=== PATIENT | male | born 1965 | race Caucasian/White ===

== ENCOUNTER → 2017-12-03 16:09 | Outpatient (CLI) | payer OTHER, SELFPAY ==
[2017-12-03 17:51] LABS: Basophil# 0.02 X10^3/uL; Basophil% 0.3 % (0-1); Eosinophil# 0.05 X10^3/uL; Eosinophils% 0.7 % (0-5); Hematocrit 42.3 % (40-54); Hemoglobin 14.1 g/dl (13.0-16.5); Lymphocyte % 31.2 % (19-41); Mean Corp Hgb Conc 33.3 g/gl (32-36); Mean Corpuscular Hgb 30.9 pg (27.0-32.0); Mean Corpuscular Volume 92.8 fL (80-94); Mean Platelet Vol. 9.3 fl (6.2-12.0); Monocyte# 0.79 X10^3/uL; Monocyte% 11.2 % (0-10); Neutrophil # 3.98 X10^3/uL (2.7-7.7); Neutrophil % 56.5 % (47-70); Platelet Count 226 K/mm3 (150-450); RBC Distribution Width CV 12.9 % (11.6-14.6); RBC Distribution Width SD 43.6 fl (35.1-43.9); Red Blood Count 4.56 M/mm3 (4.6-6.2); White Blood Count 7.1 K/mm3 (4.4-11.0)
[2017-12-03 17:54] LABS: POSITIVE COUNT NO; POSITIVE DIFFERENTIAL NO; POSITIVE MORPHOLOGY NO
[2017-12-03 18:09] LABS: Erythrocyte Sedimentation Rate 6 mm/hr (0-20)
[2017-12-03 18:17] LABS: ALB/GLOB Ratio 1.1 RATIO (0.9-2.4); AST(SGOT) 28 U/L (15-37); Alanine Aminotransfer ALT/SGPT 34 U/L (16-61); Albumin, Serum 3.9 g/dL (3.2-5.0); Alkaline Phosphatase 92 U/L (45-117); Anion Gap 7 (5-15); BUN 12 mg/dL (7-18); BUN/Creat Ratio 14.4 RATIO (10-20); CRP < 2.90 mg/L (0.0-3.0); Calcium,Total 8.6 mg/dL (8.5-10.1); Chloride 100 mmol/L (98-107); Creatinine, Serum 0.83 mg/dL (0.70-1.30); EST Glomerular Filtration Rate 103 mL/min (>60); Est Glom Filt Rate - Afr Amer 124 mL/min (>60); Globulin 3.5 g/dL (2.2-4.2); Glucose 80 mg/dL (74-106); Potassium 3.7 mmol/L (3.5-5.1); Protein, Total 7.4 g/dL (6.4-8.2); Sodium Level 133 mmol/L (136-145)
== END ==
PROVIDERS: Family Provider Family Medicine; PCP Family Medicine; Visit Provider Podiatrist
DX: L97.519 Non-pressure chronic ulcer of other part of right foot with unspecified severity (principal); M86.9 Osteomyelitis, unspecified
CPT/HCPCS: 36415; 80053; 85025; 85652; 86140; 87070; 87077; 87186; 87205

== ENCOUNTER 2018-10-07 11:39 | Inpatient (IN) | payer OTHER, SELFPAY ==
[2017-08-10 11:49] VITALS: BMI 25.7
[2018-10-07 12:09] VITALS: BP 131/89; PULSE 63; RESP 16; TEMP 36.7; O2SAT 94; BMI 23.4
[2018-10-07 12:16] VITALS: BP 131/89; PULSE 63; RESP 18; TEMP 36.7
--- NOTE | 2018-10-07 12:19 | EKG12_ITS ---
Test Reason : Blood Pressure : / mmHG Vent. Rate : 081 BPM Atrial Rate : 081 BPM P-R Int : 156 ms QRS Dur : 090 ms QT Int : 384 ms P-R-T Axes : 069 -58 027 degrees QTc Int : 446 ms Normal sinus rhythm Left axis deviation Abnormal ECG When compared with ECG of 16-APR-2013 18:59, No significant change was found Confirmed by LORRAINE LEON, TAMMIE ([id number]), magazine editor CYNDIE DUMONT ([id number]) on 10/18/2018 5:33:13 PM Referred By: Asha Noble Confirmed By:TAMMIE PETERS MD
[2018-10-07 12:55] LABS: Absolute Lymphocyte Count 1.36 X10^3/ul (0.83-4.51); Absolute Neutrophil Count 4.7 X10^3/uL (2.0-7.7); Basophil# 0.02 X10^3/uL; Basophil% 0.3 % (0-1); Hematocrit 44.4 % (40-54); Hemoglobin 15.5 g/dl (13.0-16.5); Lymphocyte # 1.36 X10^3/ul (4.0); Lymphocyte % 20.9 % (19-41); Mean Corp Hgb Conc 34.9 g/gl (32-36); Mean Corpuscular Hgb 31.9 pg (27.0-32.0); Mean Corpuscular Volume 91.4 fL (80-94); Mean Platelet Vol. 9.1 fl (6.2-12.0); Monocyte# 0.44 X10^3/uL; Monocyte% 6.8 % (0-10); Neutrophil # 4.68 X10^3/uL (2.7-7.7); Neutrophil % 71.8 % (47-70); POSITIVE COUNT NO; POSITIVE DIFFERENTIAL NO; POSITIVE MORPHOLOGY NO; Platelet Count 194 K/mm3 (150-450); RBC Distribution Width CV 12.8 % (11.6-14.6); RBC Distribution Width SD 42.5 fl (35.1-43.9); Red Blood Count 4.86 M/mm3 (4.6-6.2); White Blood Count 6.5 K/mm3 (4.4-11.0)
[2018-10-07 12:57] LABS: Amphetamine Urine VISTA NEGATIVE (<1000 ng/mL); Barbiturate Urine VISTA NEGATIVE (< 200 ng/mL); Benzodiazepine Urine VISTA NEGATIVE (< 200 ng/mL); Cocaine Urine VISTA NEGATIVE (< 300 ng/mL); Ecstacy Urine VISTA NEGATIVE (< 500 ng/mL); Methadone Urine VISTA NEGATIVE (< 300 ng/mL); PCP Urine VISTA NEGATIVE (< 25 ng/mL); THC Urine VISTA NEGATIVE (< 50 ng/mL); Vista UDS pH Range 5
[2018-10-07] MEDS: Methocarbamol 750 MG Tablet PO (13:03)
[2018-10-07] MEDS: chlordiazePOXIDE 25 MG Capsule PO ×2 (13:03→19:22)
[2018-10-07] MEDS: Dicyclomine 10 MG Capsule 20 MG PO (13:04)
[2018-10-07 13:06] LABS: AST(SGOT) 111 U/L (15-37); Alanine Aminotransfer ALT/SGPT 82 U/L (16-61); Albumin, Serum 3.9 g/dL (3.2-5.0); Alkaline Phosphatase 131 U/L (45-117); Anion Gap 11 (5-15); BUN 12 mg/dL (7-18); BUN/Creat Ratio 11.1 RATIO (10-20); Chloride 102 mmol/L (98-107); Creatinine, Serum 1.08 mg/dL (0.70-1.30); EST Glomerular Filtration Rate 76 mL/min (>60); Est Glom Filt Rate - Afr Amer 92 mL/min (>60); Estimated Creatinine Clearance 81.67 ml/min; Glucose 110 mg/dL (74-106); Potassium 3.5 mmol/L (3.5-5.1); Protein, Total 7.9 g/dL (6.4-8.2); Sodium Level 135 mmol/L (136-145)
[2018-10-07 13:08] LABS: International Normalized Ratio 0.9
[2018-10-07 17:27] VITALS: BP 103/64; PULSE 83; RESP 18; TEMP 37.1; O2SAT 96
[2018-10-07] MEDS: hydrOXYzine PAM 25 MG Capsule 50 MG PO (17:30)
--- NOTE | 2018-10-07 21:20 | HP.PCM_ITS ---
Problem List (1) Alcohol withdrawal Status: Acute (2) Abnormal LFTs Status: Acute (3) RBBB (right bundle branch block) Status: Chronic (4) Premature ventricular contraction Status: Chronic (5) Presence of stent in coronary artery Status: Chronic Comment: PTCA/DANIELLE to prox/mid LAD 01/17/15 (6) Nonrheumatic mitral (valve) prolapse Status: Chronic (7) Atherosclerotic heart disease of [place] coronary artery without angina pectoris Status: Chronic (8) Hyperlipidemia Status: Chronic Qualifiers: (9) HTN (hypertension), benign Status: Chronic (10) Alcohol dependence Status: Chronic (11) Tobacco dependence Status: Chronic History of Present Illness Date of Admission: 10/07/18 Chief Complaint: Tremors secondary to acute alcohol withdrawal, requesting inpatient admission to the [facility] program for medical stabilization for acute alcohol withdrawal The patient is a 53 year old M with a past medical history of coronary artery disease with PCI, hypertension, alcohol dependence, tobacco dependence, nonrheumatic mitral valve prolapse and chronic PVCs and PACs who presented to the [facility] office at [facility] on 10/07/2018 requesting inpatient admission to the [facility] program for medical stabilization for acute alcohol withdrawal. His last drink was at 7:30 PM on 08/05/2019. He complained of tremors and anxiety. He denied nausea/vomiting/abdominal pain/hallucinations. He has been through detox in the past and has never had DTs. He admits to drinking 12-15 beers daily and starts drinking early in the morning. He tells me he drinks because he is bored. Past Medical History Past Medical History (Chronic Problems): Chronic Problems (Last Updated 05/13/18 @ 16:25 by Gillian Sierra) Alcohol dependence (Chronic) Tobacco dependence (Chronic) RBBB (right bundle branch block) (Chronic) Premature ventricular contraction (Chronic) Presence of stent in coronary artery (Chronic ~01/17/15) PTCA/DANIELLE to prox/mid LAD 01/17/15 Nonrheumatic mitral (valve) prolapse (Chronic) Atherosclerotic heart disease of [place] coronary artery without angina pectoris (Chronic) Hyperlipidemia (Chronic) HTN (hypertension), benign (Chronic) Medical History: Medical History (Last Reviewed 10/07/18 @ 21:24 by Asha Noble DO) RBBB (right bundle branch block) (Chronic) I45.10 Premature ventricular contraction (Chronic) I49.3 Nonrheumatic mitral (valve) prolapse (Chronic) I34.1 Atherosclerotic heart disease of [place] coronary artery without angina pectoris (Chronic) I25.10 Hyperlipidemia (Chronic) E78.5 HTN (hypertension), benign (Chronic) I10 ANNIE (obstructive sleep apnea) G47.33 Allergies Penicillins Allergy (Verified 01/17/15 07:59) Unknown Home Medications: Ambulatory Orders Medication Instructions Recorded Aspirin [Aspirin, Baby] 81 mg PO DAILY@0800 01/16/15 atorvastatin 80 mg tablet 80 mg PO QDAY #90 tab 06/23/18 Citalopram Hydrobromide 40 mg PO DAILY 10/07/18 [Citalopram HBr] Clopidogrel Bisulfate [Clopidogrel] 75 mg PO DAILY 10/07/18 Lisinopril/Hydrochlorothiazide 1 tab PO DAILY 10/07/18 [Zestoretic 20-25 mg Tablet] Montelukast Sodium 10 mg PO QHS 10/07/18 Surgical History: Surgical History (Last Updated 10/07/18 @ 21:25 by Asha Noble DO) Presence of stent in coronary artery (Chronic) Onset Date: ~01/17/15 Z95.5 PTCA/DANIELLE to prox/mid LAD 01/17/15 H/O bilateral inguinal hernia repair Z98.890, Z87.19 Postsurgical percutaneous transluminal coronary angioplasty (PTCA) status Onset Date: ~01/17/15 Z98.61 PTCA/DANIELLE to prox/mid LAD 01/17/15 History of cholecystectomy Z90.49 History of hernia repair Z98.890, Z87.19 History of tonsillectomy Z90.89 Psychiatric History: No pertinent psych hx Lives: Alone Smoking Status: Current every day smoker Tobacco Use: Cigarettes Alcohol: Heavy Drugs: None - *Family History Maternal Family History: Family History (Last Reviewed 10/07/18 @ 21:26 by Asha Noble DO) Father CAD (coronary artery disease) Myocardial infarction Mother Hypertension Grandfather CVA (cerebral vascular accident) Heart disease Myocardial infarction, Onset Age: 48 Review of Systems Constitutional: Denies: Chills, Fever, Weight Change Eyes: Denies: Blurred vision HEENT: Denies: Head Aches, Sinus Congestion, Sinus Drainage, Sore Throat Cardiovascular: Denies: Chest Pain, Light Headedness, Palpitations Respiratory: Denies: Cough, Shortness of Breath, Shortness of breath at rest, Sputum production Gastrointestinal: Denies: Abdominal Pain, Nausea, Vomiting Genitourinary: Denies: Dysuria Musculoskeletal: Reports: Back Pain. Denies: Joint Pain, Joint Tenderness Skin: Denies: Jaundice, Lesions, Rash, Wounds Neurological: Reports: Tremor. Denies: Balance problems, Difficulty swallowing, Focal weakness, Numbness, Tingling, Seizures Psychiatric: Denies: Anxiety, Depression, Homicidal Ideations, Suicidal Ideations Hematologic/ Lymphatic: Denies: Easy Bruising, Easy Bleeding, Hx of blood clot VTE Information - Inpt Only VTE Present on Admission: No VTE Mechan Device Prophylaxis: None VTE Pharm Prophylaxis ordered?: No Reason prophylaxis not ordered:: Treatment Not Indicated - risk is minimal and he is ambulatory Patient Problems: Active and Suspected Problems (Last Updated 05/13/18 @ 16:25 by Gillian Sierra) Alcohol withdrawal (Acute) Abnormal LFTs (Acute) - Physical Exam General: Alert, Oriented x3, Cooperative, Well developed, Well nourished HEENT: Atraumatic, PERRLA, EOMI, Normocephalic Neck: Supple, No JVD, Negative Carotid Bruits, No Nodes, Trachea Midline Lungs: Clear to auscultation, Normal air movement, No rhonchi, No wheeze, No rales Cardiovascular: Regular rate, Regular Rhythm, Normal S1, Normal S2, No murmurs, No Ectopic Activity, No rub noted, No Gallop Abdomen: Bowel Sounds Present, Soft, Non Tender, Non-Distended, No Hepato- splenomegaly Extremities: No clubbing, No cyanosis, No edema, Capillary Refill Less than 3 Seconds, No Calf Tenderness, Peripheral Pulses Normal Skin: No rashes, No breakdown Musculoskeletal: No Tenderness to Palpation of Joints or Extremities, No Muscle Wasting Neurological: Cranial nerves II-XII grossly intact, Neuro grossly intact Psych/Mental Status: Normal Affect, Appropriate Vital Signs Temp Pulse Resp BP Pulse Ox 98.7 F 83 18 103/64 96 10/07/18 17:27 10/07/18 17:27 10/07/18 17:27 10/07/18 17:27 10/07/18 17:27 Oxygen Delivery Method Room Air Weight: 163 lb 6.4 oz Body Mass Index (BMI) 23.4 Intake and Output for Last 24 Hours 10/05/18 10/06/18 10/07/18 23:59 23:59 23:59 Intake Total 500 / 500 Balance 500 / 500 Laboratory Tests Past 24 Hrs 10/07/18 10/07/18 10/07/18 12:30 12:40 12:40 WBC 6.5 RBC 4.86 Hgb 15.5 Hct 44.4 MCV 91.4 MCH 31.9 MCHC 34.9 RDW 12.8 RDW Differential 42.5 Plt Count 194 MPV 9.1 Immature Gran % (Auto) 0.200 Neut % (Auto) 71.8 H Lymph % (Auto) 20.9 [place] % (Auto) 6.8 Eos % (Auto) 0.0 Baso % (Auto) 0.3 Absolute Neuts (auto) 4.7 Absolute Lymphs (auto) 1.36 Total Counted Not Reportable PT 12.0 INR 0.9 Sodium Potassium Chloride Carbon Dioxide Anion Gap BUN Creatinine Estim Creat Clear Calc Est GFR (MDRD) Af Amer Est GFR (MDRD) Non-Af BUN/Creatinine Ratio Glucose Calcium Total Bilirubin AST ALT Alkaline Phosphatase Total Protein Albumin Globulin Albumin/Globulin Ratio Urine Opiates Screen NEGATIVE Urine Methadone Screen NEGATIVE Ur Barbiturates Screen NEGATIVE Ur Phencyclidine Scrn NEGATIVE Ur Amphetamines Screen NEGATIVE U Methamphetamin-MDMA NEGATIVE U Benzodiazepines Scrn NEGATIVE Urine Cocaine Screen NEGATIVE U Cannabinoids Screen NEGATIVE Ur Drug Screen Comment Ethyl Alcohol 10/07/18 10/07/18 12:40 12:40 WBC RBC Hgb Hct MCV MCH MCHC RDW RDW Differential Plt Count MPV Immature Gran % (Auto) Neut % (Auto) Lymph % (Auto) [place] % (Auto) Eos % (Auto) Baso % (Auto) Absolute Neuts (auto) Absolute Lymphs (auto) Total Counted PT INR Sodium 135 L Potassium 3.5 Chloride 102 Carbon Dioxide 22.0 Anion Gap 11 BUN 12 Creatinine 1.08 Estim Creat Clear Calc 81.67 Est GFR (MDRD) Af Amer 92 Est GFR (MDRD) Non-Af 76 BUN/Creatinine Ratio 11.1 Glucose 110 H Calcium 9.0 Total Bilirubin 2.00 H AST 111 H ALT 82 H Alkaline Phosphatase 131 H Total Protein 7.9 Albumin 3.9 Globulin 4.0 Albumin/Globulin Ratio 1.0 Urine Opiates Screen Urine Methadone Screen Ur Barbiturates Screen Ur Phencyclidine Scrn Ur Amphetamines Screen U Methamphetamin-MDMA U Benzodiazepines Scrn Urine Cocaine Screen U Cannabinoids Screen Ur Drug Screen Comment Ethyl Alcohol 11.0 Assessment/Plan All Active Problems (Last Updated 05/13/18 @ 16:25 by Gillian Sierra) Alcohol withdrawal (Acute) Abnormal LFTs (Acute) Impressions 1. Acute alcohol withdrawal 2. Alcohol dependence 3. Tobacco dependence 4. Abnormal LFTs 5. Hypertension 6. Hyperlipidemia 7. CAD with history of PCI 8. Right bundle branch block 9. Chronic insomnia CBC, CMP, urine drug screen, alcohol level EKG initiate general admission orders for [facility] patients Intiate order set for alcohol withdrawal [facility] rep to follow pt in the hospital and develop a plan for treatment at OR smoking cessation counselling CLonidine for HTN if sys>150 or diastolic > 85 Trazodone 100 mg nightly Code Visit Inpatient E&M: 94030 Init Hosp L2
[2018-10-07 22:01] VITALS: BP 119/74; PULSE 73; RESP 16; TEMP 36.8
[2018-10-07] MEDS: Atorvastatin Calcium 80 MG Tablet PO (22:06)
[2018-10-07] MEDS: traZODone 100 MG Tablet PO (22:12)
[2018-10-08] MEDS: chlordiazePOXIDE 25 MG Capsule PO ×4 (00:56→22:59)
[2018-10-08 01:00] VITALS: BP 98/66; PULSE 67; RESP 16; TEMP 36.3
[2018-10-08 01:01] VITALS: O2SAT 97
[2018-10-08] MEDS: Methocarbamol 750 MG Tablet PO (03:24)
[2018-10-08 05:14] VITALS: BP 106/73; PULSE 60; RESP 16; TEMP 36.3
[2018-10-08] MEDS: Multivitamins,Therapeutic Tablet 1 TABLET PO (07:46)
[2018-10-08] MEDS: Folic Acid 1 MG Tablet PO (07:46)
[2018-10-08] MEDS: Aspirin 81 MG TAB.CHEW PO (07:46)
[2018-10-08] MEDS: Thiamine Hydrochloride 100 MG Tablet PO (07:46)
--- NOTE | 2018-10-08 08:05 | US_ITS ---
STUDY: ABDOMINAL ULTRASOUND - RIGHT UPPER QUADRANT REASON FOR VISIT: Male, 53 years old. Abnormal labs TECHNIQUE: Ultrasound evaluation of the right upper quadrant was performed with real-time and static tony-scale imaging. TECHNICAL QUALITY: Adequate. COMPARISON: None. FINDINGS: Liver: The liver measures 18.7 cm. There is fatty echogenicity of the liver. The bile ducts are within normal limits. There is hepatic color flow. The direction of portal flow is hepatopetal. There is no demonstrated mass lesion. Gallbladder: . Status post cholecystectomy. Common Bile Duct (C.B.D.): The common bile duct measures 8 mm. Pancreas: Limited visualization of the pancreas. Right Kidney: Normal size of the right kidney. The right kidney measures 11.5 x 4.8 x 4.1 cm. Normal renal cortex. The right cortex measures 1.2 cm. There is no demonstrated renal mass or cyst. There is no right hydronephrosis. US/Liver IMPRESSION: Enlarged fatty liver. Status post cholecystectomy. Borderline size common bile duct. Electronically Signed: Carlos Alberto Virk DO at 18:59 EST Tel [phone], Service support ,
--- NOTE | 2018-10-08 08:06 | PN_ITS ---
Patient Problems: Active and Suspected Problems (Last Reviewed 10/07/18 @ 21:24 by Asha Noble DO) Alcohol withdrawal (Acute) Abnormal LFTs (Acute) Subjective: All events of the past 24 hours of been reviewed. Recent was admitted on 10/07/2018 for medical stabilization for withdrawal from alcohol. He is on a Librium taper. He is afebrile and vital signs are stable. He is 97% saturated on room air. He has minimal tremors. slept well with the Trazodone. He is planning on OP tx with 180. Will be leaving to go to [place] in the next few weeks to collect Maple syrup and fish. Plans on attending AA meetings while out of state. Objective: PHYSICAL EXAM: GENERAL: alert, oriented X 3, Cooperative, NAD ORAL: moist mucosa, no mucosal lesions NECK: No JVD, supple, trachea midline LUNGS: CTA, symmetric chest expansion HEART: RRR, Normal S1 and S2, no rub, no gallop ABDOMEN: soft, NT, ND, BS present, no guarding with palpation EXTREMITIES: no edema, no cyanosis, no calf tenderness SKIN: No rashes, no breakdown NEUROLOGIC: no focal neurologic deficits, essentially no tremor PSYCH: appropriate, normal affect, pleasant, alert, making good eye contact, cooperative and open - Physical Exam Vital Signs Temp Pulse Resp BP Pulse Ox 97.3 F L 60 16 106/73 97 10/08/18 05:14 10/08/18 05:14 10/08/18 05:14 10/08/18 05:14 10/08/18 01:01 Oxygen Delivery Method Room Air Weight: 163 lb 6.4 oz Body Mass Index (BMI) 23.4 Intake and Output for Last 24 Hours 10/06/18 10/07/18 10/08/18 23:59 23:59 23:59 Intake Total 500 / 500 700 / 700 Output Total 600 / 600 Balance 500 / 500 100 / 100 Laboratory Tests Past 24 Hrs 10/07/18 10/07/18 10/07/18 12:30 12:40 12:40 WBC 6.5 RBC 4.86 Hgb 15.5 Hct 44.4 MCV 91.4 MCH 31.9 MCHC 34.9 RDW 12.8 RDW Differential 42.5 Plt Count 194 MPV 9.1 Immature Gran % (Auto) 0.200 Neut % (Auto) 71.8 H Lymph % (Auto) 20.9 [place] % (Auto) 6.8 Eos % (Auto) 0.0 Baso % (Auto) 0.3 Absolute Neuts (auto) 4.7 Absolute Lymphs (auto) 1.36 Total Counted Not Reportable PT 12.0 INR 0.9 Sodium Potassium Chloride Carbon Dioxide Anion Gap BUN Creatinine Estim Creat Clear Calc Est GFR (MDRD) Af Amer Est GFR (MDRD) Non-Af BUN/Creatinine Ratio Glucose Calcium Total Bilirubin AST ALT Alkaline Phosphatase Total Protein Albumin Globulin Albumin/Globulin Ratio Urine Opiates Screen NEGATIVE Urine Methadone Screen NEGATIVE Ur Barbiturates Screen NEGATIVE Ur Phencyclidine Scrn NEGATIVE Ur Amphetamines Screen NEGATIVE U Methamphetamin-MDMA NEGATIVE U Benzodiazepines Scrn NEGATIVE Urine Cocaine Screen NEGATIVE U Cannabinoids Screen NEGATIVE Ur Drug Screen Comment Ethyl Alcohol 10/07/18 10/07/18 12:40 12:40 WBC RBC Hgb Hct MCV MCH MCHC RDW RDW Differential Plt Count MPV Immature Gran % (Auto) Neut % (Auto) Lymph % (Auto) [place] % (Auto) Eos % (Auto) Baso % (Auto) Absolute Neuts (auto) Absolute Lymphs (auto) Total Counted PT INR Sodium 135 L Potassium 3.5 Chloride 102 Carbon Dioxide 22.0 Anion Gap 11 BUN 12 Creatinine 1.08 Estim Creat Clear Calc 81.67 Est GFR (MDRD) Af Amer 92 Est GFR (MDRD) Non-Af 76 BUN/Creatinine Ratio 11.1 Glucose 110 H Calcium 9.0 Total Bilirubin 2.00 H AST 111 H ALT 82 H Alkaline Phosphatase 131 H Total Protein 7.9 Albumin 3.9 Globulin 4.0 Albumin/Globulin Ratio 1.0 Urine Opiates Screen Urine Methadone Screen Ur Barbiturates Screen Ur Phencyclidine Scrn Ur Amphetamines Screen U Methamphetamin-MDMA U Benzodiazepines Scrn Urine Cocaine Screen U Cannabinoids Screen Ur Drug Screen Comment Ethyl Alcohol 11.0 Medical Necessity - Tobacco Use Smoking Status: Current every day smoker Tobacco Use: Cigarettes Assessment/Plan All Active Problems (Last Reviewed 10/07/18 @ 21:24 by Asha Noble DO) Alcohol withdrawal (Acute) Abnormal LFTs (Acute) Impressions 1. Acute alcohol withdrawal 2. Alcohol dependence 3. Tobacco dependence 4. Abnormal LFTs 5. Hypertension 6. Hyperlipidemia 7. CAD with history of PCI 8. Right bundle branch block 9. Chronic insomnia Recheck CMP in the a.m. Liver ultrasound Continue chlordiazepoxide taper Code Visit Inpatient E&M: 27837 Subs Hosp L2
--- NOTE | 2018-10-08 09:50 | NEWVISION ---
Patient has scheduled assessment with [facility] on 10/14/18 at 12:00pm. Patient looks to continue with them for group and individual counseling.
[2018-10-08 10:57] VITALS: BP 103/57; PULSE 64; RESP 18; TEMP 36.6; O2SAT 98
[2018-10-08 14:22] VITALS: BP 115/72; PULSE 64; RESP 16; RESP 18; TEMP 36.4; O2SAT 98
[2018-10-08] MEDS: Atorvastatin Calcium 80 MG Tablet PO (22:05)
[2018-10-08] MEDS: Montelukast 10 MG Tablet PO (22:05)
[2018-10-08] MEDS: traZODone 100 MG Tablet PO (22:05)
[2018-10-08 22:08] VITALS: BP 120/64; PULSE 73; RESP 16; TEMP 36.6
[2018-10-09 06:08] LABS: HEPATITIS B SURFACE AG Negative (Negative); Hepatitis A AB, Total Negative (Negative); Hepatitis A IgM Antibody Negative (Negative); Hepatitis B Core AB IgM Negative (Negative); Hepatitis B Core Ab Total Negative (Negative); Hepatitis C Ab <0.1 s/co ratio (0.0-0.9)
[2018-10-09 06:59] VITALS: O2SAT 97
[2018-10-09 07:01] VITALS: BP 107/68; PULSE 62; RESP 16; TEMP 36.2
[2018-10-09] MEDS: chlordiazePOXIDE 25 MG Capsule PO ×2 (07:02→15:07)
[2018-10-09 07:24] LABS: ALB/GLOB Ratio 0.8 RATIO (0.9-2.4); AST(SGOT) 61 U/L (15-37); Alanine Aminotransfer ALT/SGPT 57 U/L (16-61); Albumin, Serum 2.7 g/dL (3.2-5.0); Alkaline Phosphatase 96 U/L (45-117); Anion Gap 8 (5-15); BUN 12 mg/dL (7-18); BUN/Creat Ratio 13.9 RATIO (10-20); Calcium,Total 8.3 mg/dL (8.5-10.1); Chloride 108 mmol/L (98-107); Creatinine, Serum 0.86 mg/dL (0.70-1.30); EST Glomerular Filtration Rate 98 mL/min (>60); Est Glom Filt Rate - Afr Amer 119 mL/min (>60); Estimated Creatinine Clearance 102.57 ml/min; Globulin 3.2 g/dL (2.2-4.2); Glucose 106 mg/dL (74-106); Potassium 3.8 mmol/L (3.5-5.1); Protein, Total 5.9 g/dL (6.4-8.2); Sodium Level 140 mmol/L (136-145)
--- NOTE | 2018-10-09 08:10 | PCM.PROGNOTE ---
Patient Problems: Active and Suspected Problems (Last Reviewed 10/07/18 @ 21:24 by Asha Noble DO) Alcohol withdrawal (Acute) Abnormal LFTs (Acute) Subjective: Afebrile, vital signs stable, 97% on room air. All lab was personally reviewed. Electrolytes are within normal limits and the sodium is now 140, up from 135. Creatinine is 0.86, down from 1.08 at admission. Total bilirubin has decreased from 2-1.0. The AST was initially 111 and is now 61 with a normal ALT. Alkaline phosphatase is now also normal. Ultrasound of the liver shows an enlarged fatty liver. Objective: PHYSICAL EXAM: GENERAL: alert, oriented X 3, Cooperative, NAD ORAL: moist mucosa, no mucosal lesions NECK: No JVD, supple, trachea midline LUNGS: CTA, symmetric chest expansion HEART: RRR, Normal S1 and S2, no rub, no gallop ABDOMEN: soft, NT, ND, BS present, no guarding with palpation EXTREMITIES: no edema, no cyanosis, no calf tenderness SKIN: No rashes, no breakdown NEUROLOGIC: no focal neurologic deficits, no tremor PSYCH: appropriate, normal affect, pleasant, alert, making good eye contact, cooperative and open - Physical Exam Vital Signs Temp Pulse Resp BP Pulse Ox 97.2 F L 62 16 107/68 97 10/09/18 07:01 10/09/18 07:01 10/09/18 07:01 10/09/18 07:01 10/09/18 06:59 Oxygen Delivery Method Room Air Weight: 163 lb 6.4 oz Body Mass Index (BMI) 23.4 Intake and Output for Last 24 Hours 10/07/18 10/08/18 10/09/18 23:59 23:59 23:59 Intake Total 500 / 500 1100 / 1100 250 / 250 Output Total 600 / 600 Balance 500 / 500 500 / 500 250 / 250 Laboratory Tests Past 24 Hrs 10/07/18 10/09/18 12:40 06:50 Sodium 140 Potassium 3.8 Chloride 108 H Carbon Dioxide 24.0 Anion Gap 8 BUN 12 Creatinine 0.86 Estim Creat Clear Calc 102.57 Est GFR (MDRD) Af Amer 119 Est GFR (MDRD) Non-Af 98 BUN/Creatinine Ratio 13.9 Glucose 106 Calcium 8.3 L Total Bilirubin 1.00 AST 61 H ALT 57 Alkaline Phosphatase 96 Total Protein 5.9 L Albumin 2.7 L Globulin 3.2 Albumin/Globulin Ratio 0.8 L Hepatitis A IgM Ab Pending Hepatitis A Ab Total Pending Hep Bs Antigen Pending Hep B Core Total Ab Pending Hep B Core IgM Ab Pending Medical Necessity - Tobacco Use Smoking Status: Current every day smoker Tobacco Use: Cigarettes Assessment/Plan All Active Problems (Last Reviewed 10/07/18 @ 21:24 by Asha Noble DO) Alcohol withdrawal (Acute) Abnormal LFTs (Acute) Impressions 1. Acute alcohol withdrawal 2. Alcohol dependence 3. Tobacco dependence 4. Abnormal LFTs 5. Hypertension 6. Hyperlipidemia 7. CAD with history of PCI 8. Right bundle branch block 9. Chronic insomnia 10. enlarged fatty liver DC tomorrow - doing very well
[2018-10-09] MEDS: Lisinopril 20 MG Tablet PO (08:37)
[2018-10-09] MEDS: Clopidogrel Bisulfate 75 MG Tablet PO (08:38)
[2018-10-09] MEDS: hydroCHLOROthiazide 25 MG Tablet PO (08:38)
[2018-10-09] MEDS: Thiamine Hydrochloride 100 MG Tablet PO (08:38)
[2018-10-09] MEDS: Citalopram 40 MG TABLET PO (08:38)
[2018-10-09] MEDS: Multivitamins,Therapeutic Tablet 1 TABLET PO (08:38)
[2018-10-09] MEDS: Aspirin 81 MG TAB.CHEW PO (08:38)
[2018-10-09] MEDS: Folic Acid 1 MG Tablet PO (08:38)
[2018-10-09 15:00] VITALS: BP 118/65; PULSE 81; RESP 16; TEMP 36.8
[2018-10-09 20:00] VITALS: BP 138/77; PULSE 73; RESP 18; TEMP 36.6; O2SAT 99
[2018-10-09] MEDS: traZODone 100 MG Tablet PO (21:40)
[2018-10-09] MEDS: Montelukast 10 MG Tablet PO (21:40)
[2018-10-09] MEDS: Atorvastatin Calcium 80 MG Tablet PO (21:41)
[2018-10-09 22:00] VITALS: BP 138/77; PULSE 73; RESP 16; TEMP 36.6
[2018-10-10 02:00] VITALS: BP 93/65; PULSE 81; RESP 16; RESP 18; TEMP 36.4; O2SAT 98
[2018-10-10] MEDS: chlordiazePOXIDE 25 MG Capsule PO (03:10)
[2018-10-10 06:00] VITALS: BP 93/65; PULSE 81; RESP 16; TEMP 36.4
[2018-10-10] MEDS: Multivitamins,Therapeutic Tablet 1 TABLET PO (09:28)
[2018-10-10] MEDS: Folic Acid 1 MG Tablet PO (09:28)
[2018-10-10] MEDS: Clopidogrel Bisulfate 75 MG Tablet PO (09:28)
[2018-10-10] MEDS: Thiamine Hydrochloride 100 MG Tablet PO (09:28)
[2018-10-10] MEDS: hydroCHLOROthiazide 25 MG Tablet PO (09:28)
[2018-10-10] MEDS: Aspirin 81 MG TAB.CHEW PO (09:28)
[2018-10-10] MEDS: Lisinopril 20 MG Tablet PO (09:28)
[2018-10-10] MEDS: Citalopram 40 MG TABLET PO (09:28)
[2018-10-10 09:37] VITALS: BP 128/75; PULSE 70; RESP 14; TEMP 36.3
--- NOTE | 2018-10-10 10:54 | DCINST_ITS ---
- Discharge Diagnoses Current Active Problems: Current Active and Chronic Problems (Last Reviewed 10/07/18 @ 21:24 by Asha Noble DO) Alcohol withdrawal (Acute) Abnormal LFTs (Acute) Alcohol dependence (Chronic) Tobacco dependence (Chronic) You will use the following diet at home:: Cardiac - low fat and low salt Your food should be the consistency of: Regular Your liquids should be the consistency of: Regular/Thin Discharge Activity: Return to Normal Activity Call your doctor if you observe: Fever of 101 or Higher, Shortness of breath, Dizziness, Fainting spells, Swelling in the ankles, Chest pain Additional Instructions: 1. The liver tests improved in the hospital since you were off alcohol. The ultra sound of the liver shows that you have an enlarged liver with fatty infiltration.......this is a prelude to developing cirrhosis if you continue to drink. Fatty infiltration will improve if you stay off alcohol. 2. I have given you a prescription for Trazodone to help you sleep at night .....it is not addictive. 3. I have also given you a prescription for a nicotine patch......you have a hx of coronary artery disease and smoking is one of the biggest risk factors....it would be in your best interest to quit. 4. Alcohol is not only toxic to the liver....it can cause the heart to dilate and fail and it also affects the bone marrow. The platelets in your blood are low and this is due to alcohol toxicity.....this should improve if you stay off alcohol. The platelets help clot the blood if you are cut or injured. Allergies/Adverse Reactions: Allergies Penicillins Allergy (Verified 01/17/15 07:59) Unknown Medications to take at Discharge Aspirin [Aspirin, Baby] 81 mg PO DAILY@0800 01/16/15 atorvastatin 80 mg tablet 80 mg PO QDAY #90 tab 06/23/18 Citalopram Hydrobromide [Citalopram HBr] 40 mg PO DAILY 10/07/18 Clopidogrel Bisulfate [Clopidogrel] 75 mg PO DAILY 10/07/18 Lisinopril/Hydrochlorothiazide [Zestoretic 20-25 mg Tablet] 1 tab PO DAILY 10/07/18 Montelukast Sodium 10 mg PO QHS 10/07/18 Nicotine [Nicoderm Cq] 21 mg TRANSDERM. DAILY #28 patch 10/10/18 traZODone [Desyrel] 100 mg PO QHS #30 tablet 10/10/18 The following prescriptions were given: Nicotine [Nicoderm Cq] 21 mg TRANSDERM. DAILY #28 patch traZODone [Desyrel] 100 mg PO QHS #30 tablet Primary Care Physician: Arya Barba MD [Primary Care Provider] - Please follow up with your Primary Care Physician in: 1-2 weeks Test Results: Test results from this visit will be discussed in further detail at your follow- up appointment, if applicable. Proposed Discharge Date: 10/10/18
--- NOTE | 2018-10-10 10:59 | PCM.DC.SUM ---
Discharge Date and Diagnosis - Problem List Patient Problems: Active and Suspected Problems (Last Reviewed 10/07/18 @ 21:24 by Asha Noble DO) Alcohol withdrawal (Acute) Abnormal LFTs (Acute) Date of Admission: 10/07/18 Date of Discharge: 10/10/18 - Primary Discharge Diagnosis Active and Suspected Problems (Last Reviewed 10/07/18 @ 21:24 by Asha Noble DO) Alcohol withdrawal (Acute) Abnormal LFTs (Acute) Thrombocytopenia - Secondary Discharge Diagnosis Chronic Problems (Last Reviewed 10/07/18 @ 21:24 by Asha Noble DO) Fatty infiltration of liver (Chronic) Alcohol dependence (Chronic) Tobacco dependence (Chronic) RBBB (right bundle branch block) (Chronic) Premature ventricular contraction (Chronic) Presence of stent in coronary artery (Chronic ~01/17/15) PTCA/DANIELLE to prox/mid LAD 01/17/15 Nonrheumatic mitral (valve) prolapse (Chronic) Atherosclerotic heart disease of platinum coronary artery without angina pectoris (Chronic) Hyperlipidemia (Chronic) HTN (hypertension) Hospital Course and Treatment Imaging Results: Clinical Impression(s) from Imaging Studies Liver Ultrasound 10/08/18 08:05 IMPRESSION: Enlarged fatty liver. Status post cholecystectomy. Borderline size common bile duct. Electronically Signed: Carlos Alberto Virk DO at 18:59 EST Tel [phone], Service support , none Operations: None Procedures: None Summary of Care Provided: The patient is a 53 year old M with a past medical history of coronary artery disease with PCI, hypertension, alcohol dependence, tobacco dependence,insomnia, nonrheumatic mitral valve prolapse and chronic PVCs and PACs who presented to the [facility] office at [facility] on 10/07/2018 requesting inpatient admission to the [facility] program for medical stabilization for acute alcohol withdrawal. His last drink was at 7:30 PM on 08/05/2019. He complained of tremors and anxiety. He denied nausea/vomiting/abdominal pain/hallucinations. He has been through detox in the past and has never had DTs. He admitted to drinking 12-15 beers daily and starts drinking early in the morning. He tells me he drinks because he is bored and because he is unable to fall asleep at night. He was admitted to the hospital and the [facility] protocol for ETOH withdrawal was initiated. CBC was unremarkable at admission. The CMP showed an elevated alkaline phosphatase at 131, elevated AST at 111, elevated ALT at 82 and a total bilirubin of 2.0. PT/INR was within normal limits. Sodium was low at 135. Alcohol level was 11 and the urine drug screen was negative. Hepatitis panel is still pending. Ultrasound of the liver showed an enlarged liver with fatty infiltration. Repeat LFTs on 10/09/2018 showed the bilirubin to be normal at 1 and the AST to be 61, down from 111 at admission, and the ALT was 57, down from 82 at admission. The 72 hours were uneventful and he was discharged on 10/10. He will follow up at 180 on Thursday. Smoking cessation counselling was given in the hospital and he was given a prescription for a nicotine patch at [place]. He was also given a prescription for Trazodone 100 mg for chronic insomnia. PHYSICAL EXAM: GENERAL: alert, oriented X 3, Cooperative, NAD ORAL: moist mucosa, no mucosal lesions NECK: No JVD, supple, trachea midline LUNGS: CTA, symmetric chest expansion HEART: RRR, Normal S1 and S2, no rub, no gallop ABDOMEN: soft, NT, ND, BS present, no guarding with palpation EXTREMITIES: no edema, no cyanosis, no calf tenderness SKIN: No rashes, no breakdown NEUROLOGIC: no focal neurologic deficits PSYCH: appropriate, normal affect, pleasant This note was generated with [employer] dictation software. It may contain incorrect words, spelling, and punctuation that were not noted in checking the note before signing. Patient Problems: Active and Suspected Problems (Last Reviewed 10/07/18 @ 21:24 by Asha Noble DO) Alcohol withdrawal (Acute) Abnormal LFTs (Acute) - Physical Exam Vital Signs Temp Pulse Resp BP Pulse Ox 97.4 F L 70 14 128/75 H 98 10/10/18 09:37 10/10/18 09:37 10/10/18 09:37 10/10/18 09:37 10/10/18 02:00 Oxygen Delivery Method Room Air Weight: 163 lb 6.4 oz Body Mass Index (BMI) 23.4 Intake and Output for Last 24 Hours 10/08/18 10/09/18 10/10/18 23:59 23:59 23:59 Intake Total 1100 / 1100 450 / 450 Output Total 600 / 600 Balance 500 / 500 450 / 450 Discharge Activity: Return to Normal Activity Call your doctor if you observe: Fever of 101 or Higher, Shortness of breath, Dizziness, Fainting spells, Swelling in the ankles, Chest pain Home Medications: Medications to take at Discharge Aspirin [Aspirin, Baby] 81 mg PO DAILY@0800 01/16/15 atorvastatin 80 mg tablet 80 mg PO QDAY #90 tab 06/23/18 Citalopram Hydrobromide [Citalopram HBr] 40 mg PO DAILY 10/07/18 Clopidogrel Bisulfate [Clopidogrel] 75 mg PO DAILY 10/07/18 Lisinopril/Hydrochlorothiazide [Zestoretic 20-25 mg Tablet] 1 tab PO DAILY 10/07/18 Montelukast Sodium 10 mg PO QHS 10/07/18 Nicotine [Nicoderm Cq] 21 mg TRANSDERM. DAILY #28 patch 10/10/18 traZODone [Desyrel] 100 mg PO QHS #30 tablet 10/10/18 Following Prescrptions Were Given to Patient: Nicotine [Nicoderm Cq] 21 mg TRANSDERM. DAILY #28 patch traZODone [Desyrel] 100 mg PO QHS #30 tablet Primary Care Physician: Arya Barba MD [Primary Care Provider] - Please follow up with your Primary Care Physician in: 1-2 weeks Disposition: Home Minutes spent on discharge:: 30 Patient Condition:: Good Medical Necessity - Tobacco Use Smoking Status: Current every day smoker Tobacco Use: Cigarettes Meaningful Use Info Meaningful Use Diagnoses (Choose all that apply): None applicable Code Visit Inpatient E&M: 48142 Disch Hosp
--- NOTE | 2018-10-10 11:07 | DS.PCM_ITS ---
Discharge Date and Diagnosis - Problem List Patient Problems: Active and Suspected Problems (Last Reviewed 10/07/18 @ 21:24 by Asha Noble DO) Alcohol withdrawal (Acute) Abnormal LFTs (Acute) Date of Admission: 10/07/18 Date of Discharge: 10/10/18 - Primary Discharge Diagnosis Active and Suspected Problems (Last Reviewed 10/07/18 @ 21:24 by Asha Noble DO) Alcohol withdrawal (Acute) Abnormal LFTs (Acute) Thrombocytopenia - Secondary Discharge Diagnosis Chronic Problems (Last Reviewed 10/07/18 @ 21:24 by Asha Noble DO) Fatty infiltration of liver (Chronic) Alcohol dependence (Chronic) Tobacco dependence (Chronic) RBBB (right bundle branch block) (Chronic) Premature ventricular contraction (Chronic) Presence of stent in coronary artery (Chronic ~01/17/15) PTCA/DANIELLE to prox/mid LAD 01/17/15 Nonrheumatic mitral (valve) prolapse (Chronic) Atherosclerotic heart disease of samish coronary artery without angina pectoris (Chronic) Hyperlipidemia (Chronic) HTN (hypertension) Hospital Course and Treatment Imaging Results: Clinical Impression(s) from Imaging Studies Liver Ultrasound 10/08/18 08:05 IMPRESSION: Enlarged fatty liver. Status post cholecystectomy. Borderline size common bile duct. Electronically Signed: Carlos Alberto Virk DO at 18:59 EST Tel [phone], Service support , none Operations: None Procedures: None Summary of Care Provided: The patient is a 53 year old M with a past medical history of coronary artery disease with PCI, hypertension, alcohol dependence, tobacco dependence,insomnia, nonrheumatic mitral valve prolapse and chronic PVCs and PACs who presented to the [facility] office at [facility] on 10/07/2018 requesting inpatient admission to the [facility] program for medical stabilization for acute alcohol withdrawal. His last drink was at 7:30 PM on 08/05/2019. He complained of tremors and anxiety. He denied nausea/vomiting/abdominal pain/hallucinations. He has been through detox in the past and has never had DTs. He admitted to drinking 12-15 beers daily and starts drinking early in the morning. He tells me he drinks because he is bored and because he is unable to fall asleep at night. He was admitted to the hospital and the [facility] protocol for ETOH withdrawal was initiated. CBC was unremarkable at admission. The CMP showed an elevated alkaline phosphatase at 131, elevated AST at 111, elevated ALT at 82 and a total bilirubin of 2.0. PT/INR was within normal limits. Sodium was low at 135. Alcohol level was 11 and the urine drug screen was negative. Hepatitis panel is still pending. Ultrasound of the liver showed an enlarged liver with fatty infiltration. Repeat LFTs on 10/09/2018 showed the bilirubin to be normal at 1 and the AST to be 61, down from 111 at admission, and the ALT was 57, down from 82 at admission. The 72 hours were uneventful and he was discharged on 10/10. He will follow up at 180 on Thursday. Smoking cessation counselling was given in the hospital and he was given a prescription for a nicotine patch at [place]. He was also given a prescription for Trazodone 100 mg for chronic insomnia. PHYSICAL EXAM: GENERAL: alert, oriented X 3, Cooperative, NAD ORAL: moist mucosa, no mucosal lesions NECK: No JVD, supple, trachea midline LUNGS: CTA, symmetric chest expansion HEART: RRR, Normal S1 and S2, no rub, no gallop ABDOMEN: soft, NT, ND, BS present, no guarding with palpation EXTREMITIES: no edema, no cyanosis, no calf tenderness SKIN: No rashes, no breakdown NEUROLOGIC: no focal neurologic deficits PSYCH: appropriate, normal affect, pleasant This note was generated with [employer] dictation software. It may contain incorrect words, spelling, and punctuation that were not noted in checking the note before signing. Patient Problems: Active and Suspected Problems (Last Reviewed 10/07/18 @ 21:24 by Asha Noble DO) Alcohol withdrawal (Acute) Abnormal LFTs (Acute) - Physical Exam Vital Signs Temp Pulse Resp BP Pulse Ox 97.4 F L 70 14 128/75 H 98 10/10/18 09:37 10/10/18 09:37 10/10/18 09:37 10/10/18 09:37 10/10/18 02:00 Oxygen Delivery Method Room Air Weight: 163 lb 6.4 oz Body Mass Index (BMI) 23.4 Intake and Output for Last 24 Hours 10/08/18 10/09/18 10/10/18 23:59 23:59 23:59 Intake Total 1100 / 1100 450 / 450 Output Total 600 / 600 Balance 500 / 500 450 / 450 Discharge Activity: Return to Normal Activity Call your doctor if you observe: Fever of 101 or Higher, Shortness of breath, Dizziness, Fainting spells, Swelling in the ankles, Chest pain Home Medications: Medications to take at Discharge Aspirin [Aspirin, Baby] 81 mg PO DAILY@0800 01/16/15 atorvastatin 80 mg tablet 80 mg PO QDAY #90 tab 06/23/18 Citalopram Hydrobromide [Citalopram HBr] 40 mg PO DAILY 10/07/18 Clopidogrel Bisulfate [Clopidogrel] 75 mg PO DAILY 10/07/18 Lisinopril/Hydrochlorothiazide [Zestoretic 20-25 mg Tablet] 1 tab PO DAILY 10/07/18 Montelukast Sodium 10 mg PO QHS 10/07/18 Nicotine [Nicoderm Cq] 21 mg TRANSDERM. DAILY #28 patch 10/10/18 traZODone [Desyrel] 100 mg PO QHS #30 tablet 10/10/18 Following Prescrptions Were Given to Patient: Nicotine [Nicoderm Cq] 21 mg TRANSDERM. DAILY #28 patch traZODone [Desyrel] 100 mg PO QHS #30 tablet Primary Care Physician: Arya Barba MD [Primary Care Provider] - Please follow up with your Primary Care Physician in: 1-2 weeks Disposition: Home Minutes spent on discharge:: 30 Patient Condition:: Good Medical Necessity - Tobacco Use Smoking Status: Current every day smoker Tobacco Use: Cigarettes Meaningful Use Info Meaningful Use Diagnoses (Choose all that apply): None applicable Code Visit Inpatient E&M: 49281 Disch Hosp
[2018-10-11 11:12] LABS: Hep B Surface Antibodies Reactive (.)
== END 2018-10-10 12:58 | disposition home or self-care (01) | DRG 897 ==
PROVIDERS: Admitting Provider Internal Medicine; Family Provider Family Medicine; PCP Family Medicine; Referring Provider Internal Medicine; Visit Provider Internal Medicine
DX: F10.239 Alcohol dependence with withdrawal, unspecified (principal); I34.1 Nonrheumatic mitral (valve) prolapse; I25.10 Atherosclerotic heart disease of native coronary artery without angina pectoris; E78.5 Hyperlipidemia, unspecified; F17.210 Nicotine dependence, cigarettes, uncomplicated; I10 Essential (primary) hypertension; I45.10 Unspecified right bundle-branch block; F51.04 Psychophysiologic insomnia; K76.0 Fatty (change of) liver, 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sified; Y90.0 Blood alcohol level of less than 20 mg/100 ml; I49.3 Ventricular premature depolarization; R74.8 Abnormal levels of other serum enzymes; Z95.5 Presence of coronary angioplasty implant and graft
CPT/HCPCS: 36415; 76705; 80053; 80307; 80320; 85025; 85610; 86704; 86705; 86706; 86708; 86709; 86803; 87340; 93005; G0480

== ENCOUNTER 2019-02-11 14:45 | Emergency (ER) | payer OTHER, SELFPAY ==
[2018-10-07 12:09] VITALS: BMI 23.4
[2019-02-11 14:45] VITALS: BP 138/78; PULSE 76; RESP 16; TEMP 36.6; O2SAT 98; BMI 25.2
--- NOTE | 2019-02-11 14:49 | EKG12_ITS ---
Test Reason : CP Blood Pressure : / mmHG Vent. Rate : 071 BPM Atrial Rate : 071 BPM P-R Int : 150 ms QRS Dur : 090 ms QT Int : 400 ms P-R-T Axes : 048 -53 021 degrees QTc Int : 434 ms Poor data quality, interpretation may be adversely affected Normal sinus rhythm Left axis deviation Abnormal ECG Confirmed by RUKHSANA GARCIA ([id number]), multimedia editor YOJANA HERNANDEZ ([id number]) on 02/16/2019 2:08:41 PM Referred By: DC Confirmed By:RUKHSANA GARCIA
--- NOTE | 2019-02-11 15:08 | RAD_ITS ---
STUDY: X-RAY CHEST REASON FOR EXAM: Male, 53 years old. Chest pain. TECHNIQUE: AP upright views. COMPARISON: 01/11/2015. FINDINGS: The lungs are clear and expanded. There is no demonstrated pleural abnormality. Normal size heart. Normal mediastinum and karissa. Normal visualized pulmonary arteries. Normal visualized aortic arch and descending thoracic aorta. Normal visualized thoracic spine. Normal visualized ribs, clavicles, and shoulders. There is no demonstrated abnormality of the visualized soft tissue structures of the upper abdomen. RAD/Chest 1 View (Portable) IMPRESSION: Normal x-ray examination of the chest and unchanged since 01/11/2015. Electronically Signed: Luis A Koo MD at 15:19 EDT , Service support ,
[2019-02-11 15:15] VITALS: BP 142/95; PULSE 77; RESP 18; O2SAT 97
[2019-02-11 15:18] LABS: Absolute Lymphocyte Count 1.14 X10^3/ul (0.83-4.51); Absolute Neutrophil Count 4.4 X10^3/uL (2.0-7.7); Basophil# 0.02 X10^3/uL; Basophil% 0.3 % (0-1); Hemoglobin 13.7 g/dl (13.0-16.5); Lymphocyte # 1.14 X10^3/ul (4.0); Lymphocyte % 18.3 % (19-41); Mean Corp Hgb Conc 34.3 g/gl (32-36); Mean Corpuscular Hgb 31.5 pg (27.0-32.0); Mean Platelet Vol. 9.3 fl (6.2-12.0); Monocyte# 0.64 X10^3/uL; Monocyte% 10.3 % (0-10); Neutrophil # 4.42 X10^3/uL (2.7-7.7); Neutrophil % 70.9 % (47-70); Platelet Count 182 K/mm3 (150-450); RBC Distribution Width CV 14.3 % (11.6-14.6); RBC Distribution Width SD 48.3 fl (35.1-43.9); Red Blood Count 4.35 M/mm3 (4.6-6.2); White Blood Count 6.2 K/mm3 (4.4-11.0)
[2019-02-11 15:21] LABS: POSITIVE COUNT NO; POSITIVE DIFFERENTIAL NO; POSITIVE MORPHOLOGY NO
[2019-02-11 15:22] VITALS: O2SAT 98
[2019-02-11 15:31] LABS: Anion Gap 9 (5-15); BUN 5 mg/dL (7-18); BUN/Creat Ratio 7.3 RATIO (10-20); Calcium,Total 8.5 mg/dL (8.5-10.1); Chloride 98 mmol/L (98-107); Creatinine, Serum 0.69 mg/dL (0.70-1.30); EST Glomerular Filtration Rate 127 mL/min (>60); Est Glom Filt Rate - Afr Amer 154 mL/min (>60); Estimated Creatinine Clearance 127.84 ml/min; Glucose 115 mg/dL (74-106); Potassium 3.3 mmol/L (3.5-5.1); Sodium Level 129 mmol/L (136-145)
[2019-02-11] MEDS: 0.9% Normal Saline 1,000 ML 150 ML IV (15:39)
[2019-02-11] MEDS: Morphine 4 MG/ML Syringe IV (15:39)
[2019-02-11] MEDS: Ondansetron 4 MG/2 ML Vial IV (15:39)
[2019-02-11 15:47] LABS: AST(SGOT) 107 U/L (15-37); Alanine Aminotransfer ALT/SGPT 79 U/L (16-61); Albumin, Serum 3.4 g/dL (3.2-5.0); Alkaline Phosphatase 136 U/L (45-117); Bilirubin, Direct 0.28 mg/dL (0.00-0.30); Lipase 332 U/L (73-393); Protein, Total 7.4 g/dL (6.4-8.2)
[2019-02-11 16:09] VITALS: BP 143/87; PULSE 73; RESP 23; O2SAT 97
--- NOTE | 2019-02-11 16:41 | ED.VISSUMM ---
- ER Visit Summary Date of Service: 02/11/19 Chief Complaint: Chest pain, dizziness, nausea History of Present Illness: The patient is a 53 M who reports right chest pressure yesterday. He took 4 baby aspirin and pain subsided. Today he had epigastric pain. He states he feels dizzy and has difficulty focusing. He was recently out of his Plavix for 3 days but is now been back on the medication for the past 2 or 3 days. He is also recently been out of Celexa for a week. He just restarted that today. Patient does have history of coronary disease with one cardiac stent. Last stress test was 2 years ago and unremarkable. Physical Examination: Vital signs unremarkable. Patient sitting upright in bed no acute distress. Head neck examination unremarkable. Heart is regular rate and rhythm. Lung sounds are clear. No chest wall tenderness. Abdomen is soft and nontender. Test Results: Portable chest x-ray is unremarkable. EKG is sinus at 71 with no acute ischemia. CBC normal. Chemistry studies significant for sodium of 129 potassium 3.3. LFTs reveal an ALT of 79, AST 107, alk phos 136. Lipase is normal. Troponin is less than 0.015. Patient does have history of alcoholism and labs are not grossly changed from prior values. Emergency Department Course and Treatment: Patient had taken aspirin prior to arrival. He was given morphine and Zofran on arrival. On repeat evaluation he is resting comfortably. We discussed his current symptoms and possibility of withdrawal from his Celexa. At this time he has normal EKG and normal troponin with atypical chest pain. He will be discharged home and will continue to take his Celexa. He will be given 1 tab of potassium here. Treatment Plan: [] Disposition: Discharge Impression: 1. Chest pain 2. Celexa withdrawal 3. Hypokalemia This note was generated with [employer] dictation software. It may contain incorrect words, spelling, and punctuation that were not noted in review of the chart prior to signing ED Disposition - Plan for ED Patient: Disposition: Home or Assisted Living Instructions: CHEST PAIN, Uncertain Cause Referrals: Arya Barba MD [Primary Care Provider] - 1 Week Kody Bernstein MD [STAFF PHYSICIAN] - As Needed
[2019-02-11 16:54] VITALS: BP 143/84; PULSE 82; RESP 19; O2SAT 97
--- NOTE | 2019-02-11 16:55 | ED.RN ---
REVIEWED D/C INSTRUCTIONS, FOLLOW UP CARE, AND S/S THAT WOULD WARRANT A RETURN TO THE ED WITH PT. PT VERBALIZED AN UNDERSTANDING AND DENIES FURTHER QUESTIONS FOR THIS RN. PT SKIN P/W/D, RESP EVEN AND UNLABORED, PT A&O X 3, NO DISTRESS NOTED. PT AMBULATED OUT OF ED, GAIT STEADY.
== END 2019-02-11 16:56 | disposition home or self-care (01) ==
PROVIDERS: Emergency Provider Emergency Medicine; Family Provider Family Medicine; PCP Family Medicine
DX: R07.89 Other chest pain (principal); F19.939 Other psychoactive substance use, unspecified with withdrawal, unspecified; E87.6 Hypokalemia; F10.21 Alcohol dependence, in remission; R11.2 Nausea with vomiting, unspecified; R19.7 Diarrhea, unspecified; I25.10 Atherosclerotic heart disease of native coronary artery without angina pectoris; I10 Essential (primary) hypertension; Z72.0 Tobacco use; Z79.02 Long term (current) use of antithrombotics/antiplatelets; Z79.82 Long term (current) use of aspirin; Z79.899 Other long term (current) drug therapy; Z95.5 Presence of coronary angioplasty implant and graft
CPT/HCPCS: 71045; 80048; 80076; 83690; 84484; 85025; 93005; 96361; 96374; 96375; 99285; J2405

== ENCOUNTER 2019-02-14 13:12 | Inpatient (IN) | payer OTHER, SELFPAY ==
[2019-02-14 13:13] VITALS: BP 119/73; PULSE 76; RESP 16; TEMP 36.4; O2SAT 98; BMI 24.3
[2019-02-14 14:05] LABS: Absolute Lymphocyte Count 1.34 X10^3/ul (0.83-4.51); Basophil# 0.02 X10^3/uL; Basophil% 0.2 % (0-1); Eosinophil# 0.01 X10^3/uL; Eosinophils% 0.1 % (0-5); Hematocrit 41.9 % (40-54); Hemoglobin 14.2 g/dl (13.0-16.5); Lymphocyte # 1.34 X10^3/ul (4.0); Lymphocyte % 16.6 % (19-41); Mean Corp Hgb Conc 33.9 g/gl (32-36); Mean Corpuscular Hgb 30.7 pg (27.0-32.0); Mean Corpuscular Volume 90.5 fL (80-94); Mean Platelet Vol. 9.5 fl (6.2-12.0); Monocyte# 0.68 X10^3/uL; Monocyte% 8.4 % (0-10); Neutrophil % 74.5 % (47-70); Platelet Count 186 K/mm3 (150-450); RBC Distribution Width CV 14.4 % (11.6-14.6); RBC Distribution Width SD 46.8 fl (35.1-43.9); Red Blood Count 4.63 M/mm3 (4.6-6.2); White Blood Count 8.1 K/mm3 (4.4-11.0)
--- NOTE | 2019-02-14 14:08 | ED.VISSUMM ---
- ER Visit Summary Date of Service: 02/14/19 Chief Complaint: Depressed, suicidal and history of alcoholism History of Present Illness: The patient is a 53 M history of depression, anxiety and coronary disease with one cardiac stent and alcohol abuse. States that in the last 6 months he lost his job, his father and 1 of his best friends committed suicide. Patient states he become more more depressed in the last 3 weeks. He is having suicidal thoughts but has had no attempt. He also drinks heavily on his daily. He has not had any attempts but has had prior suicide thoughts. He is never been hospitalized for his depression. Physical Examination: Middle-aged male no acute distress. Vital signs are stable and afebrile. HEENT exam unremarkable atraumatic. Neck nontender no trauma. Lungs clear to auscultation bilaterally. Heart regular rhythm no murmur. Abdomen soft and nontender. Normal bowel sounds no peritoneal signs. He is moving all 4 extremities. Neurovascular intact. There is no signs of trauma to his extremities. Neurologically is awake alert with no focal motor deficits. Back is nontender. Test Results: BC normal white count 14. Electrolytes unremarkable sodium 132. Normal creatinine and gap. Tox screen negative. Alcohol level acutely intoxicated with alcohol at 213. Emergency Department Course and Treatment: bridge ironworker helper evaluated the patient. She and I agree that he needs help. He has depression, alcohol abuse, has recently lost his job, his father and his best friend. I think he is a very high risk of successfully committing suicide and needs both treatment for his depression, suicidal ideation and alcoholism. Treatment Plan: ancillary services manager therapy was already seen and evaluated the patient. But they are attempting to do and the patient is willing to do to be admitted to a psychiatric facility. We will try to get him in a facility can treat both his alcoholism, detox and his depression and suicidal ideation. Disposition: Transfer Impression: Acute depression with suicidal ideation History of alcoholism This note was generated with [employer] dictation software. It may contain incorrect words, spelling, and punctuation that were not noted in review of the chart prior to signing ED Disposition - Plan for ED Patient: Referrals: Arya Barba MD [Primary Care Provider] -
[2019-02-14 14:10] LABS: POSITIVE COUNT NO; POSITIVE DIFFERENTIAL NO; POSITIVE MORPHOLOGY NO
[2019-02-14 14:12] VITALS: RESP 15
--- NOTE | 2019-02-14 14:12 | CASEMGMT ---
Addendum entered by Hanna Shabazz 02/14/19 14:39: Referral faxed to [facility] at this time. Waiting response. Original Note: Social Work Referral: Suicidal thoughts/substance abuse Informant: Dr. Meek Chief Complaint: Patient reporting to have active thoughts of suicide and wants assistance with alcohol detox. Living Arrangements: Patient lives with adult daughter in a private home. Patient daughter works nightclub manager and is not aware that patient is in the emergency room at this time. Mental Health: Patient denies any mental health diagnosis. Patient reporting to have feelings of being down on and off over the past year. Patient reporting to be having active suicidal thoughts for the past 2-3 days and on and off over the past year. Patient reporting to have a plan for completing suicide. Patient reporting that if patient would choose to complete suicide patent would go in front of a train. Patient denies driving to wait on a train at this time, but to think about getting in car and driving to the train. Patient voluntarily requesting help at this time, reporting I don't want to follow through with my plan. I know I need help. This social sciences chair thanking patient for being open and honest about current thoughts/emotions. This social sciences chair observing that patient asking for help is a strength. Substance Abuse: Patient denies any cocain, heroine, THC, prescription drugs, or Meth usage. Patient reporting to currently consume 12-15 12oz beers daily for the past 1-2months. Patient reporting that last drink was at 1300 today. Patient is requesting to have assistance with detox from alcohol abuse. Patient reporting to have a history of detox once before and to have been able to go without a beer for 3 weeks. Patient reporting to also smoke and chew tobacco on a regular basis. Stressors: Patient father recently passed in November 2018. Patient friend completed suicide within the past few months. Patient lost his job. Patient manages thoughts of feeling down with alcohol. Protective Factors: Friends and Family, but no one is with patient all the time and unable to safety plan patient home at this time due to active suicidal thoughts and having a plan. Supports: Patient reporting friends and family as support. Employment: Unemployed at this time. Up until 2017 patient was employed at [employer] (they have now shut down) and patient has been unemployed since. 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 Patient stating no financial stressors at this time and that money is fine. Presentation: Patient presenting as calm and engaged in conversation with this social sciences chair. Patient actively asking questions and thanking this social sciences chair throughout assessment. Patient making eye contact and shaking this social sciences chair hand upon entering and leaving the room. Interventions: Placement to an inpatient psychiatric facility that is dual diagnosis that will assist with current suicidal thoughts as well as detox. Telephone call to [facility]: PLAN: Discharge to an inpatient psychiatric facility. Ronnie LEE, WANDA
[2019-02-14 14:13] LABS: Anion Gap 12 (5-15); BUN 6 mg/dL (7-18); BUN/Creat Ratio 9.2 RATIO (10-20); Calcium,Total 8.3 mg/dL (8.5-10.1); Chloride 100 mmol/L (98-107); Creatinine, Serum 0.66 mg/dL (0.70-1.30); EST Glomerular Filtration Rate 135 mL/min (>60); Est Glom Filt Rate - Afr Amer 163 mL/min (>60); Estimated Creatinine Clearance 133.65 ml/min; Glucose 85 mg/dL (74-106); Potassium 3.6 mmol/L (3.5-5.1); Sodium Level 132 mmol/L (136-145)
[2019-02-14 14:14] LABS: Amphetamine Urine VISTA NEGATIVE (<1000 ng/mL); Barbiturate Urine VISTA NEGATIVE (< 200 ng/mL); Benzodiazepine Urine VISTA NEGATIVE (< 200 ng/mL); Cocaine Urine VISTA NEGATIVE (< 300 ng/mL); Ecstacy Urine VISTA NEGATIVE (< 500 ng/mL); Methadone Urine VISTA NEGATIVE (< 300 ng/mL); PCP Urine VISTA NEGATIVE (< 25 ng/mL); THC Urine VISTA NEGATIVE (< 50 ng/mL); Vista UDS pH Range 6
[2019-02-14 15:00] VITALS: RESP 12
--- NOTE | 2019-02-14 15:27 | CM.ED ---
Social Work Spoke with patient in room. This social media developer updating patient that approval to transfer to [facility] is pending at this time. Patient voicing understanding. This social media developer broaching topic of notifying patient family, as patient stated earlier that no one knows that patient is currently in the Emergency department. Patient unsure about contacting patient daughter. This social media developer assisting in problem solving and going over the pros and cons of contacting family. Patient deciding to have this social media developer contact patient daughter, Juan Jose and to update Juan Jose on why patient is currently in the ED and what the tentative plan is. This social media developer supporting patient decision. Telephone call to tulio Ingram left with a request for Juan Jose to contact this social media developer. Ronnie Shabazz MSW, WANDA
--- NOTE | 2019-02-14 15:42 | CM.ED ---
Social Work Return phone call from Juan Jose. This social services director updating Juan Jose on patient current location and tentative plan from the ED. Juan Jose thanking this social services director for the return phone call. Ronnie LEE, WANDA
--- NOTE | 2019-02-14 15:42 | CM.ED ---
Social Work Telephone call from [facility]. [facility] reporting to not be in-network with patient insurance. Telephone call to patient insuranceZoë. Patient insurance is in-network with [facility]. Telephone call to sangita Brown. Sangita to contact this social and human services assistant back. Ronnie LEE, WANDA
[2019-02-14 16:00] VITALS: RESP 16
--- NOTE | 2019-02-14 17:22 | CM.ED ---
Social Work Telephone call from [facility]. [facility] reporting to not be able to accept patient at this time due to the current blood alcohol level. Collaborating with Dr. Meek. Patient to continue in ED until blood alcohol level is lower and then will update [facility] on update labs. Patient insurance is not in network with any other facilities in the area per patient insurance. Ronnie Shabazz MSW, WANDA
[2019-02-14] MEDS: LORazepam 1 MG Tablet 2 MG PO (18:02)
[2019-02-14 19:53] VITALS: BP 127/73; PULSE 75; RESP 14; TEMP 36.8; O2SAT 96
--- NOTE | 2019-02-14 20:41 | CM.ED ---
Social Work Results blood alcohol levels are now down, per updated labs. Resent referral to [facility], pending approval at this time. Ronnie Shabazz MSW, WANDA
[2019-02-14] MEDS: LORazepam 1 MG Tablet PO (21:02)
--- NOTE | 2019-02-14 23:15 | CM.ED ---
Social Work Telephone call to [facility] to check on referral. [facility] declining to review patient chart again until 0800 tomorrow morning. This director of social services notified patient, ED doctor, and nursing. Social work to continue to follow up with and make referral to [facility] when able. Ronnie LEE, AWNDA
[2019-02-15] VITALS (13 sets, daily range): BP systolic 104–141; BP diastolic 63–90; PULSE 60–84; RESP 15–18; TEMP 36.7–37.1; O2SAT 95–99; BMI 24.3; BMI 24.0
[2019-02-15] MEDS: chlordiazePOXIDE 25 MG Capsule 50 MG PO ×3 (00:19→11:28)
--- NOTE | 2019-02-15 10:19 | CM.ED ---
Social Work Clinicals faxed for review to [facility] as it is now after 0800. Pending approval. Ronnie Shabazz MSW, WANDA
[2019-02-15] MEDS: hydroCHLOROthiazide 25 MG Tablet PO (11:27)
[2019-02-15] MEDS: Citalopram 10 MG Tablet 40 MG PO (11:27)
[2019-02-15] MEDS: Multivitamins,Therapeutic Tablet 1 TABLET PO (11:27)
[2019-02-15] MEDS: Thiamine Hydrochloride 100 MG Tablet PO (11:27)
[2019-02-15] MEDS: Lisinopril 20 MG Tablet PO (11:27)
[2019-02-15] MEDS: Folic Acid 1 MG Tablet PO (11:28)
[2019-02-15] MEDS: Clopidogrel Bisulfate 75 MG Tablet PO (11:30)
[2019-02-15] MEDS: Aspirin 81 MG TAB.CHEW PO (11:30)
--- NOTE | 2019-02-15 12:39 | CM.ED ---
Social Work Telephone call to [facility]. [facility] reporting to have gotten update referral and to not have any beds at this time. Collaborating with Dr. Meek and patient. Patient continues to want to go through Detox and would like to be admitted for this. Dr. Meek agreeable to referral to [facility]. ED membership secretary made referral to [facility] at this time. Ronnie Shabazz MSW, WANDA
--- NOTE | 2019-02-15 14:10 | CASEMGMT ---
Social Work This social services assistant met with patient and Tabby Nicholas in patient room. Patient reporting to now be in a good place and is denying any active suicidal thoughts. Patient reporting to want to focus on detox. Patient agreeable with continued follow up care after [facility]/detox. Patient reporting to want to live and to have no intentions of killing self. Patient reporting to have many friends and supports that have checked in with patient over the past 24hr's and this has assisted patient in processing current mental health status. Support given. Collaborating with Dr. Meek and Roosevelt Trotter. Dr. Meek to meet with patient and make final decision on 1:[address] Meek to have hospitalist paged. PLAN: Pending approval for inpatient stay for Detox. Ronnie LEE, WANDA
--- NOTE | 2019-02-15 15:26 | HP.PCM_ITS ---
Problem List (1) Alcohol withdrawal Status: Acute History of Present Illness Date of Admission: 02/15/19 Chief Complaint: tremulousness. suicidal thoughts. The patient is a 53 year old M who is drinking roughly 12-15 [place]'s per day. Has also been having suicidal thoughts but does not have any plan in regards to killing himself. Patient was here in September for alcohol withdrawal and was sober until some family events occurred where his father illnesses and so forth just let him to start drinking again. Presented to the emergency room where he was monitored. No indication for him to be pink slips as he had no formal plan to kill himself but just states that he has these thoughts that go through his head that are suicidal in nature but previously, has no formal plan. Patient did receive doses of Librium as patient was tremulous but currently has no symptomatology of alcohol withdrawal. We were asked to admit the patient for treatment of his alcohol withdrawal before you go to a psychiatric unit which would be voluntary. [] Past Medical History Past Medical History (Chronic Problems): Chronic Problems (Last Reviewed 10/07/18 @ 21:24 by Beverly Noble DO) Fatty infiltration of liver (Chronic) Alcohol dependence (Chronic) Tobacco dependence (Chronic) RBBB (right bundle branch block) (Chronic) Premature ventricular contraction (Chronic) Presence of stent in coronary artery (Chronic ~01/17/15) PTCA/DANIELLE to prox/mid LAD 01/17/15 Nonrheumatic mitral (valve) prolapse (Chronic) Atherosclerotic heart disease of [place] coronary artery without angina pectoris (Chronic) Hyperlipidemia (Chronic) HTN (hypertension), benign (Chronic) Medical History: Medical History (Last Reviewed 02/15/19 @ 15:28 by Barrie Jain DO) RBBB (right bundle branch block) (Chronic) I45.10 Premature ventricular contraction (Chronic) I49.3 Nonrheumatic mitral (valve) prolapse (Chronic) I34.1 Atherosclerotic heart disease of [place] coronary artery without angina pectoris (Chronic) I25.10 Hyperlipidemia (Chronic) E78.5 HTN (hypertension), benign (Chronic) I10 ANNIE (obstructive sleep apnea) G47.33 Allergies Penicillins Allergy (Verified 02/14/19 13:18) Unknown Home Medications: Ambulatory Orders Medication Instructions Recorded Aspirin [Aspirin, Baby] 81 mg PO DAILY@0800 01/16/15 Citalopram Hydrobromide 40 mg PO DAILY 10/07/18 [Citalopram HBr] Clopidogrel Bisulfate [Clopidogrel] 75 mg PO DAILY 10/07/18 Lisinopril/Hydrochlorothiazide 1 tab PO DAILY 10/07/18 [Zestoretic 20-25 mg Tablet] Montelukast Sodium 10 mg PO DAILY PRN 10/07/18 Atorvastatin Calcium [Lipitor] 80 mg PO DAILY 02/15/19 Surgical History: Surgical History (Last Reviewed 02/15/19 @ 15:28 by Barrie Jain DO) Presence of stent in coronary artery (Chronic) Onset Date: ~01/17/15 Z95.5 PTCA/DANIELLE to prox/mid LAD 01/17/15 H/O bilateral inguinal hernia repair Z98.890, Z87.19 Postsurgical percutaneous transluminal coronary angioplasty (PTCA) status Onset Date: ~01/17/15 Z98.61 PTCA/DANIELLE to prox/mid LAD 01/17/15 History of cholecystectomy Z90.49 History of hernia repair Z98.890, Z87.19 History of tonsillectomy Z90.89 Psychiatric History: No pertinent psych hx Smoking Status: Current every day smoker Tobacco Use: Cigarettes - *Family History Maternal Family History: Family History (Last Reviewed 02/15/19 @ 15:28 by Barrie Jain DO) Father CAD (coronary artery disease) Myocardial infarction Mother Hypertension Grandfather CVA (cerebral vascular accident) Heart disease Myocardial infarction, Onset Age: 48 Review of Systems Constitutional: Denies: Anorexia, Chills, Fever, Night Sweats Eyes: Denies: Blurred vision, Double vision HEENT: Denies: Head Aches, Sinus Congestion, Sinus Drainage Cardiovascular: Denies: Chest Pain, Palpitations Respiratory: Denies: Cough, Shortness of breath at rest, Sputum production Gastrointestinal: Denies: Abdominal Pain, Nausea, Vomiting Genitourinary: Denies: Dysuria Musculoskeletal: Denies: Joint Pain, Joint Tenderness Skin: Denies: Rash, Wounds Neurological: Denies: Numbness, Tingling, Focal weakness Psychiatric: Denies: Anxiety, Depression Endocrine: Denies: Change in Body Habitus, Heat/ Cold Intolerance Comment: A 10 point review of systems were negative except as mentioned in the history of present illness and the other review of systems. VTE Information - Inpt Only VTE Present on Admission: No VTE Mechan Device Prophylaxis: None VTE Pharm Prophylaxis ordered?: No Reason prophylaxis not ordered:: Procedure Not Indicated Patient Problems: Active and Suspected Problems (Last Reviewed 10/07/18 @ 21:24 by Beverly Noble DO) Alcohol withdrawal (Acute) - Physical Exam General: Alert, No apparent distress, - - Very comfortable. No tremors. HEENT: Atraumatic, Normocephalic Oral: Moist Mucosa, No Gingival or Mucosal Lesions/ Ulcerations Neck: No Nodes, Thyroid Normal Size and Texture Lungs: Clear to auscultation, Normal air movement, No rhonchi, No wheeze, No rales Cardiovascular: Regular rate, Regular Rhythm, Normal S1, Normal S2, No murmurs Abdomen: Bowel Sounds Present, Soft, Non Tender, Non-Distended, No Hepato- splenomegaly Extremities: No edema, No Calf Tenderness Skin: No rashes, No breakdown Musculoskeletal: No Tenderness to Palpation of Joints or Extremities, No Muscle Wasting Psych/Mental Status: Normal Affect, Appropriate Vital Signs Temp Pulse Resp BP Pulse Ox 36.8 C 71 15 132/77 H 98 02/15/19 00:00 02/15/19 14:36 02/15/19 14:36 02/15/19 14:36 02/15/19 14:36 Oxygen Delivery Method Room Air Weight: 76.839 kg Body Mass Index (BMI) 24.3 Laboratory Tests Past 24 Hrs 02/14/19 20:15 Ethyl Alcohol 52.0 Assessment/Plan All Active Problems (Last Reviewed 10/07/18 @ 21:24 by Beverly Noble DO) Alcohol withdrawal (Acute) Alcohol withdrawal (Acute) Abnormal LFTs (Acute) 1. Acute alcohol withdrawal * Currently the patient's CIWA is 0. This is certainly been affected by the Librium he has received already but the patient appears remarkably well at this time. * My plan is not to continue Librium and to observe. Observe the patient overnight, and if he has no issues on the 26, patient can be discharged. * Thiamine and folate * [facility] to facilitate outpatient programs for the patient. [facility] has evaluated the patient in the emergency room. 2. Suicidal thoughts * Patient has no plan nor has he attempted suicide. * Given this, patient does not require a sitter nor an inpatient psychiatric evaluation that is involuntary. * Patient will need some psychiatric help upon discharge. 3. CAD: Continue with his home medications. No active issues at this time. 4. VTE prophylaxis: Low risk. Not indicated. Code Visit OBSV E&M: 14396 Initial observation care L2
[2019-02-15] MEDS: Atorvastatin Calcium 80 MG Tablet PO (22:58)
[2019-02-16] MEDS: Ibuprofen 600 MG Tablet PO (00:10)
[2019-02-16 04:10] VITALS: BP 109/77; PULSE 64; RESP 18; TEMP 36.6; O2SAT 96
[2019-02-16 07:47] VITALS: PULSE 80
[2019-02-16] MEDS: Aspirin 81 MG TAB.CHEW PO (07:53)
[2019-02-16] MEDS: Lisinopril 20 MG Tablet PO (07:54)
[2019-02-16] MEDS: hydroCHLOROthiazide 25 MG Tablet PO (07:54)
[2019-02-16] MEDS: Clopidogrel Bisulfate 75 MG Tablet PO (07:54)
[2019-02-16] MEDS: Citalopram 40 MG TABLET PO (07:54)
[2019-02-16] MEDS: Multivitamins,Therapeutic Tablet 1 TABLET PO (07:58)
[2019-02-16] MEDS: Folic Acid 1 MG Tablet PO (07:58)
[2019-02-16] MEDS: Thiamine Hydrochloride 100 MG Tablet PO (07:58)
--- NOTE | 2019-02-16 08:42 | PN_ITS ---
Patient Problems: Active and Suspected Problems (Last Reviewed 02/15/19 @ 15:28 by Barrie Jain DO) Alcohol withdrawal (Acute) Subjective: Patient does not have hallucinations, seizures, nausea, vomiting or abdominal pain. Patient admitted that he was feeling sad and depressed and suicidal ideation but did not had any formal suicidal plan/attempt. No history of suicidal attempt in the past. Vitals/I&O's: Vital Signs Temp Pulse Resp BP Pulse Ox 97.8 F 80 18 109/77 96 02/16/19 04:10 02/16/19 07:47 02/16/19 04:10 02/16/19 04:10 02/16/19 04:10 Oxygen Delivery Method Room Air Weight: 163 lb Body Mass Index (BMI) 24.0 Intake and Output for Last 24 Hours 02/14/19 02/15/19 02/16/19 23:59 23:59 23:59 Intake Total 1400 / 1400 Balance 1400 / 1400 General: Alert, Oriented x3, Cooperative HEENT: Atraumatic, PERRLA, EOMI, Normocephalic Neck: Supple, No JVD, Negative Carotid Bruits Lungs: Clear to auscultation, Normal air movement, No rhonchi, No wheeze, No rales Cardiovascular: Regular rate, Regular Rhythm, Normal S1, Normal S2, No murmurs Abdomen: Bowel Sounds Present, Soft, Non Tender, Non-Distended Extremities: No edema, Capillary Refill Less than 3 Seconds Skin: No rashes, No breakdown Musculoskeletal: No Tenderness to Palpation of Joints or Extremities Lymphatic: No Cervical, Supraclavicular, or Inguinal Adenopathy Neurological: Cranial nerves II-XII grossly intact, Deep Tendon Reflexes 2+/4 and Symmetrical, Neuro grossly intact, Motor Exam 5/5 strength throughout Psych/Mental Status: Normal Affect, Appropriate Current Medications Acetaminophen (Tylenol) 500 mg PO Q4H PRN PRN PRN Reason: Temp > 100.4 F Al Hydroxide/Mg Hydroxide (Mylanta Ii) 30 ml PO Q6H PRN PRN PRN Reason: dyspesia Aspirin (Aspirin, Baby) 81 mg PO DAILY@0800 ON LICENSE OF [facility] Last Admin: 02/16/19 07:53 Dose: 81 mg Documented by: Atorvastatin Calcium (Lipitor) 80 mg PO QHS ON LICENSE OF [facility] Last Admin: 02/15/19 22:58 Dose: 80 mg Documented by: Bisacodyl (Dulcolax) 10 mg RECTAL DAILY PRN PRN Reason: Constipation Citalopram Hydrobromide (Celexa) 40 mg PO DAILY ON LICENSE OF [facility] Last Admin: 02/16/19 07:54 Dose: 40 mg Documented by: Clopidogrel Bisulfate (Plavix) 75 mg PO DAILY ON LICENSE OF [facility] Last Admin: 02/16/19 07:54 Dose: 75 mg Documented by: Dicyclomine HCl (Bentyl) 20 mg PO Q6H PRN PRN PRN Reason: abdominal discomfort [facility]: 02/17/19 08:01 Last Admin: 02/16/19 07:58 Dose: 1 mg Documented by: Hydrochlorothiazide (Hctz) 25 mg PO DAILY ON LICENSE OF [facility] Last Admin: 02/16/19 07:54 Dose: 25 mg Documented by: Hydroxyzine Pamoate (Vistaril Pamoate Capsule) 50 mg PO Q6H PRN PRN PRN Reason: Mild Anxiety (score 1/3) Ibuprofen (Motrin) 600 mg PO Q8H PRN PRN PRN Reason: Mild-Moderate Pain (1-5/10) Last Admin: 02/16/19 00:10 Dose: 600 mg Documented by: Lisinopril (Zestril) 20 mg PO DAILY ON LICENSE OF [facility] Last Admin: 02/16/19 07:54 Dose: 20 mg Documented by: Loperamide HCl (Imodium) 2 - 4 mg PO UD PRN PRN Reason: LOOSE STOOLS Methocarbamol (Methocarbamol) 750 mg PO Q6H PRN PRN PRN Reason: Muscle Aches Montelukast Sodium (Singulair) 10 mg PO DAILY PRN PRN Reason: ALLERGIES [facility]itamins [facility]itamin) [facility] Last Admin: 02/16/19 07:58 Dose: 1 tablet Documented by: Nutritional Formula (Lactose Free) (Ensure Enlive) 120 ml PO 4X/DAY ON LICENSE OF [facility] Last Admin: 02/16/19 07:52 Dose: 120 ml Documented by: Ondansetron HCl (Zofran Odt) 4 mg PO Q6H PRN PRN PRN Reason: NAUSEA Senna (Senokot) 1 tablet PO QHS PRN PRN Reason: Constipation Sodium Chloride () 5 - 15 ml IV UD PRN PRN Reason: SALINE FLUSH Thiamine HCl (Vitamin B1) 100 mg PO DAILYCM ON LICENSE OF [facility] Stop: 02/17/19 08:01 Last Admin: 02/16/19 07:58 Dose: 100 mg Documented by: Medical Necessity - Tobacco Use Smoking Status: Current every day smoker Tobacco Use: Cigarettes Assessment/Plan All Active Problems (Last Reviewed 02/15/19 @ 15:28 by Barrie Jain DO) Alcohol withdrawal (Acute) Alcohol withdrawal (Acute) Abnormal LFTs (Acute) This is a 53-year-old gentleman with history of chronic alcohol abuse, 12-15 beers per day [place] was admitted through emergency room for symptoms of alcohol withdrawal. Patient also felt sad and depressed and stressed out after his father recently after prolonged illness. The patient was further admitted on [facility] floor for stabilization of alcohol withdrawal syndrome. 1. Acute alcohol withdrawal syndrome: Patient is on CIWA monitoring. On Ativan protocol PRN as per nursing CIWA monitoring scale. On thiamine, folic acid and multivitamin. 2. Depression with suicidal thoughts: Case management consulted for mental health crisis team. Patient is stable. Patient will need more formal psychiatrist consultation as an outpatient. 3. Coronary artery disease status post stent: Patient home medications continued. On aspirin and Plavix. 4. DVT prophylaxis, low risk. Early ambulation encouraged. Patient platelet count is on lower side of normal, 158,000. It was 182 on 02/11. It was also low 116 March 2013. Bilateral SCDs Code Visit Inpatient E&M: 03876 Subs Hosp L2
[2019-02-16 09:17] LABS: Absolute Lymphocyte Count 1.78 X10^3/ul (0.83-4.51); Absolute Neutrophil Count 2.5 X10^3/uL (2.0-7.7); Basophil# 0.02 X10^3/uL; Basophil% 0.4 % (0-1); Eosinophil# 0.07 X10^3/uL; Eosinophils% 1.4 % (0-5); Hematocrit 41.5 % (40-54); Hemoglobin 13.9 g/dl (13.0-16.5); Lymphocyte # 1.78 X10^3/ul (4.0); Lymphocyte % 36.1 % (19-41); Mean Corp Hgb Conc 33.5 g/gl (32-36); Mean Corpuscular Hgb 31.3 pg (27.0-32.0); Mean Corpuscular Volume 93.5 fL (80-94); Mean Platelet Vol. 9.6 fl (6.2-12.0); Monocyte% 12.2 % (0-10); Neutrophil # 2.45 X10^3/uL (2.7-7.7); Neutrophil % 49.7 % (47-70); Platelet Count 158 K/mm3 (150-450); RBC Distribution Width CV 14.5 % (11.6-14.6); RBC Distribution Width SD 49.3 fl (35.1-43.9); Red Blood Count 4.44 M/mm3 (4.6-6.2); White Blood Count 4.9 K/mm3 (4.4-11.0)
[2019-02-16 09:19] LABS: POSITIVE COUNT NO; POSITIVE DIFFERENTIAL NO; POSITIVE MORPHOLOGY NO
[2019-02-16 09:42] LABS: ALB/GLOB Ratio 0.9 RATIO (0.9-2.4); AST(SGOT) 51 U/L (15-37); Alanine Aminotransfer ALT/SGPT 57 U/L (16-61); Albumin, Serum 3.1 g/dL (3.2-5.0); Alkaline Phosphatase 118 U/L (45-117); Anion Gap 4 (5-15); BUN 11 mg/dL (7-18); BUN/Creat Ratio 13.1 RATIO (10-20); Chloride 100 mmol/L (98-107); Creatinine, Serum 0.84 mg/dL (0.70-1.30); EST Glomerular Filtration Rate 102 mL/min (>60); Est Glom Filt Rate - Afr Amer 123 mL/min (>60); Globulin 3.4 g/dL (2.2-4.2); Glucose 106 mg/dL (74-106); Magnesium 1.7 mg/dL (1.6-2.6); Potassium 3.6 mmol/L (3.5-5.1); Protein, Total 6.5 g/dL (6.4-8.2); Sodium Level 135 mmol/L (136-145)
[2019-02-16 10:13] VITALS: BP 124/79; PULSE 56; RESP 16; TEMP 36.9; O2SAT 98
[2019-02-16 13:18] VITALS: BP 105/63; PULSE 64; RESP 18; TEMP 37.1; O2SAT 97
--- NOTE | 2019-02-16 16:03 | CHAPLAIN ---
Type of Pastoral Visit _x__ Initial Visit ___ Follow-up Visit ___ On-call Visit ___ General Patient Visit ___ Spiritual Assessment ___ Family Conference ___ Bereavement ___ Rapid Response ___ Code Blue ___ Other (describe below) Pastoral Care Referral From _x__ Patient ___ Family ___ Nurse ___ Physician ___ External Grinder Tender ___ Ferry Terminal Agent ___ Other (describe below) Sacrament/Intervention _x__ Active listening ___ Anointing ___ Confucianist ___ Bereavement ___ Communion _x__ Kirstin exploration ___ _x__ Life review _x__ Prayer ___ Reconciliation ___ Sacrament of Sick _x__ Supportive presence ___ Wedding ___ Other (describe below) Pastoral Comments
[2019-02-16 16:43] VITALS: BP 117/73; PULSE 64; RESP 18; TEMP 37.1; O2SAT 94
[2019-02-16 20:57] VITALS: BP 135/93; PULSE 63; RESP 16; TEMP 36.8; O2SAT 100
[2019-02-16] MEDS: Atorvastatin Calcium 80 MG Tablet PO (21:07)
[2019-02-16] MEDS: hydrOXYzine PAM 25 MG Capsule 50 MG PO (23:39)
[2019-02-17 01:33] VITALS: BP 122/85; PULSE 60; RESP 18; TEMP 36.6; O2SAT 96
[2019-02-17 05:35] VITALS: BP 105/73; PULSE 64; RESP 16; TEMP 36.5; O2SAT 97
[2019-02-17 09:03] VITALS: BP 119/80; PULSE 69; RESP 18; TEMP 36.7; O2SAT 98
[2019-02-17] MEDS: Citalopram 40 MG TABLET PO (09:09)
[2019-02-17] MEDS: Thiamine Hydrochloride 100 MG Tablet PO (09:09)
[2019-02-17] MEDS: Multivitamins,Therapeutic Tablet 1 TABLET PO (09:09)
[2019-02-17] MEDS: Folic Acid 1 MG Tablet PO (09:09)
[2019-02-17] MEDS: Aspirin 81 MG TAB.CHEW PO (09:09)
[2019-02-17] MEDS: Clopidogrel Bisulfate 75 MG Tablet PO (09:10)
[2019-02-17] MEDS: hydroCHLOROthiazide 25 MG Tablet PO (09:10)
[2019-02-17] MEDS: Lisinopril 20 MG Tablet PO (09:10)
--- NOTE | 2019-02-17 09:54 | DCINST_ITS ---
- Discharge Diagnoses Current Active Problems: Current Active and Chronic Problems (Last Reviewed 02/15/19 @ 15:28 by Barrie Jain DO) Alcohol withdrawal (Acute) You will use the following diet at home:: Cardiac Your food should be the consistency of: Regular Discharge Activity: May Not Drive - until cleared by PCP Call your doctor if you observe: Fever of 101 or Higher, Change in Color, Inability to urinate, Inability to have a bowel movement, Shortness of breath, Fainting spells, Swelling in the ankles, Chest pain, Increased palpitations (irregular heartbeat) Additional Instructions: outpatient alcohol rehab as scheduled by [facility] Allergies/Adverse Reactions: Allergies Penicillins Allergy (Verified 02/14/19 13:18) Unknown Medications to take at Discharge Aspirin [Aspirin, Baby] 81 mg PO DAILY@0800 01/16/15 Citalopram Hydrobromide [Citalopram HBr] 40 mg PO DAILY 10/07/18 Clopidogrel Bisulfate [Clopidogrel] 75 mg PO DAILY 10/07/18 Lisinopril/Hydrochlorothiazide [Zestoretic 20-25 mg Tablet] 1 tab PO DAILY 10/07/18 Montelukast Sodium 10 mg PO DAILY PRN 10/07/18 Atorvastatin Calcium [Lipitor] 80 mg PO DAILY 02/15/19 Multivitamins,Therapeutic [Multivitamin] 1 tab PO DAILYCM tab 02/17/19 Primary Care Physician: Arya Barba MD [Primary Care Provider] - Please follow up with your Primary Care Physician in: [place] 2 week Test Results: Test results from this visit will be discussed in further detail at your follow- up appointment, if applicable.
--- NOTE | 2019-02-17 09:56 | DS.PCM_ITS ---
Discharge Date and Diagnosis Date of Admission: 02/15/19 Date of Discharge: 02/17/19 - Primary Discharge Diagnosis Active and Suspected Problems (Last Reviewed 02/15/19 @ 15:28 by Barrie Jain DO) Alcohol withdrawal (Acute) - Secondary Discharge Diagnosis Chronic Problems (Last Reviewed 02/15/19 @ 15:28 by Barrie Jain DO) Fatty infiltration of liver (Chronic) Alcohol dependence (Chronic) Tobacco dependence (Chronic) RBBB (right bundle branch block) (Chronic) Premature ventricular contraction (Chronic) Presence of stent in coronary artery (Chronic ~01/17/15) PTCA/DANIELLE to prox/mid LAD 01/17/15 Nonrheumatic mitral (valve) prolapse (Chronic) Atherosclerotic heart disease of [place] coronary artery without angina pectoris (Chronic) Hyperlipidemia (Chronic) HTN (hypertension), benign (Chronic) Hospital Course and Treatment Consultations 02/16/19 09:25 Consult: Mental Health/Crisis Routine Reason for consult?: suicidial thoughts/ideation but denies suicidial attempt. chr alchol use Date Notified:: 02/16/19 Time notified:: 14:55 Operations: None Summary of Care Provided: This is a 53-year-old gentleman with history of chronic alcohol abuse, 12-15 beers per day [place] was admitted through emergency room for symptoms of alcohol withdrawal. Patient also felt sad and depressed and stressed out after his father recently after prolonged illness. The patient was further admitted on [facility] floor for stabilization of alcohol withdrawal syndrome. 1. Acute alcohol withdrawal syndrome: Patient is on CIWA monitoring. On Ativan protocol PRN as per nursing CIWA monitoring scale. On thiamine, folic acid and multivitamin. 2. Depression with suicidal thoughts: Case management consulted for mental health crisis team. Patient is stable. Patient will need more formal psychiatrist consultation as an outpatient. Patient seen by mental health professional, Tea Balderrama states no increased risk of suicide. Patient Was cleared for discharge with follow-up AA program in 1 week and was given phone number to call back. 3. Coronary artery disease status post stent: Patient home medications continued. On aspirin and Plavix. 4. DVT prophylaxis, low risk. Early ambulation encouraged. Patient platelet count is on lower side of normal, 158,000. It was 182 on 02/11. It was also low 116 March 2013. Bilateral SCDs. Patient was not given pharmacological DVT prophylactic medication. Discharge medication reconciliation done. Discharge follow-up instructions completed. Discharge process discussed with the patient and all questions were answered to patient's satisfaction. Total time spent, exact 35 minutes on discharge meds reconciliation, examination, review of imaging and blood test and discussion with the patient on follow-up instructions. [] Subjective: Seen and examined. Patient does not have alcohol withdrawal symptoms including tremors, hallucinations, delirium, restlessness. Tolerated food well. Patient seen by mental health professional, Tea Balderrama states no increased risk of suicide. Was cleared for discharge with follow-up AA program in 1 week and was given phone number to call back. - Physical Exam General: Alert, Oriented x3, Cooperative HEENT: Atraumatic, PERRLA, EOMI, Normocephalic Neck: Supple, No JVD, Negative Carotid Bruits Lungs: Clear to auscultation, Normal air movement, No rhonchi, No wheeze, No rales Cardiovascular: Regular rate, Regular Rhythm, Normal S1, Normal S2, No murmurs Abdomen: Bowel Sounds Present, Soft, Non Tender, Non-Distended Extremities: No edema, Capillary Refill Less than 3 Seconds Skin: No rashes, No breakdown Musculoskeletal: No Tenderness to Palpation of Joints or Extremities, Arthritic Changes Lymphatic: No Cervical, Supraclavicular, or Inguinal Adenopathy Neurological: Cranial nerves II-XII grossly intact, Deep Tendon Reflexes 2+/4 and Symmetrical, Neuro grossly intact, Motor Exam 5/5 strength throughout Psych/Mental Status: Normal Affect, Appropriate Vital Signs Temp Pulse Resp BP Pulse Ox 98.1 F 69 18 119/80 98 02/17/19 09:03 02/17/19 09:03 02/17/19 09:03 02/17/19 09:03 02/17/19 09:03 Oxygen Delivery Method Room Air Weight: 162 lb 14.746 oz Body Mass Index (BMI) 24.0 Intake and Output for Last 24 Hours 02/15/19 02/16/19 02/17/19 23:59 23:59 23:59 Intake Total 1400 / 1400 1300 / 1300 Balance 1400 / 1400 1300 / 1300 Discharge Activity: May Not Drive - until cleared by PCP Call your doctor if you observe: Fever of 101 or Higher, Change in Color, Inability to urinate, Inability to have a bowel movement, Shortness of breath, Fainting spells, Swelling in the ankles, Chest pain, Increased palpitations (irregular heartbeat) Home Medications: Medications to take at Discharge Aspirin [Aspirin, Baby] 81 mg PO DAILY@0800 01/16/15 Citalopram Hydrobromide [Citalopram HBr] 40 mg PO DAILY 10/07/18 Clopidogrel Bisulfate [Clopidogrel] 75 mg PO DAILY 10/07/18 Lisinopril/Hydrochlorothiazide [Zestoretic 20-25 mg Tablet] 1 tab PO DAILY 10/07/18 Montelukast Sodium 10 mg PO DAILY PRN 10/07/18 Atorvastatin Calcium [Lipitor] 80 mg PO DAILY 02/15/19 Multivitamins,Therapeutic [Multivitamin] 1 tab PO DAILYCM tab 02/17/19 Primary Care Physician: Arya Barba MD [Primary Care Provider] - Please follow up with your Primary Care Physician in: [place] 2 week Medical Necessity - Tobacco Use Smoking Status: Current every day smoker Tobacco Use: Cigarettes Meaningful Use Info Meaningful Use Diagnoses (Choose all that apply): None applicable Code Visit Inpatient E&M: 44317 Disch Hosp
[2019-02-17 11:40] VITALS: BP 123/77; PULSE 73; RESP 18; TEMP 36.5; O2SAT 98
[2019-02-17 11:49] VITALS: BP 123/77; PULSE 73; RESP 18; TEMP 36.5; O2SAT 98
== END 2019-02-17 11:49 | disposition home or self-care (01) | DRG 897 ==
LOC: ED 13:55 → MS3 02-15 14:45
PROVIDERS: Emergency Medicine; Emergency Provider Emergency Medicine; Family Provider Family Medicine; PCP Family Medicine; Visit Provider Internal Medicine
DX: F10.239 Alcohol dependence with withdrawal, unspecified (principal); R45.851 Suicidal ideations; I25.10 Atherosclerotic heart disease of native coronary artery without angina pectoris; F32.9 Major depressive disorder, single episode, unspecified; F17.210 Nicotine dependence, cigarettes, uncomplicated; Z95.5 Presence of coronary angioplasty implant and graft; Z79.82 Long term (current) use of aspirin; Z79.02 Long term (current) use of antithrombotics/antiplatelets; I34.1 Nonrheumatic mitral (valve) prolapse; I10 Essential (primary) hypertension; I45.10 Unspecified right bundle-branch block; K76.0 Fatty (change of) liver, 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sified; E78.5 Hyperlipidemia, unspecified
CPT/HCPCS: 36415; 80048; 80053; 80307; 80320; 83735; 85025; 97802; 99285; 99406; G0480

== ENCOUNTER 2019-03-10 15:29 | Inpatient (IN) | payer OTHER, SELFPAY ==
[2019-02-15 15:33] VITALS: BMI 24.0
[2019-03-10 15:29] VITALS: BP 124/75; PULSE 76; RESP 16; TEMP 37; O2SAT 97; BMI 23.6
--- NOTE | 2019-03-10 15:58 | ED.RN ---
PT WALKED BACK TO ROOM 6. SUICIDAL PRECAUTIONS INITIATED AND SOCIAL WORK CALLED. SITTER AT BEDSIDE.
--- NOTE | 2019-03-10 16:08 | ED.DCSUM_ITS ---
History of Present Illness Chief Complaint: Suicidal Informant: Patient Onset: Weeks - 2-3 Context: Gradual Onset - worse today Conflict: Family - father shot himself/ 3-4 mos ago, Financial - lost job last year Timing: Continuous Current Severity: Severe Maximum Severity: Severe Worsened by: Situational factors, - - Alcohol abuse Associated Symptoms: Depressed, Suicidal Thoughts. Negative for: Visual Hallucinations, Auditory Hallucinations Specific plan (suicidal thought): With plan to lay on the train tracks Narrative: Patient has been drinking alcohol heavily to help cope, and although he was depressed several weeks ago, was here for detox for 3 days. However 8 days after discharge he started drinking again, which is what he has been doing for the past 1.5 weeks. He drinks about 10-12 beers per day, today he has had 8 and is feeling no withdrawal symptoms although he does in the mornings before he starts drinking, he gets shaky. He presents by himself, asking for mental health help. - Past Medical History (1) Coronary artery disease Status: Chronic (2) Anxiety Status: Chronic (3) Alcohol dependence Status: Chronic (4) Fatty infiltration of liver Status: Chronic (5) HTN (hypertension), benign Status: Chronic (6) Hyperlipidemia Status: Chronic (7) Nonrheumatic mitral (valve) prolapse Status: Chronic Past Medical History - Allergies and Home Meds Allergies/Adverse Reactions: Allergies Penicillins Allergy (Verified 03/10/19 15:31) Unknown Primary Care Physician: Arya Barba MD [Primary Care Provider] - Lives: Alone, - - has firearm in his truck Smoking Status: Current every day smoker Alcohol: Heavy Review of Systems General: Denies: Chills, Fever, Sweats Eyes: Denies: Visual changes - bilaterally, Diplopia ENT: Denies: Rhinorrhea, Sore throat Cardiovascular: Denies: Chest pain, Palpitations Respiratory: Reports: Cough - chronic, smoker's. Denies: Dyspnea, Sputum, Dyspnea on exertion Gastrointestinal: Denies: Abdominal pain, Nausea, Vomiting, Diarrhea, Melena, H ematochezia Genitourinary: Denies: Dysuria, Hematuria, Frequency Musculoskeletal: Denies: Back pain, Extremity Pain Skin: Denies: Rash, Wounds Neurological: Denies: Headache, Weakness, Numbness Psych: Reports: Depression, Anxiety, Suicidal thoughts, Suicidal ideations Physical Exam Vital Signs/Narrative: Vital Signs Temp Pulse Resp BP Pulse Ox 03/10/19 15:29 98.6 F 76 16 124/75 H 97 Inital Vital Signs reviewed: Yes General: Well nourished, Well developed Head: Normocephalic, Atraumatic Eyes: Perrl, EOMI ENT: Moist mucous membranes, No rhinorrhea Neck: Supple, Nontender, No JVD Cardiovascular: Regular rate, Regular rhythm, No murmurs Respiratory: No distress, CTA bilaterally, Chest nontender Abdomen: Soft, Nontender, Nondistended, Normal bowel sounds Back: Nontender, Normal Inspection Extremities: Nontender, No Edema Skin: Normal color, No rash, No Trauma Neurological: Alert, Oriented x3, Cranial nerves II-XII grossly intact, Normal Strength, Normal Sensation Psych: Normal Speech Pattern, Logical sequential goal directed thoughts, Normal Stable Appropriate Affect, Good Insight, Normal Appearance - other than somewhat disheveled, Depressed, Suicidal thoughts. Negative for: Homicidal thoughts, Hallucinations Diagnostic/Tx/Re-eval Laboratory Results 03/10/19 03/10/19 03/10/19 16:20 16:38 16:38 WBC 7.0 RBC 4.56 L Hgb 14.7 Hct 41.4 MCV 90.8 MCH 32.2 H MCHC 35.5 RDW Std Deviation 44.8 H RDW Coeff of Anderson 13.6 Plt Count 178 MPV 9.2 Immature Gran % (Auto) 0.300 Neut % (Auto) 59.8 Lymph % (Auto) 31.3 Faulkner % (Auto) 8.2 Eos % (Auto) 0.1 Baso % (Auto) 0.3 Absolute Neuts (auto) 4.2 Absolute Lymphs (auto) 2.20 Absolute Nucleated RBC 0.00 Nucleated RBC % 0 PT 12.5 INR 1.0 Sodium Potassium Chloride Carbon Dioxide Anion Gap BUN Creatinine Estim Creat Clear Calc Est GFR (MDRD) Af Amer Est GFR (MDRD) Non-Af BUN/Creatinine Ratio Glucose Calcium Total Bilirubin AST ALT Alkaline Phosphatase Total Protein Albumin Globulin Albumin/Globulin Ratio Ur Drug Screen Comment Ethyl Alcohol 03/10/19 03/10/19 16:38 16:38 WBC RBC Hgb Hct MCV MCH MCHC RDW Std Deviation RDW Coeff of Anderson Plt Count MPV Immature Gran % (Auto) Neut % (Auto) Lymph % (Auto) Faulkner % (Auto) Eos % (Auto) Baso % (Auto) Absolute Neuts (auto) Absolute Lymphs (auto) Absolute Nucleated RBC Nucleated RBC % PT INR Sodium 123 L Potassium 3.5 Chloride 94 L Carbon Dioxide 21.0 Anion Gap 8 BUN 7 Creatinine 0.66 L Estim Creat Clear Calc 133.65 Est GFR (MDRD) Af Amer 161 Est GFR (MDRD) Non-Af 133 BUN/Creatinine Ratio 10.5 Glucose 82 Calcium 8.5 Total Bilirubin 1.00 AST 54 H ALT 42 Alkaline Phosphatase 121 H Total Protein 7.9 Albumin 3.9 Globulin 4.0 Albumin/Globulin Ratio 1.0 Ur Drug Screen Comment Ethyl Alcohol 280.0 Patient sodium is 123, much lower than he had had in the past. With this he may be at risk for having seizures and I think he should be admitted medically. His alcohol is to 80 explain why he is having no withdrawal symptoms right now. He remained clinically and hemodynamically stable in the emergency department, very pleasant and cooperative. ED Disposition - Plan for ED Patient: Disposition: Acute Care [facility] Diagnosis: Suicidal ideation, Depression, Alcohol dependence, Hyponatremia Referrals: Arya Barba MD [Primary Care Provider] -
--- NOTE | 2019-03-10 16:20 | CM.ED ---
SOCIAL WORK INFORMANT: DR. WESTON, NURSE CARLOS. REFERRAL: SUICIDAL IDEATIONS/SUBSTANCE ABUSE-ALCOHOL LIVING ARRANGEMENTS: PATIENT CURRENTLY LIVING WITH SIGNIFICANT OTHER, ROSALINA CARABALLO. MENTAL HEALTH: PATIENT SEEN PREVIOUSLY IN JANUARY FOR SAME. PATIENT REPORTS FEELINGS OF DEPRESSION AND ANXIETY FOR OVER 3 WEEKS. PATIENT STATES OVER LAST 2-3 DAYS SUICIDAL THOUGHTS HAVE GOTTEN WORSE. PLAN TO LAY ON [employer] TRACKS WITH NECK ON THE TRACK. PATIENT STATES I WOULD DO IT THE RIGHT WAY. SUBSTANCE ABUSE: PATIENT WITH HX OF ALCOHOL ABUSE. PATIENT STATES AFTER DETOX STARTED DRINKING AGAIN D/T DEPRESSION. PATIENT REPORTS CONSUMES 10-12 BEERS/DAY. PATIENT STATES TODAY HAS HAD 8 BEERS WITH LAST DRINK ABOUT 1 HOUR AGO. PATIENT WISHES TO STOP DRINKING. STRESSORS: PATIENT'S FATHER IN NOVEMBER 2018. FRIEND COMPLETED SUICIDE WITHIN LAST FEW MONTHS. LOSS OF JOB. PRESENTATION: PATIENT CALM AND COOPERATIVE THROUGHOUT ASSESSMENT. PATIENT WANTING HELP AND IS VOLUNTARY. PATIENT THANKED THIS WORKER FOR HER TIME AND ASSISTANCE. INTERVENTIONS: TELEPHONE CALL TO [facility]. REPORT NOT IN NETWORK WITH PATIENT'S INSURANCE TELEPHONE CALL TO [facility]. WORKER STATES IS IN NETWORK WITH INSURANCE. INITIAL INFORMATION PROVIDED. AWAITING LAB RESULTS. WILL FAX COMPLETED REFERRAL ONCE LAB RESULTS RECEIVED. PLAN: INPATIENT HOSPITALIZATION FOR DUAL DIAGNOSIS.
[2019-03-10 16:29] VITALS: RESP 16
[2019-03-10 16:49] LABS: Absolute Neutrophil Count 4.2 X10^3/uL (2.0-7.7); Basophil# 0.02 X10^3/uL; Basophil% 0.3 % (0-1); Eosinophil# 0.01 X10^3/uL; Eosinophils% 0.1 % (0-5); Hematocrit 41.4 % (40-54); Hemoglobin 14.7 g/dL (13.0-16.5); Lymphocyte % 31.3 % (19-41); Mean Corp Hgb Conc 35.5 g/dL (32-36); Mean Corpuscular Hgb 32.2 pg (27.0-32.0); Mean Corpuscular Volume 90.8 fL (80-94); Mean Platelet Vol. 9.2 fl (6.2-12.0); Monocyte# 0.58 X10^3/uL; Monocyte% 8.2 % (0-10); NRBC Flagged by Analyzer 0 % (0-5); Neutrophil # 4.21 X10^3/uL (2.7-7.7); Neutrophil % 59.8 % (47-70); Platelet Count 178 K/mm3 (150-450); RBC Distribution Width CV 13.6 % (11.6-14.6); RBC Distribution Width SD 44.8 fl (35.1-43.9); Red Blood Count 4.56 M/mm3 (4.6-6.2)
[2019-03-10 17:05] LABS: AST(SGOT) 54 U/L (15-37); Alanine Aminotransfer ALT/SGPT 42 U/L (16-61); Albumin, Serum 3.9 g/dL (3.2-5.0); Alkaline Phosphatase 121 U/L (45-117); Anion Gap 8 (5-15); BUN 7 mg/dL (7-18); BUN/Creat Ratio 10.5 RATIO (10-20); Calcium,Total 8.5 mg/dL (8.5-10.1); Chloride 94 mmol/L (98-107); Creatinine, Serum 0.66 mg/dL (0.70-1.30); EST Glomerular Filtration Rate 133 mL/min (>60); Est Glom Filt Rate - Afr Amer 161 mL/min (>60); Estimated Creatinine Clearance 133.65 ml/min; Glucose 82 mg/dL (74-106); Potassium 3.5 mmol/L (3.5-5.1); Protein, Total 7.9 g/dL (6.4-8.2); Sodium Level 123 mmol/L (136-145)
[2019-03-10 17:18] LABS: Prothrombin Time (Protime)PT. 12.5 SECONDS (11.7-14.9)
--- NOTE | 2019-03-10 17:20 | NURSING ---
KADEN, CRISIS, LET LISA KNOW ABOUT PATIENT
[2019-03-10 18:00] VITALS: RESP 14
--- NOTE | 2019-03-10 18:28 | CM.ED ---
SOCIAL WORK DISCUSSED WITH NURSECARLOS ANTICIPATE MEDICAL ADMISSION. REFERRAL HAS BEEN MADE TO [facility]. CALL TO [facility] TO UPDATE ON MEDICAL ADMISSION, SPOKE WITH JENNIFER. RICCI TO HOLD REFERRAL. WILL REQUEST CONSUMER PRODUCT ADVISOR FOLLOW UP ON PLACEMENT. [facility] (P) (F) VIRGIL BYRD, TRAVOGRAPH OPERATOR, COMPUTER DESIGNER.
--- NOTE | 2019-03-10 19:05 | PCM.HP.STD ---
Problem List (1) Coronary artery disease Status: Chronic (2) Suicidal ideation Status: Acute (3) Hyponatremia Status: Acute (4) Abnormal LFTs Status: Chronic History of Present Illness Date of Admission: 03/10/19 Chief Complaint: suicidal ideation The patient is a 53 year old M with a significant history of hypertension; tobacco abuse; CAD status post stent; alcoholism; depression and anxiety who presented to the emergency department with suicidal ideation. Patient had thoughts of by being hit by a train. Reportedly his suicidal ideation stems from the fact that within the last 6 months he lost his job; his father . Further, his very good friend from suicide. At the emergency department patient was given a sitter because of his suicidal ideation. As stated above he has a history of drinking. He drinks about 12-15 of 12 ounce beer daily. The last time he drank was a few hours before presenting to the emergency department. The last time he drank he drank 8 or 12 ounces of beer. He does not have any active withdrawal symptoms at this time but he is seeking help from withdrawing. At the emergency department, he was found to have low sodium of 123. Emergency department doctor wanted hospitalist team to stabilize him from his low sodium after which a psychiatric admission can be considered. Patient was admitted at our Hospital ([facility]) on 02/15/2019 and discharged on 02/17/2019 for acute alcohol withdrawal syndrome. Reportedly he relapsed about a week and a half ago. Past Medical History Past Medical History (Chronic Problems): Chronic Problems (Last Reviewed 03/10/19 @ 19:40 by Lukas Braga MD) Coronary artery disease (Chronic) Anxiety (Chronic) Fatty infiltration of liver (Chronic) Abnormal LFTs (Chronic) Alcohol dependence (Chronic) Tobacco dependence (Chronic) RBBB (right bundle branch block) (Chronic) Premature ventricular contraction (Chronic) Presence of stent in coronary artery (Chronic ~01/17/15) PTCA/DANIELLE to prox/mid LAD 01/17/15 Nonrheumatic mitral (valve) prolapse (Chronic) Atherosclerotic heart disease of [place] coronary artery without angina pectoris (Chronic) Hyperlipidemia (Chronic) HTN (hypertension), benign (Chronic) Medical History: Medical History (Last Reviewed 03/10/19 @ 19:40 by Lukas Braga MD) RBBB (right bundle branch block) (Chronic) I45.10 Premature ventricular contraction (Chronic) I49.3 Nonrheumatic mitral (valve) prolapse (Chronic) I34.1 Atherosclerotic heart disease of [place] coronary artery without angina pectoris (Chronic) I25.10 Hyperlipidemia (Chronic) E78.5 HTN (hypertension), benign (Chronic) I10 ANNIE (obstructive sleep apnea) G47.33 Allergies Penicillins Allergy (Verified 03/10/19 15:31) Unknown Home Medications: Ambulatory Orders Medication Instructions Recorded Aspirin [Aspirin, Baby] 81 mg PO DAILY@0800 01/16/15 Citalopram Hydrobromide 40 mg PO DAILY 10/07/18 [Citalopram HBr] Lisinopril/Hydrochlorothiazide 1 tab PO DAILY 10/07/18 [Zestoretic 20-25 mg Tablet] Montelukast Sodium 10 mg PO DAILY 10/07/18 Atorvastatin Calcium [Lipitor] 80 mg PO DAILY 02/15/19 Clopidogrel Bisulfate [Clopidogrel] 75 mg PO DAILY 03/10/19 Surgical History: Surgical History (Last Reviewed 03/10/19 @ 19:40 by Lukas Braga MD) Presence of stent in coronary artery (Chronic) Onset Date: ~01/17/15 Z95.5 PTCA/DANIELLE to prox/mid LAD 01/17/15 H/O bilateral inguinal hernia repair Z98.890, Z87.19 Postsurgical percutaneous transluminal coronary angioplasty (PTCA) status Onset Date: ~01/17/15 Z98.61 PTCA/DANIELLE to prox/mid LAD 01/17/15 History of cholecystectomy Z90.49 History of hernia repair Z98.890, Z87.19 History of tonsillectomy Z90.89 Psychiatric History: No pertinent psych hx Lives: Alone, - - has firearm in his truck Smoking Status: Current every day smoker Alcohol: Heavy - *Family History Maternal Family History: Family History (Last Reviewed 03/10/19 @ 19:37 by Lukas Braga MD) Father CAD (coronary artery disease) Myocardial infarction Mother Hypertension Grandfather CVA (cerebral vascular accident) Heart disease Myocardial infarction, Onset Age: 48 Review of Systems Constitutional: Denies: Chills, Fever, Weight Change HEENT: Denies: Head Aches, Sinus Congestion, Sinus Drainage Cardiovascular: Denies: Chest Pain, Palpitations Respiratory: Denies: Cough, Shortness of breath at rest, Sputum production Gastrointestinal: Denies: Abdominal Pain, Nausea, Vomiting Genitourinary: Denies: Dysuria Musculoskeletal: Denies: Joint Pain, Joint Tenderness Skin: Denies: Rash, Wounds Neurological: Denies: Numbness, Tingling, Focal weakness Psychiatric: Reports: Anxiety, Depression, Suicidal Ideations Hematologic/ Lymphatic: Denies: Easy Bruising, Easy Bleeding VTE Information - Inpt Only VTE Present on Admission: No VTE Mechan Device Prophylaxis: None VTE Pharm Prophylaxis ordered?: Yes Patient Problems: Active and Suspected Problems (Last Reviewed 03/10/19 @ 19:40 by Lukas Braga MD) Suicidal ideation (Acute) Depression (Acute) Hyponatremia (Acute) - Physical Exam General: Alert, Oriented x3, Cooperative HEENT: Atraumatic, PERRLA, EOMI, Normocephalic Neck: Supple, No JVD, Negative Carotid Bruits Lungs: Clear to auscultation, Normal air movement Cardiovascular: Regular rate, No murmurs Abdomen: Bowel Sounds Present, Soft, Non Tender Extremities: No edema, Capillary Refill Less than 3 Seconds Skin: No rashes, No breakdown Musculoskeletal: No Tenderness to Palpation of Joints or Extremities Neurological: Cranial nerves II-XII grossly intact Psych/Mental Status: Normal Affect, Appropriate Vital Signs Temp Pulse Resp BP Pulse Ox 98.6 F 76 14 124/75 H 97 03/10/19 15:29 03/10/19 15:29 03/10/19 18:00 03/10/19 15:29 03/10/19 15:29 Oxygen Delivery Method Room Air Weight: 74.843 kg Body Mass Index (BMI) 23.6 Laboratory Tests Past 24 Hrs 03/10/19 03/10/19 03/10/19 16:20 16:38 16:38 WBC 7.0 RBC 4.56 L Hgb 14.7 Hct 41.4 MCV 90.8 MCH 32.2 H MCHC 35.5 RDW Std Deviation 44.8 H RDW Coeff of Anderson 13.6 Plt Count 178 MPV 9.2 Immature Gran % (Auto) 0.300 Neut % (Auto) 59.8 Lymph % (Auto) 31.3 Sumner % (Auto) 8.2 Eos % (Auto) 0.1 Baso % (Auto) 0.3 Absolute Neuts (auto) 4.2 Absolute Lymphs (auto) 2.20 Absolute Nucleated RBC 0.00 Nucleated RBC % 0 PT 12.5 INR 1.0 Sodium Potassium Chloride Carbon Dioxide Anion Gap BUN Creatinine Estim Creat Clear Calc Est GFR (MDRD) Af Amer Est GFR (MDRD) Non-Af BUN/Creatinine Ratio Glucose Calcium Total Bilirubin AST ALT Alkaline Phosphatase Total Protein Albumin Globulin Albumin/Globulin Ratio Urine Opiates Screen Pending Urine Methadone Screen Pending Ur Barbiturates Screen Pending Ur Phencyclidine Scrn Pending Ur Amphetamines Screen Pending U Methamphetamin-MDMA Pending U Benzodiazepines Scrn Pending Urine Cocaine Screen Pending U Cannabinoids Screen Pending Ur Drug Screen Comment Ethyl Alcohol 03/10/19 03/10/19 16:38 16:38 WBC RBC Hgb Hct MCV MCH MCHC RDW Std Deviation RDW Coeff of Anderson Plt Count MPV Immature Gran % (Auto) Neut % (Auto) Lymph % (Auto) Sumner % (Auto) Eos % (Auto) Baso % (Auto) Absolute Neuts (auto) Absolute Lymphs (auto) Absolute Nucleated RBC Nucleated RBC % PT INR Sodium 123 L Potassium 3.5 Chloride 94 L Carbon Dioxide 21.0 Anion Gap 8 BUN 7 Creatinine 0.66 L Estim Creat Clear Calc 133.65 Est GFR (MDRD) Af Amer 161 Est GFR (MDRD) Non-Af 133 BUN/Creatinine Ratio 10.5 Glucose 82 Calcium 8.5 Total Bilirubin 1.00 AST 54 H ALT 42 Alkaline Phosphatase 121 H Total Protein 7.9 Albumin 3.9 Globulin 4.0 Albumin/Globulin Ratio 1.0 Urine Opiates Screen Urine Methadone Screen Ur Barbiturates Screen Ur Phencyclidine Scrn Ur Amphetamines Screen U Methamphetamin-MDMA U Benzodiazepines Scrn Urine Cocaine Screen U Cannabinoids Screen Ur Drug Screen Comment Ethyl Alcohol 280.0 Assessment/Plan All Active Problems (Last Reviewed 03/10/19 @ 19:40 by Lukas Braga MD) Alcohol withdrawal (Acute) Suicidal ideation (Acute) Depression (Acute) Hyponatremia (Acute) Alcohol withdrawal (Acute) The patient is a 53 year old M with a significant history of hypertension; tobacco abuse; CAD status post stent; alcoholism; depression and anxiety who presented to the emergency department with suicidal ideation; and found to have low sodium for which he was consequently admitted. Suicidal ideation Counselled Suicidal Precaution. Mental Health Crisis consult Will be treated inpatient for his hyponatremia and when his sodium is within goal patient can be transferred to psychiatric facility. Hyponatremia On presentation his sodium was 123 Etiology likely from beer potomania and use of diuretics Would hold off his hydrochlorothiazide at this time. Gentle normal saline hydration of 60 mL's per hour. Repeat BMP in a.m. Admit to [facility] on telemetry Alcohol dependence. Patient is interested in preventing withdrawal symptoms without receiving beer at the hospital. Will start patient on a CIWA protocol with Librium; folic acid and multivitamin. Ativan as needed for seizure. Urinary drug screen unremarkable EtOH level 280 (250-400; deep/possible fatal coma level). Patient with no signs of intoxication at this time. Hypertension On presentation his blood pressure was fairly stable Hold off hydrochlorothiazide because of hyponatremia. Continue lisinopril. PRN labetalol added. Trend blood pressure and adjust blood pressure medication Depression/anxiety Celexa continued Tobacco abuse Counseled Nicotine patch ordered CAD status post stent Aspirin and Plavix continued Abnormal liver enzymes Chronic Likely due to alcoholic liver damage DVT prophylaxis Subcutaneous Lovenox. Code Visit Inpatient E&M: 26304 Init Hosp L3
[2019-03-10 19:09] LABS: Amphetamine Urine VISTA NEGATIVE (<1000 ng/mL); Barbiturate Urine VISTA NEGATIVE (< 200 ng/mL); Benzodiazepine Urine VISTA NEGATIVE (< 200 ng/mL); Cocaine Urine VISTA NEGATIVE (< 300 ng/mL); Ecstacy Urine VISTA NEGATIVE (< 500 ng/mL); Methadone Urine VISTA NEGATIVE (< 300 ng/mL); PCP Urine VISTA NEGATIVE (< 25 ng/mL); THC Urine VISTA NEGATIVE (< 50 ng/mL); Vista UDS pH Range 6
[2019-03-10 19:11] VITALS: BMI 23.7
[2019-03-10 19:45] VITALS: BP 112/68; PULSE 74; RESP 18; TEMP 36.8; O2SAT 92
[2019-03-10 19:53] VITALS: BMI 24.0
[2019-03-10 20:02] VITALS: PULSE 73
[2019-03-10] MEDS: 0.9% Normal Saline 1,000 ML 60 ML IV (20:44)
[2019-03-10] MEDS: Acetaminophen 325 MG Tablet 650 MG PO (20:45)
[2019-03-10 20:49] VITALS: O2SAT 92
[2019-03-10] MEDS: Atorvastatin Calcium 80 MG Tablet PO (22:40)
[2019-03-10 22:55] LABS: Bedside Glucose 125 mg/dL (70-110)
[2019-03-11] VITALS (9 sets, daily range): BP systolic 117–147; BP diastolic 73–99; PULSE 65–86; RESP 16–18; TEMP 36.4–36.8; O2SAT 94–98
[2019-03-11] MEDS: chlordiazePOXIDE 25 MG Capsule 50 MG PO ×4 (00:20→17:13)
[2019-03-11 06:34] LABS: Anion Gap 5 (5-15); BUN 6 mg/dL (7-18); Calcium,Total 8.7 mg/dL (8.5-10.1); Chloride 102 mmol/L (98-107); Creatinine, Serum 0.67 mg/dL (0.70-1.30); EST Glomerular Filtration Rate 132 mL/min (>60); Est Glom Filt Rate - Afr Amer 159 mL/min (>60); Estimated Creatinine Clearance 131.65 ml/min; Glucose 80 mg/dL (74-106); Potassium 4.1 mmol/L (3.5-5.1); Sodium Level 132 mmol/L (136-145)
[2019-03-11 07:31] LABS: Magnesium 1.8 mg/dL (1.6-2.6); Phosphorus 3.7 mg/dL (2.5-4.9)
[2019-03-11] MEDS: Citalopram 40 MG TABLET PO (08:55)
[2019-03-11] MEDS: Multivitamins,Therapeutic Tablet 1 TABLET PO (08:55)
[2019-03-11] MEDS: Folic Acid 1 MG Tablet PO (08:55)
[2019-03-11] MEDS: Aspirin 81 MG TAB.CHEW PO (08:55)
[2019-03-11] MEDS: Enoxaparin 40 MG/0.4 ML Syringe SC (08:55)
[2019-03-11] MEDS: Thiamine Hydrochloride 100 MG Tablet PO (08:55)
[2019-03-11] MEDS: Montelukast 10 MG Tablet PO (08:56)
[2019-03-11] MEDS: Clopidogrel Bisulfate 75 MG Tablet PO (08:56)
[2019-03-11] MEDS: Lisinopril 20 MG Tablet PO (08:56)
--- NOTE | 2019-03-11 10:35 | CASEMGMT ---
Per physician patient is medically cleared for psych unit. [facility] called [facility] and spoke with Diana regarding referral. CINTIA faxed the information. Await response. CINTIA also spoke with patient and let him know what SW was working on and he was still in agreement. Mariah MUÑOZ MSW
--- NOTE | 2019-03-11 11:59 | DCINST_ITS ---
- Discharge Diagnoses Current Active Problems: Current Active and Chronic Problems (Last Reviewed 03/10/19 @ 19:40 by Lukas Braga MD) (1) Suicidal ideation with Anxiety and Depression, Uncontrolled (2) Hyponatremia, Acute on Chronic secondary to poor intake, hypovolemia, beer potomania concurrently (3) EtOH Abuse (4) CAD s/p PCI (5) Tobacco use (6) Hypertension (7) Hyperlipidemia (8) Chronic LFT elevation with fatty liver disease (9) ANNIE You will use the following diet at home:: Cardiac Your food should be the consistency of: Regular Your liquids should be the consistency of: Regular/Thin Discharge Activity: - - Limitation on activities until complete EtOH withdrawal protocols at facility. Weight Bearing Status: Weight bearing as tolerated Call your doctor if you observe: Fever of 101 or Higher, Inability to urinate, Inability to have a bowel movement, Shortness of breath, Dizziness, Fainting spells, Chest pain, Uncontrolled pain Instructions: Addiction: Your Treatment Options, Life After Combat: Coping with Alcohol Abuse, Tips for Quitting Smoking (Cardiovascular), Planning to Quit Smoking, Getting Support for Quitting Smoking, Coping with Smoking Withdrawal Allergies/Adverse Reactions: Allergies Penicillins Allergy (Verified 03/10/19 15:31) Unknown Medications to take at Discharge Aspirin [Aspirin, Baby] 81 mg PO DAILY@0800 01/16/15 Citalopram Hydrobromide [Citalopram HBr] 40 mg PO DAILY 10/07/18 Montelukast Sodium 10 mg PO DAILY 10/07/18 Atorvastatin Calcium [Lipitor] 80 mg PO DAILY 02/15/19 Clopidogrel Bisulfate [Clopidogrel] 75 mg PO DAILY 03/10/19 Folic Acid 1 mg PO DAILYCM tab 03/11/19 Lisinopril [Zestril] 20 mg PO DAILY tab 03/11/19 Multivitamins,Therapeutic [Multivitamin] 1 tab PO DAILYCM tab 03/11/19 Nicotine [Nicoderm Cq] 21 mg TRANSDERM. DAILY patch 03/11/19 Thiamine Hydrochloride [Vitamin B1] 100 mg PO DAILYCM tab 03/11/19 Primary Care Physician: Arya Barab MD [Primary Care Provider] - Please follow up with your Primary Care Physician in: Follow-up within 1-2 days of discharge from Psychiatric facility. Test Results: Test results from this visit will be discussed in further detail at your follow- up appointment, if applicable. Proposed Discharge Date: 03/11/19
--- NOTE | 2019-03-11 12:00 | DS.PCM_ITS ---
Discharge Date and Diagnosis - Problem List Patient Problems: Active and Suspected Problems (Last Reviewed 03/10/19 @ 19:40 by Lukas Braga MD) Suicidal ideation (Acute) Depression (Acute) Hyponatremia (Acute) Date of Admission: 03/10/19 Date of Discharge: 03/11/19 - Primary Discharge Diagnosis Active and Suspected Problems (Last Reviewed 03/10/19 @ 19:40 by Lukas Braga MD) (1) Suicidal ideation with Anxiety and Depression, Uncontrolled (2) Hyponatremia, Acute on Chronic secondary to poor intake, hypovolemia, beer potomania concurrently (3) EtOH Abuse (4) CAD s/p PCI (5) Tobacco use (6) Hypertension (7) Hyperlipidemia (8) Chronic LFT elevation with fatty liver disease (9) ANNIE - Secondary Discharge Diagnosis Chronic Problems (Last Reviewed 03/10/19 @ 19:40 by Lukas Braga MD) Coronary artery disease (Chronic) Anxiety (Chronic) Fatty infiltration of liver (Chronic) Abnormal LFTs (Chronic) Alcohol dependence (Chronic) Tobacco dependence (Chronic) RBBB (right bundle branch block) (Chronic) Premature ventricular contraction (Chronic) Presence of stent in coronary artery (Chronic ~01/17/15) PTCA/DANIELLE to prox/mid LAD 01/17/15 Nonrheumatic mitral (valve) prolapse (Chronic) Atherosclerotic heart disease of [place] coronary artery without angina pectoris (Chronic) Hyperlipidemia (Chronic) HTN (hypertension), benign (Chronic) Hospital Course and Treatment Consultations 03/10/19 19:52 Crisis [Consult: Mental Health/Crisis] Routine Reason for consult?: suicidal ideation Date Notified:: 03/11/19 Time notified:: 01:26 Operations: None Procedures: EKG Summary of Care Provided: The patient is a 53 y/o M w/ PMHx: CAD s/p PCI, HTN, HLD, Tobacco use, ANNIE, Chronic LFT elevation w/ fatty liver disease, Chronic hyponatremia, Alcohol Abuse (Beer) who presents to the [facility] ED on 03/10/19 with history of suicidal ideations with specific thoughts of being hit by a train and notes that over the last 6 months he has had several notable events including loss of his job secondary to [employer]asing [employer] therefore loss of work as well as the of his friend recently secondary to suicide in addition to poor health of his family members which had prompted him to help take care of them with worsening alcohol abuse intake. Upon ED presentation work-up included stable vital signs, CBC unremarkable, unremarkable coags, CMP with sodium 123, stable otherwise, urine drug screen negative, ethyl alcohol to 280 4 patient was admitted until medical clearance with improvement of sodium within plan transition to psychiatric facility. Crisis evaluation did get performed in the ED and facility had been aware of patient. Patient was hydrated, maintained on [place] protocol as well as suicide precautions with repeat BMP with sodium 132, similar to baseline therefore felt medically cleared. Patient amenable to psychiatric transition and understands need of this care. Crisis was re- contacted and patient transition to psychiatric facility for further management and evaluation. During admission secondary to acute on chronic hyponatremia, hydrochlorothiazide was recommended to be held with continued BP monitoring and if appropriate re-addition at lower dose versus increase of potentially his lisinopril. DAY OF DISCHARGE PROGRESS NOTE: Subjective: Patient without acute event overnight per self and nursing report. Patient maintained on CIWA protocol given alcohol use although when he presented alcohol level in the 200s. Discussed his depression and suicidal ideation which he does confirm and have reviewed recent events over the last 6 months with of his good friend secondary to suicide as well as loss of his job. Patient denies fever, chills, nausea, emesis, abdominal pain, chest pain or dyspnea. Patient agreeable to discharge to psychiatric facility for further evaluation and treatment. Patient will be discharged with follow-up with primary care physician within 3-5 days following his psychiatric facility discharge. Objective: T 98.1, heart rate 75, BP 143/99, respiratory rate 18, 94% on room air. Physical Examination: General: awake, alert, oriented x 3 and cooperative, seated upright in the bed, NAD, states currently he feels calm and less anxious, discussed this may be a Librium taper. Skin: normal color, turgor, no icterus, cyanosis. HEENT: AT/NC, EOMI, PERRLA, less dry MM. Lungs: CTA bilaterally, moderate effort, mild decrease BL bases, no rales, ronchi or wheezing; Heart: Regular rate and rhythm; no gallop, rub audible. Abdomen: soft, NTTP, ND, normal BS. Extremities: no cyanosis, clubbing, or edema. Neurological: patient awake, alert, oriented x 3; cognitive function appears intact upon questioning,; pupils equally reactive to light and accomodation; cranial nerves II-XII grossly normal, moving all 4 extremities, strength mildly globally decreased, improved from initial presentation. Psychiatric: affect appears fatigued, currently denies any anxiety, continued on Librium taper, admits to depression and suicidal ideation. Assessment and Plan: Please see hospital summary above. Patient Problems: Active and Suspected Problems (Last Reviewed 03/10/19 @ 19:40 by Lukas Braga MD) Suicidal ideation (Acute) Depression (Acute) Hyponatremia (Acute) - Physical Exam Vital Signs Temp Pulse Resp BP Pulse Ox 98.1 F 75 18 143/99 H 94 03/11/19 08:49 03/11/19 08:49 03/11/19 08:49 03/11/19 08:49 03/11/19 08:49 Oxygen Delivery Method Room Air Weight: 167 lb 15.876 oz Body Mass Index (BMI) 24.0 Intake and Output for Last 24 Hours 03/09/19 03/10/19 03/11/19 23:59 23:59 23:59 Intake Total 929 / 929 519 / 519 Balance 929 / 929 519 / 519 Laboratory Tests Past 24 Hrs 03/10/19 03/10/19 03/10/19 16:20 16:38 16:38 WBC 7.0 RBC 4.56 L Hgb 14.7 Hct 41.4 MCV 90.8 MCH 32.2 H MCHC 35.5 RDW Std Deviation 44.8 H RDW Coeff of Anderson 13.6 Plt Count 178 MPV 9.2 Immature Gran % (Auto) 0.300 Neut % (Auto) 59.8 Lymph % (Auto) 31.3 [place] % (Auto) 8.2 Eos % (Auto) 0.1 Baso % (Auto) 0.3 Absolute Neuts (auto) 4.2 Absolute Lymphs (auto) 2.20 Absolute Nucleated RBC 0.00 Nucleated RBC % 0 PT 12.5 INR 1.0 Sodium Potassium Chloride Carbon Dioxide Anion Gap BUN Creatinine Estim Creat Clear Calc Est GFR (MDRD) Af Amer Est GFR (MDRD) Non-Af BUN/Creatinine Ratio Glucose Calcium Phosphorus Magnesium Total Bilirubin AST ALT Alkaline Phosphatase Total Protein Albumin Globulin Albumin/Globulin Ratio Urine Opiates Screen NEGATIVE Urine Methadone Screen NEGATIVE Ur Barbiturates Screen NEGATIVE Ur Phencyclidine Scrn NEGATIVE Ur Amphetamines Screen NEGATIVE U Methamphetamin-MDMA NEGATIVE U Benzodiazepines Scrn NEGATIVE Urine Cocaine Screen NEGATIVE U Cannabinoids Screen NEGATIVE Ur Drug Screen Comment Ethyl Alcohol 03/10/19 03/10/19 03/11/19 16:38 16:38 05:50 WBC RBC Hgb Hct MCV MCH MCHC RDW Std Deviation RDW Coeff of Anderson Plt Count MPV Immature Gran % (Auto) Neut % (Auto) Lymph % (Auto) [place] % (Auto) Eos % (Auto) Baso % (Auto) Absolute Neuts (auto) Absolute Lymphs (auto) Absolute Nucleated RBC Nucleated RBC % PT INR Sodium 123 L 132 L Potassium 3.5 4.1 Chloride 94 L 102 Carbon Dioxide 21.0 25.0 Anion Gap 8 5 BUN 7 6 L Creatinine 0.66 L 0.67 L Estim Creat Clear Calc 133.65 131.65 Est GFR (MDRD) Af Amer 161 159 Est GFR (MDRD) Non-Af 133 132 BUN/Creatinine Ratio 10.5 9.0 L Glucose 82 80 Calcium 8.5 8.7 Phosphorus Magnesium Total Bilirubin 1.00 AST 54 H ALT 42 Alkaline Phosphatase 121 H Total Protein 7.9 Albumin 3.9 Globulin 4.0 Albumin/Globulin Ratio 1.0 Urine Opiates Screen Urine Methadone Screen Ur Barbiturates Screen Ur Phencyclidine Scrn Ur Amphetamines Screen U Methamphetamin-MDMA U Benzodiazepines Scrn Urine Cocaine Screen U Cannabinoids Screen Ur Drug Screen Comment Ethyl Alcohol 280.0 03/11/19 05:50 WBC RBC Hgb Hct MCV MCH MCHC RDW Std Deviation RDW Coeff of Anderson Plt Count MPV Immature Gran % (Auto) Neut % (Auto) Lymph % (Auto) [place] % (Auto) Eos % (Auto) Baso % (Auto) Absolute Neuts (auto) Absolute Lymphs (auto) Absolute Nucleated RBC Nucleated RBC % PT INR Sodium Potassium Chloride Carbon Dioxide Anion Gap BUN Creatinine Estim Creat Clear Calc Est GFR (MDRD) Af Amer Est GFR (MDRD) Non-Af BUN/Creatinine Ratio Glucose Calcium Phosphorus 3.7 Magnesium 1.8 Total Bilirubin AST ALT Alkaline Phosphatase Total Protein Albumin Globulin Albumin/Globulin Ratio Urine Opiates Screen Urine Methadone Screen Ur Barbiturates Screen Ur Phencyclidine Scrn Ur Amphetamines Screen U Methamphetamin-MDMA U Benzodiazepines Scrn Urine Cocaine Screen U Cannabinoids Screen Ur Drug Screen Comment Ethyl Alcohol POC Glucose 03/10/19 22:50 POC Glucose 125 H Home Medications: Medications to take at Discharge Aspirin [Aspirin, Baby] 81 mg PO DAILY@0800 01/16/15 Citalopram Hydrobromide [Citalopram HBr] 40 mg PO DAILY 10/07/18 Montelukast Sodium 10 mg PO DAILY 10/07/18 Atorvastatin Calcium [Lipitor] 80 mg PO DAILY 02/15/19 Clopidogrel Bisulfate [Clopidogrel] 75 mg PO DAILY 03/10/19 Folic Acid 1 mg PO DAILYCM tab 03/11/19 Lisinopril [Zestril] 20 mg PO DAILY tab 03/11/19 Multivitamins,Therapeutic [Multivitamin] 1 tab PO DAILYCM tab 03/11/19 Nicotine [Nicoderm Cq] 21 mg TRANSDERM. DAILY patch 03/11/19 Thiamine Hydrochloride [Vitamin B1] 100 mg PO DAILYCM tab 03/11/19 Primary Care Physician: Arya Barba MD [Primary Care Provider] - Patient Instructions: Life After Combat: Coping with Alcohol Abuse, Tips for Quitting Smoking (Cardiovascular), Addiction: Your Treatment Options, Planning to Quit Smoking, Getting Support for Quitting Smoking, Coping with Smoking Withdrawal Disposition: Psych Hospital or Unit Minutes spent on discharge:: 35 Patient Condition:: Fair Medical Necessity - Tobacco Use Smoking Status: Current every day smoker Tobacco Use: Cigarettes, Chew Meaningful Use Info Meaningful Use Diagnoses (Choose all that apply): None applicable Code Visit Inpatient E&M: 25121 Disch Hosp
--- NOTE | 2019-03-11 12:04 | CASEMGMT ---
CINTIA received a call from Jensen at [facility]. He asked CINTIA a few questions. He said he will give this information to the physician to get patient approved. He will be in contact with CINTIA. Mariah LEE
--- NOTE | 2019-03-11 13:56 | CASEMGMT ---
Patient was approved to go to [facility] and patient was approved. CINTIA called [facility] and arranged for patient to get picked up at 4p via cot. SW notified patient and he was very thankful for all the help [facility] has given him. CINTIA notified RN and sales secretary of clam picker time. Plan: [facility] for Psychiatric care as patient was suicidal. Mariah MUÑOZ MSW
== END 2019-03-11 19:50 | DRG 880 ==
LOC: ED 19:07 → PCU 19:26
PROVIDERS: Admitting Provider Hospitalist; Emergency Provider Emergency Medicine; Family Provider Family Medicine; PCP Family Medicine; Referring Provider Hospitalist; Visit Provider Family Medicine
DX: R45.851 Suicidal ideations (principal); E87.1 Hypo-osmolality and hyponatremia; I25.10 Atherosclerotic heart disease of native coronary artery without angina pectoris; Y90.8 Blood alcohol level of 240 mg/100 ml or more; F32.9 Major depressive disorder, single episode, unspecified; F41.9 Anxiety disorder, unspecified; E78.5 Hyperlipidemia, unspecified; G47.33 Obstructive sleep apnea (adult) (pediatric); K76.0 Fatty (change of) liver, 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sified; E86.1 Hypovolemia; I45.10 Unspecified right bundle-branch block; F10.20 Alcohol dependence, uncomplicated; I34.1 Nonrheumatic mitral (valve) prolapse; I10 Essential (primary) hypertension; F17.210 Nicotine dependence, cigarettes, uncomplicated; Z95.5 Presence of coronary angioplasty implant and graft
CPT/HCPCS: 36415; 80048; 80053; 80307; 80320; 82962; 83735; 84100; 85025; 85610; 97161; 97165; 99285; 99406; J7030; A4216; G0480

== ENCOUNTER 2019-06-20 15:02 | Emergency (ER) | payer SELFPAY ==
[2019-06-20 15:03] VITALS: BP 166/96; PULSE 70; RESP 14; TEMP 36.7; O2SAT 99; BMI 27.8
[2019-06-20 15:27] LABS: Absolute Lymphocyte Count 2.23 X10^3/uL (0.83-4.51); Absolute Neutrophil Count 6.4 X10^3/uL (2.0-7.7); Basophil# 0.04 X10^3/uL; Basophil% 0.4 % (0-1); Hematocrit 44.1 % (40-54); Hemoglobin 14.8 g/dL (13.0-16.5); Lymphocyte # 2.23 X10^3/ul (4.0); Lymphocyte % 23.6 % (19-41); Mean Corp Hgb Conc 33.6 g/dL (32-36); Mean Corpuscular Hgb 30.5 pg (27.0-32.0); Mean Corpuscular Volume 90.9 fL (80-94); Mean Platelet Vol. 8.8 fl (6.2-12.0); Monocyte# 0.72 X10^3/uL; Monocyte% 7.6 % (0-10); NRBC Flagged by Analyzer 0 % (0-5); Neutrophil # 6.42 X10^3/uL (2.7-7.7); Neutrophil % 67.9 % (47-70); Platelet Count 220 K/mm3 (150-450); RBC Distribution Width SD 43.3 fl (35.1-43.9); Red Blood Count 4.85 M/mm3 (4.6-6.2); White Blood Count 9.5 K/mm3 (4.4-11.0)
[2019-06-20 15:38] LABS: Anion Gap 7 (5-15); BUN 6 mg/dL (7-18); BUN/Creat Ratio 7.2 RATIO (10-20); Calcium,Total 8.8 mg/dL (8.5-10.1); Chloride 97 mmol/L (98-107); Creatinine, Serum 0.84 mg/dL (0.70-1.30); EST Glomerular Filtration Rate 102 mL/min (>60); Est Glom Filt Rate - Afr Amer 123 mL/min (>60); Glucose 92 mg/dL (74-106); Potassium 3.9 mmol/L (3.5-5.1); Sodium Level 126 mmol/L (136-145)
--- NOTE | 2019-06-20 15:40 | CM.ED ---
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 PATIENT WITH PRIOR DETOX THROUGH [facility] 01/2019 AND HOSPITALIZATION AT [facility] 02/2019. PATIENT'S INSURANCE NO LONGER ACTIVE AND IS A SELF PAY. CRISIS TO EVALUATE ONCE MEDICALLY CLEARED. STAFF UPDATED. CALL TO SIGN PAINTERLISA. UPDATED ON PATIENT. REQUESTING CALL BACK ONCE MEDICALLY CLEARED FOR ASSESSMENT. Evangelina BYRD, ROLLED HAM LACER, BODY ART TECHNICIAN.
--- NOTE | 2019-06-20 15:42 | EKG12_ITS ---
Test Reason : MENTAL HEALTH Blood Pressure : / mmHG Vent. Rate : 063 BPM Atrial Rate : 063 BPM P-R Int : 162 ms QRS Dur : 092 ms QT Int : 386 ms P-R-T Axes : 057 -46 000 degrees QTc Int : 395 ms Normal sinus rhythm Left axis deviation Abnormal ECG Confirmed by RUKHSANA GARCIA ([id number]), industrial editor [place] CHAVIRA ([id number]) on 06/27/2019 9:02:18 AM Referred By: VANDANA Confirmed By:RUKHSANA GARCIA
[2019-06-20 16:03] VITALS: RESP 16
[2019-06-20 17:03] LABS: Amphetamine Urine VISTA NEGATIVE (<1000 ng/mL); Barbiturate Urine VISTA NEGATIVE (< 200 ng/mL); Benzodiazepine Urine VISTA NEGATIVE (< 200 ng/mL); Cocaine Urine VISTA NEGATIVE (< 300 ng/mL); Ecstacy Urine VISTA NEGATIVE (< 500 ng/mL); Methadone Urine VISTA NEGATIVE (< 300 ng/mL); PCP Urine VISTA NEGATIVE (< 25 ng/mL); THC Urine VISTA NEGATIVE (< 50 ng/mL); Vista UDS pH Range 7
--- NOTE | 2019-06-20 17:19 | ED.DCSUM_ITS ---
- ER Visit Summary Date of Service: 06/20/19 Chief Complaint: [Depression and suicidal ideation] History of Present Illness: The patient is a 54 M [presents to the emergency department with persistent depressive symptoms over the last 5 to 6 months. Patient states that he lost a body and then his father in November. Patient states he lost his job last July. Patient over the last several days has had more frequent and intense thoughts of self-harm. Patient knows what he would do if he were to end his life he would jump in front of a train. Apparently he does have access to a gun. She denies any auditory or visual hallucinations. He denies any homicidal ideations. He denies recent illness. Patient is a smoker and does drink alcohol. Denies any illicit drug use. She does have history of hypertension, hyperlipidemia, anxiety, and coronary artery disease.] Physical Examination: [HEENT-PERRLA, EOMI. Cranial nerves II through XII grossly intact. TMs clear. Mucous membranes moist. No adenopathy. Cardiovascular-regular rate and rhythm without murmur or ectopy Lungs-clear to auscultation, chest wall stable without crepitus or subcu emphysema Abdomen-normoactive bowel sounds, soft, nontender, no rebound or rigidity, no peritoneal signs. Extremities-intact ?4, normal range of motion, normal pulses, atraumatic] Test Results: [CBC with differential obtained was unremarkable. Chemistry showed a sodium 126, potassium 3.4, chloride 97, CO2 22. Troponin is less than 0.15. EKG obtained arrival shows sinus rhythm with a ventricular rate of 63 bpm with no acute segment changes. Toxicology screen was negative. Alcohol was 115.] Emergency Department Course and Treatment: [Patient was given a liter normal same fluid bolus. Patient will be evaluated by crisis.] Reevaluation by crisis patient so he can contract for safety. Patient states that he had a couple of drinks and just felt like he needed to talk to somebody. Patient believes that he can keep himself safe and has no plan on following through with self-harm. Patient has had recent admission to psychiatric facility. Patient does not believe that he would benefit from being readmitted. Treatment Plan: [Follow-up with crisis and his psychiatrist as well as his primary care physician. Contract for safety. Advised to return if he does not feel he can keep himself safe. Patient advised to discontinue drinking.] Disposition: [Discharged home in stable condition.] Impression: [Depression Alcohol intoxication] This note was generated with [employer] dictation software. It may contain incorrect words, spelling, and punctuation that were not noted in review of the chart prior to signing ED Disposition - Plan for ED Patient: Referrals: Arya Barba MD [Primary Care Provider] -
[2019-06-20 17:30] VITALS: BP 139/94; PULSE 68; RESP 12; O2SAT 99
[2019-06-20] MEDS: 0.9% Normal Saline 1,000 ML 999 ML IV (17:47)
[2019-06-20 18:04] VITALS: RESP 14
[2019-06-20 19:05] VITALS: RESP 12
--- NOTE | 2019-06-20 20:28 | ED.DEP ---
ED Disposition - Plan for ED Patient: Instructions: Depression, CONTRACT, No Harm Referrals: Arya Barba MD [Primary Care Provider] - 3-5 Days
[2019-06-20 20:34] VITALS: BP 132/88; PULSE 88; RESP 16; O2SAT 97
== END 2019-06-20 20:40 | disposition home or self-care (01) ==
PROVIDERS: Emergency Provider Emergency Medicine; Family Provider Family Medicine; PCP Family Medicine
DX: F32.9 Major depressive disorder, single episode, unspecified (principal); R45.851 Suicidal ideations; F10.129 Alcohol abuse with intoxication, unspecified; Y90.5 Blood alcohol level of 100-119 mg/100 ml; I25.10 Atherosclerotic heart disease of native coronary artery without angina pectoris; I10 Essential (primary) hypertension; E78.5 Hyperlipidemia, unspecified; F41.9 Anxiety disorder, unspecified; F17.200 Nicotine dependence, unspecified, uncomplicated
CPT/HCPCS: 80048; 80307; 80320; 84484; 85025; 93005; 96360; 96361; 99284; J7030; G0480

== ENCOUNTER 2020-09-30 07:49 | Emergency (ER) | payer OTHER, SELFPAY ==
[2020-09-30 07:50] VITALS: BP 171/102; PULSE 62; RESP 18; TEMP 36.2; O2SAT 97; BMI 28.7
[2020-09-30 07:57] VITALS: PULSE 74; RESP 16; O2SAT 98
--- NOTE | 2020-09-30 07:57 | EKG12_ITS ---
Test Reason : PALPS Blood Pressure : / mmHG Vent. Rate : 066 BPM Atrial Rate : 066 BPM P-R Int : 154 ms QRS Dur : 088 ms QT Int : 398 ms P-R-T Axes : 064 -44 040 degrees QTc Int : 417 ms Sinus rhythm with occasional Premature ventricular complexes Left axis deviation Abnormal ECG Confirmed by LORRAINE LEON, TAMMIE ([id number]), newspaper managing editor [place] CHAVIRA ([id number]) on 10/02/2020 8:22:05 AM Referred By: TIM Confirmed By:TAMMIE PETERS MD
--- NOTE | 2020-09-30 07:57 | RAD_ITS ---
STUDY: X-RAY CHEST REASON FOR EXAM: Male, 55 years old. chest pain, palpitations TECHNIQUE: Single AP portable view of the chest. COMPARISON: 02/11/2019 FINDINGS: The lungs are clear and expanded. There is no demonstrated pleural abnormality. Normal size heart. Normal mediastinum and karissa. Normal visualized pulmonary arteries. Normal visualized aortic arch and descending thoracic aorta. Normal visualized thoracic spine. Normal visualized ribs, clavicles, and shoulders. There is no demonstrated abnormality of the visualized soft tissue structures of the upper abdomen. RAD/Chest 1 View (Portable) IMPRESSION: Normal x-ray examination of the chest. Electronically Signed: Ion Mendoza MD at 8:35 EST Tel , Service support ,
--- NOTE | 2020-09-30 07:59 | ED.VISSUMM ---
- ER Visit Summary Date of Service: 09/30/20 Chief Complaint: Palpitations History of Present Illness: The patient is a 55 M presenting with palpitations. Patient states this has been ongoing for the past week. It has been intermittent. He states he feels an occasional extra beat. Denies heart racing. Denies chest pain or shortness of breath. Denies fever or cough. Denies dizziness or syncope. He states he has had these symptoms in the past but this has been more frequent than usual. He admits to occasional alcohol use, denies drug use. Denies increased caffeine use. He has a remote history of DVT, no other PE/DVT risk factors. Physical Examination: Vitals are stable. Patient is afebrile. Alert no acute distress. HEENT exam is unremarkable. Neck is supple. Lungs are clear and equal bilaterally. Heart is regular rate and rhythm. Abdomen is soft nontender nondistended. Extremities are unremarkable. Skin is warm and dry. No focal neurologic deficit. Remainder of exam is unremarkable. Emergency Department Course and Treatment: EKG is sinus rhythm rate of 66 with occasional PVCs, no acute ischemic changes. Chest x-ray read by myself and radiology shows normal x-ray examination of the chest. CBC, chemistries unremarkable. Troponin is negative. D-dimer normal. On reevaluation, patient is resting comfortably. Advised to follow-up with primary care physician. Advised return to ED for worsening complaints. Disposition: Discharge home Impression: Palpitations This note was generated with [employer] dictation software. It may contain incorrect words, spelling, and punctuation that were not noted in review of the chart prior to signing ED Disposition - Plan for ED Patient: Instructions: ED Palpitations Referrals: Arya Barba MD [Primary Care Provider] -
[2020-09-30 08:01] VITALS: O2SAT 97
[2020-09-30 08:06] LABS: Absolute Lymphocyte Count 3.15 X10^3/uL (0.83-4.51); Absolute Neutrophil Count 6.4 X10^3/uL (2.0-7.7); Basophil# 0.06 X10^3/uL; Basophil% 0.6 % (0-1); Eosinophil# 0.08 X10^3/uL; Eosinophils% 0.8 % (0-5); Hematocrit 48.9 % (40-54); Hemoglobin 16.1 g/dL (13.0-16.5); Lymphocyte # 3.15 X10^3/ul (4.0); Lymphocyte % 30.1 % (19-41); Mean Corp Hgb Conc 32.9 g/dL (32-36); Mean Corpuscular Hgb 29.7 pg (27.0-32.0); Mean Corpuscular Volume 90.2 fL (80-94); Mean Platelet Vol. 9.9 fl (6.2-12.0); Monocyte# 0.77 X10^3/uL; Monocyte% 7.4 % (0-10); NRBC Flagged by Analyzer 0 % (0-5); Neutrophil # 6.38 X10^3/uL (2.7-7.7); Neutrophil % 60.8 % (47-70); Platelet Count 214 K/mm3 (150-450); RBC Distribution Width CV 12.9 % (11.6-14.6); RBC Distribution Width SD 42.5 fl (35.1-43.9); Red Blood Count 5.42 M/mm3 (4.6-6.2); White Blood Count 10.5 K/mm3 (4.4-11.0)
[2020-09-30 08:23] LABS: Anion Gap 5 (5-15); BUN 14 mg/dL (7-18); BUN/Creat Ratio 13.7 RATIO (10-20); Chloride 103 mmol/L (98-107); Creatinine, Serum 1.02 mg/dL (0.70-1.30); EST Glomerular Filtration Rate 81 mL/min (>60); Est Glom Filt Rate - Afr Amer 97 mL/min (>60); Estimated Creatinine Clearance 84.49 ml/min; Glucose 99 mg/dL (74-106); Sodium Level 134 mmol/L (136-145)
[2020-09-30 08:53] LABS: D-Dimer Quantitative (DVT/PE) <= 0.27 FEU/ug/m (0.27-0.49)
--- NOTE | 2020-09-30 09:02 | ED.DEP ---
ED Disposition - Plan for ED Patient: Instructions: ED Palpitations Referrals: Arya Barba MD [Primary Care Provider] -
[2020-09-30 09:12] VITALS: BP 111/87; PULSE 60; RESP 12; O2SAT 97
== END 2020-09-30 09:15 | disposition home or self-care (01) ==
LOC: ED 08:59
PROVIDERS: Emergency Provider Emergency Medicine; PCP Family Medicine
DX: R00.2 Palpitations (principal); I10 Essential (primary) hypertension; Z72.0 Tobacco use; Z79.02 Long term (current) use of antithrombotics/antiplatelets; Z79.82 Long term (current) use of aspirin; Z79.899 Other long term (current) drug therapy
CPT/HCPCS: 71045; 80048; 84484; 85025; 85379; 93005; 96360; 99284; J7030; A4216

== ENCOUNTER → 2022-08-14 | Outpatient (CLI) | payer OTHER, SELFPAY ==
[2022-08-14 09:28] LABS: AST(SGOT) 19 U/L (15-37); Alanine Aminotransfer ALT/SGPT 27 U/L (16-61); Albumin, Serum 3.6 g/dL (3.2-5.0); Alkaline Phosphatase 112 U/L (45-117); Bilirubin, Direct 0.17 mg/dL (0.00-0.30); Cholesterol 125 mg/dL (200); Globulin 3.7 g/dL (2.2-4.2); High Density Lipoprotein 29 mg/dL; Protein, Total 7.3 g/dL (6.4-8.2); Triglycerides 389 mg/dL; Very Low Density Lipoprotein 78 mg/dL (5-40)
== END | disposition home or self-care (01) ==
PROVIDERS: PCP Family Medicine; Visit Provider Nurse Practitioner Family
DX: E78.00 Pure hypercholesterolemia, unspecified (principal); Z95.5 Presence of coronary angioplasty implant and graft
CPT/HCPCS: 36415; 80061; 80076

== ENCOUNTER → 2022-08-22 | Outpatient (CLI) | payer OTHER, SELFPAY ==
--- NOTE | 2022-08-22 10:45 | STE_ITS ---
Reason For Study: CHEST PAIN Stress Results Protocol: Indra Protocol Maximum Predicted HR: 163 bpm Target HR: 139 bpm % Maximum Predicted HR: 87 % DurationHeart Rate Stage (mm:ss) (bpm) BP Comment BASELINE 62 140/82 STAGE 1 3:00 103 140/80 STAGE 2 3:00 115 142/84 STAGE 3 3:00 141 142/94INCREASED SOB, NO CHEST PAIN RECOVERY 84 138/82 Stress Duration: 9:00 mm:ss Maximum Stress HR: 141 bpm METS: 10 Baseline Echocardiogram Findings Stress Echo Wall motion Data Resting WM Intermediate WM Stress WM Resting Wall Motion Wall Motion Stress All segments Normal. All segments Hyperkinetic. Ejection Fraction 55 %. Ejection Fraction 75 %. Stress Results Heart rate response: Technically adequate: Percent predicted maximal heart rate greater than 85% Blood pressure response: Resting hypertension: Blunted response Rhythm: Rare PVC during exercise Functional capacity: Good Stopped secondary to: Dyspnea. EKG Data Baseline ECG: Normal sinus rhythm; nonspecific T wave abnormality. Peak exercise ECG: Somatic/motion artifact with no obvious ECG changes. Symptoms with Stress No complaint of chest discomfort during exercise or recovery. ECHO/Stress Test Echo w/o Contrast Interpretation Summary Negative (adequate) stress echocardiogram Ordering Physician: Taiwo Vasquez Referring Physician: Taiwo Vasquez Performed By: Janine Quinn RCS
== END | disposition home or self-care (01) ==
PROVIDERS: PCP Family Medicine; Referring Provider Nurse Practitioner Family; Visit Provider Nurse Practitioner Family
DX: Z95.5 Presence of coronary angioplasty implant and graft (principal); R07.9 Chest pain, unspecified; E78.00 Pure hypercholesterolemia, unspecified; I10 Essential (primary) hypertension; I49.3 Ventricular premature depolarization; I34.1 Nonrheumatic mitral (valve) prolapse
CPT/HCPCS: 93017; 93350

== ENCOUNTER → 2023-05-25 | Outpatient (CLI) | payer OTHER, SELFPAY ==
--- NOTE | 2023-05-25 15:50 | RAD_ITS ---
STUDY: X-RAY CHEST REASON FOR EXAM: Male, 57 years old. Shortness of breath with cough and pitting edema. TECHNIQUE: Frontal and lateral views of the chest. COMPARISON: September 30, 2020. FINDINGS: Stable mild hyperinflation There is no demonstrated pleural abnormality. Normal size heart. Normal mediastinum and karissa. Normal visualized pulmonary arteries. Aortic tortuosity unchanged. Stable mild diffuse thoracic spondylosis. Normal visualized ribs, clavicles, and shoulders. No abnormality of the visualized soft tissue structures of the upper abdomen. RAD/Chest PA and Lateral IMPRESSION: Stable chest with no acute or active cardiopulmonary disease. Electronically Signed: Sarwat Mcneal MD at 9:48 EDT ,
[2023-05-25 17:01] LABS: Hematocrit 44.6 % (40-54); Mean Corp Hgb Conc 33.6 g/dL (32-36); Mean Corpuscular Hgb 30.7 pg (27.0-32.0); Mean Corpuscular Volume 91.4 fL (80-94); Mean Platelet Vol. 10.4 fl (6.2-12.0); Platelet Count 176 K/mm3 (150-450); RBC Distribution Width CV 13.5 % (11.6-14.6); RBC Distribution Width SD 45.5 fl (35.1-43.9); Red Blood Count 4.88 M/mm3 (4.6-6.2); White Blood Count 8.8 K/mm3 (4.4-11.0)
[2023-05-25 17:26] LABS: AST(SGOT) 18 U/L (15-37); Alanine Aminotransfer ALT/SGPT 26 U/L (16-61); Albumin, Serum 3.7 g/dL (3.2-5.0); Alkaline Phosphatase 124 U/L (45-117); Anion Gap 7 (5-15); BUN 16 mg/dL (7-18); BUN/Creat Ratio 14.3 RATIO (10-20); Bilirubin, Direct 0.11 mg/dL (0.00-0.30); Calcium,Total 8.5 mg/dL (8.5-10.1); Chloride 108 mmol/L (98-107); Cholesterol 186 mg/dL (200); Creatinine, Serum 1.12 mg/dL (0.70-1.30); EST Glomerular Filtration Rate 72 mL/min (>60); Est Glom Filt Rate - Afr Amer 87 mL/min (>60); Globulin 3.6 g/dL (2.2-4.2); Glucose 93 mg/dL (74-106); High Density Lipoprotein 33 mg/dL; Potassium 3.8 mmol/L (3.5-5.1); Protein, Total 7.3 g/dL (6.4-8.2); Sodium Level 140 mmol/L (136-145); Triglycerides 531 mg/dL
[2023-05-25 17:31] LABS: BNP,B-Type NATRIURETIC PEPTIDE 17.9 pg/mL (0-100)
== END | disposition home or self-care (01) ==
LOC: LAB 15:43
PROVIDERS: PCP Family Medicine; Referring Provider Nurse Practitioner Family; Visit Provider Nurse Practitioner Family
DX: E78.00 Pure hypercholesterolemia, unspecified (principal); R05.9 Cough, unspecified; R06.02 Shortness of breath; R60.9 Edema, unspecified; Z95.5 Presence of coronary angioplasty implant and graft; F17.200 Nicotine dependence, unspecified, uncomplicated
CPT/HCPCS: 36415; 71046; 80048; 80061; 80076; 83880; 85027

== ENCOUNTER → 2023-11-20 | Outpatient (CLI) | payer OTHER, SELFPAY ==
--- NOTE | 2023-11-20 10:50 | RAD_ITS ---
STUDY: X-RAY CHEST REASON FOR EXAM: Male, 58 years old. Chest pain. Preoperative evaluation. TECHNIQUE: PA and lateral views of the chest. COMPARISON: Comparison is made with prior study dated May 25, 2023. FINDINGS: Stable mild degree of hyperinflation. No acute abnormality seen. There is no demonstrated pleural abnormality. Normal size heart. Normal mediastinum and karissa. Normal visualized pulmonary arteries. There is atherosclerotic calcification of the aortic arch with tortuosity. There are degenerative changes of the visualized thoracic spine. Normal visualized ribs, clavicles, and shoulders. There is no demonstrated abnormality of the visualized soft tissue structures of the upper abdomen. RAD/Chest PA and Lateral IMPRESSION: Stable examination. No acute abnormality is seen. Electronically Signed: Gerardo Triplett MD at 11:56 EDT ,
[2023-11-20 11:24] LABS: Absolute Neutrophil Count 5.3 X10^3/uL (2.0-7.7); Basophil# 0.08 X10^3/uL; Basophil% 0.9 % (0-1); Eosinophil# 0.14 X10^3/uL; Eosinophils% 1.5 % (0-5); Hematocrit 47.6 % (40-54); Hemoglobin 15.8 g/dL (13.0-16.5); Mean Corp Hgb Conc 33.2 g/dL (32-36); Mean Corpuscular Hgb 29.9 pg (27.0-32.0); Mean Corpuscular Volume 90.2 fL (80-94); Mean Platelet Vol. 9.5 fl (6.2-12.0); Monocyte# 0.63 X10^3/uL; Monocyte% 6.7 % (0-10); NRBC Flagged by Analyzer 0 % (0-5); Neutrophil # 5.28 X10^3/uL (2.7-7.7); Neutrophil % 56.2 % (47-70); Platelet Count 219 K/mm3 (150-450); RBC Distribution Width CV 14.1 % (11.6-14.6); RBC Distribution Width SD 46.7 fl (35.1-43.9); Red Blood Count 5.28 M/mm3 (4.6-6.2); White Blood Count 9.4 K/mm3 (4.4-11.0)
[2023-11-20 11:44] LABS: International Normalized Ratio 0.9; Partial Thromboplast Time 27.6 Seconds (24.1-36.2); Prothrombin Time (Protime)PT. 11.8 SECONDS (11.7-14.9)
[2023-11-20 12:23] LABS: Anion Gap 5 (5-15); BUN 6 mg/dL (7-18); BUN/Creat Ratio 6.1 RATIO (10-20); Calcium,Total 8.4 mg/dL (8.5-10.1); Chloride 106 mmol/L (98-107); Creatinine, Serum 0.98 mg/dL (0.70-1.30); EST Glomerular Filtration Rate 83 mL/min (>60); Est Glom Filt Rate - Afr Amer 101 mL/min (>60); Glucose 116 mg/dL (74-106); Potassium 4.1 mmol/L (3.5-5.1); Sodium Level 136 mmol/L (136-145)
== END | disposition home or self-care (01) ==
LOC: RAD 10:48
PROVIDERS: PCP Family Medicine; Referring Provider Physician Assistant Medical; Visit Provider Physician Assistant Medical
DX: R07.9 Chest pain, unspecified (principal)
CPT/HCPCS: 36415; 71046; 80048; 85025; 85610; 85730

== ENCOUNTER 2023-12-02 06:52 | Day surgery (SDC) | payer OTHER, SELFPAY ==
[2023-12-01 07:31] VITALS: BMI 30.9
--- NOTE | 2023-12-02 09:04 | CL.D_ITS ---
Patient Name: TINY ZAPIEN Study Date: 12/02/2023 Performing: Dane Cifuentes MD Ht: 70 inches 177.8 cm : 1965 Wt: 216.01 lbs 97.98 kg Age: 58 Gender: male BSA: 2.16 PROCEDURE(S) PERFORMED [id number])LHC/COR/LV CLINICAL PROFILE AND INDICATIONS Indications: Suspected CAD Heart Failure: None Stress/Imaging Stress/Image Study Performed: No CAD Presentations: Symptom unlikely to be ischemic. CONCLUSIONS Non obstructive coronary arteries Previously placed stent in the LAD is patent RECOMMENDATIONS Medical therapy DESCRIPTION OF PROCEDURE The patient arrived to the procedure lab. The risks and benefits of the procedure as well as a full description of our services here and current unavailability of surgical backup were fully explained to the patient and/or their significant other prior to the catheterization. The Timeout was completed, verifying the correct patient and procedure. The patient's procedural site was prepped and draped in the usual fashion. Local anesthetic was given subcutaneously to right radial region with Lidocaine 2%. Using a modified Seldinger technique, arterial access was obtained via the right radial artery, a 6Fr sheath was inserted. Right Coronary Artery selective angiography was then performed in multiple views using a 5 Fr. 4.0 [place] catheter. Left Coronary Artery selective angiography was performed in multiple views using a 5 Fr. 4.0 [place] catheter. Left Ventriculography was performed in [place]HO projection using a 5 Fr. Pig[place] catheter. LV to AO pullback pressures were then recorded.The arterial sheath was pulled and a TR Band was applied for hemostasis CORONARY ANGIOGRAPHY DOMINANCE: Right Dominant LEFT HEART ASSESSMENT Left Ventricular Ejection Fraction: by LV Gram 65 % Normal LV wall motion Normal Left Ventricular systolic function LEFT MAIN: Angiographically normal LEFT ANTERIOR DESCENDING ARTERY: This vessel is medium size vessel giving off a first diagonal. There is a medium sized mid segment stents placed which is patent. CIRCUMFLEX ARTERY: Mild luminal irregularities RIGHT CORONARY ARTERY: Mild luminal irregularities COMPLICATIONS No Complications PROCEDURE MEDICATIONS Versed 1 mg IV Fentanyl 50 mcg IV Versed 1 mg IV Oxygen: 2 L/min via nasal cannula Heparin given IA 12/02/2023 08:29:36 Verapamil 2.5mg, Ntg 100mcgs, 3000 units of Heparin given IA 12/02/2023 08:29:36 SUMMARY OF HEMODYNAMIC DATA Time AIR REST ECG 07:23:32 Art 152/67 (92) 08:35:08 AO 138/84 (109) SA 08:36:32 LV 125/31, 35 08:43:24 LV 127/20, 26 08:43:34 LV 127/7, 15 08:43:55 LVp 106/21, 51 08:44:20 AOp 143/77 (108) 08:44:27 08:58:15 Signed By Dane Cifuentes MD On 12/02/2023 09:03:28 Dane Cifuentes MD
== END 2023-12-02 10:30 | disposition home or self-care (01) ==
LOC: CLSP 06:54
PROVIDERS: PCP Family Medicine; Referring Provider Internal Medicine Cardiovascular Disease; Visit Provider Internal Medicine Cardiovascular Disease
DX: Z95.5 Presence of coronary angioplasty implant and graft (principal); I25.10 Atherosclerotic heart disease of native coronary artery without angina pectoris; I10 Essential (primary) hypertension; E78.00 Pure hypercholesterolemia, unspecified; I34.1 Nonrheumatic mitral (valve) prolapse; Z79.82 Long term (current) use of aspirin; Z79.899 Other long term (current) drug therapy; F17.200 Nicotine dependence, unspecified, uncomplicated
CPT/HCPCS: 93458; 99152; 99153; J7040; Q9967; C1769; C1894

== ENCOUNTER → 2024-03-07 | Outpatient (CLI) | payer OTHER, SELFPAY ==
[2024-03-07 10:24] LABS: PSA,Total - Annual Screen 1.87 ng/mL (0.00-4.00)
== END | disposition home or self-care (01) ==
LOC: LAB 08:40
PROVIDERS: PCP Family Medicine; Referring Provider Nurse Practitioner; Visit Provider Nurse Practitioner
DX: Z12.5 Encounter for screening for malignant neoplasm of prostate (principal)
CPT/HCPCS: 36415; 84153; G0103

== ENCOUNTER → 2024-06-27 | Outpatient (CLI) | payer OTHER, SELFPAY | END | disposition home or self-care (01) | LOC: LABSPEC 16:30 | PROVIDERS: PCP Family Medicine; Referring Provider Urology; Visit Provider Urology | DX: R30.0 Dysuria (principal) | CPT/HCPCS: 87077; 87086; 87088; 87186 ==

== ENCOUNTER → 2025-02-07 | Outpatient (CLI) | payer OTHER, SELFPAY ==
[2025-02-07 10:10] LABS: Absolute Lymphocyte Count 2.57 X10^3/uL (0.83-4.51); Absolute Neutrophil Count 3.3 X10^3/uL (2.0-7.7); Basophil# 0.05 X10^3/uL; Basophil% 0.8 % (0-1); Eosinophil# 0.13 X10^3/uL; Hematocrit 45.9 % (40-54); Hemoglobin 15.7 g/dL (13.0-16.5); Lymphocyte # 2.57 X10^3/ul (0.83-4.51); Lymphocyte % 38.7 % (19-41); Mean Corp Hgb Conc 34.2 g/dL (32-36); Mean Corpuscular Hgb 31.2 pg (27.0-32.0); Mean Corpuscular Volume 91.1 fL (80-94); Mean Platelet Vol. 9.1 fl (6.2-12.0); Monocyte# 0.54 X10^3/uL; Monocyte% 8.1 % (0-10); NRBC Flagged by Analyzer 0 % (0-5); Neutrophil # 3.33 X10^3/uL (2.7-7.7); Neutrophil % 50.1 % (47-70); Platelet Count 235 K/mm3 (150-450); RBC Distribution Width CV 13.5 % (11.6-14.6); RBC Distribution Width SD 45.4 fl (35.1-43.9); Red Blood Count 5.04 M/mm3 (4.6-6.2); White Blood Count 6.6 K/mm3 (4.4-11.0)
== END | disposition home or self-care (01) ==
LOC: LAB 08:59
PROVIDERS: PCP Family Medicine; Referring Provider Nurse Practitioner Gerontology; Visit Provider Nurse Practitioner Gerontology
DX: R23.3 Spontaneous ecchymoses (principal)
CPT/HCPCS: 36415; 85025

== ENCOUNTER → 2025-08-02 | Outpatient (CLI) | payer OTHER, SELFPAY ==
--- NOTE | 2025-08-02 11:40 | RAD_ITS ---
PROCEDURE: CERV SPINE OBL/FLEX/EXT COMP 08/02/2025 REASON FOR EXAM: OTHER CERVICAL DISC DEGENERATION, UNSPECIFIED CERVICAL REGION TECHNIQUE: Procedure Code: [id number] Modality: DX Procedure: CERV SPINE OBL/FLEX/EXT COMP COMPARISON: None FINDINGS: Vertebrae: Cervical vertebral body heights are within normal limits. There appears to be an old healed fracture of the dens. Clinically correlate. Moderate to severe spondylosis of the cervical spine is noted. Disc spaces: Degenerative disc disease is seen involving the C3-C4 and C4-C5 disc spaces. There is bony encroachment of the neural foramina at these levels. There is facet hypertrophy. The remaining disc spaces appear to be well-maintained. Alignment: There is approximately 2 mm of retrolisthesis of C3 in relationship to C4, 2 mm of retrolisthesis of C4 in relationship to C5 and 1 mm of anterolisthesis of C5 in relationship to C6. The remaining vertebral bodies demonstrate normal alignment. Soft tissues: There is no prevertebral soft tissue swelling. The paravertebral soft tissue structures are unremarkable. RAD/Cerv Spine Obl/Flex/Ext Comp IMPRESSION: Moderate to severe spondylosis of the cervical spine is noted. Degenerative disc disease is seen involving the C3-C4 and C4-C5 discs. There i s bony encroachment on the neural foramina at these levels. There is facet hypertrophy. There is approximately 2 mm of retrolisthesis of C3 in relationship to C4, 2 mm of retrolisthesis of C4 in relationship to C5 and 1 mm of anterolisthesis of C5 in relationship to C6. Disclaimer: Reading Location: [id number]
== END | disposition home or self-care (01) ==
PROVIDERS: PCP Family Medicine; Referring Provider Anesthesiology Pain Medicine; Visit Provider Anesthesiology Pain Medicine
DX: M50.30 Other cervical disc degeneration, unspecified cervical region (principal)
CPT/HCPCS: 72052

== ENCOUNTER → 2025-08-23 | Outpatient (CLI) | payer OTHER, SELFPAY ==
--- NOTE | 2025-08-23 10:32 | ECHOD_ITS ---
Reason For Study Reason For Study: CHEST PAIN, MVP. Procedure This was a 2D Doppler, Color Flow transthoracic echocardiogram. The study was technically difficult. Due to respiratory interference. Exam performed in department. Left Ventricle Normal-sized left ventricle. Normal left ventricular wall thickness. Left ventricular EF by Ga's biplane: 64%. E/e' suggest normal filling pressures. No regional wall motion abnormalities noted. Right Ventricle Normal right ventricle. Normal systolic function. Unable to estimate RV systolic pressure due to insufficient tricuspid regurgitant envelope. Atria The left and right atria are normal. Right atrial pressure estimated: 3 mmHg. Normal atrial septum. Mitral Valve Normal mitral valve. No evidence of significant mitral valve prolapse on this examination. Trace mitral regurgitation. No mitral stenosis. Tricuspid Valve Normal tricuspid valve. No tricuspid stenosis. No tricuspid regurgitation. Aortic Valve Trileaflet aortic valve. No aortic regurgitation. No hemodynamically significant aortic stenosis. Pulmonic Valve Normal pulmonic valve. Trace pulmonic regurgitation. No pulmonic stenosis. Great Vessels Mild thoracic aortic dilation. Diameter: 4.0 cm. Pericardium/Pleural No pericardial effusion. Epicardial fat. MMode/2D Measurements & Calculations LVIDd: 5.0 cm IVSd: 1.2 cm Ao root diam: 3.7 cm LVIDs: 3.5 cm LVPWd: 1.1 cm RVDd: 3.3 cm FS: 28.7 % asc Aorta Diam: 4.0 cm LAV(MOD-bp): 56.2 ml LVAd ap4: 31.9 cm2 LAV(MOD-bp) Indexed: 27.5 ml/m2 LVLd ap4: 8.4 cm LAV(MOD-sp2): 69.6 ml EDV(MOD-sp4): 97.5 ml LAV(MOD-sp4): 39.9 ml EDV(sp4-el): 103.2 ml LVAs ap4: 17.6 cm2 LVLs ap4: 7.2 cm ESV(MOD-sp4): 37.7 ml ESV(sp4-el): 36.3 ml EF(MOD-sp4): 61.4 % EF(sp4-el): 64.8 % SV(MOD-sp4): 59.8 ml SV(sp4-el): 66.8 ml LA A4 area: 15.8 cm2 SI(MOD-sp4): 29.3 ml/m2 LA dimension(2D): 3.8 cm RA A4 area: 14.3 cm2 TAPSE: 1.7 cm Time Measurements MV dec time: 0.29 sec Doppler Measurements & Calculations MV E max heladio: 54.4 cm/sec Lat Peak E' Heladio: 10.1 cm/sec Med Peak E' Heladio: 6.6 cm/sec MV A max heladio: 77.2 cm/sec E/E' lat: 5.4 E/E' med: 8.3 MV E/A: 0.70 MV V2 max: 96.4 cm/sec MV P1/2t max heladio: 56.9 cm/sec Ao V2 max: 120.8 cm/sec MV max P.7 mmHg MV P1/2t: 75.2 msec Ao max P.8 mmHg MV V2 mean: 44.0 cm/sec Ao V2 mean: 83.5 cm/sec MV mean P.96 mmHg MV dec slope: 221.9 cm/sec2 Ao mean P.2 mmHg MV V2 VTI: 20.0 cm MVA(P1/2t): 2.9 cm2 Ao V2 VTI: 22.9 cm AV (velocity ratio): 0.85 LV V1 max: 105.0 cm/sec PA V2 max: 103.8 cm/sec LV V1 max P.4 mmHg LV V1 mean P.6 mmHg LV V1 mean: 77.7 cm/sec LV V1 VTI: 19.5 cm ECHO/Echo Complete Interpretation Summary Normal left ventricular systolic function with EF by Ga's biplane: 64% E/e' suggest normal left ventricular filling pressures Normal right ventricular systolic function No hemodynamically significant valvular disease Thoracic aortic dilation to 4.0 cm Recommend surveillance of thoracic aortic dilation as clinically indicated. Ordering Physician: Abdelrahman Landeros Referring Physician: Arya Barba Performed By: Lluvia Alcala, RICHY, RVT
--- OUTSIDE RECORDS SUMMARY | 2025-08-23 10:51 | XMS RPT_ITS | CCD ---
Author Organization [facility] ion Partnership [facility] Care Team Providers Care Machining Manager Name Role Phone Rigo MICHEL, Gillian Paz Unavailable Rigo MICHEL, Gillian Paz Unavailable Micha Mckenzie Unavailable UnavailMicha Parker Unavailable UnavailArya Bang Unavailable Unavailable Marlyn Camejo Unavailable Unavailable Marlyn Camejo Unavailable Unavailable Arya James MD Primary Care Provider Arya James MD Primary Care Provider [phone] Dr. Arya James Primary Care Provider Dr. Arya James Referring Provider Christina SCHOOL BOAT DRIVER, SCHOOL BOAT DRIVER-C Taiwo Benz Attending Provider Dr. Kody Bernstein Attending Provider Dr. Arya James Primary Care Provider Dr. Arya James Referring Provider KIYA Colbert Attending Provider Arya James MD Primary Care Provider Arya James MD Primary Care Provider Gianluca BYRD.Virgil SLOAN Unavailable Paula Hyman PA-C Unavailable Arya James MD Primary Care Provider Gianluca BYRD.Virgil SLOAN Unavailable Paula Hyman PA-C Unavailable Dr. Arya James MD Primary Care Provider Dr. Arya James MD Referring Provider Thang GOMEZC, Sully Attending Provider [phone] Thang BROOKS-CSully Referring Provider [phone] Jacob, Arya Primary Care Unavailable Kyle Romano Attending Unavailable Kyle Romano Referring Unavailable Thang SCHOOL BOAT DRIVER, Sully Attending Unavailable Thang SCHOOL BOAT DRIVER, Sully Referring Unavailable Jacob, Arya Primary Care Unavailable Jacob, Arya Primary Care Unavailable [place], Amy Attending Unavailable [place], Amy Referring Unavailable Jacob, Arya Referring Unavailable Thang SCHOOL BOAT DRIVER, Sully Attending Unavailable Jacob, Arya Primary Care Unavailable Jacob, Arya Primary Care Unavailable Jacob, Arya Referring Unavailable Gillian Colbert Attending Unavail able GIANLUCA, VIRGIL Referring Unavailable JACOB, ARYA A Primary Care Unavailable NAZIAOBLEVIRGIL Attending Unavailable JACOB, ARYA A Primary Care Unavailable JACOB, ARYA A Referring Unavailable JACOB, ARYA A Primary Care Unavailable JACOB, ARYA A Primary Care Unavailable JACOB, ARYA A Primary Care Unavailable JACOB, ARYA A Referring Unavailable JACOB, ARYA A Primary Care Unavailable JACOB, ARYA A Referring Unavailable JACOB, ARYA A Primary Care Unavailable JACOB, ARYA A Referring Unavailable JACOB, ARYA A Primary Care Unavailable JACOB, ARYA A Attending Unavailable JACOB, ARYA A Primary Care Unavailable JACOB, ARYA A Referring Unavailable JACOB, ARYA A Primary Care Unavailable JORGE LUIS SWANN Attending Unavailable GIANLUCA, VIRGIL Referring Unavailable JACOB, ARYA A Primary Care Unavailable JACOB, ARYA A Referring Unavailable JACOB, ARYA A Primary Care Unavailable JACOB, ARYA A Attending Unavailable JACOB, ARYA A Primary Care Unavailable Allergies Allergy Classification Reported Allergen(s) Allergy Type Date of Onset Reaction(s) Facility Penicillins (antibiotic) (4 sources) Penicillins Drug Allergy 6 Unknown [facility] Work Phone: (5 sources) penicillin; Translations: [penicillin] drug allergy 2 Hives, [facility] Work Phone: (3 sources) Penicillins; Translations: [PENICILLINS] Propensity to adverse reactions to drug 6 Unknown [facility] Work Phone: (20 sources) Penicillins Propensity to adverse reactions to drug 6 Unknown [facility] Work Phone: (6 sources) Penicillins Allergy to substance 2 Unknown [facility] (7 sources) Penicillins Propensity to adverse reactions to drug 6 Unknown [facility] (1 source) Penicillins Drug allergy (disorder) 5 [facility] Repository Medications Current Medications Medication Drug Class(es) Dates Sig (Normalized) Sig (Original) aspirin 81 mg chewable tablet (20 sources) Nonsteroidal Anti-inflammatory Drug Start: 01-16-2015 take 1 tablet by mouth once daily Aspirin 81 MG tablet,chewable Active 81 mg PO DAILY@0800 January 16, 2015 12:00am Start: 01-11-2015 take 1 tablet by shilpi th once daily ASPIR-81 81 MG TBEC One tablet by mouth daily ASPIRIN [id number] Kody Bernstein MD Start: 01-11-2015 take 1 tablet by shilpi th once daily ASPIR-81 81 MG TBEC One tablet by mouth daily ASPIRIN [id number] Kody Bernstein MD Start: 01-11-2015 take 1 tablet by shilpi th once daily ASPIR-81 81 MG TBEC One tablet by mouth daily ASPIRIN [id number] Kody Bernstein MD Start: 08-28-2011 End: 04-20-2013 take 1 tablet by mouth once daily ASPIRIN 81 MG TABS One tablet by mouth daily ASPIRIN [id number] Tamera Petersen MD Start: 08-28-2011 End: 04-20-2013 take 1 tablet by mouth once daily ASPIRIN 81 MG TABS One tablet by mouth daily ASPIRIN [id number] Kody Bernstein MD Comment on above: Take 81 mg by mouth once daily. atorvastatin 80 mg oral tablet (20 sources) HMG-CoA Reductase Inhibitor Start: 08-10-20 End: 02-24-20 take 1 tablet by mouth once daily at bedtime for hyperlipidemia atorvastatin (LIPITOR) 80 mg tablet Take 1 tablet by mouth daily at bedtime. For cholesterol. 90 tablet 1 01/15/2022 Active Start: 02-12-2015 take 1 tablet by shilpi th once daily ATORVASTATIN CALCIUM 80 MG TABS One tablet by mouth daily ATORVASTATIN CALCIUM [id number] Kody Bernstein MD Comment on above: Take 1 tablet by shilpi th daily at bedtime. For cholesterol. clopidogrel 75 mg oral tablet (20 sources) P2Y12 Platelet Inhibitor Start: 2 End: take 1 tablet by mouth once daily clopidogrel (PLAVIX) 75 mg tablet Take 1 tablet by mouth once daily. 90 tablet 1 02/17/2022 Active Start: 01-15-2022 take 1 tablet by shilpi th once daily clopidogrel (PLAVIX) 75 mg tablet Take 1 tablet by mouth once daily. 30 tablet 0 01/15/2022 Active Start: 03-10-2019 End: 08-12-2022 take 1 tablet by mouth once daily Clopidogrel 75 MG tablet Discontinued 75 mg PO DAILY March 10, 2019 12:00am August 12, 2022 4:32pm Start: 08-10-2017 End: 10-07-2018 take 1 tablet by mouth once Clopidogrel (Plavix) 75 mg tablet Discontinued 75 mg PO ONCE 90 August 02, 2018 4:21pm October 07, 2018 2:55pm Start: 07-09-2015 take 1 tablet by shilpi th once daily PLAVIX 75 MG TABS One tablet by mouth daily CLOPIDOGREL BISULFATE [id number] Kody Bernstein MD Comment on above: Take 1 tablet by shilpi th once daily. docosahexaenoic acid/epa (FI SH OIL ORAL) (20 sources) docosahexaenoic acid/epa (FISH OIL ORAL) Take 1,200 mg by mouth as directed. Active docosahexaenoic acid/epa (FISH OIL ORAL) Take 1,200 mg by mouth as directed. 0 Active Comment on above: Take 1,200 mg by shilpi th as directed. doxycycline monohydrate 100 mg oral tablet (1 source) Tetracycline-cl ass Drug Start: 2022 End: 2022 take 1 tablet by mouth twice daily doxycycline monohydrate 100 mg tablet Indications: Viral sinusitis Take 1 tablet by mouth twice daily for 7 days. 14 tablet 0 10/27/2022 11/03/2022 Active Comment on above: Take 1 tablet by shilpi th twice daily for 7 days. hydroCHLOROthiazide 12.5 mg oral capsule (20 sources) Thiazide Diuretic Start: 2024 take 1 capsule by mouth once daily hydroCHLOROthiazide 12.5 mg capsule Take 1 capsule by mouth once daily. 90 capsule 1 03/19/2025 Active Start: 11-20-2023 take 1 tablet by shilpi once daily Hydrochlorothiazide 12.5 mg tablet Active 12.5 mg PO DAILY November 20, 2023 12:00am Start: 2023 End: 03-17-2025 take 1 capsule by mouth once daily hydroCHLOROthiazide 12.5 mg capsule Take 1 capsule by mouth once daily. 90 capsule 1 08/15/2024 03/17/2025 Discontinued Comment on above: Take 1 capsule by mo [facility] once daily. icosapent ethyl 1000 mg oral capsule (6 sources) Start: 11-20-2023 End: 08-12-2024 Icosapent Ethyl (Vascepa) 1 gram capsule Active 2 g PO TWICE A DAY 360 90 August 12, 2024 9:14am lisinopril 20 mg oral tablet (20 sources) Angiotensin Converting Enzyme Inhibitor Start: 02-17-2022 End: 08-12-2024 take 1 tablet by mouth once daily lisinopril (ZESTRIL, PRINIVIL) 20 mg tablet Take 1 tablet by mouth once daily. 90 tablet 1 02/17/2022 Active Start: 01-15-2022 take 1 tablet by shilpi once daily lisinopril (ZESTRIL, PRINIVIL) 20 mg tablet Take 1 tablet by mouth once daily. 30 tablet 0 01/15/2022 Active Start: 03-11-2019 End: 08-12-2022 take 1 tablet by mouth once daily Lisinopril 20 MG tablet Discontinued 20 mg PO DAILY March 11, 2019 12:00am August 12, 2022 4:32pm Comment on above: Take 1 tablet by shilpi once daily. nitrofurantoin, macrocrystals 25 mg / nitrofurantoin, monohydrate 75 mg oral capsule (2 sources) Nitrofuran Antibacterial Start: 02-01-20 End: 06-17-20 25 take 1 capsule by mouth twice daily nitrofurantoin monohydrate and macrocrystal (MACROBID) 100 mg capsule Take 1 capsule by mouth two times a day for 7 days. 14 capsule 01/31/2025 02/07/2025 Active nitroglycerin 0.4 mg sublingual tablet (16 sources) Nitrate Vasodilator Start: 08-11-20 Nitroglycerin (Nitrostat) 0.4 mg tablet, sublingual Active 0.4 mg SL every 5 to 15 minutes as needed for chest pain August 11, 2022 1:00am do not exceed 3 doses per episode Start: 08-11-2022 Nitroglycerin (Nitrostat) 0.4 mg tablet, sublingual Active 0.4 MG SL every 5 to 15 minutes August 11, 2022 1:00am do not exceed 3 doses per episode Start: 04-02-2018 End: 04-02-2018 Nitroglycerin (Nitrostat) 0. 4 mg tablet, sublingual Discontinued 0.4 mg SL every 5 to 15 minutes as needed April 02, 2018 12:00am April 02, 2018 1:58pm Start: 04-02-2018 End: 04-02-2018 Nitroglycerin (Nitrostat) 0. 4 mg tablet, sublingual Discontinued 0.4 MG SL every 5 to 15 minutes April 02, 2018 12:00am April 02, 2018 1:58pm Start: 03-26-2016 NITROSTAT 0.4 MG SUBL 1 tablet under tongue every 5 min up to 3 X NITROGLYCERIN [id number] Kody Bernstein MD predniSONE 10 mg oral tablet (4 sources) Start: 11-17-2022 End: 11-22-2022 take 4 tablets by mouth once daily predniSONE (DELTASONE) 10 mg tablet Take 4 tablets by mouth once daily for 5 days. 20 tablet 0 11/17/2022 11/22/2022 Active Start: 10-27-2022 End: 11-01-2022 take 2 tablets by mouth once daily predniSONE (DELTASONE) 20 mg tablet Indications: Viral sinusitis Take 2 tablets by mouth once daily for 5 days. 10 tablet 0 10/27/2022 11/01/2022 Active Start: 05-14-2021 End: 05-23-2021 predniSONE (DELTASONE) 10 mg tablet Take 4 tabs daily for 3 days, then 2 tabs daily for 3 days, then 1 tab daily for 3 days with food. 21 tablet 05/14/2021 05/23/2021 Comment on above: Take 2 tablets by mo uth once daily for 5 days. Take 4 tablets by mo uth once daily for 5 days. tadalafil 20 mg oral tablet (7 sources) Phosphodiesterase 5 Inhibitor Start: 01-27-20 25 take 1 tablet by mouth once daily as needed Tadalafil (CIALIS) 20 mg tablet Take 1 tablet by mouth once daily as needed. Take 1-2 hours before sexual activity. 30 tablet 1 01/26/2025 Active tropicamide 5 mg/ml ophthalmic solution (1 source) Anticholinergic Start: 10-28-19 24 End: 10-29-19 tropicamide 0.5 % 1 Drop (MYDRIACYL) Completed/Discontinued Medications Medication Drug Class(es) Dates Sig (Normalized) Sig (Original) acetaminophen 325 mg oral tablet (20 sources) Start: 01-16-2015 End: 08-10-2017 Acetaminophen 325 MG tablet Discontinued 325 mg PO NEEDED as needed for Pain January 16, 2015 12:00am August 10, 2017 10:35am take 2 tablets by mo ut every four hours as needed acetaminophen (TYLENOL) 325 mg tablet Take 650 mg by mouth every 4 hours as needed. Active End: 09-03-2015 TYLENOL TABS prn ACETAMINOPHEN TABS [id number] Kody Bernstein MD End: 09-03-2015 TYLENOL TABS prn ACETAMINOPHEN TABS [id number] Kody Bernstein MD TYLENOL TABS prn ACETAMINOPHEN TABS [id number] Tamera Petersen MD Comment on above: Take 650 mg by mouth every 4 hours as needed. ALPRAZolam 0.5 mg oral tablet (8 sources) Benzodiazepine End: 01-12-20 15 take 1 tablet by mouth three times daily as needed ALPRAZOLAM 0.5 MG TABS One tablet by mouth three times daily as needed ALPRAZOLAM [id number] Jacqueline Souza busPIRone hydrochloride 15 mg oral tablet (20 sources) Start: 11-06-19 23 End: 01-26-20 24 take 10 mg by mouth twice daily busPIRone (BUSPAR) 15 mg tablet Take 10 mg by mouth two times a day. 0 11/05/2022 01/26/2024 Discontinued (Discontinued by another Health Care Provider) Start: 07-25-2021 End: 02-24-2024 take 1 tablet by mouth twice daily Buspirone 15 mg tablet Discontinued 15 mg PO TWICE A DAY July 25, 2021 1:00am February 24, 2024 8:47am Start: 05-14-2021 End: 06-13-2021 take 1 tablet by mouth twice daily busPIRone (BUSPAR) 7.5 mg tablet Take 1 tablet by mouth twice daily. 60 tablet 05/14/2021 06/13/2021 Comment on above: Take 10 mg by mouth two times a day. cefadroxil 500 mg oral capsule (8 sources) Cephalosporin Antibacterial Start: End: take 1 capsule by mouth twice daily cefADROxil (DURICEF) 500 mg capsule Take 1 capsule by mouth two times a day for 10 days. 20 capsule 0 02/17/2024 02/27/2024 Start: 11-20-2022 End: 11-30-2022 take 1 capsule by mouth twice daily cefADROxil (DURICEF) 500 mg capsule Take 1 capsule by mouth twice daily for 10 days. 20 capsule 0 11/20/2022 11/30/2022 Active Comment on above: Take 1 capsule by mo [facility] twice daily for 10 days. cetirizine hydrochloride 10 mg oral tablet (12 sources) Histamine-1 Receptor Antagonist Start: 021 End: 023 take 1 tablet by mouth once daily cetirizine (ZYRTEC) 10 mg tablet TAKE 1 TABLET BY MOUTH EVERY DAY 30 tablet 03/04/2021 2023 Discontinued Comment on above: [facility] citalopram 20 mg oral tablet (20 sources) Serotonin Reuptake Inhibitor Start: 015 End: 017 take 1 tablet by mouth once daily Citalopram 20 MG tablet Discontinued 20 mg PO DAILY January 16, 2015 12:00am August 10, 2017 10:35am clindamycin 150 mg oral capsule (8 sources) Lincosamide Antibacterial Start: End: take 1 tablet by mouth three times daily CLINDAMYCIN HCL 150 MG CAPS One tablet by mouth three times daily x 7 days CLINDAMYCIN HCL [id number] Gillian Caldwell PA-C diphenhydrAMINE hydrochloride 25 mg oral tablet (8 sources) Histamine-1 Receptor Antagonist Start: End: BENADRYL 25 MG TABS as needed DIPHENHYDRAMINE HCL [id number] Kp Quiroz RN Start: 01-10-2015 BENADRYL 25 MG TABS as needed DIPHENHYDRAMINE HCL [id number] Kp Quiroz RN Start: 01-10-2015 End: 01-11-2015 BENADRYL 25 MG TABS as neede d DIPHENHYDRAMINE HCL [id number] Kody Bernstein MD Start: 01-10-2015 End: 01-11-2015 BENADRYL 25 MG TABS as neede d DIPHENHYDRAMINE HCL [id number] Kody Bernstein MD enteric contrast (will be provided with radiology test) (2 sources) Start: 02-18-2024 End: 02-19-2024 enteric contrast (will be provided with radiology test) Indications: Smoker , Unintentional weight loss For CT ABD/PEL W IVCON Routine order Administer, As Directed One Time Only, via Oral, Rectal, both Oral and Rectal, Enteric Tube, Stoma or Indwelling Catheter, Enteric Contrast as designated per enteric contrast guidelines 1 Each 0 02/18/2024 02/19/2024 Start: 02-18-2024 End: 02-19-2024 enteric contrast (will be pr ovided with radiology test) Indications: Smoker , Unintentional weight loss For CT ABD/PEL W IVCON Routine order Administer, As Directed One Time Only, via Oral, Rectal, both Oral and Rectal, Enteric Tube, Stoma or Indwelling Catheter, Enteric Contrast as designated per enteric contrast guidelines 1 Each 0 02/18/2024 02/19/2024 Active fexofenadine hydrochloride 180 mg oral tablet (4 sources) Histamine-1 Receptor Antagonist take 1 tablet by mouth twice daily TEA ALLERGY 180 MG TABS One tablet by mouth twice daily FEXOFENADINE HCL [id number] Jacqueline Souza fluticasone propionate 0.05 mg/actuat metered dose nasal spray (13 sources) Corticosteroid Start: End: 023 take 2 spray(s) by mouth once daily fluticasone (FLONASE) 50 mcg/actuation nasal spray Use 2 Sprays in each nostril once daily. Rinse mouth after use. 1 Bottle 02/11/2021 10/27/2022 Discontinued Comment on above: Use 2 Sprays in each nostril once daily. Rinse mouth after use. hydroCHLOROthiazide 25 mg / lisinopril 20 mg oral tablet (20 sources) Thiazide Diuretic, Angiotensin Converting Enzyme Inhibitor Start: 015 End: 019 take 1 tablet by mouth once daily Lisinopril-Hydroch lorothiazide Discontinued 1 TABLET PO DAILY August 10, 2017 12:58pm October 07, 2018 2:55pm Start: 01-10-2015 End: 03-11-2019 take 1 tablet by mouth once daily Lisinopril-Hydrochlorothiazide (Zestoret ic) 1 EACH tablet Discontinued 1 {tbl} PO DAILY October 07, 2018 2:55pm March 11, 2019 11:59am ibuprofen 600 mg oral tablet (7 sources) Nonsteroidal Anti-inflammatory Drug Start: 09-03-2015 End: 01-28-2017 take 1 tablet by mouth three times daily IBUPROFEN 600 MG TABS One tablet by mouth three times daily IBUPROFEN [id number] Kody Bernstein MD iv contrast (will be provided with radiology test) (2 sources) Start: 02-18-2024 End: 02-19-2024 iv contrast (will be provided with radiology test) Indications: Smoker , Unintentional weight loss CT ABD/PEL -Inject, intravenously, once for 1 dose.No IV access, insert saline lock prior to the beginning of sedation, infusion, injection of imaging exam. Discontinue saline lock post exam. If Pt. has a central line or IVAD, may access for administration according to line specific nursing protocol. Once exam is complete flush line and de-access according to line specific nursing protocol in the CT contrast administration guidelines link. 1 Each 0 02/18/2024 02/19/2024 Start: 02-18-2024 End: 02-19-2024 iv contrast (will be provide d with radiology test) Indications: Smoker , Unintentional weight loss CT ABD/PEL -Inject, intravenously, once for 1 dose.No IV access, insert saline lock prior to the beginning of sedation, infusion, injection of imaging exam. Discontinue saline lock post exam. If Pt. has a central line or IVAD, may access for administration according to line specific nursing protocol. Once exam is complete flush line and de-access according to line specific nursing protocol in the CT contrast administration guidelines link. 1 Each 0 02/18/2024 02/19/2024 Active loratadine 10 mg oral tablet (13 sources) Start: 01-11-2015 End: 08-10-2017 take 1 tablet by mouth once daily Loratadine 10 MG tablet Discontinued 10 mg PO DAILY January 16, 2015 12:00am August 10, 2017 10:35am Start: 01-11-2015 End: 01-28-2017 take 1 tablet by mouth once daily CLARITIN 10 MG CAPS One tablet by mouth daily LORATADINE [id number] Kody Bernstein MD metroNIDAZOLE 500 mg oral tablet (8 sources) Nitroimidazole Antimicrobial Start: 09-03-2015 End: 04-22-2016 take 1 tablet by mouth three times daily FLAGYL 500 MG TABS One tablet by mouth three times daily x 5 day METRONIDAZOLE [id number] Gillian Caldwell PA-C montelukast 10 mg oral tablet (16 sources) Leukotriene Receptor Antagonist Start: 10-07-2018 End: 07-25-2021 take 1 tablet by mouth once daily Montelukast 10 MG tablet Discontinued 10 mg PO DAILY October 07, 2018 1:00am July 25, 2021 4:28pm Start: 01-10-2015 End: 08-10-2017 take 1 tablet by mouth once daily Montelukast 10 MG tablet Discontinued 10 mg PO DAILY January 16, 2015 12:00am August 10, 2017 10:35am Moore-3 Fatty Acids (Fish Oil Concentrate) 1,000 mg capsule (6 sources) Start: 07-25-2021 End: 11-20-2023 take 1 capsule by mouth once daily Moore-3 Fatty Acids (Fish Oil Concentrate) 1,000 mg capsule Discontinued 1000 mg PO DAILY July 25, 2021 1:00am November 20, 2023 10:34am Start: 07-25-2021 End: 11-20-2023 take 1 capsule by mouth once daily Moore-3 Fatty Acids (Fish Oil Concentrate) 1,000 mg capsule Discontinued 1000 MG PO DAILY July 25, 2021 1:00am November 20, 2023 10:34am Start: 07-25-2021 take 1 capsule by mo [facility] once daily Moore-3 Fatty Acids (Fish Oil Concentrate) 1,000 mg capsule Active 1000 MG PO DAILY July 25, 2021 12:00am OXcarbazepine 600 mg oral tablet (20 sources) Anti-epileptic Agent Start: 11-20-2023 End: 02-24-2024 Oxcarbazepine 600 mg tablet Discontinued 150 mg PO TWICE A DAY November 20, 2023 9:44am February 24, 2024 8:47am Start: 11-20-2023 take 150 mg by mouth twice daily Oxcarbazepine Active 150 MG PO TWICE A DAY November 20, 2023 9:44am Start: 06-20-2019 End: 11-20-2023 Oxcarbazepine 600 MG tablet Discontinued 300 mg PO TWICE A DAY June 20, 2019 12:00am November 20, 2023 9:45am Start: 06-20-2019 End: 11-20-2023 take 300 mg by mouth twice daily Oxcarbazepine Discontinued 300 MG PO TWICE A DAY June 20, 2019 12:00am November 20, 2023 9:45am End: 01-26-2024 OXcarbazepine ER (OXTELLAR X R) 300 mg tablet Take 150 mg by mouth two times a day. 0 01/26/2024 Discontinued (Discontinued by another Health Care Provider) OXcarbazepine ER (OXTELLAR XR) 300 mg tablet Take by mouth. 0 Active Comment on above: Take by mouth. Take 150 mg by mouth two times a day. PARoxetine hydrochloride 40 mg oral tablet (4 sources) Serotonin Reuptake Inhibitor take 1 tablet by mouth once daily PAXIL 40 MG TABS One tablet by mouth daily PAROXETINE HCL [id number] Jacqueline Souza take 1 tablet by mouth once fay y PAXIL 40 MG TABS One tablet by mouth daily PAROXETINE HCL [id number] Jacquelinesamy Souza QUEtiapine 100 mg oral tablet (20 sources) Atypical Antipsychotic Start: 11-20-2023 End: 02-24-2024 Quetiapine 100 mg tablet Discontinued 25 mg PO DAILY November 20, 2023 9:43am February 24, 2024 8:47am Start: 11-20-2023 take 25 mg by mouth once daily Quetiapine Active 25 MG PO DAILY November 20, 2023 9:43am Start: 08-11-2022 End: 11-20-2023 take 1 tablet by mouth once daily Quetiapine 100 mg tablet Discontinued 100 mg PO DAILY August 11, 2022 1:00am November 20, 2023 9:45am Start: 06-20-2019 End: 11-20-2023 take 1 tablet by mouth once daily Quetiapine 200 MG tablet Discontinued 200 mg PO DAILY June 20, 2019 12:00am November 20, 2023 9:44am End: 01-26-2024 QUEtiapine (SEROQUEL) 200 mg tablet Take 50 mg by mouth daily at bedtime. 0 01/26/2024 Discontinued (Discontinued by another Health Care Provider) Comment on above: Take 200 mg by mouth daily at bedtime. Take 100 mg by mouth daily at bedtime. Take 50 mg by mouth daily at bedtime. ticagrelor 90 mg oral tablet (8 sources) Start: 02-12-2015 End: 07-09-2015 take 1 tablet by mouth twice daily BRILINTA 90 MG TABS One tablet by mouth twice daily TICAGRELOR [id number] Lyly Bryant RN Problems Active Problems Problem Classification Problem Date Documented Date Episodic/Chronic Alcohol-related disorders (20 sources) Alcohol abuse; Translations: [Alcohol abuse, uncomplicated] Onset: 07-06-2014 05-06-2018 Chronic Anxiety disorders (20 sources) Anxiety; Translations: [Anxiety disorder, unspecified] Onset: 07-06-2014 06-15-2019 Chronic Blindness and vision defects (3 sources) Bilateral regular astigmatism; Translations: [Regular astigmatism, bilateral] 10-28-2023 Episodic Cardiac dysrhythmias (20 sources) Ventricular premature beats; Translations: [Ventricular premature depolarization] Onset: 01-10-2015 01-10-2015 Chronic Coagulation and hemorrhagic disorders (2 sources) Finding related to bruising; Translations: [Spontaneous ecchymoses] Onset: 02-12-2025 02-06-2025 Episodic Conduction disorders (10 sources) Right bundle branch block; Translations: [Unspecified right bundle-branch block] Onset: 01-10-2015 01-10-2015 Chronic Coronary atherosclerosis and other heart disease (20 sources) Atherosclerotic heart disease of [place] coronary artery without angina pectoris; Translations: [Coronary atherosclerosis] Onset: 07-03-2015 01-26-2017 Chronic Disorders of lipid metabolism (20 sources) Hyperlipidemia; Translations: [Pure hypercholesterolemia] Onset: 08-26-2011 08-26-2011 Chronic Essential hypertension (20 sources) Hypertensive disorder; Translations: [Essential hypertension] Onset: 01-10-2015 01-10-2015 Chronic Fluid and electrolyte disorders (6 sources) Hyponatremia; Translations: [Hypo-osmolality and hyponatremia] 03-10-2019 Episodic Headache; including migraine (11 sources) New daily persistent headache; Translations: [New daily persistent headache (NDPH)] Onset: 01-26-2025 Chronic Headache; including migraine (2 sources) Headache; Translations: [Headache, unspecified headache type] Episodic Heart valve disorders (20 sources) Mitral valve prolapse; Translations: [Nonrheumatic mitral (valve) prolapse] Onset: 06-25-2011 01-26-2017 Chronic Mood disorders (20 sources) Moderate major depression, single episode; Translations: [Major depressive disorder, single episode, moderate] Onset: 05-11-2019 09-02-2019 Chronic Nonspecific chest pain (20 sources) Chest pain; Translations: [Chest pain, unspecified] Onset: 06-25-2011 04-23-2016 Episodic Occlusion or stenosis of precerebral arteries (20 sources) Bilateral stenosis of carotid arteries; Translations: [Occlusion and stenosis of bilateral carotid arteries] Onset: 05-28-2015 05-11-2018 Chronic Other diseases of bladder and urethra (18 sources) Flaccid neurogenic bladder; 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, 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sified] Onset: 03-08-2024 03-08-2024 Chronic Other diseases of bladder and urethra (4 sources) Neurogenic bladder; Translations: [Neuromuscular dysfunction of bladder, unspecified] Onset: 03-08-2024 02-14-2025 Chronic Other diseases of bladder and urethra (1 source) Neuromuscular dysfunction of bladder, unspecified; Translations: [Neurogenic bladder] Onset: 02-14-2025 Chronic Other ear and sense organ disorders (2 sources) Bilateral tinnitus; Translations: [Tinnitus, bilateral] Episodic Other eye disorders (1 source) Bilateral vitreous floaters; Translations: [Other vitreous opacities, bilateral] 10-28-2023 Chronic Other liver diseases (20 sources) Steatosis of liver; Translations: [Fatty (change of) liver, 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sified] Onset: 02-18-2024 02-15-2019 Chronic Other liver diseases (1 source) Fatty (change of) liver, 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sified; Translations: [Fatty liver] Onset: 02-18-2024 Chronic Other lower respiratory disease (6 sources) Dyspnea; Translations: [Shortness of breath] 2023 Episodic Other lower respiratory disease (4 sources) Cough; Translations: [Cough] 05-25-2023 Episodic Other male genital disorders (8 sources) Secondary erectile dysfunction; Translations: [Male erectile dysfunction, unspecified] Onset: 01-26-2025 01-26-2025 Chronic Other male genital disorders (1 source) Male erectile dysfunction, unspecified; Translations: [ED (erectile dysfunction) of organic origin] Onset: 01-26-2025 Chronic Other nutritional; endocrine; and metabolic disorders (9 sources) Unintentional weight loss; Translations: [Abnormal weight loss] 01-26-2024 Episodic Other skin disorders (1 source) Infection of sebaceous cyst; Translations: [Sebaceous cyst] 02-17-2024 Episodic Other upper respiratory disease (18 sources) Seasonal allergy; Translations: [Other seasonal allergic rhinitis] Onset: 07-06-2014 07-06-2014 Chronic Other upper respiratory disease (20 sources) Allergic rhinitis; Translations: [Allergic rhinitis, unspecified] 09-02-2019 Chronic Other upper respiratory infections (1 source) Viral sinusitis; Translations: [Chronic sinusitis, unspecified] Chronic Residual codes; unclassified (4 sources) Pitting edema; Translations: [Edema, unspecified] 05-25-2023 Episodic Spondylosis; intervertebral disc disorders; other back problems (20 sources) Neck pain; Translations: [Cervicalgia] Onset: 05-24-2021 05-24-2021 Episodic Substance-related disorders (20 sources) Smoker; Translations: [Nicotine dependence, unspecified, uncomplicated] Onset: 07-06-2014 09-02-2019 Chronic Suicide and intentional self-inflicted injury (6 sources) Suicidal thoughts; Translations: [Suicidal ideations] 03-10-2019 Episodic Transient cerebral ischemia (4 sources) Transient cerebral ischemia; Translations: [Transient cerebral ischemic attack, unspecified] Onset: 05-15-2015 05-15-2015 Chronic Unclassified (20 sources) Obstructive sleep apnea syndrome; Translations: [Obstructive sleep apnea (adult) (pediatric)] Onset: 01-11-2015 01-11-2015 Chronic Unclassified (2 sources) Percutaneous transluminal coronary angioplasty ; Translations: [Coronary angioplasty status] Onset: 01-17-2015 01-17-2015 Unclassified (3 sources) Long-term drug therapy; Translations: [Other snf (current) drug therapy] Onset: 05-16-2015 05-16-2015 Past or Other Problems Problem Classification Problem Date Documented Date Episodic/Chronic Cardiac dysrhythmias (4 sources) Palpitations; Translations: [Palpitations] Onset: 1 06-25-2011 Episodic Conditions associated with dizziness or vertigo (4 sources) Dizziness and giddiness; Translations: [Dizziness and giddiness] Onset: 1 06-25-2011 Episodic Coronary atherosclerosis and other heart disease (16 sources) Coronary angioplasty status; Translations: [Stented coronary artery] Onset: 5 02-16-2015 Episodic Comment on above: PTCA/DANIELLE to prox/mid LAD 01/17/15 Diabetes mellitus without complication (20 sources) Hyperglycemia; Translations: [Impaired fasting glucose] Onset: 7 07-11-2017 Episodic Genitourinary symptoms and ill-defined conditions (20 sources) Microscopic hematuria; Translations: [Other microscopic hematuria] Onset: 0 Resolved: 4 09-04-2019 Episodic Meningitis (4 sources) Viral meningitis; Translations: [Viral meningitis, unspecified] Onset: 3 04-21-2013 Episodic Neoplasms of unspecified nature or uncertain behavior (20 sources) Neoplasm of uncertain behavior of skin of back; Translations: [Neoplasm of uncertain behavior of skin] Onset: 4 Resolved: 5 02-17-2024 Episodic Other aftercare (2 sources) Other termite treater helper (current) drug therapy; Translations: [Other termite treater helper (current) drug therapy] Onset: 5 05-16-2015 Episodic Other aftercare (20 sources) Patient encounter status; Translations: [Other termite treater helper (current) drug therapy] Onset: 9 05-11-2019 Episodic Other circulatory disease (5 sources) Abnormal result of cardiovascular function study, unspecified; Translations: [Electrocardiogram abnormal] Onset: 5 01-10-2015 Episodic Other nutritional; endocrine; and metabolic disorders (10 sources) Body mass index (BMI) 26.0-26.9, adult; Translations: [Body mass index (BMI) 25.0-25.9, adult] Onset: 5 Resolved: 6 04-22-2016 Episodic Other nutritional; endocrine; and metabolic disorders (1 source) Abnormal weight loss; Translations: [Unintentional weight loss] Onset: 4 Episodic Other screening for suspected conditions (not mental disorders or infectious disease) (20 sources) Electrocardiogram abnormal; Translations: [Cardiac finding] Onset: 5 01-10-2015 Episodic Other skin disorders (20 sources) Scar; Translations: [Scar conditions and fibrosis of skin] Onset: 4 08-19-2021 Episodic Other skin disorders (20 sources) Epidermoid cyst of skin of back; Translations: [Epidermal cyst] Onset: 4 02-19-2024 Episodic Residual codes; unclassified (2 sources) Chews tobacco ; Translations: [Nicotine dependence, chewing tobacco, uncomplicated] Onset: 6 09-03-2015 Episodic Residual codes; unclassified (2 sources) Family history of ischemic heart disease and other diseases of the circulatory system; Translations: [Family history of ischemic heart disease and other diseases of the circulatory system] 02-12-2015 Episodic Residual codes; unclassified (2 sources) Family history of ischemic heart disease; Translations: [Family history of ischemic heart disease and other diseases of the circulatory system] Onset: 5 01-11-2015 Episodic Residual codes; unclassified (2 sources) Family history of stroke; Translations: [Family history of stroke] 02-12-2015 Episodic Residual codes; unclassified (20 sources) Bilateral lower limb edema; Translations: [Localized edema] Onset: 3 2023 Episodic Residual codes; unclassified (1 source) Localized edema; Translations: [Bilateral leg edema] Onset: 3 Episodic Unclassified (14 sources) FH: Hypertension; Translations: [Chews tobacco ] Onset: 5 Resolved: 6 01-10-2015 Episodic Unclassified (4 sources) Finding of body mass index; Translations: [Body mass index (BMI) 26.0-26.9, adult] Onset: 5 Resolved: 6 04-22-2016 Results Test Name Value Interpretation Reference Range Facility OV 02-14-2025 CNOV Office Visit (UROLWS ) -- JOSE ZAPIEN III ([id number]) 1965 M Date Time Provider Department 02/14/25 8:30 AM JORGE LUIS SWANN URODEBORAH During your visit today, we recorded the following information about you: Temperature Pulse Respiration Blood pressure 97 degrees 84/minute 12/minute 96/60 Weight Height 84.8 kg 1.772 m Jorge Luis Swann PA-C 02/14/2025 9:34 AM Signed [facility] NEW PATIENT CLINIC NOTE (M) Note was generated by [employer] and edited as appropriate SERVICE DATE: February 14, 2025 NAME: Jose Zapien III GENDER: male CHIEF COMPLAINT: history of neurogenic bladder, presenting for evaluation of constant suprapubic pressure and recurrent UTIs. HISTORY OF PRESENT ILLNESS: The patient is a 59-year-old male with a history of neurogenic bladder, presenting for evaluation of constant suprapubic pressure and recurrent UTIs. Neurogenic Bladder: - Diagnosed with neurogenic bladder, managed with self-catheterization BID. - Reports constant suprapubic pressure, described as feeling like something was pushing in a lot. - Occasional dysuria. - Denies significant malodorous urine. - Urine is often cloudy. - Last seen by Dr. Koo in June 2024. - Uses catheters from [facility]. - Recent PSA was 1.47.01/2025 > We discussed the common causes of urinary frequency and urgency, and restricting water intake In hopes to mitigate the need to urinate, we discussed how this behavior more often worsen the problem not improving it, > We discussed increasing daily water intake to 64-84 oz 7a -7p and try to reduce bladder irritants, caffeine, alcohol and acid foods and drink. > Bladder irritants handout available to patient. LABS: PSA (ng/mL) Date Value 01/26/2025 1.47 01/13/2024 1.21 03/15/2021 0.91 04/16/2017 1.35 07/04/2015 1.14 PSA. (ngmL) Date Value 03/08/2024 1.87 No results found for: TESTOST Hematocrit (%) Date Value 01/26/2025 47.0 01/13/2024 51.1 05/11/2019 41.4 06/27/2014 49.8 03/30/2014 51.3 HCT (%) Date Value 12/03/2017 42.3 PSA (ng/mL) Date Value 01/26/2025 1.47 01/13/2024 1.21 03/15/2021 0.91 04/16/2017 1.35 07/04/2015 1.14 PSA. (ngmL) Date Value 03/08/2024 1.87 Creatinine Date Value Ref Range Status 01/26/2025 0.93 0.73 - 1.22 mg/dL Final 07/20/2024 0.89 0.73 - 1.22 mg/dL Final 01/13/2024 0.97 0.73 - 1.22 mg/dL Final MEDICATIONS: Tadalafil (CIALIS) 20 mg tablet Take 1 tablet by mouth once daily as needed. Take 1-2 hours before sexual activity. hydroCHLOROthiazide 12.5 mg capsule Take 1 capsule by mouth once daily. lisinopril (ZESTRIL, PRINIVIL) 20 mg tablet Take 1 tablet by mouth once daily. clopidogrel (PLAVIX) 75 mg tablet Take 1 tablet by mouth once daily. docosahexaenoic acid/epa (FISH OIL ORAL) Take 1,200 mg by mouth as directed. aspirin, enteric coated (ASPIRIN, ENTERIC COATED) 81 mg EC tablet Take 81 mg by mouth once daily. acetaminophen (TYLENOL) 325 mg tablet Take 650 mg by mouth every 4 hours as needed. atorvastatin (LIPITOR) 80 mg tablet Take 1 tablet by mouth daily at bedtime. For cholesterol. PAST MEDICAL HISTORY: PAST MEDICAL HISTORY Diagnosis Date Abnormal findings on cardiac catheterization 01/17/[address] Bernstein 01/17/2015 question of 85% stenosis of septal hammer smith Alcohol abuse 07/06/2014 Sober since 03/29/2014 Allergic rhinitis due to allergen RAST 11/2013, [facility]. Anxiety 07/06/2014 Atelectasis 02/24/2024 lingula and right middle lobe Bilateral carotid artery stenosis 05/28/2015 US: 05/18/2015 less than 50% bilateral. US 04/2018 20-40% nidia Bilateral leg edema 07/10/2023 Bladder pain Coronary artery disease due to lipid rich plaque 07/03/[address] 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 Rosa Former smoker 07/06/2014 Quit 06/2014: Was smoking less than a PPD since 25 yo. Intermittent self-catheterization of bladder MVP (mitral valve prolapse) 02/15/2015 2D echo 12/2014 ANNIE (obstructive sleep apnea) PVC (premature ventricular contraction) Hx of. off and on. 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 Snoring Urine retention 03/08/2024 Seeing Urology: Dr. Rosa PAST SURGICAL HISTORY: PAST SURGICAL HISTORY Procedure Laterality Date 2D ECHO (EXEP) 01/16/2015 EF=65%, Mild MVP CC CORONARY STENT 2014 Mid LAD (more content not included)... Normal [facility] UA DIP, URINE (POC)on 2024 BILIRUBIN UA (POCT) Negative Negative [place] [facility] CLARITY UA (POCT) [facility] COLOR UA (POCT) [facility] GLUCOSE UA (POCT) Negative Negative mg/dL [facility] Hemoglobin Ql (U) Negative [facility] KETONE UA (POCT) Negative Negative mg/dL [facility] LEUKOCYTES UA (POCT) Negative [facility] NITRITE UA (POCT) Negative [facility] PH UA (POCT) 6.5 4.5 - 8.0 [facility] Protein Ql (U) Negative Negative mg/dL [facility] SPECIFIC GRAVITY UA (POCT) 1.025 1.005 - 1.030 [facility] UROBILINOGEN UA (POCT) 0.2 Dahiana l E.U./dL [facility] Location:[facility], [address] , [place], [address] [facility] POINT OF CARE [facility] [place] 02-08-2025 EDDY Telephone (UROLWS) -- JOSE ZAPIEN III ([id number]) 1965 M Date Time Provider Department 02/08/25 JORGE LUIS SWANN During your visit today, we recorded the following information about you: Lily Silverman LPN 02/08/2025 10:41 AM Signed Called patient. Verified name and date of . He did see Dr. Koo April 2024 and then again in July he believes for urinary retention and self caths 2-3 times daily but is concerned about frequent UTI. AIMEE Ramsey Kimberly, LPN 02/08/2025 10:45 AM Signed Faxed request for medical records. AIMEE Ramsey Kimberly, LPN 02/10/2025 2:31 PM Signed Received labs via [employer]- uploaded to [employer]. AIMEE Ramsey Kimberly, LPN 02/10/2025 2:31 PM Signed Called office of Dr. Romano. Office currently closed. Message left with medical records of request. AIMEE Ramsey Kimberly, LPN 02/14/2025 11:29 AM Signed Received records. Uploaded to [employer] via [employer]. Lily Silverman LPN Allergies As of Date: 02/08/2025 Noted Allergy Reaction PENICILLINS 09/18/2005 16 - Unknown Comments: Childhood reaction. Date Reviewed: 01/26/2025 Reviewed by: Arya James MD - Fully Assessed Reason for Visit: Appointment [[id number]] Request Outside Medical Records [[id number]] Prescriptions as of 02/14/2025 - Tadalafil (CIALIS) 20 mg tablet Take 1 tablet by mouth once daily as needed. Take 1-2 hours before sexual activity. - hydroCHLOROthiazide 12.5 mg capsule Take 1 capsule by mouth once daily. - lisinopril (ZESTRIL, PRINIVIL) 20 mg tablet Take 1 tablet by mouth once daily. - clopidogrel (PLAVIX) 75 mg tablet Take 1 tablet by mouth once daily. - atorvastatin (LIPITOR) 80 mg tablet Take 1 tablet by mouth daily at bedtime. For cholesterol. - docosahexaenoic acid/epa (FISH OIL ORAL) Take 1,200 mg by mouth as directed. - aspirin, enteric coated (ASPIRIN, ENTERIC COATED) 81 mg EC tablet Take 81 mg by mouth once daily. - acetaminophen (TYLENOL) 325 mg tablet Take 650 mg by mouth every 4 hours as needed. Problem List As Of Date 02/08/2025 Noted Resolved Anxiety [F41.9] 07/06/2014 Smoker [F17.200] 07/06/2014 Scar tissue [L90.5] 07/06/2014 Well adult exam [Z00.00] 07/06/2014 Alcohol abuse [F10.10] 07/06/2014 PVC (premature ventricular contraction) [I49.3] Abnormal findings on cardiac catheterization [R*01/17/2015 MVP (mitral valve prolapse) [I34.1] 02/15/2015 Bilateral carotid artery stenosis [I65.23] 05/28/2015 Essential hypertension [I10] 06/25/2015 Prostate cancer screening [Z12.5] 06/25/2015 Coronary artery disease due to lipid rich plaqu*07/03/2015 Encounter for screening for diabetes mellitus [*07/08/2016 Colon cancer screening [Z12.11] 07/08/2016 Elevated fasting blood sugar [R73.01] 07/11/2017 ANNIE (obstructive sleep apnea) [G47.33] Current moderate episode of major depressive di*05/11/2019 Medication management [Z79.899] 05/11/2019 Allergic rhinitis due to allergen [J30.9] Microscopic hematuria [R31.29] 09/04/2019 01/26/2024 Bilateral leg edema [R60.0] 07/10/2023 Neoplasm of uncertain behavior of skin of back *02/17/2024 01/26/2025 Fatty liver [K76.0] 02/18/2024 Epidermoid cyst of skin of back [L72.0] 02/19/2024 Flaccid neuropathic bladder, 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/08/2024 Urine retention [R33.9] 03/08/2024 Neck pain [M54.2] 01/26/2025 Muscle tension headache [G44.209] 01/26/2025 ED (erectile dysfunction) of organic origin [N5*01/26/2025 Encounter Status:Closed by LILY SILVERMAN on 02/14/25 Normal [facility] Absolute lymphocyte countOrd ered By: Sully Desir on 02-07-2025 Lymphocytes Auto (Unsp spec) [#/Vol] 2.57 10*3/uL 0.83-4.51 [facility] Absolute neutrophil countOrd ered By: Sully Desir on 02-07-2025 Neutrophils (Bld) [#/Vol] 3.3 10*3/uL 2.0-7.7 [facility] Automated blood erythrocyte countOrdered By: Sully Desir on 02-07-2025 RBC (Bld) [#/Vol] 5.04 10*6/uL Normal 4.6-6.2 [facility] Comment on above: Performed By: #### L 100.0100 #### [facility] [address] [place], [address] Automated blood hematocrit ( percentage)Ordered By: Sully Desir on 02-07-2025 Hematocrit (Bld) [Volume fraction] 45.9 % Normal 40-54 [facility] Comment on above: Performed By: #### L 100.0100 #### [facility] [address] [place], [address] Automated lymphocyte count a s percentage of total leukocytesOrdered By: Sully Desir on 02-07-2025 Lymphocytes/100 WBC Auto (Unsp spec) 38.7 % 19-41 [facility] Basophil percentageOrdered B y: Sully Desir on 02-07-2025 Basophils/100 WBC (Bld) 0.8 % Normal 0-1 [facility] Comment on above: Performed By: #### L 100.0100 #### [facility] [address] [place], [address] CBC W/Diff, Automatedon 01-22 Absolute Lymph 2.57 X10 3/uL Normal 0.83-4.51 [facility] Comment on above: Performed By: #### L 100.0100 #### [facility] [address] [place], [address] Absolute Neut 3.3 X10 3/uL Normal 2.0-7.7 [facility] Comment on above: Performed By: #### L 100.0100 #### [facility] [address] [place], [address] IG% 0.300 Normal 0.0-0.9 [facility] Comment on above: Result Comment: IG% - Immature Granulocytes (promyelocytes, myelocytes and metamyelocytes) > 1% indicates that a LEFT SHIFT is Present. Performed By: #### L 100.0100 #### [facility] [address] [place], [address] Lymphocytes/100 WBC (Bld) 38.7 % Normal 19-41 [facility] Comment on above: Performed By: #### L 100.0100 #### [facility] [address] [place], [address] Nucleated RBC (Bld) [#/Vol] 0 10*3/uL Normal 0-5 [facility] Comment on above: Performed By: #### L 100.0100 #### [facility] [address] [place], [address] RDW SD 45.4 fl High 35.1-43.9 [facility] Comment on above: Performed By: #### L 100.0100 #### [facility] [address] [place], [address] Eosinophil percentageOrdered By: Sully Desir on 02-07-2025 Eosinophils/100 WBC (Bld) 2.0 % Normal 0-5 [facility] Comment on above: Performed By: #### L 100.0100 #### [facility] [address] [place], [address] Erythrocyte distribution wid th ratioOrdered By: Sully Desir on 02-07-2025 Erythrocyte distribution width (RBC) [Ratio] 13.5 % Normal 11.6-14.6 [facility] Comment on above: Performed By: #### L 100.0100 #### [facility] [address] [place], [address] Erythrocyte distribution wid th standard deviationOrdered By: Sully Desir on 02-07-2025 Erythrocyte distribution width (RBC) [Ratio] 45.4 fl High 35.1-43.9 [facility] Hemoglobin measurementOrdere d By: Sully Desir on 02-07-2025 Hemoglobin (Bld) [Mass/Vol] 15.7 g/dL Normal 13.0-16.5 [facility] Comment on above: Performed By: #### L 100.0100 #### [facility] [address] [place], [address] Immature granulocytes/100 WB C Auto (Bld)Ordered By: Sully Desir on 02-07-2025 Immature granulocytes/100 WBC (Bld) 0.300 % 0.0-0.9 [facility] Comment on above: IG% - Immature Granu locytes (promyelocytes, myelocytes and metamyelocytes) > 1% indicates that a LEFT SHIFT is Present. MCV (mean corpuscular volume ) determinationOrdered By: Sully Desir on 02-07-2025 MCV (RBC) [Entitic vol] 91.1 fL Normal 80-94 [facility] Comment on above: Performed By: #### L 100.0100 #### [facility] [address] [place], [address] Mean corpuscular hemoglobin (MCH) determinationOrdered By: Sully Desir on 02-07-2025 MCH (RBC) [Entitic mass] 31.2 pg Normal 27.0-32.0 [facility] Comment on above: Performed By: #### L 100.0100 #### [facility] [address] [place], [address] Mean corpuscular hemoglobin concentration (MCHC) determinationOrdered By: Sully Desir on 02-07-2025 MCHC (RBC) [Mass/Vol] 34.2 g/dL Normal 32-36 [facility] Comment on above: Performed By: #### L 100.0100 #### [facility] [address] [place], [address] Mean platelet volume determi nationOrdered By: Sully Desir on 02-07-2025 Platelet mean volume (Bld) [Entitic vol] 9.1 fL Normal 6.2-12.0 [facility] Comment on above: Performed By: #### L 100.0100 #### [facility] [address] [place], [address] Monocyte percentageOrdered B y: Sully Desir on 02-07-2025 Monocytes/100 WBC (Bld) 8.1 % Normal 0-10 [facility] Comment on above: Performed By: #### L 100.0100 #### [facility] [address] [facility] [place], [place], [address] Neutrophil percentageOrdered By: Sully Desir on 02-07-2025 Neutrophils/100 WBC (Bld) 50.1 % Normal 47-70 [facility] Comment on above: Performed By: #### L 100.0100 #### [facility] [address] [place], [place], [id number] Nucleated red blood cell per centageOrdered By: Sully Desir on 02-07-2025 Nucleated RBC/100 WBC (Bld) [Ratio] 0 % 0-5 [facility] Platelet countOrdered By: Malik Desir on 02-07-2025 Platelets (Bld) [#/Vol] 235 10*3/uL Normal 150-450 [facility] Comment on above: Performed By: #### L 100.0100 #### [facility] [address] [facility] [place], [place], [id number] White blood cell (WBC) count Ordered By: Sully Desir on 02-07-2025 WBC (Bld) [#/Vol] 6.6 10*3/uL Normal 4.4-11.0 [facility] Comment on above: Performed By: #### L 100.0100 #### [facility] [address] [place], [place], [id number] CNPNon 02-06-2025 CNPN Telephone (FAMPWS) -- JOSE ZAPIEN III ([id number]) 1965 M Date Time Provider Department 6/16/25 ARYA JAMESWS During your visit today, we recorded the following information about you: Cindy Qureshi LPN 02/06/2025 11:51 AM Signed Pt calls to report that Dr. Hutchinson's office stated they have not received referral from pcp office for pain management. Re-faxed referral, last xray reports, and OV notes to: [phone]. Cindy Qureshi LPN Allergies As of Date: 02/06/2025 Noted Allergy Reaction PENICILLINS 09/18/2005 16 - Unknown Comments: Childhood reaction. Date Reviewed: 01/26/2025 Reviewed by: Arya James MD - Fully Assessed Reason for Visit: Referral Information [[id number]] Prescriptions as of 02/06/2025 - nitrofurantoin monohydrate and macrocrystal (MACROBID) 100 mg capsule Take 1 capsule by mouth two times a day for 7 days. - Tadalafil (CIALIS) 20 mg tablet Take 1 tablet by mouth once daily as needed. Take 1-2 hours before sexual activity. - hydroCHLOROthiazide 12.5 mg capsule Take 1 capsule by mouth once daily. - lisinopril (ZESTRIL, PRINIVIL) 20 mg tablet Take 1 tablet by mouth once daily. - clopidogrel (PLAVIX) 75 mg tablet Take 1 tablet by mouth once daily. - atorvastatin (LIPITOR) 80 mg tablet Take 1 tablet by mouth daily at bedtime. For cholesterol. - docosahexaenoic acid/epa (FISH OIL ORAL) Take 1,200 mg by mouth as directed. - aspirin, enteric coated (ASPIRIN, ENTERIC COATED) 81 mg EC tablet Take 81 mg by mouth once daily. - acetaminophen (TYLENOL) 325 mg tablet Take 650 mg by mouth every 4 hours as needed. Problem List As Of Date 02/06/2025 Noted Resolved Anxiety [F41.9] 07/06/2014 Smoker [F17.200] 07/06/2014 Scar tissue [L90.5] 07/06/2014 Well adult exam [Z00.00] 07/06/2014 Alcohol abuse [F10.10] 07/06/2014 PVC (premature ventricular contraction) [I49.3] Abnormal findings on cardiac catheterization [R*01/17/2015 MVP (mitral valve prolapse) [I34.1] 02/15/2015 Bilateral carotid artery stenosis [I65.23] 05/28/2015 Essential hypertension [I10] 06/25/2015 Prostate cancer screening [Z12.5] 06/25/2015 Coronary artery disease due to lipid rich plaqu*07/03/2015 Encounter for screening for diabetes mellitus [*07/08/2016 Colon cancer screening [Z12.11] 07/08/2016 Elevated fasting blood sugar [R73.01] 07/11/2017 ANNIE (obstructive sleep apnea) [G47.33] Current moderate episode of major depressive di*05/11/2019 Medication management [Z79.899] 05/11/2019 Allergic rhinitis due to allergen [J30.9] Microscopic hematuria [R31.29] 09/04/2019 01/26/2024 Bilateral leg edema [R60.0] 07/10/2023 Neoplasm of uncertain behavior of skin of back *02/17/2024 01/26/2025 Fatty liver [K76.0] 02/18/2024 Epidermoid cyst of skin of back [L72.0] 02/19/2024 Flaccid neuropathic bladder, 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/08/2024 Urine retention [R33.9] 03/08/2024 Neck pain [M54.2] 01/26/2025 Muscle tension headache [G44.209] 01/26/2025 ED (erectile dysfunction) of organic origin [N5*01/26/2025 Encounter Status:Closed by CINDY QURSEHI on 02/06/25 Normal [facility] Cardiology Visit Reporton Cardiology Visit Report [facility] [address] [place], [place] [address] OFFICE VISIT Date of Service: 01/27/25 MR#: [id number] Acct: [id number] Name: JOSE ZAPIEN III Rep #: [id number] : 1965 Provider: SACHA lorenzana Age/Sex: 59/M Location: [facility] [place] Status: Signed HPI HPI History of Present Illness Details: Jose Zapien is a 59-year-old white male who presents to the office today for a cardiovascular follow up visit. He has a past cardiovascular history which has included underlying CAD status post LAD PCI/DANIELLE (01-17-2015 at [facility]), mitral valve prolapse, hyperlipidemia, and hypertension who presents for outpatient cardiovascular follow-up. Patient had a negative stress echo in July 2022 however he continued to complain of chest pain where he needed to use nitroglycerin. He did undergo a diagnostic heart catheterization in November 2023 which demonstrated nonobstructive coronary artery disease with patent stent. From a cardiac standpoint, the patient is doing well. He denies any palpitations, chest pain, pressure or heaviness. He does have occasional chest pain at rest. He states this is very brief. He states that he does do a lot of gardening, and push mowing and he never experiences chest pain with exertion. He denies SOB, Orthopnea, and PND. He does not have bleeding issues; no blood in urine, stool, or nosebleeds. He denies any decrease in energy level, myalgias, or claudication. He does not have edema, or sudden weight gain. He denies lightheadedness, dizziness, syncopal or near syncopal episodes, and headaches. 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 Is patient in pain?: No Allergies Penicillins Allergy (Verified 01/27/25 08:06) Unknown Medications ???Medication ???Instructions ???Recorded ???Confirmed ???Type aspirin 81 mg chewable tablet 81 mg PO DAILY@0800 heart health 0 01/16/15 01/27/25 History nitroglycerin 0.4 mg sublingual 0.4 mg sublingual Q5-15M PRN chest 08/11/22 01/27/25 Rx tablet (Nitrostat) pain #25 tabs hydrochlorothiazide 12.5 mg tablet 12.5 mg PO DAILY 11/20/23 History clopidogrel 75 mg tablet 75 mg PO DAILY antiplatelet #90 01/27/25 Rx tabs icosapent ethyl 1 gram capsule 2 g (2 x 1 gram) PO BID 90 days 01/27/25 Rx (Vascepa) #360 caps lisinopril 20 mg tablet 20 mg PO DAILY #90 tabs 08/12/24 0 01/27/25 Rx Ejection fraction %: 65 Have you fallen in the past year?: No PFSH Medical History Chest pain Pure hypercholesterolemia Essential hypertension Coronary artery disease RBBB (right bundle branch block) Premature ventricular contraction ANNIE (obstructive sleep apnea) Presence of stent in coronary artery ( 01/17/15) Nonrheumatic mitral (valve) prolapse Atherosclerotic heart disease of [place] coronary artery without angina pectoris Surgical History Presence of coronary angioplasty implant and graft ( 01/17/15) H/O bilateral inguinal hernia repair History of cholecystectomy History of tonsillectomy History of hernia repair Family History Father CAD (coronary artery disease) Myocardial infarction Mother Hypertension Grandfather CVA (cerebral vascular accident) Heart disease Myocardial infarction, Onset Age: 48 Social History Smoking Status: Current every day smoker tobacco type: cigarettes alcohol intake: current alcohol intake frequency: 0-2 drinks per day Alcohol type: beer substance use type: does not use caffeine: Yes Type: carbonated beverages and coffee Number of servings: 1 what type of physical activity do you participate in: none seatbelt use: always do you feel safe at home: Yes ROS Const Const: Negative for fatigue, weakness, headache(s) (due to chronic neck pain) or frequent falls Eyes Eyes: Negative for blurry vision ENT ENT: Negative for headache(s) (due to chronic neck pain), dizziness or Nosebleed/epistaxis Cardio Chest Pain: Yes Frequency: other Character: sharp Onset: at rest Location: left chest Duration: brief Palpitations: No Edema: None Muscle aches with walking: None Resp Respiratory: Negative for SOB with activity, SOB at rest or SOB orthopnea SOB lying down GI GI: Negative nausea, vomiting, heartburn, bright, red blood in stools or black,tarry stools (more content not included)... Normal [facility] Urinalysis complete panel (U )on 01-27-2025 Bilirubin Ql (U) Negative Normal Negative [facility] Comment on above: Order Comment: Speci men Type: URINE SPECIMENOrdering Facility: [facility] Address: [address] [place] [address] Performed By: #### 2 4356-8 ####[facility] [id number] [place] [id number] [place] Clarity (Unsp spec) Turbid Abnormal [place] [facility] Comment on above: Order Comment: Speci men Type: URINE SPECIMENOrdering Facility: [facility] Address: [address] [place] [address] Performed By: #### 2 4356-8 ####[facility] [id number] [place] [address] [place] Color (U) Yellow Normal Yellow [facility] Comment on above: Order Comment: Speci men Type: URINE SPECIMENOrdering Facility: [facility] Address: [address] [place] [address] Performed By: #### 2 4356-8 ####[facility] [id number] [place] [id number] [place] Epithelial cells LM.HPF (Urine sed) [#/Area] None Seen Normal [facility] Comment on above: Order Comment: Speci men Type: URINE SPECIMENOrdering Facility: [facility] Address: [address] [place] [address] Performed By: #### 2 4356-8 ####[facility] [id number] [place] [id number] [place] Glucose Test strip (U) [Mass/Vol] Negative Normal Negative [facility] Comment on above: Order Comment: Speci men Type: URINE SPECIMENOrdering Facility: [facility] Address: [address] [place] [address] Performed By: #### 2 4356-8 ####[facility] [id number] [place] [address] [place] Hemoglobin Ql (U) 1+ Abnormal Negative [facility] Comment on above: Order Comment: Speci men Type: URINE SPECIMENOrdering Facility: [facility] Address: [address] [place] [address] Performed By: #### 2 4356-8 ####[facility] [id number] [place] [address] [place] Hyaline casts (Urine sed) [#/Area] 0 /[LPF] Normal 0 /LPF [facility] Comment on above: Order Comment: Speci men Type: URINE SPECIMENOrdering Facility: [facility] Address: [address] [place] [address] Performed By: #### 2 4356-8 ####[facility] [id number] [place] [address] [place] Ketones Ql (U) Negative Normal Negative [facility] Comment on above: Order Comment: Speci men Type: URINE SPECIMENOrdering Facility: [facility] Address: [address] [place] [address] Performed By: #### 2 4356-8 ####[facility] [id number] [place] [address] [place] Leukocyte esterase Test strip Ql (U) 3+ Abnormal Negative [facility] Comment on above: Order Comment: Speci men Type: URINE SPECIMENOrdering Facility: [facility] Address: [address] [place] [address] Performed By: #### 2 4356-8 ####[facility] [id number] [place] [id number] [place] Nitrite Ql (U) Positive Abnormal Negative [facility] Comment on above: Order Comment: Speci men Type: URINE SPECIMENOrdering Facility: [facility] Address: [address] [place] [address] Performed By: #### 2 4356-8 ####[facility] [id number] [place] [id number] [place] pH (U) 6.5 [pH] Normal <8.5 [facility] Comment on above: Order Comment: Speci men Type: URINE SPECIMENOrdering Facility: [facility] Address: [address] [place] [address] Performed By: #### 2 4356-8 ####[facility] [id number] [place] [address] [place] Protein (U) [Mass/Vol] Negative Normal Negative [facility] Comment on above: Order Comment: Speci men Type: URINE SPECIMENOrdering Facility: [facility] Address: [address] [place] [address] Performed By: #### 2 4356-8 ####[facility] [id number] [place] [address] [place] RBC LM.HPF (Urine sed) [#/Area] 0-2 /HPF Normal 0-2 /HPF [facility] Comment on above: Order Comment: Speci men Type: URINE SPECIMENOrdering Facility: [facility] Address: [address] [place] [address] Performed By: #### 2 4356-8 ####[facility] [id number] [place] [id number] [place] Specific gravity (U) [Rel density] 1.009 Normal 1.005-1.030 [facility] Comment on above: Order Comment: Speci men Type: URINE SPECIMENOrdering Facility: [facility] Address: [address] [place] [address] Performed By: #### 2 4356-8 ####[facility] [id number] [place] [address] [place] Urobilinogen Ql (U) 0.2 EU/dL Normal 0.2-1.0 EU/dL [facility] Comment on above: Order Comment: Speci men Type: URINE SPECIMENOrdering Facility: [facility] Address: [address] [place] [address] Performed By: #### 2 4356-8 ####[facility] [id number] [place] [address] [place] WBC LM.HPF (Urine sed) [#/Area] /[HPF] Abnormal 0-5 /HPF [facility] Comment on above: Order Comment: Speci men Type: URINE SPECIMENOrdering Facility: [facility] Address: [address] [place] [address] Performed By: #### 2 4356-8 ####[facility] [id number] [place] [address] [place] Yeast.budding LM.HPF (Urine sed) [#/Area] Present Abnormal None Seen [facility] Comment on above: Order Comment: Speci men Type: URINE SPECIMENOrdering Facility: [facility] Address: [address] [place] [address] Performed By: #### 2 4356-8 ####[facility] [id number] [place] [address] [place] CBC W Auto Differential pane l (Bld)on 01-26-2025 Basophils (Bld) [#/Vol] 0.06 10*3/uL [facility] Basophils/100 WBC (Bld) 0.7 % [facility] Differential cell count method Nom (Bld) Auto [facility] Eosinophils (Bld) [#/Vol] 0.06 10*3/uL [facility] Eosinophils/100 WBC (Bld) 0.7 % [facility] Erythrocyte distribution width (RBC) [Ratio] 13 % 11.5 - 15.0 % [facility] Hematocrit (Bld) [Volume fraction] 47 % 39.0 - 51.0 % [facility] Hemoglobin (Bld) [Mass/Vol] 15.9 g/dL 13.0 - 17.0 g/dL [facility] Immature granulocytes (Bld) [#/Vol] NINF [facility] Immature granulocytes/100 WBC (Bld) 0.2 % [facility] Lymphocytes (Bld) [#/Vol] 2.96 10*3/uL [facility] Lymphocytes/100 WBC (Bld) 34.9 % [facility] MCH (RBC) [Entitic mass] 30.7 pg 26.0 - 34.0 pg [facility] MCHC (RBC) [Mass/Vol] 33.8 g/dL 30.5 - 36.0 g/dL [facility] MCV (RBC) [Entitic vol] 90.7 fL 80.0 - 100.0 fL [facility] Monocytes (Bld) [#/Vol] 0.63 10*3/uL [facility] Monocytes/100 WBC (Bld) 7.4 % [facility] Neutrophils (Bld) [#/Vol] 4.76 10*3/uL [facility] Neutrophils/100 WBC (Bld) 56.1 % [facility] Nucleated RBC (Bld) [#/Vol] [facility] Nucleated RBC/100 WBC (Bld) [Ratio] 0 % /100 WBC [facility] Platelet mean volume (Bld) [Entitic vol] 9.1 fL 9.0 - 12.7 fL [facility] Platelets (Bld) [#/Vol] 237 10*3/uL [facility] RBC (Bld) [#/Vol] 5.18 10*6/uL 4.20 - 6.0 0 m/uL [facility] WBC (Bld) [#/Vol] 8.49 10*3/uL [facility] Basophils (Bld) [#/Vol] 0.06 10*3/uL Normal <0.11 [facility] Comment on above: Order Comment: Speci men Type: BLOOD SPECIMENOrdering Facility: [facility] Address: [address] [place], [place] [id number] Performed By: #### 5 7021-8 ####[facility] [id number] [place] [address] [place] Basophils/100 WBC (Bld) 0.7 % Normal [facility] Comment on above: Order Comment: Speci men Type: BLOOD SPECIMENOrdering Facility: [facility] Address: [address] [place] [address] Performed By: #### 5 7021-8 ####[facility] [id number] [place] [address] [place] Differential cell count method Nom (Bld) Auto Normal [facility] Comment on above: Order Comment: Speci men Type: BLOOD SPECIMENOrdering Facility: [facility] Address: [address] [place] [address] Performed By: #### 5 7021-8 ####[facility] [id number] [place] [address] [place] Eosinophils (Bld) [#/Vol] 0.06 10*3/uL Normal <0.46 [facility] Comment on above: Order Comment: Speci men Type: BLOOD SPECIMENOrdering Facility: [facility] Address: [address] [place] [address] Performed By: #### 5 7021-8 ####[facility] [id number] [place] [address] [place] Eosinophils/100 WBC (Bld) 0.7 % Normal [facility] Comment on above: Order Comment: Speci men Type: BLOOD SPECIMENOrdering Facility: [facility] Address: [address] [place] [address] Performed By: #### 5 7021-8 ####[facility] [id number] [place] [address] [place] Erythrocyte distribution width (RBC) [Ratio] 13.0 % Normal 11.5-15.0 [facility] Comment on above: Order Comment: Speci men Type: BLOOD SPECIMENOrdering Facility: [facility] Address: [address] [place] [address] Performed By: #### 5 7021-8 ####[facility] [id number] [place] [address] [place] Hematocrit (Bld) [Volume fraction] 47.0 % Normal 39.0-51.0 [facility] Comment on above: Order Comment: Speci men Type: BLOOD SPECIMENOrdering Facility: [facility] Address: [address] [place] [address] Performed By: #### 5 7021-8 ####[facility] [id number] [place] [address] [place] Hemoglobin (Bld) [Mass/Vol] 15.9 g/dL Normal 13.0-17.0 [facility] Comment on above: Order Comment: Speci men Type: BLOOD SPECIMENOrdering Facility: [facility] Address: [address] [place] [address] Performed By: #### 5 7021-8 ####[facility] [id number] [place] [address] [place] Immature granulocytes (Bld) [#/Vol] 10*3/uL Normal <0.10 [facility] Comment on above: Order Comment: Speci men Type: BLOOD SPECIMENOrdering Facility: [facility] Address: [address] [place] [address] Performed By: #### 5 7021-8 ####[facility] [id number] [place] [id number] [place] Immature granulocytes/100 WBC (Bld) 0.2 % Normal [facility] Comment on above: Order Comment: Speci men Type: BLOOD SPECIMENOrdering Facility: [facility] Address: [address] [place] [address] Performed By: #### 5 7021-8 ####[facility] [id number] [place] [address] [place] Lymphocytes (Bld) [#/Vol] 2.96 10*3/uL Normal 1.00-4.00 [facility] Comment on above: Order Comment: Speci men Type: BLOOD SPECIMENOrdering Facility: [facility] Address: [address] [place] [address] Performed By: #### 5 7021-8 ####[facility] [id number] [place] [address] [place] Lymphocytes/100 WBC (Bld) 34.9 % Normal [facility] Comment on above: Order Comment: Speci men Type: BLOOD SPECIMENOrdering Facility: [facility] Address: [address] [place] [address] Performed By: #### 5 7021-8 ####[facility] [id number] [place] [address] [place] MCH (RBC) [Entitic mass] 30.7 pg Normal 26.0-34.0 [facility] Comment on above: Order Comment: Speci men Type: BLOOD SPECIMENOrdering Facility: [facility] Address: [address] [place] [address] Performed By: #### 5 7021-8 ####[facility] [id number] [place] [address] [place] MCHC (RBC) [Mass/Vol] 33.8 g/dL Normal 30.5-36.[address] [facility] Comment on above: Order Comment: Speci men Type: BLOOD SPECIMENOrdering Facility: [facility] Address: [address] [place] [address] Performed By: #### 5 7021-8 ####[facility] [id number] [place] [id number] [place] MCV (RBC) [Entitic vol] 90.7 fL Normal 80.0-100.0 [facility] Comment on above: Order Comment: Speci men Type: BLOOD SPECIMENOrdering Facility: [facility] Address: [address] [place] [address] Performed By: #### 5 7021-8 ####[facility] [id number] [place] [id number] [place] Monocytes (Bld) [#/Vol] 0.63 10*3/uL Normal <0.87 [facility] Comment on above: Order Comment: Speci men Type: BLOOD SPECIMENOrdering Facility: [facility] Address: [address] [place] [address] Performed By: #### 5 7021-8 ####[facility] [id number] [place] [address] [place] Monocytes/100 WBC (Bld) 7.4 % Normal [facility] Comment on above: Order Comment: Speci men Type: BLOOD SPECIMENOrdering Facility: [facility] Address: [address] [place] [address] Performed By: #### 5 7021-8 ####[facility] [id number] [place] [address] [place] Neutrophils (Bld) [#/Vol] 4.76 10*3/uL Normal 1.45-7.50 [facility] Comment on above: Order Comment: Speci men Type: BLOOD SPECIMENOrdering Facility: [facility] Address: [address] [place] [address] Performed By: #### 5 7021-8 ####[facility] [id number] [place] [id number] [place] Neutrophils/100 WBC (Bld) 56.1 % Normal [facility] Comment on above: Order Comment: Speci men Type: BLOOD SPECIMENOrdering Facility: [facility] Address: [address] [place] [address] Performed By: #### 5 7021-8 ####[facility] [id number] [place] [address] [place] Nucleated RBC (Bld) [#/Vol] 10*3/uL Normal <0.01 [facility] Comment on above: Order Comment: Speci men Type: BLOOD SPECIMENOrdering Facility: [facility] Address: [address] [place] [address] Performed By: #### 5 7021-8 ####[facility] [id number] [place] [address] [place] Nucleated RBC/100 WBC (Bld) [Ratio] 0.0 /100 WBC Normal [facility] Comment on above: Order Comment: Speci men Type: BLOOD SPECIMENOrdering Facility: [facility] Address: [address] [place] [address] Performed By: #### 5 7021-8 ####[facility] [id number] [place] [address] [place] Platelet mean volume (Bld) [Entitic vol] 9.1 fL Normal 9.0-12.7 [facility] Comment on above: Order Comment: Speci men Type: BLOOD SPECIMENOrdering Facility: [facility] Address: [address] [place] [address] Performed By: #### 5 7021-8 ####[facility] [id number] [place] [address] [place] Platelets (Bld) [#/Vol] 237 10*3/uL Normal 150-400 [facility] Comment on above: Order Comment: Speci men Type: BLOOD SPECIMENOrdering Facility: [facility] Address: [address] [place] [address] Performed By: #### 5 7021-8 ####[facility] [id number] [place] [id number] [place] RBC (Bld) [#/Vol] 5.18 10*6/uL Normal 4.20-6.00 [facility] Comment on above: Order Comment: Speci men Type: BLOOD SPECIMENOrdering Facility: [facility] Address: [address] [place] [address] Performed By: #### 5 7021-8 ####[facility] [id number] [place] [address] [place] WBC (Bld) [#/Vol] 8.49 10*3/uL Normal 3.70-11.00 [facility] Comment on above: Order Comment: Speci men Type: BLOOD SPECIMENOrdering Facility: [facility] Address: [address] [place] [address] Performed By: #### 5 7021-8 ####[facility] [id number] [address] [place] CNOVon 01-26-2025 [facility] -- JOSE ZAPIEN III ([id number]) 1965 M Date Time Provider Department 01/26/25 1:00 PM AR[facility] J[facility] During your visit today, we recorded the following information about you: Pulse Blood pressure Weight Height 74/minute 116/72 87.2 kg 1.772 m Arya James MD 01/26/2025 7:49 PM Signed Chief Complaint Patient presents with: Physical HPI Jose Zapien III is a 59 year old male who presents here today for Physical Patient with hx of HTN, CAD, MVP, PVC, smoker, ANNIE, elevated blood sugar, allergies, depression and those as below. Patient had heart cath 11/2023 Patient continues to smoke and chew tobacco. He is drinking 3-4 beers a night. Patient sees Cardiology last visit 02/2024 Patient sees Urology last visit 06/2024 Patient has been doing well. No new issues or concerns. Duong is a 59-year-old male with a history of CAD, presenting for an annual wellness visit and chronic health problems. Duong reports frequent cephalalgia and cervicalgia, which have been persistent for the past 4 months. He has been undergoing vp care management and dry needling, which initially provided relief, but notes that the discomfort and headaches have become more frequent and severe recently. He denies noticing any lumps or swelling in the neck. He inquires about a referral to pain management. Duong also reports bilateral tinnitus, which has been present for 4-5 years. Initially, it was only in one ear and noticeable only in quiet environments, but now it is present in both ears and audible even during conversations. Duong has a history of CAD and is currently on Plavix and low-dose aspirin. He reports easy bruising and a recent episode of bleeding from a minor injury that recurred after 24 hours. He denies any recent fevers, syncope, seizures, tremors, or changes in heat or cold tolerance. He also denies any recent wheezing, dyspnea, hemoptysis, or leg edema. He reports occasional chest pain, which he describes as similar to previous episodes. 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 He is currently taking hydrochlorothiazide. Duong has a history of anxiety and depression but reports no current symptoms. He discontinued his antidepressant and anxiolytic medications over a year ago and attributes his recent weight loss to stopping these medications. He consumes 3-4 alcoholic beverages a couple of nights per week and continues to smoke cigarettes and use snuff. He denies any recent nausea, emesis, diarrhea, or heartburn. He also denies any hematochezia or hematuria. He has not been using his CPAP machine. Duong has a history of urinary retention and performs self-catheterization. He reports constant lower abdominal pressure and discomfort, which he attributes to his bladder condition. He is under the care of a urologist and is trying to schedule a colonoscopy. He also inquires about treatment options for erectile dysfunction, which he has been experiencing for 3 years. Duong denies any new or unusual aches and pains, skin lesions, rashes, or sores. He does not use sunscreen or sunglasses. He denies any recent increase in thirst. He is interested in receiving the pneumonia and shingles vaccines. He is aware of his mother's recent health issues, including a fall, a major stroke, and macular degeneration. Past medical history, appointments, medications, allergies reviewed. Previous Medical History PAST MEDICAL HISTORY Diagnosis Date Abnormal findings on cardiac catheterization 01/17/[address] Bernstein 01/17/2015 question of 85% stenosis of septal hammer smith Alcohol abuse 07/06/2014 Sober since 03/29/2014 Allergic rhinitis due to allergen RAST 11/2013, [facility]. Anxiety 07/06/2014 Atelectasis 02/24/2024 lingula and right middle lobe Bilateral carotid artery stenosis 05/28/2015 US: 05/18/2015 less than 50% bilateral. US 04/2018 20-40% nidia Bilateral leg edema 07/10/2023 Bladder pain Coronary artery disease due to lipid rich plaque 07/03/[address] 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 Rosa Former smoker 07/06/2014 Quit 06/2014: Was smoking less than a PPD since 25 yo. Intermittent self-catheterization of bladder MVP (mitral valve prolapse) 02/15/2015 2D echo 12/2014 ANNIE (obstructive sleep apnea) PVC (premature ventricular contraction) Hx of. off and on. Scar tissue 07/06/2014 Right spermatic chord from vasectomy Seasonal allergies 07/06/2014 Smoker 07/06/2014 Was smoking le (more content not included)... Normal [facility] Comprehensive metabolic 2000 panelon 01-26-2025 Albumin [Mass/Vol] 4.3 g/dL Normal 3.9-4.9 [facility] Comment on above: Order Comment: Speci men Type: BLOOD SPECIMEN Ordering Facility: [facility] Address: [address] [place] [address] Performed By: #### 2 4323-8, 3016-3, LIPNF #### [facility] CLIA [id number] [address] [place] [address] [place] ALP [Catalytic activity/Vol] 117 U/L High 38-113 [facility] Comment on above: Order Comment: Speci men Type: BLOOD SPECIMEN Ordering Facility: [facility] Address: [address] [place] [address] Performed By: #### 2 4323-8, 3016-3, LIPNF #### [facility] CLIA [id number] [address] [place] [address] [place] ALT [Catalytic activity/Vol] 15 U/L Normal 10-54 [facility] Comment on above: Order Comment: Speci men Type: BLOOD SPECIMEN Ordering Facility: [facility] Address: [address] [place] [address] Performed By: #### 2 4323-8, 3016-3, LIPNF #### [facility] CLIA [id number] [address] [place] [address] [place] Anion gap [Moles/Vol] 13 mmol/L Normal 8-[address] [facility] Comment on above: Order Comment: Speci men Type: BLOOD SPECIMEN Ordering Facility: [facility] Address: [address] [place] [address] Performed By: #### 2 4323-8, 3016-3, LIPNF #### [facility] CLIA [id number] [address] [place] [address] [place] AST [Catalytic activity/Vol] 20 U/L Normal 14-40 [facility] Comment on above: Order Comment: Speci men Type: BLOOD SPECIMEN Ordering Facility: [facility] Address: [address] [place] [address] Performed By: #### 2 4323-8, 3016-3, LIPNF #### [facility] CLIA [id number] [address] [place] [address] [place] Bilirubin [Mass/Vol] 1.0 mg/dL Normal 0.2-1.3 [facility] Comment on above: Order Comment: Speci men Type: BLOOD SPECIMEN Ordering Facility: [facility] Address: [address] [place] [address] Performed By: #### 2 4323-8, 3016-3, LIPNF #### [facility] CLIA [id number] [address] [place] [address] [place] Calcium [Mass/Vol] 9.7 mg/dL Normal 8.5-10.2 [facility] Comment on above: Order Comment: Speci men Type: BLOOD SPECIMEN Ordering Facility: [facility] Address: [address] [place] [address] Performed By: #### 2 4323-8, 6-3, LIPNF #### [facility] CLIA [id number] [address] [place] [address] [place] Chloride [Moles/Vol] 98 mmol/L Normal 98-107 [facility] Comment on above: Order Comment: Speci men Type: BLOOD SPECIMEN Ordering Facility: [facility] Address: [address] [place] [address] Performed By: #### 2 4323-8, 6-3, LIPNF #### [facility] CLIA [id number] [address] [place] [address] [place] CO2 [Moles/Vol] 24 mmol/L Normal 22-30 [facility] Comment on above: Order Comment: Speci men Type: BLOOD SPECIMEN Ordering Facility: [facility] Address: [address] [place], [place] [id number] Performed By: #### 2 4323-8, 6-3, LIPNF #### [facility] CLIA [id number] [address] [place], [place] [address] [place] Creatinine [Mass/Vol] 0.93 mg/dL Normal 0.73-1.22 [facility] Comment on above: Order Comment: Jenelle cuellar Type: BLOOD SPECIMEN Ordering Facility: [facility] Address: [address] [place] [address] Performed By: #### 2 4323-8, 3016-3, LIPNF #### [facility] CLIA [id number] [address] [place] [address] [place] Creatinine and Glomerular filtration rate.predicted panel (S/P/Bld) 95 mL/min/1.73m??? Normal >=60 [facility] Comment on above: Order Comment: Jenelle cuellar Type: BLOOD SPECIMEN Ordering Facility: [facility] Address: [address] [place] [address] Result Comment: Missy mated Glomerular Filtration Rate (eGFR) is calculated using the 2020 CKD-EPI creatinine equation. This equation utilizes serum creatinine, sex, and age as parameters. The creatinine assay has traceable calibration to isotope dilution-mass spectrometry. Refer to KDIGO guidelines for clinical interpretation. In patients with unstable renal function, e.g. those with acute kidney injury, the eGFR may not accurately reflect actual GFR. Performed By: #### 2 4323-8, 3016-3, LIPNF #### [facility] CLIA [id number] [address] [place] [address] [place] Glucose [Mass/Vol] 95 mg/dL Normal 74-99 [facility] Comment on above: Order Comment: Jenelle cuellar Type: BLOOD SPECIMEN Ordering Facility: [facility] Address: [address] [place] [address] Result Comment: The [place] Diabetes Association (ADA) provides guidance for cutoff values for fasting glucose and random glucose. The ADA defines fasting as no caloric intake for at least 8 hours. Fasting plasma glucose results between 100 to 125 mg/dL indicate increased risk for diabetes (prediabetes). Fasting plasma glucose results greater than or equal to 126 mg/dL meet the criteria for diagnosis of diabetes. In the absence of unequivocal hyperglycemia, results should be confirmed by repeat testing. In a patient with classic symptoms of hyperglycemia or hyperglycemic crisis, random plasma glucose results greater than or equal to 200 mg/dL meet the criteria for diagnosis of diabetes. Reference: Standards of Medical Care in Diabetes 2016, [place] Diabetes Association. Diabetes Care. 2016.39(Suppl 1). Performed By: #### 2 4323-8, 3016-3, LIPNF #### [facility] CLIA [id number] [address] [place] [address] [place] Potassium [Moles/Vol] 3.7 mmol/L Normal 3.7-5.[address] [facility] Comment on above: Order Comment: Speci men Type: BLOOD SPECIMEN Ordering Facility: [facility] Address: [address] [place] [address] Performed By: #### 2 4323-8, 6-3, LIPNF #### [facility] CLIA [id number] [address] [place] [address] [place] Protein [Mass/Vol] 7.3 g/dL Normal 6.3-8.0 [facility] Comment on above: Order Comment: Speci men Type: BLOOD SPECIMEN Ordering Facility: [facility] Address: [address] [place] [address] Performed By: #### 2 4323-8, 6-3, LIPNF #### [facility] CLIA [id number] [address] [place] [address] [place] Sodium [Moles/Vol] 135 mmol/L Low 136-144 [facility] Comment on above: Order Comment: Speci men Type: BLOOD SPECIMEN Ordering Facility: [facility] Address: [address] [place] [address] Performed By: #### 2 4323-8, 3016-3, LIPNF #### [facility] CLIA [id number] [address] [place], [place] [address] [place] Urea nitrogen [Mass/Vol] 7 mg/dL Low 9-24 [facility] Comment on above: Order Comment: Speci men Type: BLOOD SPECIMEN Ordering Facility: [facility] Address: [address] [place], [place] [address] Performed By: #### 2 4323-8, 3016-3, LIPNF #### [facility] CLIA [id number] [address] [place] [address] [place] HbA1c (Bld)on 01-26-2025 Average glucose Estimated from glycated hemoglobin (Bld) [Mass/Vol] 120 mg/dL [facility] Comment on above: eAG: (Estimated aver age glucose) is a calculated value from HgbA1c and is jewelry sales representative of the average blood glucose level in the last 2-3 month period. HbA1c (Bld) [Mass fraction] 5.8 % High 4.3 - 5.6 % [facility] Comment on above: [place] Diabetes As sociation guidelines indicate that patients with HgbA1c in the range 5.7-6.4% are at increased risk for development of diabetes, and intervention by lifestyle modification may be beneficial. HgbA1c greater or equal to 6.5% is considered diagnostic of diabetes. Interpretation and review of laboratory results Abnormal [facility] Average glucose Estimated from glycated hemoglobin (Bld) [Mass/Vol] 120 mg/dL Normal [facility] Comment on above: Order Comment: Jenelle cuellar Type: BLOOD SPECIMENOrdering Facility: [facility] Address: [address] [place] [address] Result Comment: eAG: (Estimated average glucose) is a calculated value from HgbA1c and is jewelry sales representative of the average blood glucose level in the last 2-3 month period. Performed By: #### 5 5454-3 ####[facility] [id number] [address] [place] HbA1c (Bld) [Mass fraction] 5.8 % High 4.3-5.6 [facility] Comment on above: Order Comment: Jenelle cuellar Type: BLOOD SPECIMENOrdering Facility: [facility] Address: [address] [place] [address] Result Comment: [place] Diabetes Association guidelines indicate that patients with HgbA1c in the range 5.7-6.4% are at increased risk for development of diabetes, and intervention by lifestyle modification may be beneficial. HgbA1c greater or equal to 6.5% is considered diagnostic of diabetes. Performed By: #### 5 5454-3 ####[facility] [id number] [place] [address] [facility] [place] LIPID PANEL, NONFASTINGon Cholesterol [Mass/Vol] 156 mg/dL Normal <200 [facility] Comment on above: Order Comment: Speci men Type: BLOOD SPECIMEN Ordering Facility: [facility] Address: [address] [place] [address] Result Comment: <200 mg/dL, Desirable 200-239 mg/dL, Borderline high >239 mg/dL, High Performed By: #### 2 4323-8, 6-3, LIPNF #### [facility] CLIA [id number] [address] [place] [address] [place] [facility] HDL CHOLESTEROL, NF 38 mg/dL Low >39 [facility] Comment on above: Order Comment: [facility] Type: BLOOD SPECIMEN Ordering Facility: [facility] Address: [address] [place] [address] Result Comment: 40-5 9 mg/dL, Acceptable >59 mg/dL, High: Negative risk factor for coronary heart disease <40 mg/dL, Low: Positive risk factor for coronary heart disease Performed By: #### 2 4323-8, 6-3, LIPNF #### [facility] CLIA [id number] [address] [place] [address] OF [facility] LDL CHOLESTEROL CALCULATED, NF 90 mg/dL Normal <100 [facility] Comment on above: Order Comment: Speci [facility] Type: BLOOD SPECIMEN Ordering Facility: [facility] Address: [address] [place] [address] Result Comment: <100 mg/dL, Optimal 100-129 mg/dL, Near optimal/above optimal 130-159 mg/dL, Borderline high 160-189 mg/dL, High >189 mg/dL, Very high Secondary prevention optimal LDL Cholesterol levels are recommended to be <70 mg/dL LDL cholesterol is calculated using the Smith-NIH equation. Performed By: #### 2 4323-8, 3016-3, LIPNF #### [facility] CLIA [id number] [address] [place], [place] [address] [place] [address] [place] LDL/HDL RATIO, NF 2.37 mg/dL Normal <2.54 [facility] Comment on above: Order Comment: Speci men Type: BLOOD SPECIMEN Ordering Facility: [facility] Address: [address] [place] [address] Result Comment: Refe rence: 1. National Cholesterol Education Program ATP III Guideline At-A-Glance Quick Desk Reference: National Heart, Lung, and Blood Story. National Institutes of Health. 2001: NIH Publication No. 01-3305. 2. An International Atherosclerosis Society position paper: global recommendations for the management of dyslipidemia: executive summary, Atherosclerosis. 2014: 232(2):410-413. Performed By: #### 2 4323-8, 3015-3, LIPNF #### [facility] CLIA [id number] [address] [place] [address] [place] NON HDL CHOL, NF 118 mg/dL Normal <130 [facility] Comment on above: Order Comment: Speci men Type: BLOOD SPECIMEN Ordering Facility: [facility] Address: [address] [place] [address] Result Comment: <130 mg/dL, Optimal 130-159 mg/dL, Near optimal/above optimal 160-189 mg/dL, Borderline high 190-219 mg/dL, High >219 mg/dL, Very high Secondary prevention optimal non HDL Cholesterol levels are recommended to be <100 mg/dL Performed By: #### 2 4323-8, 6-3, LIPNF #### [facility] CLIA [id number] [address] [place] [address] [place] T CHOL/HDL RATIO NF 4.11 mg/dL Normal <5.10 [facility] Comment on above: Order Comment: Speci men Type: BLOOD SPECIMEN Ordering Facility: [facility] Address: [address] [place] [address] Performed By: #### 2 4323-8, 3016-3, LIPNF #### [facility] CLIA [id number] [address] [place] [address] [place] TRIGLYCERIDES, NF 162 mg/dL High <150 [facility] Comment on above: Order Comment: Speci men Type: BLOOD SPECIMEN Ordering Facility: [facility] Address: [address] [place] [address] Result Comment: <150 mg/dL, Normal 150-199 mg/dL, Borderline high 200-499 mg/dL, High >499 mg/dL, Very high Performed By: #### 2 4323-8, 3016-3, LIPNF #### [facility] CLIA [id number] [address] [place] [address] [place] VLDL CHOLESTEROL, NF 26 mg/dL Normal <30 [facility] Comment on above: Order Comment: Speci men Type: BLOOD SPECIMEN Ordering Facility: [facility] Address: [address] [place] [address] Performed By: #### 2 4323-8, 3016-3, LIPNF #### [facility] CLIA [id number] [address] [place] [address] [place] PSA SerPl-mCncon 01-26-2025 Prostate specific Ag [Mass/Vol] 1.47 ng/mL Normal <2.60 [facility] Comment on above: Order Comment: Speci men Type: BLOOD SPECIMENOrdering Facility: [facility] Address: [address] [place] [address] Result Comment: Tota l PSA test methodology used is the Electrochemiluminescence Immunoassay by [employer]. Total PSA values by differing methodologies cannot be interchanged. Performed By: #### 2 857-1 ####[facility] [id number] [place] [address] [place] TSH SerPl-aCncon 01-26-2025 TSH Qn 0.738 m[IU]/L Normal 0.270-4.200 [facility] Comment on above: Order Comment: Speci men Type: BLOOD SPECIMEN Ordering Facility: [facility] Address: [address] [place] [address] Performed By: #### 2 4323-8, 3016-3, LIPNF #### [facility] CLIA [id number] [address] [place] [address] OF [facility] JOSE ZAPIEN III ([id number]) 1965 M Date Time Provider Department 08/01/24 VIRGIL HOUGH [facility] During your visit today, we recorded the following information about you: Virgil Hough APRN.SENIOR CONSUMER INSIGHTS CONSULTANT 08/01/2024 1:00 PM Signed Please let patient know his xr shows disc space narrowing of the c3-c4 and c4-c5 as well as foraminal narrowing which is likely contributing to his neck pain. Recommend PT and follow up with ortho spine. Olga Gutierrez RN 08/01/2024 4:38 PM Signed Patient calls and notified of results and providers instructions. Patient verbalizes understanding. Patient would like to think about PT and the consult to ortho spine. Patient to call back if desires to schedule. Olga Gutierrez RN Allergies As of Date: 08/01/2024 Noted Allergy Reaction PENICILLINS 09/18/2005 16 - Unknown Comments: Childhood reaction. Date Reviewed: 07/28/2024 Reviewed by: Jenelle Delgado MA - Fully Assessed Reason for Visit: Results [95] Primary Visit Diagnosis:Neck pain [M54.2] Order(s):CONSULT TO PHYSICAL THERAPY [9032] Order #: [id number]: 1 FUTURE Prescriptions as of 08/01/2024 - hydroCHLOROthiazide 12.5 mg capsule Take 1 capsule by mouth once daily. - lisinopril (ZESTRIL, PRINIVIL) 20 mg tablet Take 1 tablet by mouth once daily. - clopidogrel (PLAVIX) 75 mg tablet Take 1 tablet by mouth once daily. - atorvastatin (LIPITOR) 80 mg tablet Take 1 tablet by mouth daily at bedtime. For cholesterol. - docosahexaenoic acid/epa (FISH OIL ORAL) Take 1,200 mg by mouth as directed. - aspirin, enteric coated (ASPIRIN, ENTERIC COATED) 81 mg EC tablet Take 81 mg by mouth once daily. - acetaminophen (TYLENOL) 325 mg tablet Take 650 mg by mouth every 4 hours as needed. Problem List As Of Date 08/01/2024 Noted Resolved Anxiety [F41.9] 07/06/2014 Smoker [F17.200] 07/06/2014 Scar tissue [L90.5] 07/06/2014 Well adult exam [Z00.00] 07/06/2014 Alcohol abuse [F10.10] 07/06/2014 PVC (premature ventricular contraction) [I49.3] Abnormal findings on cardiac catheterization [R*01/17/2015 MVP (mitral valve prolapse) [I34.1] 02/15/2015 Bilateral carotid artery stenosis [I65.23] 05/28/2015 Essential hypertension [I10] 06/25/2015 Prostate cancer screening [Z12.5] 06/25/2015 Coronary artery disease due to lipid rich plaqu*07/03/2015 Encounter for screening for diabetes mellitus [*07/08/2016 Colon cancer screening [Z12.11] 07/08/2016 Elevated fasting blood sugar [R73.01] 07/11/2017 ANNIE (obstructive sleep apnea) [G47.33] Current moderate episode of major depressive di*05/11/2019 Medication management [Z79.899] 05/11/2019 Allergic rhinitis due to allergen [J30.9] Microscopic hematuria [R31.29] 09/04/2019 01/26/2024 Bilateral leg edema [R60.0] 07/10/2023 Neoplasm of uncertain behavior of skin of back *02/17/2024 Fatty liver [K76.0] 02/18/2024 Epidermoid cyst of skin of back [L72.0] 02/19/2024 Flaccid neuropathic bladder, 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/08/2024 Urine retention [R33.9] 03/08/2024 Encounter Status:Closed by VIRGIL HOUGH on 08/01/24 Normal [facility] CNOVon 07-28-2024 CNOV Office Visit ([facility] ) -- JOSE ZAPIEN III ([id number]) 1965 M Date Time Provider Department 07/28/24 4:20 PM VIRGIL HOUGH [facility] During your visit today, we recorded the following information about you: Pulse Respiration Blood pressure Weight 70/minute 14/minute 127/72 91.2 kg Virgil Hough, RESEARCH AIDE.SENIOR CONSUMER INSIGHTS CONSULTANT 07/28/2024 4:35 PM Signed Chief Complaint Patient presents with: 6 Month Exam HPI Jose Zapien III is a 59 year old male who presents here today for Above Complaints.. Patient presents for routine follow up. Patient reports he has bladder discomfort, saw Dr. Romano recently and was treated for UTI but has had discomfort since he started self cathing. Also reports worsening neck pain, last xrays 2020. Past medical history, appointments, medications, allergies reviewed. Previous Medical History PAST MEDICAL HISTORY Diagnosis Date Abnormal findings on cardiac catheterization 01/17/[address] Bernstein 01/17/2015 question of 85% stenosis of septal hammer smith Alcohol abuse 07/06/2014 Sober since 03/29/2014 Allergic rhinitis due to allergen RAST 11/2013, [facility]. Anxiety 07/06/2014 Atelectasis 02/24/2024 lingula and right middle lobe Bilateral carotid artery stenosis 05/28/2015 US: 05/18/2015 less than 50% bilateral. US 04/2018 20-40% nidia Bilateral leg edema 07/10/2023 Coronary artery disease due to lipid rich plaque 07/03/[address] 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 Rosa Former smoker 07/06/2014 Quit 06/2014: Was smoking less than a PPD since 25 yo. MVP (mitral valve prolapse) 02/15/2015 2D echo 12/2014 ANNIE (obstructive sleep apnea) PVC (premature ventricular contraction) Hx of. off and on. 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 Snoring Urine retention 03/08/2024 Seeing Urology: Dr. Rosa Previous Surgical History PAST SURGICAL HISTORY Procedure Laterality Date 2D ECHO (EXEP) 01/16/2015 EF=65%, Mild MVP CC CORONARY STENT 2014 Mid LAD COLONOSCOPY FLX DX W/COLLJ SPEC WHEN PFRMD 12/23/2005 Colonoscopy COLONOSCOPY FLX DX W/COLLJ SPEC WHEN PFRMD 09/15/2017 repeat in 10 years ESOPHAGOGASTRODUODENOSCOPY TRANSORAL DIAGNOSTIC 10/21/2006 Gastritis LAPS SURG CHOLECYSTECTOMY W/CHOLANGIOGRAPHY 02/01/2007 PAST SURGICAL HISTORY OF 12/2014 stent to LAD RPR 1ST INGUN HRNA AGE 5 YRS/> REDUCIBLE Hernia repair, inguinal bilateral STRESS TEST 07/07/2017 WNL VASECTOMY UNI/BI SPX W/POSTOP SEMEN EXAMS Family History FAMILY HISTORY Problem Relation Age of Onset Heart Father Pacemaker, hx TIA Macular Degen Mother Glaucoma Mother Hypertension Mother Heart Maternal Grandmother Cancer Maternal Grandmother behind ear Heart Paternal Grandfather Stroke Paternal Grandfather Patient Allergies ALLERGIES Allergen Reactions Penicillins Unknown Childhood reaction. Current Medications Current Outpatient Medications on File Prior to Visit Medication Sig hydroCHLOROthiazide 12.5 mg capsule Take 1 capsule by mouth once daily. lisinopril (ZESTRIL, PRINIVIL) 20 mg tablet Take 1 tablet by mouth once daily. clopidogrel (PLAVIX) 75 mg tablet Take 1 tablet by mouth once daily. atorvastatin (LIPITOR) 80 mg tablet Take 1 tablet by mouth daily at bedtime. For cholesterol. docosahexaenoic acid/epa (FISH OIL ORAL) Take 1,200 mg by mouth as directed. aspirin, enteric coated (ASPIRIN, ENTERIC COATED) 81 mg EC tablet Take 81 mg by mouth once daily. acetaminophen (TYLENOL) 325 mg tablet Take 650 mg by mouth every 4 hours as needed. No current facility-administered medications on file prior to visit. Social History Social History Tobacco Use Smoking status: Every Day Current packs/day: 0.00 Average packs/day: 0.5 packs/day for 25.0 years (12.5 ttl pk-yrs) Types: Cigarettes Start date: 07/04/1989 Last attempt to quit: 07/04/2014 Years since quittin.0 Smokeless tobacco: Current Types: Snuff Tobacco comments: Prior 2 packs a day for 15 years, down to 3-4 cigarettes per day Vaping Use Vaping status: Never Used Substance Use Topics Alcohol use: Yes Alcohol/week: 10.0 standard drinks of alcohol Types: 4 Cans of beer, 6 Cans of Beer (12oz) per week Comment: nightly Drug use: No Review of Symptoms REVIEW OF SYSTEMS SEE HPI EXAM: BP 146/68 Pulse 70 Resp 14 Wt 91.2 kg (201 lb) BMI 29.26 kg/m? General Appearance: Well appearing, alert, in no acute distress, well-hydrated, well nourished. Back: no pain to palpation, slight dec extension, negative findings: symmetric, posi (more content not included)... Normal [facility] XR CERVICAL 4V AP/LAT/OBLon 07-28-2024 XR CERVICAL 4V AP/LAT/OBL * * *Final Report* * * DATE OF EXAM: Jul 28 2024 4:52PM WOX [id number] - XR CERVICAL 4V AP/LAT/OBL / PROCEDURE REASON: Neck pain * * * * Physician Interpretation * * * * EXAM TITLE: XR CERVICAL 4V AP/LAT/OBL EXAM DATE/TIME: 07/28/2024 4:52 PM COMPARISON: X-ray cervical spine on 05/14/2021 CLINICAL INDICATION/HISTORY: Neck pain TECHNIQUE: AP, lateral and oblique views of the cervical spine are presented. FINDINGS: No acute fractures demonstrated. There appears be minimal C5 on C6 anterolisthesis. C3-4 and C4-5 disc space narrowing is noted. There is moderate osteophyte formation, with facet arthrosis. Your is multilevel bilateral neural foraminal narrowing. The prevertebral soft tissues are normal. IMPRESSION: Cervical spine degenerative changes with multilevel disc space narrowing and bilateral neural foraminal narrowing. Concrete Pipe Maker: NATHALIA Transcribe Date/Time: Aug 01 2024 9:51A Dictated by : MIGUEL SINGH MD This examination was interpreted and the report reviewed and electronically signed by: MIGUEL SINGH MD on Aug 01 2024 10:13AM EST [id number] Normal [facility] Basic metabolic 2000 panelon 07-20-2024 Anion gap [Moles/Vol] 12 mmol/L Normal 8-[address] [facility] Comment on above: Order Comment: Speci men Type: BLOOD SPECIMENOrdering Facility: [facility] Address: [address] [place] [address] Performed By: #### 2 4331-1, 32375-1, 22295-2 ####[facility] [id number] [place] [address] [place] Calcium [Mass/Vol] 9.8 mg/dL Normal 8.5-10.2 [facility] Comment on above: Order Comment: Speci men Type: BLOOD SPECIMENOrdering Facility: [facility] Address: [address] [place] [address] Performed By: #### 2 4331-1, 81262-1, 71837-9 ####[facility] [id number] [place] [address] [place] Chloride [Moles/Vol] 99 mmol/L Normal 98-107 [facility] Comment on above: Order Comment: Speci men Type: BLOOD SPECIMENOrdering Facility: [facility] Address: [address] [place] [address] Performed By: #### 2 4331-1, 52759-6, 02515-8 ####[facility] [id number] [address] [address] [place] CO2 [Moles/Vol] 23 mmol/L Normal 22-30 [facility] Comment on above: Order Comment: Speci men Type: BLOOD SPECIMENOrdering Facility: [facility] Address: [address] [place] [address] Performed By: #### 2 4331-1, 72499-1, 38828-9 ####[facility] [id number] [place] [id number] [place] Creatinine [Mass/Vol] 0.89 mg/dL Normal 0.73-1.[address] [facility] Comment on above: Order Comment: Speci men Type: BLOOD SPECIMENOrdering Facility: [facility] Address: [address] [place] [address] Performed By: #### 2 4331-1, 12542-3, 58764-6 ####[facility] [id number] [place] [address] [place] Creatinine and Glomerular filtration rate.predicted panel (S/P/Bld) 99 mL/min/1.73m??? Normal >=60 [facility] Comment on above: Order Comment: Jenelle cuellar Type: BLOOD SPECIMENOrdering Facility: [facility] Address: [address] [place] [address] Result Comment: Missy mated Glomerular Filtration Rate (eGFR) is calculated using the 2020 CKD-EPI creatinine equation. This equation utilizes serum creatinine, sex, and age as parameters. The creatinine assay has traceable calibration to isotope dilution-mass spectrometry. Refer to KDIGO guidelines for clinical interpretation. In patients with unstable renal function, e.g. those with acute kidney injury, the eGFR may not accurately reflect actual GFR. Performed By: #### 2 4331-1, 76839-2, 03560-3 ####[facility] [id number] [place] [address] [place] Glucose [Mass/Vol] 97 mg/dL Normal 74-99 [facility] Comment on above: Order Comment: Speci men Type: BLOOD SPECIMENOrdering Facility: [facility] Address: [address] [place] [address] Result Comment: The [place] Diabetes Association (ADA) provides guidance for cutoff values for fasting glucose and random glucose. The ADA defines fasting as no caloric intake for at least 8 hours. Fasting plasma glucose results between 100 to 125 mg/dL indicate increased risk for diabetes (prediabetes). Fasting plasma glucose results greater than or equal to 126 mg/dL meet the criteria for diagnosis of diabetes. In the absence of unequivocal hyperglycemia, results should be confirmed by repeat testing. In a patient with classic symptoms of hyperglycemia or hyperglycemic crisis, random plasma glucose results greater than or equal to 200 mg/dL meet the criteria for diagnosis of diabetes. Reference: Standards of Medical Care in Diabetes 2016, [place] Diabetes Association. Diabetes Care. 2016.39(Suppl 1). Performed By: #### 2 4331-1, 24012-9, 78198-2 ####[facility] [id number] [place] [address] [place] Potassium [Moles/Vol] 4.3 mmol/L Normal 3.7-5.[address] [facility] Comment on above: Order Comment: Speci men Type: BLOOD SPECIMENOrdering Facility: [facility] Address: [address] [place] [address] Performed By: #### 2 433-1, 80301-1, 72860-3 ####[facility] [id number] [place] [address] [place] Sodium [Moles/Vol] 134 mmol/L Low 136-144 [facility] Comment on above: Order Comment: Speci men Type: BLOOD SPECIMENOrdering Facility: [facility] Address: [address] [place] [address] Performed By: #### 2 433-1, 33720-7, 33648-4 ####[facility] [id number] [place] [id number] [place] Urea nitrogen [Mass/Vol] 11 mg/dL Normal 9-24 [facility] Comment on above: Order Comment: Speci men Type: BLOOD SPECIMENOrdering Facility: [facility] Address: [address] [place] [address] Performed By: #### 2 4331-1, 41926-2, 75924-9 ####[facility] [id number] [place] [address] [place] HbA1c (Bld)on 07-20-2024 Average glucose Estimated from glycated hemoglobin (Bld) [Mass/Vol] 108 mg/dL Normal [facility] Comment on above: Order Comment: Jenelle cuellar Type: BLOOD SPECIMENOrdering Facility: [facility] Address: [address] [place] [address] Result Comment: eAG: (Estimated average glucose) is a calculated value from HgbA1c and is jewelry sales representative of the average blood glucose level in the last 2-3 month period. Performed By: #### 5 5454-3 ####[facility] [id number] [place] [address] [place] [facility] HbA1c (Bld) [Mass fraction] 5.4 % Normal 4.3-5.6 [facility] Comment on above: Order Comment: Jenelle cuellar Type: BLOOD SPECIMENOrdering Facility: [facility] Address: [address] [place] [address] Result Comment: Amer [place] Diabetes Association guidelines indicate that patients with HgbA1c in the range 5.7-6.4% are at increased risk for development of diabetes, and intervention by lifestyle modification may be beneficial. HgbA1c greater or equal to 6.5% is considered diagnostic of diabetes. Performed By: #### 5 5454-3 ####[facility] [id number] [place] [address] [place] Hepatic function 2000 panelo n 07-20-2024 Albumin [Mass/Vol] 4.5 g/dL Normal 3.9-4.9 [facility] Comment on above: Order Comment: Jenelle cuellar Type: BLOOD SPECIMENOrdering Facility: [facility] Address: [address] [place] [address] Performed By: #### 2 4331-1, 71051-0, 01003-5 ####[facility] [id number] [place] [address] [place] ALP [Catalytic activity/Vol] 118 U/L High 38-113 [facility] Comment on above: Order Comment: Speci men Type: BLOOD SPECIMENOrdering Facility: [facility] Address: [address] [place] [address] Performed By: #### 2 4331-1, 61812-7, 40009-4 ####[facility] [id number] [place] [address] [place] ALT [Catalytic activity/Vol] 15 U/L Normal 10-54 [facility] Comment on above: Order Comment: Speci men Type: BLOOD SPECIMENOrdering Facility: [facility] Address: [address] [place] [address] Performed By: #### 2 4331-1, 69676-7, 16340-3 ####[facility] [id number] [place] [address] [place] AST [Catalytic activity/Vol] 19 U/L Normal 14-40 [facility] Comment on above: Order Comment: Speci men Type: BLOOD SPECIMENOrdering Facility: [facility] Address: [address] [place] [address] Performed By: #### 2 4331-1, 70035-7, 60627-0 ####[facility] [id number] [place] [address] [place] Bilirubin [Mass/Vol] 1.4 mg/dL High 0.2-1.3 [facility] Comment on above: Order Comment: Speci men Type: BLOOD SPECIMENOrdering Facility: [facility] Address: [address] [place] [address] Performed By: #### 2 4331-1, 03938-9, 96904-1 ####[facility] [id number] [place] [address] [place] Bilirubin.conjugated [Mass/Vol] 0.3 mg/dL High <0.2 [facility] Comment on above: Order Comment: Speci men Type: BLOOD SPECIMENOrdering Facility: [facility] Address: [address] [place], [place] [address] Performed By: #### 2 4331-1, 90607-3, 07352-7 ####[facility] [id number] [address] [address] [place] Protein [Mass/Vol] 7.6 g/dL Normal 6.3-8.0 [facility] Comment on above: Order Comment: Speci men Type: BLOOD SPECIMENOrdering Facility: [facility] Address: [address] [place] [address] Performed By: #### 2 4331-1, 48593-2, 55288-8 ####[facility] [id number] [place] [address] [place] Lipid 1996 panelon 4 Cholesterol [Mass/Vol] 181 mg/dL Normal <200 [facility] Comment on above: Order Comment: Speci men Type: BLOOD SPECIMENOrdering Facility: [facility] Address: [address] [place] [address] Result Comment: <200 mg/dL, Desirable 200-239 mg/dL, Borderline high >239 mg/dL, High Performed By: #### 2 4331-1, 54390-5, 02191-2 ####[facility] [id number] [place] [address] [place] Cholesterol in HDL [Mass/Vol] 36 mg/dL Low >39 [facility] Comment on above: Order Comment: Speci men Type: BLOOD SPECIMENOrdering Facility: [facility] Address: [address] [place] [address] Result Comment: 40-5 9 mg/dL, Acceptable >59 mg/dL, High: Negative risk factor for coronary heart disease <40 mg/dL, Low: Positive risk factor for coronary heart disease Performed By: #### 2 4331-1, 99677-2, 76721-5 ####[facility] [id number] [place] [address] [place] Cholesterol in LDL [Mass/Vol] 113 mg/dL High <100 [facility] Comment on above: Order Comment: Speci men Type: BLOOD SPECIMENOrdering Facility: [facility] Address: [address] [place] [address] Result Comment: <100 mg/dL, Optimal 100-129 mg/dL, Near optimal/above optimal 130-159 mg/dL, Borderline high 160-189 mg/dL, High >189 mg/dL, Very high Secondary prevention optimal LDL Cholesterol levels are recommended to be < 70 mg/dL Performed By: #### 2 4331-1, 97537-4, 70630-0 ####[facility] [id number] [place] [address] [place] Cholesterol in LDL/Cholesterol in HDL [Mass ratio] 3.14 {ratio} High <2.54 [facility] Comment on above: Order Comment: Speci men Type: BLOOD SPECIMENOrdering Facility: [facility] Address: [address] [place] [address] Result Comment: Refmadelin juárez: 1. National Cholesterol Education Program ATP III Guideline At-A-Glance Quick Desk Reference: National Heart, Lung, and Blood Story. National Institutes of Health. 2001: NIH Publication No. 01-3305. 2. An International Atherosclerosis Society position paper: global recommendations for the management of dyslipidemia: executive summary, Atherosclerosis. 2014: 232(2):410-413. Performed By: #### 2 4331-1, 10822-8, 85935-5 ####[facility] [id number] [place] [address] [place] Cholesterol in VLDL [Mass/Vol] 32 mg/dL High <30 [facility] Comment on above: Order Comment: Jenelle men Type: BLOOD SPECIMENOrdering Facility: [facility] Address: [address] [place] [address] Performed By: #### 2 4331-1, 35796-9, 03109-6 ####[facility] [id number] [address] [address] [place] Cholesterol non HDL [Mass/Vol] 145 mg/dL High <130 [facility] Comment on above: Order Comment: Speci men Type: BLOOD SPECIMENOrdering Facility: [facility] Address: [address] [place] [id number] Result Comment: <130 mg/dL, Optimal 130-159 mg/dL, Near optimal/above optimal 160-189 mg/dL, Borderline high 190-219 mg/dL, High >219 mg/dL, Very high Secondary prevention optimal non HDL Cholesterol levels are recommended to be <100 mg/dL Performed By: #### 2 4331-1, 57728-0, 23706-1 ####[facility] [id number] [place] [address] [place] Cholesterol.total/Chol esterol in HDL [Mass ratio] 5.03 {ratio} Normal <5.10 [facility] Comment on above: Order Comment: Speci men Type: BLOOD SPECIMENOrdering Facility: [facility] Address: [address] [place] [id number] Performed By: #### 2 4331-1, 38530-0, 92681-7 ####[facility] [id number] [place] [id number] [place] FASTING TIME 12 hrs Normal [facility] Comment on above: Order Comment: Speci men Type: BLOOD SPECIMENOrdering Facility: [facility] Address: [address] [place] [address] Performed By: #### 2 4331-1, 25121-2, 69138-6 ####[facility] [id number] [place] [id number] [place] Triglyceride [Mass/Vol] 160 mg/dL High <150 [facility] Comment on above: Order Comment: Speci men Type: BLOOD SPECIMENOrdering Facility: [facility] Address: [address] [place] [id number] Result Comment: <150 mg/dL, Normal 150-199 mg/dL, Borderline high 200-499 mg/dL, High >499 mg/dL, Very high Performed By: #### 2 4331-1, 98060-7, 69247-7 ####[facility] [id number] [facility] [id number] [id number] [facility] CNPNon 07-19-2024 CNPN Telephone (FAMWS) -- JOSE ZAPIEN III ([id number]) 1965 M Date Time Provider Department 07/19/24 [facility] During your visit today, we recorded the following information about you: Olga Gutierrez RN 07/19/2024 9:07 AM Signed Patient calls to let provider know that he is coming in to have labs ordered by provider completed next week and asking if provider would place orders to look at kidney function. Patient reports that he has been using a catheter the past three months 2-3 times day ordered by Dr. Romano and has had several infections and would like to have kidney function checked with other labs. ANAND Wells Jeffrey A, MD 07/19/2024 9:42 AM Signed Let patient know lab with kidney functions added with today's date. Advise him to make sure when he checks to tell the desk person about labs with today's date: 07/19/24 and labs from 07/08/2024. Ebonie Crowe MA 07/19/2024 10:25 AM Signed Patient notified and voiced understanding. Ebonie Crowe MA Allergies As of Date: 07/19/2024 Noted Allergy Reaction PENICILLINS 09/18/2005 16 - Unknown Comments: Childhood reaction. Date Reviewed: 05/09/2024 Reviewed by: Amanda Borden MA - Fully Assessed Reason for Visit: Orders [681] Primary Visit Diagnosis:Essential hypertension [I10] Order(s):BASIC METABOLIC PANEL [SQBMP] Order #: [id number] FUTURE Prescriptions as of 07/19/2024 - hydroCHLOROthiazide 12.5 mg capsule Take 1 capsule by mouth once daily. - lisinopril (ZESTRIL, PRINIVIL) 20 mg tablet Take 1 tablet by mouth once daily. - clopidogrel (PLAVIX) 75 mg tablet Take 1 tablet by mouth once daily. - atorvastatin (LIPITOR) 80 mg tablet Take 1 tablet by mouth daily at bedtime. For cholesterol. - docosahexaenoic acid/epa (FISH OIL ORAL) Take 1,200 mg by mouth as directed. - aspirin, enteric coated (ASPIRIN, ENTERIC COATED) 81 mg EC tablet Take 81 mg by mouth once daily. - acetaminophen (TYLENOL) 325 mg tablet Take 650 mg by mouth every 4 hours as needed. Problem List As Of Date 07/19/2024 Noted Resolved Anxiety [F41.9] 07/06/2014 Smoker [F17.200] 07/06/2014 Scar tissue [L90.5] 07/06/2014 Well adult exam [Z00.00] 07/06/2014 Alcohol abuse [F10.10] 07/06/2014 PVC (premature ventricular contraction) [I49.3] Abnormal findings on cardiac catheterization [R*01/17/2015 MVP (mitral valve prolapse) [I34.1] 02/15/2015 Bilateral carotid artery stenosis [I65.23] 05/28/2015 Essential hypertension [I10] 06/25/2015 Prostate cancer screening [Z12.5] 06/25/2015 Coronary artery disease due to lipid rich plaqu*07/03/2015 Encounter for screening for diabetes mellitus [*07/08/2016 Colon cancer screening [Z12.11] 07/08/2016 Elevated fasting blood sugar [R73.01] 07/11/2017 ANNIE (obstructive sleep apnea) [G47.33] Current moderate episode of major depressive di*05/11/2019 Medication management [Z79.899] 05/11/2019 Allergic rhinitis due to allergen [J30.9] Microscopic hematuria [R31.29] 09/04/2019 01/26/2024 Bilateral leg edema [R60.0] 07/10/2023 Neoplasm of uncertain behavior of skin of back *02/17/2024 Fatty liver [K76.0] 02/18/2024 Epidermoid cyst of skin of back [L72.0] 02/19/2024 Flaccid neuropathic bladder, 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/08/2024 Urine retention [R33.9] 03/08/2024 Encounter Status:Closed by EBONIE CROWE on 07/19/24 Normal [facility] Urine Cultureon 06-29-2024 [facility] Staphylococcus epide rmidis [place] Count >100,000 Staphylococcus epidermidis: REACTION cefOXitin Susc Islt Clindamycin.induced Susc Islt NEG Gentamicin Islt MADHURI <=0.5 S Linezolid Islt MADHURI 1 S Nitrofurantoin Islt MADHURI <=16 S Oxacillin Susc Islt <=0.25 S Tetracycline Islt MADHURI 2 S Vancomycin Islt MADHURI 1 S Normal [facility] Comment on above: Performed By: #### M 100.2200 #### [facility] [place], [address] [facility] 05-11-2024 [facility] Telephone (UCWSTR) -- JOSE ZAPIEN III ([id number]) 1965 M Date Time Provider Department 05/11/24 ARIS TRAMMELL [facility] During your visit today, we recorded the following information about you: Aris Trammell PA 05/11/2024 4:29 PM Signed Please let patient know urine culture reveals no UTI. Ethan Wharton MA 05/11/2024 6:33 PM Signed Patient notified of results, verbalized understanding of instructions given. Ethan Wharton MA Allergies As of Date: 05/11/2024 Noted Allergy Reaction PENICILLINS 09/18/2005 16 - Unknown Comments: Childhood reaction. Date Reviewed: 05/09/2024 Reviewed by: Amanda Borden MA - Fully Assessed Reason for Visit: Results [95] Prescriptions as of 05/11/2024 - hydroCHLOROthiazide 12.5 mg capsule Take 1 capsule by mouth once daily. - lisinopril (ZESTRIL, PRINIVIL) 20 mg tablet Take 1 tablet by mouth once daily. - clopidogrel (PLAVIX) 75 mg tablet Take 1 tablet by mouth once daily. - atorvastatin (LIPITOR) 80 mg tablet Take 1 tablet by mouth daily at bedtime. For cholesterol. - docosahexaenoic acid/epa (FISH OIL ORAL) Take 1,200 mg by mouth as directed. - aspirin, enteric coated (ASPIRIN, ENTERIC COATED) 81 mg EC tablet Take 81 mg by mouth once daily. - acetaminophen (TYLENOL) 325 mg tablet Take 650 mg by mouth every 4 hours as needed. Problem List As Of Date 05/11/2024 Noted Resolved Anxiety [F41.9] 07/06/2014 Smoker [F17.200] 07/06/2014 Scar tissue [L90.5] 07/06/2014 Well adult exam [Z00.00] 07/06/2014 Alcohol abuse [F10.10] 07/06/2014 PVC (premature ventricular contraction) [I49.3] Abnormal findings on cardiac catheterization [R*01/17/2015 MVP (mitral valve prolapse) [I34.1] 02/15/2015 Bilateral carotid artery stenosis [I65.23] 05/28/2015 Essential hypertension [I10] 06/25/2015 Prostate cancer screening [Z12.5] 06/25/2015 Coronary artery disease due to lipid rich plaqu*07/03/2015 Encounter for screening for diabetes mellitus [*07/08/2016 Colon cancer screening [Z12.11] 07/08/2016 Elevated fasting blood sugar [R73.01] 07/11/2017 ANNIE (obstructive sleep apnea) [G47.33] Current moderate episode of major depressive di*05/11/2019 Medication management [Z79.899] 05/11/2019 Allergic rhinitis due to allergen [J30.9] Microscopic hematuria [R31.29] 09/04/2019 01/26/2024 Bilateral leg edema [R60.0] 07/10/2023 Neoplasm of uncertain behavior of skin of back *02/17/2024 Fatty liver [K76.0] 02/18/2024 Epidermoid cyst of skin of back [L72.0] 02/19/2024 Flaccid neuropathic bladder, 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 Follow-up with PCP for persistent symptoms. Amanda Borden MA 05/10/2024 6:29 PM Signed Patient given results and verbalized understanding of instructions given. Amanda Borden MA Allergies As of Date: 05/10/2024 Noted Allergy Reaction PENICILLINS 09/18/2005 16 - Unknown Comments: Childhood reaction. Date Reviewed: 05/09/2024 Reviewed by: Amanda Borden MA - Fully Assessed Reason for Visit: Results [95] Prescriptions as of 05/10/2024 - hydroCHLOROthiazide 12.5 mg capsule Take 1 capsule by mouth once daily. - lisinopril (ZESTRIL, PRINIVIL) 20 mg tablet Take 1 tablet by mouth once daily. - clopidogrel (PLAVIX) 75 mg tablet Take 1 tablet by mouth once daily. - atorvastatin (LIPITOR) 80 mg tablet Take 1 tablet by mouth daily at bedtime. For cholesterol. - docosahexaenoic acid/epa (FISH OIL ORAL) Take 1,200 mg by mouth as directed. - aspirin, enteric coated (ASPIRIN, ENTERIC COATED) 81 mg EC tablet Take 81 mg by mouth once daily. - acetaminophen (TYLENOL) 325 mg tablet Take 650 mg by mouth every 4 hours as needed. Problem List As Of Date 05/10/2024 Noted Resolved Anxiety [F41.9] 07/06/2014 Smoker [F17.200] 07/06/2014 Scar tissue [L90.5] 07/06/2014 Well adult exam [Z00.00] 07/06/2014 Alcohol abuse [F10.10] 07/06/2014 PVC (premature ventricular contraction) [I49.3] Abnormal findings on cardiac catheterization [R*01/17/2015 MVP (mitral valve prolapse) [I34.1] 02/15/2015 Bilateral carotid artery stenosis [I65.23] 05/28/2015 Essential hypertension [I10] 06/25/2015 Prostate cancer screening [Z12.5] 06/25/2015 Coronary artery disease due to lipid rich plaqu*07/03/2015 Encounter for screening for diabetes mellitus [*07/08/2016 Colon cancer screening [Z12.11] 07/08/2016 Elevated fasting blood sugar [R73.01] 07/11/2017 ANNIE (obstructive sleep apnea) [G47.33] Current moderate episode of major depressive di*05/11/2019 Medication management [Z79.899] 05/11/2019 Allergic rhinitis due to allergen [J30.9] Microscopic hematuria [R31.29] 09/04/2019 01/26/2024 Bilateral leg edema [R60.0] 07/10/2023 Neoplasm of uncertain behavior of skin of back *02/17/2024 Fatty liver [K76.0] 02/18/2024 Epidermoid cyst of skin of back [L72.0] 02/19/2024 Flaccid neuropathic bladder, 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/08/2024 Urine retention [R33.9] 03/08/2024 Encounter Status:Closed by AMANDA BORDEN on 05/10/24 Normal [facility] Bacteria Ur Culton 4 Bacteria identified Cx Nom (U) CULTURE, URINE: No growth (<100 CFU/ml) Normal [facility] Comment on above: Performed By: #### 6 30-4 ####[facility] [id number] [address] [facility] CNOVon 05-09-2024 CNOV Office Visit (UCWSTR ) -- JOSE ZAPIEN III ([id number]) 1965 M Date Time Provider Department 05/09/24 4:00 PM GENOVEVA GUILLEN [facility] During your visit today, we recorded the following information about you: Temperature Pulse Respiration Blood pressure 98.5 degrees 66/minute 16/minute 128/74 Weight 90.2 kg Genoveva Guillen APRN.SENIOR CONSUMER INSIGHTS CONSULTANT 05/09/2024 4:00 PM Signed Subjective HPI HPI Jose Zapien III is a 58 year old male who presents today for CC of brning with urination, pelvic pressure/since starting straight cath. This started 2-3 weeks ago. Has tried nothing for relief. Symptoms are worsened by nothing. Risk factors started straight cathing 5 weeks ago d/t urinary retention. Denies testicular pain, gu rash, abd pain. Denies concerns for std. .Patient presents with: Urinary Problem: burning with urination and pelvic pressure x 2-3 weeks PAST MEDICAL HISTORY Diagnosis Date Abnormal findings on cardiac catheterization 01/17/[address] Bernstein 01/17/2015 question of 85% stenosis of septal hammer smith Alcohol abuse 07/06/2014 Sober since 03/29/2014 Allergic rhinitis due to allergen RAST 11/2013, [facility]. Anxiety 07/06/2014 Atelectasis 02/24/2024 lingula and right middle lobe Bilateral carotid artery stenosis 05/28/2015 US: 05/18/2015 less than 50% bilateral. US 04/2018 20-40% nidia Bilateral leg edema 07/10/2023 Coronary artery disease due to lipid rich plaque 07/03/[address] 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 Rosa Former smoker 07/06/2014 Quit 06/2014: Was smoking less than a PPD since 25 yo. MVP (mitral valve prolapse) 02/15/2015 2D echo 12/2014 ANNIE (obstructive sleep apnea) PVC (premature ventricular contraction) Hx of. off and on. 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 Snoring Urine retention 03/08/2024 Seeing Urology: Dr. Rosa PAST SURGICAL HISTORY Procedure Laterality Date 2D ECHO (EXEP) 01/16/2015 EF=65%, Mild MVP CC CORONARY STENT 2014 Mid LAD COLONOSCOPY FLX DX W/COLLJ SPEC WHEN PFRMD 12/23/2005 Colonoscopy COLONOSCOPY FLX DX W/COLLJ SPEC WHEN PFRMD 09/15/2017 repeat in 10 years ESOPHAGOGASTRODUODENOSCOPY TRANSORAL DIAGNOSTIC 10/21/2006 Gastritis LAPS SURG CHOLECYSTECTOMY W/CHOLANGIOGRAPHY 02/01/2007 PAST SURGICAL HISTORY OF 12/2014 stent to LAD RPR 1ST INGUN HRNA AGE 5 YRS/> REDUCIBLE Hernia repair, inguinal bilateral STRESS TEST 07/07/2017 WNL VASECTOMY UNI/BI SPX W/POSTOP SEMEN EXAMS ALLERGIES Penicillins MEDICATIONS hydroCHLOROthiazide 12.5 mg capsule Take 1 capsule by mouth once daily. lisinopril (ZESTRIL, PRINIVIL) 20 mg tablet Take 1 tablet by mouth once daily. clopidogrel (PLAVIX) 75 mg tablet Take 1 tablet by mouth once daily. atorvastatin (LIPITOR) 80 mg tablet Take 1 tablet by mouth daily at bedtime. For cholesterol. docosahexaenoic acid/epa (FISH OIL ORAL) Take 1,200 mg by mouth as directed. aspirin, enteric coated (ASPIRIN, ENTERIC COATED) 81 mg EC tablet Take 81 mg by mouth once daily. acetaminophen (TYLENOL) 325 mg tablet Take 650 mg by mouth every 4 hours as needed. FAMILY HISTORY Problem Relation Age of Onset Heart Father Pacemaker, hx TIA Macular Degen Mother Glaucoma Mother Hypertension Mother Heart Maternal Grandmother Cancer Maternal Grandmother behind ear Heart Paternal Grandfather Stroke Paternal Grandfather Social History Tobacco Use Smoking status: Every Day Current packs/day: 0.00 Average packs/day: 0.5 packs/day for 25.0 years (12.5 ttl pk-yrs) Types: Cigarettes Start date: 07/04/1989 Last attempt to quit: 07/04/2014 Years since quittin.8 Smokeless tobacco: Current Types: Snuff Tobacco comments: Prior 2 packs a day for 15 years, down to 3-4 cigarettes per day Vaping Use Vaping status: Never Used Substance Use Topics Alcohol use: Yes Alcohol/week: 10.0 standard drinks of alcohol Types: 4 Cans of beer, 6 Cans of Beer (12oz) per week Comment: nightly Drug use: No Review of Systems Constitutional: Negative for chills, fever and weight loss. Respiratory: Negative for cough, shortness of breath and wheezing. Cardiovascular: Negative for chest pain and palpitations. Gastrointestinal: Negative for abdominal pain, blood in stool, constipation, diarrhea, heartburn, melena, nausea and vomiting. Genitourinary: Positive for dysuria and hematuria (one day, april 22 then not again.). Negative for flank pain, frequency and urgency. Objective Blood pressure 128/74, pulse 66, temperature 36.9 ?C (98.5 ?F), resp. rate 16, (more content not included)... Normal [facility] UA DIP, URINE (POC)on 2023 BILIRUBIN UA (POCT) Negative Negative [facility] CLARITY UA (POCT) Clear [facility] COLOR UA (POCT) Yellow [facility] GLUCOSE UA (POCT) Negative Negative mg/dL [facility] Hemoglobin Ql (U) Negative Negative [facility] KETONE UA (POCT) Trace Negative mg/dL [facility] LEUKOCYTES UA (POCT) Negative [facility] NITRITE UA (POCT) Negative Negative [facility] PH UA (POCT) 6.0 4.5 - 8.0 [facility] Protein Ql (U) Negative Negative mg/dL [facility] SPECIFIC GRAVITY UA (POCT) >=1.030 1.005 - 1.030 [facility] UROBILINOGEN UA (POCT) 0.2 Dahiana l E.U./dL [facility] Location:[address], [place], [address] [facility] POINT OF CARE [facility] CNPNon 03-08-2024 CNPN Telephone (FAMPWS) -- JOSE ZAPIEN III ([id number]) 1965 M Date Time Provider Department 03/08/24 [facility] During your visit today, we recorded the following information about you: Ebonie Crowe MA 03/08/2024 4:15 PM Signed Received fax from [place] [facility] requesting CT/US. This information was faxed 03/07/2024. Ebonie Crowe MA Allergies As of Date: 03/08/2024 Noted Allergy Reaction PENICILLINS 09/18/2005 16 - Unknown Comments: Childhood reaction. Date Reviewed: 02/23/2024 Reviewed by: Lily Bliss, RT(R) - Fully Assessed Reason for Visit: Patient Update [1234] Cmt: [facility] - fax Prescriptions as of 03/08/2024 - hydroCHLOROthiazide 12.5 mg capsule Take 1 capsule by mouth once daily. - lisinopril (ZESTRIL, PRINIVIL) 20 mg tablet Take 1 tablet by mouth once daily. - clopidogrel (PLAVIX) 75 mg tablet Take 1 tablet by mouth once daily. - atorvastatin (LIPITOR) 80 mg tablet Take 1 tablet by mouth daily at bedtime. For cholesterol. - docosahexaenoic acid/epa (FISH OIL ORAL) Take 1,200 mg by mouth as directed. - aspirin, enteric coated (ASPIRIN, ENTERIC COATED) 81 mg EC tablet Take 81 mg by mouth once daily. - acetaminophen (TYLENOL) 325 mg tablet Take 650 mg by mouth every 4 hours as needed. Problem List As Of Date 03/08/2024 Noted Resolved Anxiety [F41.9] 07/06/2014 Smoker [F17.200] 07/06/2014 Scar tissue [L90.5] 07/06/2014 Well adult exam [Z00.00] 07/06/2014 Alcohol abuse [F10.10] 07/06/2014 PVC (premature ventricular contraction) [I49.3] Abnormal findings on cardiac catheterization [R*01/17/2015 MVP (mitral valve prolapse) [I34.1] 02/15/2015 Bilateral carotid artery stenosis [I65.23] 05/28/2015 Essential hypertension [I10] 06/25/2015 Prostate cancer screening [Z12.5] 06/25/2015 Coronary artery disease due to lipid rich plaqu*07/03/2015 Encounter for screening for diabetes mellitus [*07/08/2016 Colon cancer screening [Z12.11] 07/08/2016 Elevated fasting blood sugar [R73.01] 07/11/2017 ANNIE (obstructive sleep apnea) [G47.33] Current moderate episode of major depressive di*05/11/2019 Medication management [Z79.899] 05/11/2019 Allergic rhinitis due to allergen [J30.9] Microscopic hematuria [R31.29] 09/04/2019 01/26/2024 Bilateral leg edema [R60.0] 07/10/2023 Neoplasm of uncertain behavior of skin of back *02/17/2024 Fatty liver [K76.0] 02/18/2024 Epidermoid cyst of skin of back [L72.0] 02/19/2024 Flaccid neuropathic bladder, 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 Values obtained with different assay methods cannot be used interchangably. When changing PSA assays in the course of monitoring a patient, additional sequential testing should be carried out to confirm baseline values. Performed By: #### L [id number] #### [facility] [address] [place], [address] [facility] 03-02-2024 [facility] Nurse Visit (FAMPWS) -- JOSE ZAPIEN III ([id number]) 1965 M Date Time Provider Department 03/02/24 12:30 PM [place] NURSE FAMPWS During your visit today, we recorded the following information about you: Sammi Nobles LPN 03/02/2024 12:42 PM Signed Patient presents for suture removal per Dr James. Denies any problems with incision; no pain, redness, drainage, or swelling. Removed 6 sutures at this time (one fell out prior to removal today). Patient tolerated well. No drainage, pain, or swelling at incision. Did note mild redness and scabbing at each suture only. Incision is well approximated and healing. Did appy steri-strips to site at this time for extra protection when stretching/moving. Sammi Nobles LPN Allergies As of Date: 03/02/2024 Noted Allergy Reaction PENICILLINS 09/18/2005 16 - Unknown Comments: Childhood reaction. Date Reviewed: 02/23/2024 Reviewed by: Lily Bliss, RT(R) - Fully Assessed Reason for Visit: Suture Removal [105] Primary Visit Diagnosis:Epidermoid cyst of skin of back [L72.0] Prescriptions as of 03/02/2024 - hydroCHLOROthiazide 12.5 mg capsule Take 1 capsule by mouth once daily. - lisinopril (ZESTRIL, PRINIVIL) 20 mg tablet Take 1 tablet by mouth once daily. - clopidogrel (PLAVIX) 75 mg tablet Take 1 tablet by mouth once daily. - atorvastatin (LIPITOR) 80 mg tablet Take 1 tablet by mouth daily at bedtime. For cholesterol. - docosahexaenoic acid/epa (FISH OIL ORAL) Take 1,200 mg by mouth as directed. - aspirin, enteric coated (ASPIRIN, ENTERIC COATED) 81 mg EC tablet Take 81 mg by mouth once daily. - acetaminophen (TYLENOL) 325 mg tablet Take 650 mg by mouth every 4 hours as needed. Problem List As Of Date 03/02/2024 Noted Resolved Anxiety [F41.9] 07/06/2014 Smoker [F17.200] 07/06/2014 Scar tissue [L90.5] 07/06/2014 Well adult exam [Z00.00] 07/06/2014 Alcohol abuse [F10.10] 07/06/2014 PVC (premature ventricular contraction) [I49.3] Abnormal findings on cardiac catheterization [R*01/17/2015 MVP (mitral valve prolapse) [I34.1] 02/15/2015 Bilateral carotid artery stenosis [I65.23] 05/28/2015 Essential hypertension [I10] 06/25/2015 Prostate cancer screening [Z12.5] 06/25/2015 Coronary artery disease due to lipid rich plaqu*07/03/2015 Encounter for screening for diabetes mellitus [*07/08/2016 Colon cancer screening [Z12.11] 07/08/2016 Elevated fasting blood sugar [R73.01] 07/11/2017 ANNIE (obstructive sleep apnea) [G47.33] Current moderate episode of major depressive di*05/11/2019 Medication management [Z79.899] 05/11/2019 Allergic rhinitis due to allergen [J30.9] Microscopic hematuria [R31.29] 09/04/2019 01/26/2024 Bilateral leg edema [R60.0] 07/10/2023 Neoplasm of uncertain behavior of skin of back *02/17/2024 Fatty liver [K76.0] 02/18/2024 Epidermoid cyst of skin of back [L72.0] 02/19/2024 Encounter Status:Closed by SAMMI NOBLES on 03/02/24 [facility] 02-29-2024 [facility] Telephone (FAMPWS) -- JOSE ZAPIEN III ([id number]) 1965 M Date Time Provider Department 02/29/24 ARYA JAMES During your visit today, we recorded the following information about you: Arya James MD 02/29/2024 4:53 PM Signed Let patient know US of neck arteries is stable from previous one. So no increased narrowing. The CT's of his chest and abdomen were ok other then the distended bladder. Looks like he sees Urology in 2 weeks. Ebonie Crowe MA 03/01/2024 8:06 AM Signed Patient notified and voiced understanding. Ebonie Crowe MA Allergies As of Date: 02/29/2024 Noted Allergy Reaction PENICILLINS 09/18/2005 16 - Unknown Comments: Childhood reaction. Date Reviewed: 02/23/2024 Reviewed by: Lily Bliss, RT(R) - Fully Assessed Reason for Visit: Results [95] Primary Visit Diagnosis:Bilateral carotid artery stenosis [I65.23] Prescriptions as of 03/01/2024 - hydroCHLOROthiazide 12.5 mg capsule Take 1 capsule by mouth once daily. - lisinopril (ZESTRIL, PRINIVIL) 20 mg tablet Take 1 tablet by mouth once daily. - clopidogrel (PLAVIX) 75 mg tablet Take 1 tablet by mouth once daily. - atorvastatin (LIPITOR) 80 mg tablet Take 1 tablet by mouth daily at bedtime. For cholesterol. - docosahexaenoic acid/epa (FISH OIL ORAL) Take 1,200 mg by mouth as directed. - aspirin, enteric coated (ASPIRIN, ENTERIC COATED) 81 mg EC tablet Take 81 mg by mouth once daily. - acetaminophen (TYLENOL) 325 mg tablet Take 650 mg by mouth every 4 hours as needed. Problem List As Of Date 02/29/2024 Noted Resolved Anxiety [F41.9] 07/06/2014 Smoker [F17.200] 07/06/2014 Scar tissue [L90.5] 07/06/2014 Well adult exam [Z00.00] 07/06/2014 Alcohol abuse [F10.10] 07/06/2014 PVC (premature ventricular contraction) [I49.3] Abnormal findings on cardiac catheterization [R*01/17/2015 MVP (mitral valve prolapse) [I34.1] 02/15/2015 Bilateral carotid artery stenosis [I65.23] 05/28/2015 Essential hypertension [I10] 06/25/2015 Prostate cancer screening [Z12.5] 06/25/2015 Coronary artery disease due to lipid rich plaqu*07/03/2015 Encounter for screening for diabetes mellitus [*07/08/2016 Colon cancer screening [Z12.11] 07/08/2016 Elevated fasting blood sugar [R73.01] 07/11/2017 ANNIE (obstructive sleep apnea) [G47.33] Current moderate episode of major depressive di*05/11/2019 Medication management [Z79.899] 05/11/2019 Allergic rhinitis due to allergen [J30.9] Microscopic hematuria [R31.29] 09/04/2019 01/26/2024 Bilateral leg edema [R60.0] 07/10/2023 Neoplasm of uncertain behavior of skin of back *02/17/2024 Fatty liver [K76.0] 02/18/2024 Epidermoid cyst of skin of back [L72.0] 02/19/2024 Encounter Status:Closed by EBONIE CROWE on 03/01/24 Normal [facility] CT Abdomen and Pelvis W cont rast [place] 02-27-2024 IMPRESSION: Markedly distended urinary bladder. Otherwise, no acute abdominal or pelvic process is identified. Normal appendix. Descending and sigmoid colon diverticulosis, without CT evidence for diverticulitis. Concrete Pipe Maker: [facility] Transcribe Date/Time: Feb 27 2024 8:05A Dictated by : CARINA MCCLOUD MD This examination was interpreted and the report reviewed and electronically signed by: CARINA MCCLOUD MD on Feb 27 2024 8:14AM [facility] DIVISION OF RADIOLOGY * * *Final Report* * * DATE OF EXAM: Feb 24 2024 1:47PM [facility] 0530 - CT ABD/PEL W IVCON / PROCEDURE REASON: multiple diagnoses * * * * Physician Interpretation * * * * EXAMINATION: CT ABDOMEN AND PELVIS WITH IV CONTRAST CLINICAL HISTORY: Unintentional weight loss. TECHNIQUE: CT of the abdomen and pelvis was performed using standard technique, scanning from just above the dome of the diaphragm to the symphysis pubis. MQ: CTAP_3 Contrast: IV: 100 ml of Omnipaque 300 Oral: 10 ml of Omni 240 10-25ml diluted with water CT Radiation dose: Integrated Dose-length product (DLP) for this visit = 681 mGy*cm. CT Dose Reduction Employed: Automated exposure control(AEC) and iterative recon COMPARISON: Abdominal ultrasound dated 02/15/2024 RESULT: Liver: Focal fatty change is seen within the liver, adjacent to the falciform ligament. There is no obvious focal discrete hepatic mass. Biliary: The patient is status post cholecystectomy. There is mild biliary dilation, likely related to the cholecystectomy. Spleen: No mass. No splenomegaly. A small splenule is seen within the left upper quadrant. Pancreas: There is no obvious focal discrete pancreatic mass or pancreatic ductal dilation. Benign focus of fat is seen within the pancreatic head. Adrenals: No mass. Kidneys: There is no hydronephrosis or perinephric fluid collection. There is an approximately 1.2 cm cyst within the interpolar segment of the left kidney (series 5, image #64). GI tract: Nonspecific wall thickening of the stomach likely relates to underdistention. There are no dilated loops of bowel to suggest obstruction. The appendix is seen in the right lower quadrant and is within normal limits. The rectum is somewhat distended. There is descending and sigmoid colon diverticulosis, without CT evidence for diverticulitis. Lymph nodes: No abdominal lymphadenopathy. Mesentery/Peritoneum: No abdominal ascites. Retroperitoneum: No mass. Vasculature: No abdominal aortic aneurysm. Tortuous abdominal aorta, atherosclerotic calcifications. Incidentally noted is a retroaortic left renal vein. Pelvis: Markedly distended urinary bladder. Phleboliths are seen within the pelvis. Prominent, less than 1 pelvic lymph nodes are likely reactive. There is no pelvic ascites. Calcifications are seen within the prostate gland. Bones/Soft Tissues: Tiny umbilical hernia, containing omental fat. There is bilateral hip DJD. A few presumed bone islands are seen within the osseous structures. Vacuum phenomena is seen involving the sacroiliac joint spaces, bilaterally. Disc space narrowing, with vacuum disc phenomena is seen at multiple levels within the spine. Lower thorax: Mild dependent atelectasis. Atelectasis is seen within lingula and right middle lobe. DIVISION OF [facility]OLOGY [facility] * * *Final Report* * * DATE OF EXAM: Feb 24 2024 1:47PM [facility] 0530 - CT ABD/PEL W IVCON / PROCEDURE REASON: multiple diagnoses * * * * Physician Interpretation * * * * EXAMINATION: CT ABDOMEN AND PELVIS WITH IV CONTRAST CLINICAL HISTORY: Unintentional weight loss. TECHNIQUE: CT of the abdomen and pelvis was performed using standard technique, scanning from just above the dome of the diaphragm to the symphysis pubis. MQ: CTAP_3 Contrast: IV: 100 ml of Omnipaque 300 Oral: 10 ml of Omni 240 10-25ml diluted with water CT Radiation dose: Integrated Dose-length product (DLP) for this visit = 681 mGy*cm. CT Dose Reduction Employed: Automated exposure control(AEC) and iterative recon COMPARISON: Abdominal ultrasound dated 02/15/2024 RESULT: Liver: Focal fatty change is seen within the liver, adjacent to the falciform ligament. There is no obvious focal discrete hepatic mass. Biliary: The patient is status post cholecystectomy. There is mild biliary dilation, likely related to the cholecystectomy. Spleen: No mass. No splenomegaly. A small splenule is seen within the left upper quadrant. Pancreas: There is no obvious focal discrete pancreatic mass or pancreatic ductal dilation. Benign focus of fat is seen within the pancreatic head. Adrenals: No mass. Kidneys: There is no hydronephrosis or perinephric fluid collection. There is an approximately 1.2 cm cyst within the interpolar segment of the left kidney (series 5, image #64). GI tract: Nonspecific wall thickening of the stomach likely relates to underdistention. There are no dilated loops of bowel to suggest obstruction. The appendix is seen in the right lower quadrant and is within normal limits. The rectum is somewhat distended. There is descending and sigmoid colon diverticulosis, without CT evidence for diverticulitis. Lymph nodes: No abdominal lymphadenopathy. Mesentery/Peritoneum: No abdominal ascites. Retroperitoneum: No mass. Vasculature: No abdominal aortic aneurysm. Tortuous abdominal aorta, atherosclerotic calcifications. Incidentally noted is a retroaortic left renal vein. Pelvis: Markedly distended urinary bladder. Phleboliths are seen within the pelvis. Prominent, less than 1 pelvic lymph nodes are likely reactive. There is no pelvic ascites. Calcifications are seen within the prostate gland. Bones/Soft Tissues: Tiny umbilical hernia, containing omental fat. There is bilateral hip DJD. A few presumed bone islands are seen within the osseous structures. Vacuum phenomena is seen involving the sacroiliac joint spaces, bilaterally. Disc space narrowing, with vacuum disc phenomena is seen at multiple levels within the spine. Lower thorax: Mild dependent atelectasis. Atelectasis is seen within lingula and right middle lobe. IMPRESSION IMPRESSION: Markedly distended urinary bladder. Otherwise, no acute abdominal or pelvic process is identified. Normal appendix. Descending and sigmoid colon diverticulosis, without CT evidence for diverticulitis. Concrete Pipe Maker: [facility] Transcribe Date/Time: Feb 27 2024 8:05A Dictated by : CARINA MCCLOUD MD This examination was interpreted and the report reviewed and electronically signed by: CARINA MCCLOUD MD on Feb 27 2024 8:14AM EST [facility] CT Abdomen and Pelvis W cont rast IVOrdered By: [facility] Provider on 02-27-[address] [facility] [address] ABD/PEL W IVCONon 024 CT ABD/PEL W IVCON * * *Final Report* * * DATE OF EXAM: Feb 24 2024 1:47PM [facility] 0530 - CT ABD/PEL W IVCON / PROCEDURE REASON: multiple diagnoses * * * * Physician Interpretation * * * * EXAMINATION: CT ABDOMEN AND PELVIS WITH IV CONTRAST CLINICAL HISTORY: Unintentional weight loss. TECHNIQUE: CT of the abdomen and pelvis was performed using standard technique, scanning from just above the dome of the diaphragm to the symphysis pubis. MQ: CTAP_3 Contrast: IV: 100 ml of Omnipaque 300 Oral: 10 ml of Omni 240 10-25ml diluted with water CT Radiation dose: Integrated Dose-length product (DLP) for this visit = 681 mGy*cm. CT Dose Reduction Employed: Automated exposure control(AEC) and iterative recon COMPARISON: Abdominal ultrasound dated 02/15/2024 RESULT: Liver: Focal fatty change is seen within the liver, adjacent to the falciform ligament. There is no obvious focal discrete hepatic mass. Biliary: The patient is status post cholecystectomy. There is mild biliary dilation, likely related to the cholecystectomy. Spleen: No mass. No splenomegaly. A small splenule is seen within the left upper quadrant. Pancreas: There is no obvious focal discrete pancreatic mass or pancreatic ductal dilation. Benign focus of fat is seen within the pancreatic head. Adrenals: No mass. Kidneys: There is no hydronephrosis or perinephric fluid collection. There is an approximately 1.2 cm cyst within the interpolar segment of the left kidney (series 5, image #64). GI tract: Nonspecific wall thickening of the stomach likely relates to underdistention. There are no dilated loops of bowel to suggest obstruction. The appendix is seen in the right lower quadrant and is within normal limits. The rectum is somewhat distended. There is descending and sigmoid colon diverticulosis, without CT evidence for diverticulitis. Lymph nodes: No abdominal lymphadenopathy. Mesentery/Peritoneum: No abdominal ascites. Retroperitoneum: No mass. Vasculature: No abdominal aortic aneurysm. Tortuous abdominal aorta, atherosclerotic calcifications. Incidentally noted is a retroaortic left renal vein. Pelvis: Markedly distended urinary bladder. Phleboliths are seen within the pelvis. Prominent, less than 1 pelvic lymph nodes are likely reactive. There is no pelvic ascites. Calcifications are seen within the prostate gland. Bones/Soft Tissues: Tiny umbilical hernia, containing omental fat. There is bilateral hip DJD. A few presumed bone islands are seen within the osseous structures. Vacuum phenomena is seen involving the sacroiliac joint spaces, bilaterally. Disc space narrowing, with vacuum disc phenomena is seen at multiple levels within the spine. Lower thorax: Mild dependent atelectasis. Atelectasis is seen within lingula and right middle lobe. IMPRESSION: Markedly distended urinary bladder. Otherwise, no acute abdominal or pelvic process is identified. Normal appendix. Descending and sigmoid colon diverticulosis, without CT evidence for diverticulitis. Concrete Pipe Maker[facility] Transcribe Date/Time: Feb 27 2024 8:05A Dictated by : CARINA MCCLOUD MD This examination was interpreted and the report reviewed and electronically signed by: CARINA MCCLOUD MD on Feb 27 2024 8:14AM EST [id number] Normal [facility] CT Abdomen and Pelvis W cont rast [facility] 02-24-2024 Radiology Study observation (narrative) [facility] Cardiology Visit Reporton Cardiology Visit Report [facility] [place] [address] [place], [place] [address] OFFICE VISIT Date of Service: 02/24/24 MR#: [id number] Acct: [id number] Name: JOSE ZAPIEN III Rep #: [id number] : 1965 Provider: KIYA Bennett Age/Sex: 58/M Location: [facility] Status: Signed HPI [facility] History of Present Illness Details: Jose Zapien is a 58-year-old white male with a past cardiovascular history which has included underlying CAD status post LAD PCI/DANIELLE (01-17-2015 at [facility]), mitral valve prolapse, hyperlipidemia, and hypertension who presents for outpatient cardiovascular follow-up. Patient had a negative stress echo in July 2022 however he continued to complain of chest pain where he needed to use nitroglycerin. He did undergo a diagnostic heart catheterization in November 2023 which demonstrated nonobstructive coronary artery disease with patent stent. Pt has not had any CP since his heart cath. He has not needed to use any NTG. He does not have any chest discomfort/heaviness/tight ness. He does not have any worsening symptoms of shortness of breath. He denies any PND. He does not have any orthopnea. He does not have any symptoms of congestive heart failure. He does not have any palpitations that he is aware of. He does not have any lightheadedness or dizziness. He does not have any near-syncope or syncope. He does not have any lower extremity edema. He does not have any symptoms of claudication. He has lost 30 lbs in the last year. PCP is working him up for this. His labs were recently checked. Intake Vital Signs 11/20/23 09:39 12/02/23 07:26 02/24/24 08:45 Height 5 ft 10 in 5 ft 10 in 5 ft 10 in Weight: 199 lb BMI 28.5 BP 128/73 H Blood Pressure Location Lt brachial Position Sitting Respiration 18 Pulse 69 Pulse Source Monitor Pulse Oximetry (%) 97 Intake Visit Reasons: 3 M FU [employer] Form Placing Supervisor Required: No Is patient in pain?: No Allergies Penicillins Allergy (Verified 02/24/24 08:45) Unknown Medications ???Medication ???Instructions ???Recorded ???Confirmed ???Type aspirin 81 mg chewable tablet 81 mg PO DAILY@0800 heart health 01/16/15 02/24/24 History nitroglycerin 0.4 mg sublingual 0.4 mg sublingual Q5-15M PRN chest 08/11/22 02/24/24 Rx tablet (Nitrostat) pain #25 tabs clopidogrel 75 mg tablet 75 mg PO DAILY antiplatelet #90 07/28/23 12/01/23 Rx tabs lisinopril 20 mg tablet 20 mg PO DAILY #90 tabs 07/28/23 02/24/24 Rx hydrochlorothiazide 12.5 mg tablet 12.5 mg PO DAILY 11/20/23 02/24/24 History icosapent ethyl 1 gram capsule 2 g (2 x 1 gram) PO BID #120 caps 11/20/23 02/24/24 Rx (Vascepa) [facility] Medical History (Updated 02/24/24 @ 09:13 by Gillian HUERTAS, PA) Chest pain Pure hypercholesterolemia Essential hypertension Coronary artery disease RBBB (right bundle branch block) Premature ventricular contraction ANNIE (obstructive sleep apnea) Presence of stent in coronary artery ( 01/17/15) Nonrheumatic mitral (valve) prolapse Atherosclerotic heart disease of [place] coronary artery without angina pectoris Surgical History Presence of coronary angioplasty implant and graft ( 01/17/15) H/O bilateral inguinal hernia repair History of cholecystectomy History of tonsillectomy History of hernia repair Family History Father CAD (coronary artery disease) Myocardial infarction Mother Hypertension Grandfather CVA (cerebral vascular accident) Heart disease Myocardial infarction, Onset Age: 48 Social History Smoking Status: Current every day smoker tobacco type: cigarettes alcohol intake: current alcohol intake frequency: 0-2 drinks per day Alcohol type: beer substance use type: does not use caffeine: Yes Type: carbonated beverages and coffee Number of servings: 1 what type of physical activity do you participate in: none seatbelt use: always do you feel safe at home: Yes ROS Const Const: Negative for fatigue, weakness, fever(s) or headache(s) Eyes Eyes: Negative for blind spots, loss of peripheral vision or transient loss of vision ENT ENT: Negative for headache(s), dizziness, tinnitus, Nosebleed/epistaxis or balance problems Cardio Chest Pain: No Palpitations: No Edema: None Muscle aches with walking: None Resp Respiratory: Negative for SOB with activity, SOB at rest, SOB orthopnea SOB lying down or Cough GI GI: Negative nausea, vomiting, heartburn or vomiting blood/hematemesis : Negative for hematuria Musc Musc: Negative for muscle aches/ myalgia, muscle weakness, joint pain or balance problems Neuro Neuro: Negative for (more content not included)... Normal [facility] US CAROTID ARTERIES NIDIA VAS LABon 02-24-2024 US CAROTID ARTERIES NIDIA VAS LAB Non-Invasive Vascular Laboratory [facility] Carotid Duplex Bilateral/Complete Date of service/time: 02/24/2024 11:02:11 AM Name: MR. JOSE ZAPIEN III Date of : 1965 Age: 58 years Gender: M Clinical Indication Follow-up study on a patient with known carotid disease. TECHNIQUE -------- A carotid duplex ultrasound examination was performed, including grayscale imaging and color Doppler and spectral Doppler examination of the below mentioned arteries. FINDINGS -------- RIGHT SIDE Common carotid artery: Origin: PSV: 160 cm/s. EDV: 24 cm/s. Proximal: PSV: 107 cm/s. EDV: 22 cm/s. Mid: PSV: 115 cm/s. EDV: 26 cm/s. Distal: PSV: 101 cm/s. EDV: 23 cm/s. Internal carotid artery: Origin: PSV: 96 cm/s. EDV: 20 cm/s. Proximal: PSV: 67 cm/s. EDV: 14 cm/s. Mid: PSV: 82 cm/s. EDV: 22 cm/s. Distal: PSV: 60 cm/s. EDV: 18 cm/s. Mild heterogeneous plaque at origin. ICA/CCA Ratio: 1.0 External carotid artery: Proximal: PSV: 107 cm/s. EDV: 19 cm/s. Mild heterogeneous plaque at origin. Subclavian artery: Origin: PSV: 250 cm/s. EDV: 0 cm/s. Mild heterogeneous plaque at origin. Innominate artery: PSV: 192 cm/s. EDV: 14 cm/s. Vertebral artery: PSV: 44 cm/s. EDV: 10 cm/s. LEFT SIDE Common carotid artery: Proximal: PSV: 125 cm/s. EDV: 23 cm/s. Mid: PSV: 132 cm/s. EDV: 27 cm/s. Distal: PSV: 121 cm/s. EDV: 31 cm/s. Internal carotid artery: Origin: PSV: 102 cm/s. EDV: 27 cm/s. Proximal: PSV: 86 cm/s. EDV: 23 cm/s. Mid: PSV: 84 cm/s. EDV: 26 cm/s. Distal: PSV: 71 cm/s. EDV: 20 cm/s. Mild heterogeneous plaque from origin to proximal. ICA/CCA Ratio: 0.8 External carotid artery: Origin: PSV: 116 cm/s. EDV: 18 cm/s. Mild heterogeneous plaque at origin. Subclavian artery: Proximal: PSV: 170 cm/s. EDV: 0 cm/s. Vertebral artery: PSV: 66 cm/s. EDV: 19 cm/s. IMPRESSION Compared to prior study of 05/11/2018, No significant change. RIGHT SIDE Internal carotid artery: 20-39% stenosis. Tortuous vessel at mid . Vertebral artery: Patent and antegrade flow noted. Subclavian artery: Plaque visualized without evidence of hemodynamically significant stenosis. LEFT SIDE Internal carotid artery: 20-39% stenosis. Tortuous vessel at distal . Vertebral artery: Patent and antegrade flow noted. Subclavian artery: Patent. Technologist: Kelley Schilling RVT, [facility] Ordering physician: ARYA JAMES Interpreting physician: Aman Rosario MD, GRACY Final CC [facility] Image : [id number] See Link below for Image Normal [facility] 02-19-2024 CNPN Telephone ([facility]WS) -- JOSE ZAPIEN III ([id number]) 1965 M Date Time Provider Department 02/19/24 [facility] During your visit today, we recorded the following information about you: Arya James MD 02/19/2024 4:56 PM Signed Let patient know biopsy was a benign cyst. Ebonie Crowe MA 02/19/2024 5:01 PM Signed Patient notified and voiced understanding. Ebonie Crowe MA Allergies As of Date: 02/19/2024 Noted Allergy Reaction PENICILLINS 09/18/2005 16 - Unknown Comments: Childhood reaction. Date Reviewed: 02/17/2024 Reviewed by: Ebonie Crowe MA - Fully Assessed Reason for Visit: Results [95] Prescriptions as of 02/19/2024 - iv contrast (will be provided with radiology test) CT ABD/PEL -Inject, intravenously, once for 1 dose.No IV access, insert saline lock prior to the beginning of sedation, infusion, injection of imaging exam. Discontinue saline lock post exam. If Pt. has a central line or IVAD, may access for administration according to line specific nursing protocol. Once exam is complete flush line and de-access according to line specific nursing protocol in the CT contrast administration guidelines link. - enteric contrast (will be provided with radiology test) For CT ABD/PEL W IVCON Routine order Administer, As Directed One Time Only, via Oral, Rectal, both Oral and Rectal, Enteric Tube, Stoma or Indwelling Catheter, Enteric Contrast as designated per enteric contrast guidelines - cefADROxil (DURICEF) 500 mg capsule Take 1 capsule by mouth two times a day for 10 days. - hydroCHLOROthiazide 12.5 mg capsule Take 1 capsule by mouth once daily. - lisinopril (ZESTRIL, PRINIVIL) 20 mg tablet Take 1 tablet by mouth once daily. - clopidogrel (PLAVIX) 75 mg tablet Take 1 tablet by mouth once daily. - atorvastatin (LIPITOR) 80 mg tablet Take 1 tablet by mouth daily at bedtime. For cholesterol. - docosahexaenoic acid/epa (FISH OIL ORAL) Take 1,200 mg by mouth as directed. - aspirin, enteric coated (ASPIRIN, ENTERIC COATED) 81 mg EC tablet Take 81 mg by mouth once daily. - acetaminophen (TYLENOL) 325 mg tablet Take 650 mg by mouth every 4 hours as needed. Problem List As Of Date 02/19/2024 Noted Resolved Anxiety [F41.9] 07/06/2014 Smoker [F17.200] 07/06/2014 Scar tissue [L90.5] 07/06/2014 Well adult exam [Z00.00] 07/06/2014 Alcohol abuse [F10.10] 07/06/2014 PVC (premature ventricular contraction) [I49.3] Abnormal findings on cardiac catheterization [R*01/17/2015 MVP (mitral valve prolapse) [I34.1] 02/15/2015 Bilateral carotid artery stenosis [I65.23] 05/28/2015 Essential hypertension [I10] 06/25/2015 Prostate cancer screening [Z12.5] 06/25/2015 Coronary artery disease due to lipid rich plaqu*07/03/2015 Encounter for screening for diabetes mellitus [*07/08/2016 Colon cancer screening [Z12.11] 07/08/2016 Elevated fasting blood sugar [R73.01] 07/11/2017 ANNIE (obstructive sleep apnea) [G47.33] Current moderate episode of major depressive di*05/11/2019 Medication management [Z79.899] 05/11/2019 Allergic rhinitis due to allergen [J30.9] Microscopic hematuria [R31.29] 09/04/2019 01/26/2024 Bilateral leg edema [R60.0] 07/10/2023 Neoplasm of uncertain behavior of skin of back *02/17/2024 Fatty liver [K76.0] 02/18/2024 Epidermoid cyst of skin of back [L72.0] 02/19/2024 Encounter Status:Closed by EBONIE CROWE on 02/19/24 [facility] SURGICAL PATHOLOGYOrdered By : Nafisa Uribe on 02-19-2024 Case Report Surgical Pathology R eport Case: [id number] Authorizing Provider: Arya James MD Collected: 02/17/2024 12:13 PM Ordering Location: [facility] Received: 02/17/2024 12:28 PM Pathologist: Nafisa Uribe MD Specimen: Skin, Excision [facility] Work Phone: Clinical History j6wgiTFlVJCyq0oiAFDc bGFuZz YeKnOjOrLpVlt5QOKgjhV7Keq1 RLPeBYmleW6yCGTwRJezN0uadx IodPCwNMQsAQy0hU7pkScjoQ6m EtPtJvPkDLQvyOFwHWK2LVD3Mt VcCP30moSqrPE0XQZ7tWAwljBa oEZjFcSbh5sgHSIskZ== [facility] Work Phone: FINAL DIAGNOSIS n9mdyHXsONMzxFSbIQQd NVxhbn UjCAFjyNEwT3AdtvteEKpvXF0y XH8cySunxBMwbSEjPRXvPuJud9 fqa721mCZef0xnKXYZuapskKg4 bFbyO87yc5V1CursM83ffHNnAR L3PNSuVBEkhCSfISDvAUD6CZPk yQJrW9ejCOVqYP5agxzyFMcnGX jkSXOffZK7UAXkfNBaP3AgHRLk CWcaOPSbfhh0DnHoDn8waXExpZ cyMFxwYXJkXHBsYWluXGZzMjAg FU3bJ2vlifrirOXjYDXqgVsmEM EiG2yuNPG2L8peiF2yCfttRIRo GXLuGUIbiQIani7eoDSoW8xqwJ 3agGXnNUOfmpOUKx1YMY5xxI7g Mw2zCV2fWQA3OObcZOT9 [facility] Work Phone: Gross Description z8fmdZXrQYIglGHtGPEe NVxhbn ZgQFCylQCeO1HixnywXFotJW7r BL2xdNvjpDFmdGTkHOOsLfVdg5 rxh514pQNix1biVKGYaangtNw0 kVggZ91or4M6DyxyD83fhZXvEN R5VIXoZVRpsTGfHVCqYNN8YKIs nXUzP1jmNEQqQX4kivxtGSdwJD jiRKOtvVV4OPWexZQzA7BuJZKe WXehRALncnc2RjHmTs1efMDhyU ybRZalTnzwmUlip3EkoQZjNMbo QCTeKGMwLArniqvpRJx1WRNrHT cagUTxKI3nzAvlQdaemBhag6Ra dCBcXGlkIDUxMDAyIFxcZGIgT1 WKLGOsTtT8PcQmVQbcGZc2EPo6 GG7OVhTbVLZ2MOS1ELD3ABPsSO s9OAkpHG9TSIJkEWD6TOKcNNPu LRT3FKIgJUilnLXeTYlvb6NtLu FaNUGtGHqhsgB1XDEpswZixYoi wQ0eYoQaZuTZJmOOd7gfVEKJfF Nlz3bcghdqRTQgoSVgMXujBrYc DZKyyUGHa9SmFKgdlLXoxrefsc AoHLVaZ9BrtaTgWYqcPPElio3u bGluIGlzIGFuIGlycmVndWxhci YdeXKvBMXvv2OcbOFahPJxOnIx m9jxCRSoXURqpYSidACnfoHnrP FavAqda0SzTU9zOSN4yeblChLa QxmrkDLeYfPsdITtVySaO89xKL CbLIDfqYYcbQ5unhAnDXQhpXPf SQQeUOSqzLM9xOFpKMOpvZE1Js EFHMCnyIWhn8VzxML1zXImDSCo U6Ukj10bxZRjf1MngIv5vBOsOJ zaKB2mRJGqLKHwYAY7TA7nLNKe eeshLIAyGKHczsLIXfMMaG3sFG P3IXTeDUR4TOYoBpD0KFAEJXSw diygQJGzF7Uwf7FxKLawsEfpEW Yau88ibERtXp9lsKXxJQI9RPFf EHBvqFIoKZLMnJatvNUjHKq7DH CaGADyvLqlDIB2IK9sKHKmQAIe tNZgMZqeL3fnOIHcJUWkvOTiCA XoEiVtIOZkQ9gmLCLtq0inoSrt c9WtgPFiVS64HGScnNUdKSR8FE 1afDpnRPK9 [facility] Work Phone: Performing Lab f7vzdUOuNZYzgAHqLbFs MDAwXG Nft2vsIOXktEYhSoLvPtPeYtRk AjxeuNEaVITcKdTuy0rwd898mB Pfn2sxEVOkPcJ6lHKjBWSyiSAj B205VJNcQOrca1nzc7HePYQttV Qme1Q7EGVNkmpaaTh6eOomD20x f4I6FfsmY3aaICKyCBBeR7TcDO 7sOLGiNtz0LLS2ULN0RRRdXVKb R2NwBY6cLFNqmOFyNLa3u4tthA jpCKEzVKB7c0bqDBjozvEaZN0p ye4twOz7x5sobqRuPGAxXVLzmG CYLCGoS9KgnBlrVk7xiUj3eDym TztlNCE6Ipj1YS9gby93ecc4cH arZXRlqspqUoZ0NAixLNLiiydf LGo6EUuvSBAxsQQ3MHHkdENmY3 QlDTvcJK0gfpz3KIA6ODukRMJd FsX0EBNatVJtWDCuaXloKTxrs7 24GEL0PjJdNN7fG4Mqk0W9iL8e zUInPONmeBSxYjKsQRKvmr4tkI XyFRwew2QbWQE7jvP5yWRrgDDd PNPjPX63Dlynk5EeRxfrv7DtT2 1pxPF1CEhxc4hxFZ8mDsY3krYd VEwqa1trbK1sDqD4FHueSG7qQO 5mATTgcL0krlzlJCXuYuKrwvby HYIuyEnszrQyXn0oxKklWRX5EQ umM6yqqY9jCxW2CUewH4gtcC7g PXk2CUlwaOP6NUFcjK8mYB8trp gvd5skZNycMLkxZDCsxyI7meWm HNErlTNxP5KhjO5mMDZbVF3tvv kjp4plRQC8YNkrNCGnIJP4NxJs DPTgb8Ozavk8PcAek6ObhZDqJR xrY89hi202BHSmlvUeI8rotBFh jgjpxCUqnipqFCvmloT7CRExYO BsYWluXGYxXGZzMjBcbGFuZzEw MzNcaGljaFxmMVxkYmNoXGYxXG maQ7bxTlYcDcJfDYODmVZmub1b mTekYYivhBPumENobUW7lB0wRN EcdjZtbx2bELQavIBOvPH3BZry scOqS6jrqvzlXGT0IEVgPWQ2O6 xpZCBBdmUsIENsZXZlbGFuZCBP WZT0PDI8UUMeVWTATKNkLJP7KV V5OAUcTSPtgLPkXMMkzcepDJDv XHBsYWluXGYwXGZzMjRccGxhaW 3zUeHzEjEvUPppFB8uYZAyD1ez tQUpBXTsNEUgF9xcEnPinR8ofI xmMVxjZjJcZnMyMFxsdHJjaCBM EWLftxP3d0Q3QEkajFFdciysIA tbdoGfSGrsnyqmAHFyJRauV1qn InRbLPShsUbxZIglb3YtLCXfAV ZlHiKqCWpjPUZ1b2S3KImtyVKi hzPXHeYNGX5wwWHackhbFS1RWk xwbGFpblxmMVxmczIyXGxhbmcx CLDtJKgsO2hmHqOlGQNvlYfwGF kfm0EnENMuBFKjXhAqoHCupR== [facility] Work Phone: [facility] Work Phone: [place] 02-18-2024 [facility] -- JOSE ZAPIEN III ([id number]) 1965 M Date Time Provider Department 02/18/24 [facility] During your visit today, we recorded the following information about you: Asha Au, ANAND 02/18/2024 2:22 PM Signed Patient asking pcp to review and advise on US results. Arya James MD 02/18/2024 2:54 PM Signed Let patient know the US was not able to see his pancrease well. It also showed fatty infiltration of his liver. Over time this can cause fibrosis and scaring of the liver and cirrhosis. This can lead to . Things to do to prevent progression would be try try to reduce the amount of fat in ones diet, increase exercise and stop alcohol consumption. This US also showed that he is retaining at least 1.3 liters of urine. I would advise him to go to the ER to have this addressed so his bladder does not rupture. If ok I would also like to set up the CT of his abd/pel like we discussed since the US was unremarkable for any cause of weight loss. Christina Lowery MA 02/18/2024 3:13 PM Signed Patient informed and verbalized understanding. States he's had trouble with urinary retention for years. Saw urology years ago. Willing to see again if needed. States he does have some lower abdominal discomfort. Wants to know if you're still advising ER? He agrees to have CT done. Please order. CATHY Damian Jeffrey A, MD 02/18/2024 3:27 PM Signed Let patient know I can place a referral to Urology but not sure when he whould get in. If we do this nd while waing on his appt the pain gets worse he needs to go to the ER. Anything over 100 ml's in the bladder after peeing is abnormal and he has [address] order placed. Christina Lowery MA 02/18/2024 3:40 PM Signed Patient informed and verbalized understanding. Would like referral to urology. Will consider ER if pain worsens. CATHY Damian Jeffrey A, MD 02/18/2024 3:44 PM Signed Urology consult placed. Vicki Rowell 02/19/2024 11:02 AM Signed 1st attempt left vm Allergies As of Date: 02/18/2024 Noted Allergy Reaction PENICILLINS 09/18/2005 16 - Unknown Comments: Childhood reaction. Date Reviewed: 02/17/2024 Reviewed by: Ebonie Crowe MA - Fully Assessed Reason for Visit: Results [95] Primary Visit Diagnosis:Fatty liver [K76.0] Other Visit Diagnoses:Smoker [F17.200] Unintentional weight loss [R63.4] Urine retention [R33.9] Order(s):CT ABD/PEL W IVCON [8750115] Order #: [id number] FUTURE [] iv contrast (will be provided with radiology test)CT ABD/PEL -Inject, intravenously, once for 1 dose.No IV access, insert saline lock prior to the beginning of sedation, infusion, injection of imaging exam. Discontinue saline lock post exam. If Pt. has a central line or IVAD, may access for administration according to line specific nursing protocol. Once exam is complete flush line and de-access according to line specific nursing protocol in the CT contrast administration guidelines link.Disp: 1 EachRfl: 0 [] enteric contrast (will be provided with radiology test)For CT ABD/PEL W IVCON Routine order Administer, As Directed One Time Only, via Oral, Rectal, both Oral and Rectal, Enteric Tube, Stoma or Indwelling Catheter, Enteric Contrast as designated per enteric contrast guidelinesDisp: 1 EachRfl: 0 CONSULT TO UROLOGY [9041] Order #: [id number]: 1 FUTURE Prescriptions as of 02/29/2024 - hydroCHLOROthiazide 12.5 mg capsule Take 1 capsule by mouth once daily. - lisinopril (ZESTRIL, PRINIVIL) 20 mg tablet Take 1 tablet by mouth once daily. - clopidogrel (PLAVIX) 75 mg tablet Take 1 tablet by mouth once daily. - atorvastatin (LIPITOR) 80 mg tablet Take 1 tablet by mouth daily at bedtime. For cholesterol. - docosahexaenoic acid/epa (FISH OIL ORAL) Take 1,200 mg by mouth as directed. - aspirin, enteric coated (ASPIRIN, ENTERIC COATED) 81 mg EC tablet Take 81 mg by mouth once daily. - acetaminophen (TYLENOL) 325 mg tablet Take 650 mg by mouth every 4 hours as needed. Problem List As Of Date 02/18/2024 Noted Resolved Anxiety [F41.9] 07/06/2014 Smoker [F17.200] 07/06/2014 Scar tissue [L90.5] 07/06/2014 Well adult exam [Z00.00] 07/06/2014 Alcohol abuse [F10.10] 07/06/2014 PVC (premature ventricular contraction) [I49.3] Abnormal findings on cardiac catheterization [R*01/17/2015 MVP (mitral valve prolapse) [I34.1] 02/15/2015 Bilateral carotid artery stenosis [I65.23] 05/28/2015 Essential hypertension [I10] 06/25/2015 Prostate cancer screening [Z12.5] 06/25/2015 Coronary artery disease due to lipid rich plaqu*07/03/2015 Encounter for screening for diabetes mellitus [*07/08/2016 Colon cancer screening [Z12.11] 07/08/2016 Elevated fasting blood sugar [R73.01] 07/11/2017 ANNIE (obstructive sleep apnea) [G47.33] Current moderate episode of major depressi (more content not included)... Normal [facility] CNOVon 02-17-2024 CNOV Office Visit ([facility] ) -- JOSE ZAPIEN III ([id number]) 1965 M Date Time Provider Department 02/17/24 10:40 AM ARYA JAMES [facility] During your visit today, we recorded the following information about you: Pulse Respiration Blood pressure Weight 76/minute 16/minute 138/88 89.8 kg Arya James MD 02/19/2024 4:59 PM Signed Chief Complaint Patient presents with: Derm Problem HPI Jose Zapien III is a 58 year old male who presents here today for Cyst removal on back. Patient has a lump in the kin of his back. Here for removal. Past medical history, appointments, medications, allergies reviewed. Previous Medical History PAST MEDICAL HISTORY Diagnosis Date Abnormal findings on cardiac catheterization 01/17/[address] Bernstein 01/17/2015 question of 85% stenosis of septal hammer smith Alcohol abuse 07/06/2014 Sober since 03/29/2014 Allergic rhinitis due to allergen RAST 11/2013, [facility]. Anxiety 07/06/2014 Bilateral carotid artery stenosis 05/28/2015 US: 05/18/2015 less than 50% bilateral. US 04/2018 20-40% nidia Bilateral leg edema 07/10/2023 Coronary artery disease due to lipid rich plaque 07/03/[address] Bernstein Current moderate episode of major depressive disorder without prior episode (HCC) 05/11/2019 Elevated fasting blood sugar 07/11/2017 Essential hypertension 06/25/2015 Former smoker 07/06/2014 Quit 06/2014: Was smoking less than a PPD since 25 yo. MVP (mitral valve prolapse) 02/15/2015 2D echo 12/2014 ANNIE (obstructive sleep apnea) PVC (premature ventricular contraction) Hx of. off and on. 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 Snoring Previous Surgical History PAST SURGICAL HISTORY Procedure Laterality Date 2D ECHO (EXEP) 01/16/2015 EF=65%, Mild MVP CC CORONARY STENT 2014 Mid LAD COLONOSCOPY FLX DX W/COLLJ SPEC WHEN PFRMD 12/23/2005 Colonoscopy COLONOSCOPY FLX DX W/COLLJ SPEC WHEN PFRMD 09/15/2017 repeat in 10 years ESOPHAGOGASTRODUODENOSCOPY TRANSORAL DIAGNOSTIC 10/21/2006 Gastritis LAPS SURG CHOLECYSTECTOMY W/CHOLANGIOGRAPHY 02/01/2007 PAST SURGICAL HISTORY OF 12/2014 stent to LAD RPR 1ST INGUN HRNA AGE 5 YRS/> REDUCIBLE Hernia repair, inguinal bilateral STRESS TEST 07/07/2017 WNL VASECTOMY UNI/BI SPX W/POSTOP SEMEN EXAMS Family History FAMILY HISTORY Problem Relation Age of Onset Heart Father Pacemaker, hx TIA Macular Degen Mother Glaucoma Mother Hypertension Mother Heart Maternal Grandmother Cancer Maternal Grandmother behind ear Heart Paternal Grandfather Stroke Paternal Grandfather Patient Allergies ALLERGIES Allergen Reactions Penicillins Unknown Childhood reaction. Current Medications Current Outpatient Medications on File Prior to Visit Medication Sig hydroCHLOROthiazide 12.5 mg capsule Take 1 capsule by mouth once daily. lisinopril (ZESTRIL, PRINIVIL) 20 mg tablet Take 1 tablet by mouth once daily. clopidogrel (PLAVIX) 75 mg tablet Take 1 tablet by mouth once daily. atorvastatin (LIPITOR) 80 mg tablet Take 1 tablet by mouth daily at bedtime. For cholesterol. docosahexaenoic acid/epa (FISH OIL ORAL) Take 1,200 mg by mouth as directed. aspirin, enteric coated (ASPIRIN, ENTERIC COATED) 81 mg EC tablet Take 81 mg by mouth once daily. acetaminophen (TYLENOL) 325 mg tablet Take 650 mg by mouth every 4 hours as needed. No current facility-administered medications on file prior to visit. Social History Social History Tobacco Use Smoking status: Every Day Packs/day: 0.50 Years: 25.00 Additional pack years: 0.00 Total pack years: 12.50 Types: Cigarettes Last attempt to quit: 07/04/2014 Years since quittin.6 Smokeless tobacco: Current Types: Snuff Tobacco comments: Prior 2 packs a day for 15 years, down to 3-4 cigarettes per day Vaping Use Vaping Use: Never used Substance Use Topics Alcohol use: Yes Alcohol/week: 10.0 standard drinks of alcohol Types: 4 Cans of beer, 6 Cans of Beer (12oz) per week Comment: nightly Drug use: No Review of Symptoms REVIEW OF SYSTEMS See HPI EXAM: BP 138/88 (BP Site: Right Arm, BP Position: Sitting, BP Cuff Size: Regular Adult) Pulse 76 Resp 16 Wt 89.8 kg (198 lb) BMI 28.82 kg/m? General Appearance: Well appearing, alert, in no acute distress, well-hydrated, well nourished.. Skin: has a suspected sebaceous cyst upper middle back . Health Maintenance List Shingrix Vaccine(1 of 2) due on 01/25/2025 Pneumococcal Vaccine(1 of 2 - PCV) due on 01/25/2025 LDL Cholesterol due on 01/12/2025 Annual PCP Team Chronic Disease Visit due on 01/25/2025 BP Controlled (<130/80) due on 01/25/2025 Diabetes Screening due on 01/12/2027 Colorectal Cancer Screening due on 09/15/2027 DTaP,Tdap,Td Vaccine(3 - (more content not included)... Normal [facility] CT CHEST WO IVCONon 02-17-20 CT CHEST WO IVCON * * *Final Report* * * DATE OF EXAM: Feb 17 2024 10:10AM [facility] 0541 - CT CHEST WO IVCON / PROCEDURE REASON: multiple diagnoses * * * * Physician Interpretation * * * * EXAMINATION: CHEST CT WITHOUT CONTRAST CLINICAL HISTORY: Weight loss. Technique: Spiral CT acquisition of the chest from the thoracic inlet to the upper abdomen without contrast. MQ: CTCWO_6 CT Radiation dose: Integrated Dose-length product (DLP) for this visit = 268 mGy*cm CT Dose Reduction Employed: Automated exposure control(AEC) and iterative recon Comparison: CT chest on 04/16/2013 RESULT: Limitations: None. Lines, tubes, and devices: None. Lung parenchyma and airways: No consolidation. No suspicious pulmonary nodule. The central airways are patent. Pleural space: No pleural effusion. No pleural thickening. Lower neck, lymph nodes, and mediastinum: The imaged thyroid gland is normal. No lymphadenopathy in the supraclavicular, axillary, mediastinal, or hilar regions, although a few subcentimeter in short axis mediastinal lymph nodes are visualized. Heart, pericardium, and thoracic vessels: The thoracic aorta and main pulmonary artery are normal in caliber. The cardiac chambers are normal in size. Linear and punctate coronary artery atherosclerotic calcifications are noted, although the study is not optimized for coronary assessment. No pericardial effusion or thickening. Bones and soft tissues: No destructive bone lesion. The spine shows degenerative changes. Chest wall soft tissue is unremarkable. Upper abdomen: Limited study through the upper abdomen no interval changes. Localizer images: No additional findings. IMPRESSION: No suspicious lung nodules or masses. No thoracic lymphadenopathy. Concrete Pipe Maker: [facility] Transcribe Date/Time: Feb 23 2024 8:41A Dictated by : MIGUEL SINGH MD This examination was interpreted and the report reviewed and electronically signed by: MIGUEL SINGH MD on Feb 24 2024 3:25PM EST [id number] Normal [facility] SURGICAL PATHOLOGYon 024 CASE REPORT Normal [facility] Comment on above: Order Comment: Speci men Type: TISSUE SPECIMEN Ordering Facility: [facility] Address: [address] [place] [address] Result Comment: Surg ical Pathology Report Case: [id number] Authorizing Provider: Arya James MD Collected: 02/17/2024 12:13 PM Ordering Location: [facility] Received: 02/17/2024 12:28 PM Pathologist: Nafisa Uribe MD Specimen: Skin, Excision Performed By: #### S #### [facility] CLIA [id number] [address] [place] [address] [place] CLINICAL HISTORY suspect subaceous cy st, upper mid back Normal [facility] Comment on above: Order Comment: Speci men Type: TISSUE SPECIMEN Ordering Facility: [facility] Address: [address] [place] [address] Performed By: #### S #### [facility] CLIA [id number] [address] [place] [address] [place] FINAL DIAGNOSIS Normal [facility] Comment on above: Order Comment: Speci men Type: TISSUE SPECIMEN Ordering Facility: [facility] Address: [address] [place] [address] Result Comment: A. S kin, upper mid back, excision: - Epidermoid cyst. /REFUGIO/steve/02/19/2024 Performed By: #### S #### [facility] CLIA [id number] [address] [place] [address] [place] FINAL PERFORMING LAB Normal [facility] Comment on above: Order Comment: Speci men Type: TISSUE SPECIMEN Ordering Facility: [facility] Address: [address] [place] [address] Result Comment: Diag nostic interpretation performed at [facility], [address] [place] [address] CLIA# [id number] Incident Response Lead: Jeremiah Streeter M.D. Performed By: #### S #### [facility] CLIA [id number] [address] [place] [address] [place] [facility] GROSS DESCRIPTION Normal [facility] Comment on above: Order Comment: Speci men Type: TISSUE SPECIMEN Ordering Facility: [facility] Address: [address] [place] [address] Result Comment: Elaine lombardo, Excision Received in formalin is an irregular shaped segment of skin and subcutaneous tissue measuring 1.7 x 1.5 x 2.0 cm. The specimen resembles a ruptured cyst. A jewelry sales representative section is submitted in one cassette. SS February 18, 2024 12:56 AM Gross examination performed at [facility], [address] [place] [address] Performed By: #### S #### [facility] CLIA [id number] [address] [place] [address] [place] XR Chest PA and Lateralon IMPRESSION: Stable and unremarkable exam with no acute radiographic abnormality. Concrete Pipe Maker: NATHALIA Transcribe Date/Time: Jan 30 2024 8:02A Dictated by : JOCE NGUYEN MD This examination was interpreted and the report reviewed and electronically signed by: JOCE NGUYEN MD on Jan 30 2024 8:11AM [facility] DIVISION OF RADIOLOGY * * *Final Report* * * DATE OF EXAM: Jan 26 2024 9:23AM [facility] 5291 - XR CHEST 2V FRONTAL/LAT / PROCEDURE REASON: multiple diagnoses * * * * Physician Interpretation * * * * EXAMINATION: CHEST RADIOGRAPH (2 VIEW FRONTAL & LATERAL) CLINICAL HISTORY: Smoker Unintentional weight loss MQ: XC2_6 EXAM DATE/TIME: 01/26/2024 9:23 AM COMPARISON: 01/28/2018. RESULT: Lines, tubes, and devices: None. Lungs and pleura: No consolidation. No lung mass. No pleural effusion. No pneumothorax. Cardiomediastinal silhouette: Normal cardiomediastinal silhouette. Bones and soft tissues: Unremarkable. DIVISION OF RADIOLOGY Provider, [facility] - 01/30/2024 * * *Final Report* * * DATE OF EXAM: Jan 26 2024 9:23AM [facility]OX 5291 - XR CHEST 2V FRONTAL/LAT / PROCEDURE REASON: multiple diagnoses * * * * Physician Interpretation * * * * EXAMINATION: CHEST RADIOGRAPH (2 VIEW FRONTAL & LATERAL) CLINICAL HISTORY: Smoker Unintentional weight loss MQ: XC2_6 EXAM DATE/TIME: 01/26/2024 9:23 AM COMPARISON: 01/28/2018. RESULT: Lines, tubes, and devices: None. Lungs and pleura: No consolidation. No lung mass. No pleural effusion. No pneumothorax. Cardiomediastinal silhouette: Normal cardiomediastinal silhouette. Bones and soft tissues: Unremarkable. IMPRESSION IMPRESSION: Stable and unremarkable exam with no acute radiographic abnormality. Concrete Pipe Maker: [facility] Transcribe Date/Time: Jan 30 2024 8:02A Dictated by : JOCE NGUYEN MD This examination was interpreted and the report reviewed and electronically signed by: JOCE NGUYEN MD on Jan 30 2024 8:11AM [facility] XR Chest PA and LateralOrder ed By: Cc Provider on 01-30-2024 [facility] XR Chest PA and Lateralon Radiology Study observation (narrative) [facility] Absolute lymphocyte countOrd ered By: Gillian Caldwell on 11-20-2023 Lymphocytes Auto (Unsp spec) [#/Vol] 3.20 10*3/uL 0.83-4.51 [facility] Activated partial thrombopla stin time (aPTT) in platelet poor plasma by coagulation aOrdered By: Gillian Caldwell on 11-20-2023 aPTT Coag (PPP) [Time] 27.6 s 24.1-36.2 [facility] Automated lymphocyte count a s percentage of total leukocytesOrdered By: Gillian Caldwell on 11-20-2023 Lymphocytes/100 WBC Auto (Unsp spec) 34.0 % 19-41 [facility] Basophil percentageOrdered B y: Gillian Caldwell on 11-20-2023 Basophils/100 WBC (Bld) 0.9 % 0-1 [facility] Chloride [Moles/Vol] 106 mmol/L 98-107 [facility] Eosinophils/100 WBC (Bld) 1.5 % 0-5 [facility] Glucose [Mass/Vol] 116 mg/dL 74-106 [facility] Comment on above: Slight Lipemia, Resu lt may be falsely increased.Fasting Glucose result from 100 to 125 mg/dL suggests IMPAIRED HOMEOSTASIS per A.D.A. criteria. Hemoglobin (Bld) [Mass/Vol] 15.8 g/dL 13.0-16.5 [facility] Monocytes/100 WBC (Bld) 6.7 % 0-10 [facility] Neutrophils (Bld) [#/Vol] 5.3 10*3/uL 2.0-7.7 [facility] Neutrophils/100 WBC (Bld) 56.2 % 47-70 [facility] Potassium [Moles/Vol] 4.1 mmol/L 3.5-5.1 [facility] Comment on above: Slight Lipemia, Resu lt may be falsely increased. Sodium [Moles/Vol] 136 mmol/L 136-145 [facility] WBC (Bld) [#/Vol] 9.4 10*3/uL 4.4-11.0 [facility] Determination of erythrocyte mean corpuscular volume (MCV)Ordered By: Gillian Caldwell on 11-20-2023 MCV (RBC) [Entitic vol] 90.2 fL 80-94 [facility] Erythrocyte distribution wid th ratioOrdered By: Gillian Caldwell on 11-20-2023 Erythrocyte distribution width (RBC) [Ratio] 14.1 % 11.6-14.6 [facility] Erythrocyte distribution wid th standard deviationOrdered By: Gillian Caldwell on 11-20-2023 Erythrocyte distribution width (RBC) [Entitic vol] 46.7 fL 35.1-43.9 [facility] Hematocrit Auto (Bld) [Volum e fraction]Ordered By: Gillian Caldwell on 11-20-2023 Hematocrit (Bld) [Volume fraction] 47.6 % 40-54 [facility] Immature granulocytes/100 WB C Auto (Bld)Ordered By: Gillian Caldwell on 11-20-2023 Immature granulocytes/100 WBC (Bld) 0.700 % 0.0-0.9 [facility] Comment on above: IG% - Immature Granu locytes (promyelocytes, myelocytes and metamyelocytes) > 1% indicates that a LEFT SHIFT is Present. Laboratory - Chemistry and C hemistry - challengeOrdered By: Gillian Caldwell on 11-20-2023 CO2 [Moles/Vol] 25.0 mmol/L 21.0-32.0 [facility] Comment on above: Slight Lipemia, Resu lt may be falsely increased. Urea nitrogen/Creatinine [Mass ratio] 6.1 mg/mg 10-20 [facility] Laboratory - CoagulationOrde red By: Gillian Caldwell on 11-20-2023 INR Coag (Bld) [Relative time] 0.9 {INR} [facility] PT Coag (PPP) [Time] 11.8 s 11.7-14.9 [facility] Laboratory - Hematology and Cell countsOrdered By: Gillian Caldwell on 11-20-2023 MCH (RBC) [Entitic mass] 29.9 pg 27.0-32.0 [facility] MCHC (RBC) [Mass/Vol] 33.2 g/dL 32-36 [facility] Nucleated RBC/100 WBC (Bld) [Ratio] 0 % 0-5 [facility] Platelet mean volume (Bld) [Entitic vol] 9.5 fL 6.2-12.0 [facility] Platelets (Bld) [#/Vol] 219 10*3/uL 150-450 [facility] No Panel InformationOrdered By: Gillian Caldwell on 11-20-2023 Estimated GFR (MDRD) Amer 101 mL/min >60 [facility] Comment on above: GFR Calc Estimated GFR (MDRD) Non-Af Amer 83 mL/min >60 [facility] Comment on above: Non- GFR Calc RBC Auto (Bld) [#/Vol]Ordere d By: Gillian Caldwell on 11-20-2023 RBC (Bld) [#/Vol] 5.28 10*6/uL 4.6-6.2 [facility] Serum or plasma calcium grant urement (mass/volume)Ordered By: Gillian Caldwell on 11-20-2023 Calcium [Mass/Vol] 8.4 mg/dL 8.5-10.1 [facility] Comment on above: Slight Lipemia, Resu lt may be falsely increased. Serum or plasma creatinine m easurement (mass/volume)Ordered By: Gillian Caldwell on 11-20-2023 Creatinine [Mass/Vol] 0.98 mg/dL 0.70-1.30 [facility] Comment on above: Slight Lipemia, Resu lt may be falsely increased.The validity of the calculated GFR & GFRAA in patients over 70 years has not been determined. Clinical correlation is essential. Serum or plasma urea nitroge n measurement (mass/volume)Ordered By: Gillian Caldwell on 11-20-2023 Urea nitrogen [Mass/Vol] 6 mg/dL 7-18 [facility] Thin prep Papanicolaou smear with manual screeningOrdered By: Gillian Caldwell on 11-20-2023 Thin prep Papanicolaou smear with manual screening 5 5-15 [facility] No Panel Informationon 12-12 [facility] Basophil percentageon 2021 Bilirubin [Mass/Vol] 0.90 mg/dL 0.20-1.00 [facility] Work Phone: Comment on above: For patients on eltr ombopag therapy, use of Dimension [place] TBIL is not recommended. Cholesterol [Mass/Vol] 125 mg/dL <200 [facility] Work Phone: Comment on above: <200 mg/dL Desirable 200-240 mg/dL Borderline >240 mg/dL High Risk Protein [Mass/Vol] 7.3 g/dL 6.4-8.2 [facility] Work Phone: Triglyceride [Mass/Vol] 389 mg/dL <199 [facility] Work Phone: Comment on above: The drugs N-Acetylcy steine and Metamizole may falsely depress this assay.Serum Triglycerides Reference Interval Normal <150 mg/dL Borderline high 150 - 199 mg/dL High 200 - 499 mg/dL Very High > or = 500 mg/dL Direct bilirubinon 2 Bilirubin.direct [Mass/Vol] 0.17 mg/dL 0.00-0.30 [facility] Work Phone: Laboratory - Chemistry and C hemistry - challengeon 08-14-2022 ALP [Catalytic activity/Vol] 112 U/L 45-117 [facility] Work Phone: ALT [Catalytic activity/Vol] 27 U/L 16-61 [facility] Work Phone: Globulin (S) [Mass/Vol] 3.7 g/dL 2.2-4.2 [facility] Work Phone: Serum or plasma albumin grant urement (mass/volume)on 08-14-2022 Albumin [Mass/Vol] 3.6 g/dL 3.2-5.0 [facility] Work Phone: Serum or plasma cholesterol in HDL measurement (mass/volume)on 08-14-2022 Cholesterol in HDL [Mass/Vol] 29 mg/dL >40 [facility] Work Phone: Comment on above: The drugs N-Acetylcy steine and Metamizole may falsely depress this assay. Reference Range HDL <40 mg/dL Low HDL Cholesterol HDL >or= 60 mg/dL High HDL Cholesterol Serum or plasma cholesterol in VLDL measurement (mass/volume)on 08-14-2022 Cholesterol in VLDL [Mass/Vol] 78 mg/dL 5-40 [facility] Work Phone: Serum or plasma low density lipoprotein (LDL) cholesterol measurement (mass/volume)on 08-14-2022 Cholesterol in LDL [Mass/Vol] 18 mg/dL 0-130 [facility] Work Phone: Thin prep Papanicolaou smear with manual screeningon 08-14-2022 Thin prep Papanicolaou smear with manual screening 19 U/L 15-37 [facility] Work Phone: XR CERV OTHER 4V AP/LAT/FLX/ EXTon 05-14-2021 IMPRESSION: No fract ure or malalignment. Degenerative disease of the cervical spine which is most pronounced at C3-4. Concrete Pipe Maker: NATHALIA Transcribe Date/Time: May 14 2021 8:13A Dictated by : SAMMI ROSALES MD This examination was interpreted and the report reviewed and electronically signed by: SAMMI ROSALES MD on May 14 2021 8:15AM [facility] DIVISION OF RADIOLOGY * * *Final Report* * * DATE OF EXAM: May 14 2021 8:11AM [facility]OX 5310 - XR CERVICAL 4V AP/LAT/FLX/EXT / PROCEDURE REASON: Neck pain * * * * Physician Interpretation * * * * X-ray cervical spine, AP, lateral, flexion and extension views Indication: Neck pain Counting reference: Craniocervical junction Anatomic variant: None There is normal architecture and mineralization of the bones. No fracture is visualized. There is slight retrolisthesis of C4 on C5. There is degenerative disc disease at multiple levels of the cervical spine with endplate sclerosis, intervertebral disc space narrowing and osteophyte formation. This is most pronounced at C3-4. There is no subluxation with flexion and extension. There is no prevertebral soft tissue swelling. DIVISION OF RADIOLOGY Provider, [facility] - 05/14/2021 * * *Final Report* * * DATE OF EXAM: May 14 2021 8:11AM [facility]OX 5310 - XR CERVICAL 4V AP/LAT/FLX/EXT / PROCEDURE REASON: Neck pain * * * * Physician Interpretation * * * * X-ray cervical spine, AP, lateral, flexion and extension views Indication: Neck pain Counting reference: Craniocervical junction Anatomic variant: None There is normal architecture and mineralization of the bones. No fracture is visualized. There is slight retrolisthesis of C4 on C5. There is degenerative disc disease at multiple levels of the cervical spine with endplate sclerosis, intervertebral disc space narrowing and osteophyte formation. This is most pronounced at C3-4. There is no subluxation with flexion and extension. There is no prevertebral soft tissue swelling. IMPRESSION IMPRESSION: No fracture or malalignment. Degenerative disease of the cervical spine which is most pronounced at C3-4. Concrete Pipe Maker: NATHALIA Transcribe Date/Time: May 14 2021 8:13A Dictated by : SAMMI ROSALES MD This examination was interpreted and the report reviewed and electronically signed by: SAMMI ROSALES MD on May 14 2021 8:15AM EST [facility] Radiology Study observation (narrative) [facility] XR CERV OTHER 4V AP/LAT/FLX/ EXTOrdered By: Ccf Provider on 05-14-2021 [facility] Office Visiton 01-28-2017 Documentation of current medications (procedure) Done Invalid Interpretation Code [employer] Work Phone: [phone] Fall risk assessment No Invalid Interpretation Code [employer] Work Phone: [phone] Protein mass conc Done [employer] Work Phone: [phone] 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 Left ventricular Ejection fraction 65 % Invalid Interpretation Code [employer] Work Phone: [phone] Lab Report: Lipid Profileon 06-20-2016 Cholesterol 115 mg/dL Invalid Interpretation Code 200 [employer] Work Phone: [phone] HDL Cholesterol 61 mg/dL Invalid Interpretation Code [employer] Work Phone: [phone] LDL Cholesterol 42 mg/dL Invalid Interpretation Code 0-130 [employer] Work Phone: [phone] Triglyceride 60 mg/dL Invalid Interpretation Code [employer] Work Phone: [phone] very low density lipoproteins 12 mg/dL Invalid Interpretation Code 5-40 [employer] Work Phone: [phone] Lab Report: Liver Profileon 06-20-2016 Alanine aminotransferase (ALT) 43 U/L Invalid Interpretation Code 12-78 [employer] Work Phone: [phone] Albumin 3.7 g/dL Invalid Interpretation Code 3.4-5.0 [employer] Work Phone: [phone] Alkaline phosphatase (ALP) 87 U/L Invalid Interpretation Code 50-136 [employer] Work Phone: [phone] ALP (Bld) [Catalytic activity/Vol] 87 U/L 50-136 [employer] Work Phone: [phone] Aspartate aminotransferase (AST) 37 U/L Invalid Interpretation Code 15-37 [employer] Work Phone: [phone] Bilirubin (direct) 0.17 mg/dL Invalid Interpretation Code 0.00-0.30 [employer] Work Phone: [phone] Bilirubin (total) 0.50 mg/dL Invalid Interpretation Code 0.20-1.00 [employer] Phone: [phone] Globulin 3.6 g/dL High 2.3-3.5 [employer] Work Phone: [phone] Globulin (S) [Mass/Vol] 3.6 g/dL High 2.3-3.5 [employer] Phone: [phone] Protein 7.3 g/dL Invalid Interpretation Code 6.4-8.2 [employer] Phone: [phone] Office Visit: [facility] 04-22-20 16 Documentation of current medications (procedure) Done Invalid Interpretation Code [employer] Phone: [phone] Protein mass conc yes [employer] Phone: [phone] Smoking cessation education (procedure) yes Invalid Interpretation Code [employer] Phone: [phone] Tobacco smoking status NHIS Current every day smoker [employer] Phone: [phone] Tobacco use CPHS Current every day smoker Invali d Interpretation Code [employer] Phone: [phone] Office Visiton 09-03-2015 Dietary management education, guidance, and counseling (procedure) yes Invalid Interpretation Code [employer] Phone: [phone] cardiovascular disease 10Y risk [#] [place].D'Agostino N/A Invalid Interpretation Code [employer] Phone: [phone] Office Visit: [facility] 02-13-20 15 cardiac risk group C Invalid Interpretation Code [employer] Phone: [phone] Replaced Document: Sandra Lubin 02-12-2015 EKG QRS axis -43 deg Invalid Interpretation Code [employer] Phone: [phone] electrocardiogram interpretation Sinus Rhythm -Left axis -anterior fascicular block. - Nonspecific T-abnormality. ABNORMAL Invalid Interpretation Code [employer] Work Phone: [phone] GE use only - for [employer] import when terms are not otherwise specified 389 ms Invalid Interpretation Code [employer] Phone: [phone] Interpretation Sinus Rhythm -Left a xis -anterior fascicular block. - Nonspecific T-abnormality. ABNORMAL Invalid Interpretation Code [employer] Phone: [phone] P [place] 56 deg Invalid Interpretation Code [employer] Phone: [phone] P wave axis, electrocardiogram 56 deg Invalid Interpretation Code [employer] Work Phone: CA Interval 140 ms Invalid Interpretation Code [employer] Phone: CA interval, electrocardiogram 140 ms Invalid Interpretation Code [employer] Phone: Pulse (Heart Rate) 63 /min Invalid Interpretation Code [employer] Phone: QRS axis, electrocardiogram -43 deg Invalid Interpretation Code [employer] Phone: QRS Duration 96 ms Invalid Interpretation Code [employer] Work Phone: [phone] QRS duration, electrocardiogram 96 ms Invalid Interpretation Code [employer] Phone: QT Interval new path ms Invalid Interpretation Code [employer] Phone: QT interval, electrocardiogram new path ms Invalid Interpretation Code [employer] Phone: QTc Alvares 389 ms Invalid Interpretation Code [employer] Phone: T [place] -26 deg Invalid Interpretation Code [employer] Phone: T wave axis, electrocardiogram -26 deg Invalid Interpretation Code [employer] Work Phone: [phone] Lab Report: Basic Metabolic Profile (BMP)on 01-12-2015 Anion gap 4 mmol/L Low 5-15 [facility] Work Phone: [phone] Anion gap [Moles/Vol] 4 mmol/L Low 5-15 [facility] Work Phone: [phone] BUN/Creatinine Ratio 14.0 RATIO Invalid Interpretation Code 10-20 [facility] [employer] Work Phone: [phone] Calcium 8.5 mg/dL Invalid Interpretation Code 8.5-10.1 [facility] [employer] Work Phone: [phone] Chloride 104 mmol/L Invalid Interpretation Code 98-107 [facility] [employer] Work Phone: [phone] CO2 30.0 mmol/L Invalid Interpretation Code 21.0-32.0 [facility] [employer] Work Phone: [phone] CO2 (BldV) [Partial pressure] 30.0 mmol/L 21.0-32.0 [facility] Work Phone: [phone] Creatinine 1.0 mg/dL Invalid Interpretation Code 0.8-1.3 [facility] [employer] Work Phone: [phone] eGFR (non-black) 102 mL/min/{1.73_m2} Invalid Interpretation Code >60 [facility] [employer] Work Phone: [phone] eGFR (non-black) 84 mL/min/{1.73_m2} Invalid Interpretation Code >60 [facility] [employer] Work Phone: [phone] EST GFR - AA 102 mL/min >60 [facility] [employer] Work Phone: [phone] Glucose 89 mg/dL Invalid Interpretation Code 70-110 [facility] [employer] Work Phone: [phone] Glucose [Mass/Vol] 89 mg/dL Invalid Interpretation Code 70-110 [facility] [employer] Work Phone: [phone] Potassium 3.9 mmol/L Invalid Interpretation Code 3.5-5.1 [facility] [employer] Work Phone: Sodium 138 mmol/L Invalid Interpretation Code 136-145 [facility] [employer] Work Phone: [phone] Urea nitrogen 14 mg/dL Invalid Interpretation Code 7-18 [facility] Work Phone: [phone] Lab Report: CBC-Complete Blo od Cnt No Diffon 01-12-2015 Erythrocyte distribution width (RBC) [Ratio] 41.4 fL 35.1-43.9 [facility] Work Phone: Erythrocytes (RBC) 4.74 10*6/uL Invalid Interpretation Code 4.6-6.2 [facility] Work Phone: Hematocrit (Bld) [Volume fraction] 43.8 % 40-54 [facility] Work Phone: Hematocrit (HCT) 43.8 % Invalid Interpretation Code 40-54 [facility] Work Phone: Hemoglobin (HGB) 15.1 g/dL Invalid Interpretation Code 13.0-16.5 [facility] [employer] Work Phone: MCH 31.9 pg Invalid Interpretation Code 27.0-32.0 [facility] Work Phone: MCH (RBC) [Entitic mass] 31.9 pg 27.0-32.0 [facility] Work Phone: MCHC 34.5 G/GL Invalid Interpretation Code 32-36 [facility] Work Phone: MCHC (RBC) [Mass/Vol] 34.5 G/GL 32-36 [facility] Work Phone: MCV 92.4 fL Invalid Interpretation Code 80-94 [facility] Work Phone: MCV (RBC) [Entitic vol] 92.4 fL 80-94 [facility] Work Phone: Platelet mean volume (Bld) [Entitic vol] 9.5 fL 6.2-12.0 [facility] Work Phone: Platelets 240 10*3/mm3 Invalid Interpretation Code 150-450 [facility] Work Phone: Platelets (Bld) [#/Vol] 240 10*3/mm3 150-450 [facility] Work Phone: PMV by Bethany 9.5 fL Invalid Interpretation Code 6.2-12.0 [facility] Work Phone: [phone] RBC (Bld) [#/Vol] 4.74 10*6/uL 4.6-6.2 [facility] Work Phone: [phone] RDW SD 41.4 fL Invalid Interpretation Code 35.1-43.9 [facility] Work Phone: [phone] red blood cell distribution width, size density 41.4 fL Invalid Interpretation Code 35.1-43.9 [facility] Work Phone: [phone] WBC (Bld) [#/Vol] 7.5 10*3/uL 4.4-11.0 [facility] Work Phone: [phone] WBC (Leukocytes) 7.5 10*3/uL Invalid Interpretation Code 4.4-11.0 [facility] [employer] Work Phone: [phone] Lab Report: Partial Thrombop last Timeon 01-12-2015 aPTT 27.6 s Invalid Interpretation Code 24.1-36.2 [facility] [employer] Work Phone: [phone] Lab Report: Prothrombin Time w/INRon 01-12-2015 Coagulation tissue factor induced in platelet poor plasma 12.5 s Invalid Interpretation Code 11.7-14.9 [facility] [employer] Work Phone: [phone] INR Coag (PPP) [Relative time] 0.9 {INR} Invalid Interpretation Code [facility] [employer] Work Phone: [phone] INR in blood by coagulation 0.9 {INR} Invalid Interpretation Code [facility] [employer] Work Phone: [phone] Lab Report: T4 Total, Thyrox inon 01-12-2015 Thyroxine (T4) 8.4 ug/dL Invalid Interpretation Code 4.5-12.1 [facility] Work Phone: [phone] Lab Report: Thyroid Stim Hor joni (TSH)on 01-12-2015 Thyroid stimulating hormone (TSH) 1.10 u[iU]/mL Invalid Interpretation Code 0.358-3.74 [facility] [employer] Work Phone: [phone] Lab Report: CUBon 05-04-2013 Bacteria culture No growth in 5 days. Invalid Interpretation Code [facility] Work Phone: Vital Signs Date Time Vital Sign Value Performing Clinician Facility 02-14-2025 08:36-0400 Body height 177.2 cm Jorge Luis Swann PA-C Work Phone: [facility] 02-14-2025 08:36-0400 Body mass index (BMI) [Ratio] 27.02 kg/m2 Jorge Luis Swann PA-C Work Phone: [facility] 02-14-2025 08:36-0400 Body temperature 97 [degF] Jorge Luis Swann PA-C Work Phone: [facility] 02-14-2025 08:36-0400 Body weight 84.82 kg Jorge Luis Swann PA-C Work Phone: [facility] 02-14-2025 08:36-0400 Diastolic blood pressure 60 mm[Hg] Jorge Luis Swann PA-C Work Phone: [facility] 02-14-2025 08:36-0400 Heart rate 84 /min Jorge Luis Swann PA-C Work Phone: [facility] 02-14-2025 08:36-0400 Respiratory rate 12 /min Jorge Luis Swann PA-C Work Phone: [facility] 02-14-2025 08:36-0400 SaO2% (BldA) [Mass fraction] 97 % Jorge Luis Swann PA-C Work Phone: [facility] 02-14-2025 08:36-0400 Systolic blood pressure 96 mm[Hg] Jorge Luis Swann PA-C Work Phone: [facility] 01-27-2025 06:59-0400 Body height 177.[address] Arya James MD Work Phone: [facility] 01-27-2025 06:59-0400 Body mass index (BMI) [Ratio] 27.5 kg/m2 Dr. Arya James MD Work Phone: [facility] 01-27-2025 06:59-0400 Body weight 87.[address] Arya James MD Work Phone: [facility] 01-27-2025 06:59-0400 Diastolic blood pressure 86 mm[Hg] Dr. Arya James MD Work Phone: [facility] 01-27-2025 06:59-0400 Heart rate 76 /min Dr. Arya James MD Work Phone: [facility] 01-27-2025 06:59-0400 Respiratory rate 18 /min Dr. Arya James MD Work Phone: [facility] 01-27-2025 06:59-0400 SaO2% (BldA) [Mass fraction] 97 % Dr. Arya James MD Work Phone: [facility] 01-27-2025 06:59-0400 Systolic blood pressure 128 mm[Hg] Dr. Arya James MD Work Phone: [facility] 01-26-2025 12:49-0400 Body height 177.2 cm Arya James MD Work Phone: [facility] 01-26-2025 12:49-0400 Body mass index (BMI) [Ratio] 27.78 kg/m2 Arya James MD Work Phone: [facility] 01-26-2025 12:49-0400 Body weight 87.18 kg Arya James MD Work Phone: [facility] 01-26-2025 12:49-0400 Diastolic blood pressure 72 mm[Hg] Arya James MD Work Phone: [facility] 01-26-2025 12:49-0400 Heart rate 74 /min Arya James MD Work Phone: [facility] 01-26-2025 12:49-0400 SaO2% (BldA) [Mass fraction] 97 % Arya James MD Work Phone: [facility] 01-26-2025 12:49-0400 Systolic blood pressure 116 mm[Hg] Arya James MD Work Phone: [facility] 07-28-2024 16:24-0500 Diastolic blood pressure 72 mm[Hg] Virgil Hough RESEARCH AIDE.SENIOR CONSUMER INSIGHTS CONSULTANT Work Phone: [facility] 07-28-2024 16:24-0500 Systolic blood pressure 127 mm[Hg] Virgil Gianluca RESEARCH AIDE.SENIOR CONSUMER INSIGHTS CONSULTANT Work Phone: [facility] 07-28-2024 16:14-0500 Body mass index (BMI) [Ratio] 29.26 kg/m2 Virgil Hough RESEARCH AIDE.SENIOR CONSUMER INSIGHTS CONSULTANT Work Phone: [facility] 07-28-2024 16:14-0500 Body weight 91.17 kg Virgil Hough RESEARCH AIDE.SENIOR CONSUMER INSIGHTS CONSULTANT Work Phone: [facility] 07-28-2024 16:14-0500 Heart rate 70 /min Virgil Hough RESEARCH AIDE.SENIOR CONSUMER INSIGHTS CONSULTANT Work Phone: [facility] 07-28-2024 16:14-0500 Respiratory rate 14 /min Virgil Hough RESEARCH AIDE.SENIOR CONSUMER INSIGHTS CONSULTANT Work Phone: [facility] 05-09-2024 15:44-0400 Body mass index (BMI) [Ratio] 28.94 kg/m2 Genoveva Guillen RESEARCH AIDE.SENIOR CONSUMER INSIGHTS CONSULTANT Work Phone: [facility] 05-09-2024 15:44-0400 Body temperature 98.49 [degF] Genoveva Guillen RESEARCH AIDE.SENIOR CONSUMER INSIGHTS CONSULTANT Work Phone: [facility] 05-09-2024 15:44-0400 Body weight 90.2 kg Genoveva Guillen RESEARCH AIDE.SENIOR CONSUMER INSIGHTS CONSULTANT Work Phone: [facility] 05-09-2024 15:44-0400 Diastolic blood pressure 74 mm[Hg] Genoveva Guillen RESEARCH AIDE.SENIOR CONSUMER INSIGHTS CONSULTANT Work Phone: [facility] 05-09-2024 15:44-0400 Heart rate 66 /min Genoveva Guillen RESEARCH AIDE.SENIOR CONSUMER INSIGHTS CONSULTANT Work Phone: [facility] 05-09-2024 15:44-0400 Respiratory rate 16 /min Genoveva Guillen RESEARCH AIDE.SENIOR CONSUMER INSIGHTS CONSULTANT Work Phone: [facility] 05-09-2024 15:44-0400 SaO2% (BldA) [Mass fraction] 98 % Genoveva Guillen RESEARCH AIDE.SENIOR CONSUMER INSIGHTS CONSULTANT Work Phone: [facility] 05-09-2024 15:44-0400 Systolic blood pressure 128 mm[Hg] Genoveva Guillen RESEARCH AIDE.SENIOR CONSUMER INSIGHTS CONSULTANT Work Phone: [facility] 02-17-2024 10:41-0400 Body mass index (BMI) [Ratio] 28.82 kg/m2 Arya James MD Work Phone: [facility] 02-17-2024 10:41-0400 Body weight 89.81 kg Arya James MD Work Phone: [facility] 02-17-2024 10:41-0400 Diastolic blood pressure 88 mm[Hg] Arya James MD Work Phone: [facility] 02-17-2024 10:41-0400 Heart rate 76 /min Arya James MD Work Phone: [facility] 02-17-2024 10:41-0400 Respiratory rate 16 /min Arya James MD Work Phone: [facility] 02-17-2024 10:41-0400 Systolic blood pressure 138 mm[Hg] Arya James MD Work Phone: [facility] 01-26-2024 07:52-0400 Body height 176.5 cm Arya James MD Work Phone: [facility] 01-26-2024 07:52-0400 Body mass index (BMI) [Ratio] 29.98 kg/m2 Arya James MD Work Phone: [facility] 01-26-2024 07:52-0400 Body weight 93.44 kg Arya James MD Work Phone: [facility] 01-26-2024 07:52-0400 Diastolic blood pressure 82 mm[Hg] Arya James MD Work Phone: [facility] 01-26-2024 07:52-0400 Heart rate 68 /min Arya James MD Work Phone: [facility] 01-26-2024 07:52-0400 Respiratory rate 14 /min Arya James MD Work Phone: [facility] 01-26-2024 07:52-0400 Systolic blood pressure 130 mm[Hg] Arya James MD Work Phone: [facility] 12-02-2023 07:26-0400 Body height 177.[address] Arya James Work Phone: [facility] 12-02-2023 07:26-0400 Body weight 97.[address] Arya James Work Phone: [facility] 12-01-2023 07:31-0400 Body mass index (BMI) [Ratio] 30.9 kg/m2 Dr. Arya James Work Phone: [phone] [place] [address] 11-20-2023 09:39-0400 Body height 177.[address] Arya James Work Phone: [phone] [place] [address] 11-20-2023 09:39-0400 Body mass index (BMI) [Ratio] 30.9 kg/m2 Dr. Arya James Work Phone: [facility] 11-20-2023 09:39-0400 Body weight 97.[address] Arya James Work Phone: [facility] 11-20-2023 09:39-0400 Diastolic blood pressure 91 mm[Hg] Dr. Arya James Work Phone: [phone] [place] [address] 11-20-2023 09:39-0400 Heart rate 67 /min Dr. Arya James Work Phone: [facility] 11-20-2023 09:39-0400 Respiratory rate 18 /min Dr. Arya James Work Phone: [facility] 11-20-2023 09:39-0400 SaO2% (BldA) [Mass fraction] 97 % Dr. Arya James Work Phone: [facility] 11-20-2023 09:39-0400 Systolic blood pressure 148 mm[Hg] Dr. Arya James Work Phone: [facility] 07-10-2023 16:05-0500 Body weight 103.42 kg Arya James MD Work Phone: [facility] 07-10-2023 16:05-0500 Diastolic blood pressure 68 mm[Hg] Arya James MD Work Phone: [facility] 07-10-2023 16:05-0500 Heart rate 80 /min Arya James MD Work Phone: [facility] 07-10-2023 16:05-0500 SaO2% (BldA) [Mass fraction] 97 % Arya James MD Work Phone: [facility] 07-10-2023 16:05-0500 Systolic blood pressure 110 mm[Hg] Arya James MD Work Phone: [facility] 2023 15:27-0400 Body temperature 98.01 [degF] Arya James MD Work Phone: [facility] 2023 15:27-0400 Body weight 106.14 kg Arya James MD Work Phone: [facility] 2023 15:27-0400 Diastolic blood pressure 88 mm[Hg] Arya James MD Work Phone: [facility] 2023 15:27-0400 Heart rate 72 /min Arya James MD Work Phone: [facility] 2023 15:27-0400 Respiratory rate 18 /min Arya James MD Work Phone: [facility] 2023 15:27-0400 SaO2% (BldA) [Mass fraction] 95 % Arya James MD Work Phone: [facility] 2023 15:27-0400 Systolic blood pressure 140 mm[Hg] Arya James MD Work Phone: [facility] 11-20-2022 08:48-0400 Body temperature 97.5 [degF] Paula Hyman PA-C Work Phone: [facility] 11-20-2022 08:48-0400 Diastolic blood pressure 68 mm[Hg] Paula Hyman PA-C Work Phone: [facility] 11-20-2022 08:48-0400 Heart rate 82 /min Paula Hyman PA-C Work Phone: [facility] 11-20-2022 08:48-0400 Respiratory rate 18 /min Paula Hyman PA-C Work Phone: [facility] 11-20-2022 08:48-0400 Systolic blood pressure 110 mm[Hg] Paula Hyman PA-C Work Phone: [facility] 11-17-2022 16:16-0400 Body temperature 98.2 [degF] Arya Mckenzie RESEARCH AIDE.SENIOR CONSUMER INSIGHTS CONSULTANT Work Phone: [facility] 11-17-2022 16:16-0400 Body weight 102.51 kg Arya Mckenzie RESEARCH AIDE.SENIOR CONSUMER INSIGHTS CONSULTANT Work Phone: [facility] 11-17-2022 16:16-0400 Diastolic blood pressure 78 mm[Hg] Arya Mckenzie RESEARCH AIDE.SENIOR CONSUMER INSIGHTS CONSULTANT Work Phone: [facility] 11-17-2022 16:16-0400 Heart rate 92 /min Arya Mckenzie RESEARCH AIDE.SENIOR CONSUMER INSIGHTS CONSULTANT Work Phone: [facility] 11-17-2022 16:16-0400 Respiratory rate 16 /min Arya Mckenzie RESEARCH AIDE.SENIOR CONSUMER INSIGHTS CONSULTANT Work Phone: [facility] 11-17-2022 16:16-0400 SaO2% (BldA) [Mass fraction] 98 % Arya Mckenzie RESEARCH AIDE.SENIOR CONSUMER INSIGHTS CONSULTANT Work Phone: [facility] 11-17-2022 16:16-0400 Systolic blood pressure 132 mm[Hg] Arya Mckenzie RESEARCH AIDE.SENIOR CONSUMER INSIGHTS CONSULTANT Work Phone: [facility] 10-27-2022 13:43-0500 Body temperature 97.2 [degF] Genoveva Guillen RESEARCH AIDE.SENIOR CONSUMER INSIGHTS CONSULTANT Work Phone: [facility] 10-27-2022 13:43-0500 Body weight 103.78 kg Genoveva Guillen RESEARCH AIDE.SENIOR CONSUMER INSIGHTS CONSULTANT Work Phone: [facility] 10-27-2022 13:43-0500 Diastolic blood pressure 62 mm[Hg] Genoveva Guillen RESEARCH AIDE.SENIOR CONSUMER INSIGHTS CONSULTANT Work Phone: [facility] 10-27-2022 13:43-0500 Heart rate 97 /min Genoveva Guillen RESEARCH AIDE.SENIOR CONSUMER INSIGHTS CONSULTANT Work Phone: [facility] 10-27-2022 13:43-0500 Respiratory rate 20 /min Genoveva Guillen RESEARCH AIDE.SENIOR CONSUMER INSIGHTS CONSULTANT Work Phone: [facility] 10-27-2022 13:43-0500 SaO2% (BldA) [Mass fraction] 96 % Genoveva Guillen RESEARCH AIDE.SENIOR CONSUMER INSIGHTS CONSULTANT Work Phone: [facility] 10-27-2022 13:43-0500 Systolic blood pressure 104 mm[Hg] Genoveva Guillen RESEARCH AIDE.SENIOR CONSUMER INSIGHTS CONSULTANT Work Phone: [facility] 08-11-2022 15:50-0500 Body height 177.[address] Arya James Work Phone: [facility] Work Phone: 08-11-2022 15:50-0500 Body mass index (BMI) [Ratio] 32 kg/m2 Dr. Arya James Work Phone: [facility] Work Phone: 08-11-2022 15:50-0500 Body weight 101.[address] Arya James Work Phone: [facility] Work Phone: 08-11-2022 15:50-0500 Diastolic blood pressure 84 mm[Hg] Dr. Arya James Work Phone: [facility] Work Phone: 08-11-2022 15:50-0500 Heart rate 69 /min Dr. Arya James Work Phone: [facility] Work Phone: 08-11-2022 15:50-0500 Respiratory rate 18 /min Dr. Arya James Work Phone: [facility] Work Phone: 08-11-2022 15:50-0500 SaO2% (BldA) [Mass fraction] 98 % Dr. Arya James Work Phone: [facility] Work Phone: 08-11-2022 15:50-0500 Systolic blood pressure 144 mm[Hg] Dr. Arya James Work Phone: [facility] Work Phone: 01-28-2017 15:03-0400 BMI (Body Mass Index) 24.61 kg/m2 [facility] Work Phone: 01-28-2017 15:03-0400 Body weight 78.93 kg [facility] Work Phone: 01-28-2017 15:03-0400 BP Diastolic 60 mm[Hg] [facility] Work Phone: 01-28-2017 15:03-0400 BP Systolic 124 mm[Hg] [facility] Work Phone: 01-28-2017 15:03-0400 Pulse (Heart Rate) 64 /min [facility] Work Phone: 01-28-2017 15:03-0400 Respiratory Rate 16 /min [facility] Work Phone: 01-28-2017 15:03-0400 Weight 78.93 kg [facility] Work Phone: 04-22-2016 14:33-0400 BMI (Body Mass Index) 22.49 kg/m2 [facility] Work Phone: 04-22-2016 14:33-0400 BP Diastolic 68 mm[Hg] Gillian Sierra [facility] Work Phone: 04-22-2016 14:33-0400 BP Systolic 108 mm[Hg] Gillian Sierra RN [facility] Work Phone: 04-22-2016 14:33-0400 BSA (Body Surface Area) 1.9 m2 Gillian Sierra RN [facility] Work Phone: 04-22-2016 14:33-0400 Pulse (Heart Rate) 68 /min Gillian Sierra [facility] Work Phone: 04-22-2016 14:33-0400 Respiratory Rate 18 /min [facility] Work Phone: 04-22-2016 14:33-0400 Weight 72.12 kg Gillian Sierra RN [facility] Work Phone: 02-12-2015 16:11-0400 Heart rate 63 /min Marlyn Camejo [facility] Work Phone: 04-20-2013 15:00-0400 Body Temperature 97.7 [degF] [facility] Work Phone: 04-20-2013 15:00-0400 Pulse Oximetry 98 % Gillian Sierra RN [facility] Work Phone: 08-28-2011 08:41-0500 Height 179.07 cm Gillian Sierra RN [facility] Work Phone: Encounters Encounter Date Encounter Type Care Provider Facility Start: 03-17-2025 End: 03-19-2025 Refill Arya James MD Work Phone: [facility] Comment on above: Refill Request Start: 02-14-2025 End: 02-14-2025 Patient encounter procedure Jorge Luis Swann PA-C Work Phone: Urology Comment on above: Neurogenic bladder ( Primary Dx); Urine retention; Prostate cancer screening Start: 02-14-2025 End: 02-14-2025 ambulatory JORGE LUIS SWANN Facility:[facility] Start: 02-08-2025 End: 02-08-2025 Chart abstracting Ebonie Crowe MA [facility] Comment on above: Results (Outside lab s ) Start: 02-08-2025 End: 02-14-2025 Telephone encounter Jorge Luis Deondre SCHWARTZ Work Phone: Urology Comment on above: Appointment; Request Outside Medical Records Start: 02-07-2025 End: 02-07-[address] Arya James MD Work Phone: [facility] Work Phone: Start: 02-07-2025 End: 02-07-2025 Patient encounter procedure Sully Desir NP-C -Laboratory Work Phone: Start: 02-07-2025 End: 02-07-2025 ambulatory Sully Desir NP Facility:[facility] Start: 02-06-2025 End: 02-06-2025 Telephone encounter Arya James MD Work Phone: [facility] Comment on above: Referral Information Start: 01-30-2025 End: 01-31-2025 Follow-up encounter [facility] Comment on above: Results Start: 01-27-2025 End: 01-27-2025 Patient encounter procedure Sully GONCALVES -[facility] Work Phone: Start: 01-27-2025 End: 01-27-[address] Arya James MD Work Phone: [facility] Work Phone: Start: 01-26-2025 End: 01-26-2025 ambulatory ARYA JAMES Facility:[facility] Start: 01-26-2025 Encounter for genera l adult medical examination without abnormal findings VIRGIL HOUGH [facility] Start: 01-26-2025 End: 01-26-2025 Patient encounter procedure Arya James MD Work Phone: [facility] Comment on above: Well adult exam (Adela kp Dx); Essential hypertension; Elevated fasting blood sugar; Bilateral carotid artery stenosis; Coronary artery disease due to lipid rich plaque; PVC (premature ventricular contraction); Anxiety; Current moderate episode of major depressive disorder without prior episode (HCC); Bilateral leg edema; Alcohol abuse; Smoker; Fatty liver; Neck pain; Muscle tension headache; ED (erectile dysfunction) of organic origin; Medication management; Encounter for screening for diabetes mellitus; Screening for prostate cancer Start: 01-26-2025 End: 01-26-2025 Patient encounter status Arya James MD Work Phone: [facility] Start: 01-26-2025 End: 01-26-2025 ambulatory ARYA JAMES Facility:[facility] Start: 08-15-2024 End: 08-15-2024 Refill [facility] MD [facility] Comment on above: Refill Request Start: 08-01-2024 End: 08-01-2024 Telephone encounter Virgil Hough APRN.SENIOR CONSUMER INSIGHTS CONSULTANT Work Phone: [facility] Comment on above: Results Start: 07-28-2024 End: 07-28-2024 Subsequent hospital visit by physician [facility] Work Phone: Radiology Comment on above: Neck pain [M54.2] Start: 07-28-2024 End: 07-28-2024 Patient encounter procedure Virgil Hough APRN.SENIOR CONSUMER INSIGHTS CONSULTANT Work Phone: [facility] Comment on above: Neck pain (Primary D x); Urine retention; Essential hypertension; Bladder pain; Coronary artery disease due to lipid rich plaque Start: 07-28-2024 End: 07-28-2024 ambulatory VIRGIL HOUGH Facility:[facility] Start: 07-20-2024 End: 07-20-2024 ambulatory ARYA JAMES Facility:[facility] Start: 07-19-2024 End: 07-19-2024 Telephone encounter Arya James MD Work Phone: [facility] Comment on above: Orders Start: 06-29-2024 End: 06-29-2024 Chart abstracting Arya James MD Work Phone: [facility] Comment on above: Outside Emzp-Vud-OEP Ordered Consult ([facility] - Dr. Annelise barrios ) Start: 06-27-2024 End: 06-27-2024 ambulatory Arya James Facility:[facility] Start: 06-17-2024 End: 06-17-2024 Refill Arya James MD Work Phone: [facility] Comment on above: Refill Request Start: 05-11-2024 End: 05-11-2024 Telephone encounter Aris HUERTAS Work Phone: [facility] Comment on above: Results Start: 05-10-2024 End: 05-10-2024 Telephone encounter Aris HUERTAS Work Phone: [facility] Comment on above: Results Start: 05-09-2024 End: 05-09-2024 ambulatory ARYA JAMES Facility:[facility] Start: 05-09-2024 End: 05-09-2024 Patient encounter procedure Genoveva King ROCHELLE.SENIOR CONSUMER INSIGHTS CONSULTANT Work Phone: [facility] Comment on above: Burning with urinati on (Primary Dx) Start: 03-25-2024 Chart abstracting Arya strickland MD Work Phone: [facility] Comment on above: Outside Urology Start: 03-08-2024 Chart abstracting Arya strickland MD Work Phone: [facility] Comment on above: Outside Urology (Lab /) Start: 03-08-2024 Telephone encounter Ebonie Crowe MA [facility] Comment on above: Patient Update ([facility] - fax ) Start: 03-07-2024 End: 03-07-2024 ambulatory Arya James Facility:[facility] Start: 03-02-2024 End: 03-02-2024 ambulatory ARYA JAMES Facility:[facility] Start: 03-02-2024 End: 03-02-2024 Nursing evaluation of patient and report Mi Nurse Work Phone: [facility] Comment on above: Epidermoid cyst of s kin of back (Primary Dx) Start: 02-29-2024 Telephone encounter Arya James MD Work Phone: [facility] Comment on above: Results Start: 02-24-2024 Chart abstracting Arya strickland MD Work Phone: [facility] [place] Comment on above: Outside Cardiology Start: 02-24-2024 End: 02-24-2024 ambulatory ARYA JAMES Facility:[facility] Start: 02-24-2024 End: 02-24-2024 Subsequent hospital visit by physician Ct Prep [facility] Cat Scan Comment on above: Smoker [F17.200] Start: 02-24-2024 End: 02-24-2024 ambulatory Arya James Facility:[facility] Start: 02-19-2024 Telephone encounter Arya James MD Work Phone: [facility] [place] Comment on above: Results Start: 02-18-2024 Telephone encounter Arya James MD Work Phone: [facility] [place] Comment on above: Results Start: 02-17-2024 End: 02-17-2024 ambulatory ARYA JAMES Facility:[facility] Start: 02-17-2024 End: 02-17-2024 Patient encounter procedure Arya James MD Work Phone: [facility] [place] Comment on above: Neoplasm of uncertai n behavior of skin of back (Primary Dx); Infected sebaceous cyst; Epidermoid cyst of skin of back Start: 02-17-2024 End: 02-17-2024 ambulatory ARYA JAMES Facility:[facility] Start: 02-17-2024 End: 02-17-2024 Subsequent hospital visit by physician Ct [facility] (I-Stat) Work Phone: Cat Scan Comment on above: Smoker [F17.200] Start: 02-15-2024 Telephone encounter Ebonie Crowe MA [facility] [place] Start: 02-15-2024 End: 02-15-2024 Subsequent hospital visit by physician Us [facility] Mob 2 Work Phone: Radiology Comment on above: Smoker [F17.200] Start: 02-04-2024 End: 02-04-2024 Subsequent hospital visit by physician Ct [facility] (I-Stat) Work Phone: Cat Scan Start: 01-30-2024 Telephone encounter Arya James MD Work Phone: [facility] [place] Comment on above: Results Start: 01-26-2024 End: 01-26-2024 Subsequent hospital visit by physician Xr [facility] [place] Work Phone: Radiology Comment on above: Smoker [F17.200] Start: 01-26-2024 End: 01-26-2024 Patient encounter procedure [facility] Comment on above: Well adult exam (Adela kp Dx); Essential hypertension; Elevated fasting blood sugar; Bilateral carotid artery stenosis; Coronary artery disease due to lipid rich plaque; PVC (premature ventricular contraction); Current moderate episode of major depressive disorder without prior episode (HCC); Anxiety; Bilateral leg edema; Smoker; ANNIE (obstructive sleep apnea); Unintentional weight loss; Alcohol abuse Start: 01-26-2024 End: 01-26-2024 Patient encounter status Arya James MD Work Phone: [facility] Work Phone: Start: 12-14-2023 Refill Arya sharpe MD Work Phone: [facility] [place] Comment on above: Refill Request Start: 12-03-2023 Chart abstracting Arya strickland MD Work Phone: [facility] Comment on above: External / Cardiac C ath Start: 12-02-2023 End: 12-02-2023 Admission to same day surgery center Dr. Arya James Work Phone: [facility]-Soliciting Freight Agent/Special Procedures Work Phone: Start: 12-02-2023 End: 12-02-[address] Arya James Work Phone: [facility] Work Phone: Start: 11-20-2023 End: 11-20-[address] Arya James Work Phone: [facility] Work Phone: Start: 11-20-2023 End: 11-20-[address] Arya James Work Phone: [facility]-Radiology, [facility] Work Phone: Start: 11-20-2023 End: 11-20-[address] Arya James Work Phone: [facility] [facility] Work Phone: Start: 10-28-2023 End: 10-28-2023 Patient encounter procedure Shiraz Rogel OD Work Phone: Optometry Comment on above: Regular astigmatism, bilateral (Primary Dx); Myopia of right eye; Hyperopia, left; Vitreous floaters of both eyes Start: 07-10-2023 End: 07-10-2023 Patient encounter procedure Arya James MD Work Phone: [facility] [place] Comment on above: SOB (shortness of br eath) (Primary Dx); Bilateral leg edema; Prostate cancer screening; Medication management; Essential hypertension; Elevated fasting blood sugar; Coronary artery disease due to lipid rich plaque Start: 06-15-2023 Telephone encounter Arya James MD Work Phone: [facility] [place] Comment on above: [facility] questioning test ing Start: 06-09-2023 Telephone encounter Arya James MD Work Phone: [facility] [place] Comment on above: Results Start: 2023 End: 2023 Patient encounter procedure Arya James MD Work Phone: [facility] [place] Comment on above: Bilateral leg edema (Primary Dx); SOB (shortness of breath); Coronary artery disease due to lipid rich plaque; Smoker Start: 12-15-2022 Telephone encounter Paula lerma PA-C Work Phone: [facility] [place] Comment on above: Results Start: 12-12-2022 End: 12-12-2022 Subsequent hospital visit by physician Ct [facility] [email or web address] (I-Stat) Work Phone: Cat Scan Comment on above: New persistent daily headache [G44.52] Start: 11-29-2022 Telephone encounter Paula lerma PA-C Work Phone: [facility] [place] Comment on above: premedication prior to CT Scan Start: 11-28-2022 End: 11-28-2022 Subsequent hospital visit by physician Ct [facility] (I-Stat) Work Phone: Cat Scan Comment on above: Left without seen Start: 11-24-2022 Telephone encounter Arya James MD Work Phone: [facility] [place] Comment on above: Medication request Start: 11-20-2022 End: 11-20-2022 Patient encounter procedure Paula Hyman PA-C Work Phone: [facility] Comment on above: New persistent daily headache (Primary Dx); Tinnitus of both ears Start: 11-17-2022 End: 11-17-2022 Office outpatient visit 25 minutes Arya Mckenzie APRN.SENIOR CONSUMER INSIGHTS CONSULTANT Work Phone: [facility] Comment on above: Headache, unspecifie d headache type (Primary Dx) Start: 10-27-2022 End: 10-27-2022 Patient encounter procedure Genoveva Guillen APRN.SENIOR CONSUMER INSIGHTS CONSULTANT Work Phone: [facility] Comment on above: Viral sinusitis (Adela kp Dx) Start: 08-22-2022 Non-patient / Non-visit Dr. Rajinder James Work Phone: [facility] Start: 08-22-2022 End: 08-22-[address] Arya James Work Phone: [facility] Work Phone: Start: 08-22-2022 End: 08-22-[address] Arya James Work Phone: [facility]Cardiov[facility] Start: 08-14-2022 End: 08-14-[address] Arya James Work Phone: [facility] Work Phone: Start: 08-14-2022 End: 08-14-[address] Arya James Work Phone: [facility]Laboratory Start: 08-11-2022 End: 08-11-[address] Arya James Work Phone: [facility] [facility] Start: 08-11-2022 Refill Arya sharpe MD Work Phone: [facility] Comment on above: Refill Request Start: 01-14-2022 Refill Arya sharpe MD Work Phone: [facility] Comment on above: Refill Request Start: 12-16-2021 Refill Arya sharpe MD Work Phone: [facility] Comment on above: Refill Request Start: 05-14-2021 End: 05-14-2021 [facility] Comment on above: Neck pain [M54.2] Start: 05-30-2018 End: 05-30-2018 Patient encounter Micha Mckenzie Facility:[facility] Start: 05-06-2018 Patient encounter status Hamida James MD Work Phone: [facility] Work Phone: Procedures Date Procedure Procedure Detail Performing Clinician Start: 02-14-2025 Urnls dip stick/tablet rgnt auto w/o microscopy Jorge Luis Swann PA-C Work Phone: Start: 01-26-2025 Lipid 1996 panel - Serum or Plasma Arya James MD Work Phone: Start: 07-20-2024 Lipid 1996 panel - Serum or Plasma Virgil Hough RESEARCH AIDE.SENIOR CONSUMER INSIGHTS CONSULTANT Work Phone: Start: 05-09-2024 Urnls dip stick/tablet rgnt auto w/o microscopy Genoveva Guillen RESEARCH AIDE.SENIOR CONSUMER INSIGHTS CONSULTANT Work Phone: Start: 03-08-2024 PSA screening [facility] Provider Start: 02-17-2024 SURGICAL PATHOLOGY Arya James MD Work Phone: Start: 01-26-2024 Radiologic exam chest 2 views Arya James MD Work Phone: Start: 01-13-2024 Lipid 1996 panel - Serum or Plasma Arya James MD Work Phone: Start: 11-20-2023 Plain chest X-ray Dr. Arya James Work Phone: Start: 2023 Ecg routine ecg w/least 12 lds i&r only [facility] Provider Start: 12-12-2022 Ct head/brain w/o contrast material Paula Hyman PA-C Work Phone: Start: 05-14-2021 Radex spine cervical 4 or 5 views Paula Hyman PA-C Work Phone: Start: 03-15-2021 Lipid 1996 panel - Serum or Plasma Arya James MD Work Phone: Start: 09-15-2017 Colonoscopy Arya James MD Work Phone: Start: 03-12-2017 End: 07-08-2017 Stress Echocardiogram (treadmill) Kody Bernstein MD Start: 01-28-2017 End: 01-28-2017 Documentation of current medications Marlyn Camejo Start: 01-28-2017 End: 01-28-2017 Follow Up Appt 6 months Kody Bernstein MD Start: 01-28-2017 End: 01-28-2017 MMM Kody Bernstein MD Start: 01-28-2017 End: 01-28-2017 Follow Up Appt 6 months Kody Bernstein MD Start: 01-28-2017 End: 01-28-2017 MMM Kody Bernstein MD Start: 06-17-2016 End: 06-23-2016 *Hepatic Function Panel Gillian freed PA-C Work Phone: Start: 06-17-2016 End: 06-23-2016 Lipid 1996 panel - Serum or Plasma Gillian Caldwell PA-C Work Phone: Start: 06-17-2016 End: 06-23-2016 *Hepatic Function Panel Gillian freed PA-C Work Phone: Start: 06-17-2016 End: 06-23-2016 Lipid panel [AGGREGATE] Gillian freed PA-C Work Phone: Start: 04-22-2016 End: 04-22-2016 Smoking cessation education Marlyn pablo Start: 04-22-2016 End: 04-22-2016 Follow Up Appt 6 months Gillian freed PA-C Work Phone: Start: 04-22-2016 End: 04-22-2016 PFM Gillian Caldwell PA-C Work Phone: Start: 04-22-2016 End: 04-22-2016 Follow Up Appt 6 months Gillian freed PA-C Work Phone: Start: 04-22-2016 End: 04-22-2016 PFM Gillian Caldwell PA-C Work Phone: Start: 11-14-2015 End: 12-17-2015 *Hepatic Function Panel Gillian freed PA-C Work Phone: Start: 11-14-2015 End: 12-17-2015 Lipid 1996 panel - Serum or Plasma Gillian Caldwell PA-C Work Phone: Start: 11-14-2015 End: 12-17-2015 *Hepatic Function Panel Gillian freed PA-C Work Phone: Start: 11-14-2015 End: 12-17-2015 Lipid panel [AGGREGATE] Gillian freed PA-C Work Phone: Start: 09-03-2015 End: 12-04-2015 *Hepatic Function Panel Kody Bernstein MD Start: 09-03-2015 End: 09-03-2015 Follow Up Appt 6 months Kody Bernstein MD Start: 09-03-2015 End: 12-04-2015 Lipid 1996 panel - Serum or Plasma Kody Bernstein MD Start: 09-03-2015 End: 09-03-2015 MMM Kody Bernstein MD Start: 09-03-2015 End: 09-03-2015 Dietary management education, guidance, and counseling Marlyn Bashir Start: 09-03-2015 End: 12-04-2015 *Hepatic Function Panel Kody Bernstein MD Start: 09-03-2015 End: 09-03-2015 Follow Up Appt 6 months Kody Bernstein MD Start: 09-03-2015 End: 12-04-2015 Lipid panel [AGGREGATE] Kody Bernstein MD Start: 09-03-2015 End: 09-03-2015 MM Kody Bernstein MD Start: 05-15-2015 End: 05-15-2015 *Hepatic Function Panel Gillian freed PA-C Work Phone: Start: 05-15-2015 End: 12-04-2015 Carotid duplex Gillian Caldwell PA-C Work Phone: Start: 05-15-2015 End: 05-16-2015 Documentation of current medications Gillian Caldwell PA-C Work Phone: Start: 05-15-2015 End: 05-15-2015 Follow Up Appt Other Gillian paz PA-C Work Phone: Start: 05-15-2015 End: 05-15-2015 Lipid 1996 panel - Serum or Plasma Gillian Caldwell PA-C Work Phone: Start: 05-15-2015 End: 05-16-2015 Smoking cessation education Gillian Zarco PA-C Work Phone: Start: 05-15-2015 End: 05-15-2015 *Hepatic Function Panel Gillian freed PA-C Work Phone: Start: 05-15-2015 End: 12-04-2015 Carotid duplex Gillian aCldwell PA-C Work Phone: Start: 05-15-2015 End: 05-16-2015 Documentation of current medications Gillian Caldwell PA-C Work Phone: Start: 05-15-2015 End: 05-15-2015 Follow Up Appt Other Gillian paz PA-C Work Phone: Start: 05-15-2015 End: 05-15-2015 Lipid panel [AGGREGATE] Gillian freed PA-C Work Phone: Start: 05-15-2015 End: 05-16-2015 Smoking cessation education Gillian Zarco PA-C Work Phone: Start: 02-12-2015 End: 02-13-2015 Cardiac Rehab Gillian Caldwell PA-C Work Phone: Start: 02-12-2015 End: 05-07-2015 Cardiovascular stress test using treadmill Gillian Caldwell PA-C Work Phone: Start: 02-12-2015 End: 02-13-2015 Documentation of current medications iGllian Caldwell PA-C Work Phone: Start: 02-12-2015 End: 02-12-2015 Follow Up Appt 3 months Gillian freed PA-C Work Phone: Start: 02-12-2015 End: 02-12-2015 Follow Up Appt 6 months Gillian freed PA-C Work Phone: Start: 02-12-2015 End: 02-12-2015 MMM Gillian Caldwell PA-C Work Phone: Start: 02-12-2015 End: 02-12-2015 PFM Gillian Caldwell PA-C Work Phone: Start: 02-12-2015 End: 02-13-2015 Smoking cessation education Gillian Zarco PA-C Work Phone: Start: 02-12-2015 End: 02-13-2015 Cardiac Rehab Gillian Caldwell PA-C Work Phone: Start: 02-12-2015 End: 05-07-2015 Cardiovascular stress test using treadmill Gillian Caldwell PA-C Work Phone: Start: 02-12-2015 End: 02-13-2015 Documentation of current medications Gillian Caldwell PA-C Work Phone: Start: 02-12-2015 End: 02-12-2015 Follow Up Appt 3 months Gillian freed PA-C Work Phone: Start: 02-12-2015 End: 02-12-2015 Follow Up Appt 6 months Gillian freed PA-C Work Phone: Start: 02-12-2015 End: 02-12-2015 MMAsha Caldwell PA-C Work Phone: Start: 02-12-2015 End: 02-12-2015 PF Gillian Caldwell PA-C Work Phone: Start: 02-12-2015 End: 02-13-2015 Smoking cessation education Gillian Zarco PA-C Work Phone: Start: 01-17-2015 Percutaneous transluminal coronary angioplasty Coronary artery disease, S/P PTCA Marlyn Camejo Start: 01-11-2015 End: 01-12-2015 *BMP Kody Bernstein MD Start: 01-11-2015 End: 01-12-2015 *Hepatic Function Panel Kody Bernstein MD Start: 01-11-2015 End: 01-12-2015 aPTT in Platelet poor plasma by Coagulation assay Kody Bernstein MD Start: 01-11-2015 End: 01-12-2015 CBC W Auto Differential panel - Blood Kody Bernstein MD Start: 01-11-2015 End: 02-06-2015 Chest x-ray Kody Bernstein MD Start: 01-11-2015 End: 01-12-2015 Documentation of current medications Kody Bernstein MD Start: 01-11-2015 End: 02-06-2015 Echocardiography Kody Bernstein MD Start: 01-11-2015 End: 01-11-2015 Follow Up Appt 1 month Kody Bernstein MD Start: 01-11-2015 End: 01-12-2015 INR in Platelet poor plasma by Coagulation assay Kody Bernstein MD Start: 01-11-2015 End: 02-06-2015 Left Heart Cath Kody Bernstein MD Start: 01-11-2015 End: 01-12-2015 Lipid 1996 panel - Serum or Plasma Kody Bernstein MD Start: 01-11-2015 End: 01-11-2015 MMM Kody Bernstein MD Start: 01-11-2015 End: 01-12-2015 Smoking cessation education Kody perdomo MD Start: 01-11-2015 End: 01-12-2015 Thyrotropin [Units/volume] in Serum or Plasma Kody Bernstein MD Start: 01-11-2015 End: 01-12-2015 Thyroxine (T4) [Mass/volume] in Serum or Plasma Kody Bernstein MD Start: 01-11-2015 End: 01-12-2015 *BMP Kody Bernstein MD Start: 01-11-2015 End: 01-12-2015 *Hepatic Function Panel Kody Bernstein MD Start: 01-11-2015 End: 01-12-2015 aPTT Kody Bernstein MD Start: 01-11-2015 End: 01-12-2015 CBC W Auto Differential panel - Blood Kody Bernstein MD Start: 01-11-2015 End: 02-06-2015 Chest x-ray Kody Bernstein MD Start: 01-11-2015 End: 01-12-2015 Coagulation factor induced.INR assay in platelet poor plasma Kody Bernstein MD Start: 01-11-2015 End: 01-12-2015 Documentation of current medications Kody Bernstein MD Start: 01-11-2015 End: 02-06-2015 Echocardiography Kody Bernstein MD Start: 01-11-2015 End: 01-11-2015 Follow Up Appt 1 month Kody Bernstein MD Start: 01-11-2015 End: 02-06-2015 Left Heart Cath Kody Bernstein MD Start: 01-11-2015 End: 01-12-2015 Lipid panel [AGGREGATE] Kody Bernstein MD Start: 01-11-2015 End: 01-11-2015 MMM Kody Bernstein MD Start: 01-11-2015 End: 01-12-2015 Smoking cessation education Kody perdomo MD Start: 01-11-2015 End: 01-12-2015 Thyroid stimulating hormone (TSH) Kody Bernstein MD Start: 01-11-2015 End: 01-12-2015 Thyroxine (T4) Kody Bernstein MD Start: 04-29-2013 End: 04-22-2016 Bacteria identified in Blood by Culture Tamera Petersen MD Start: 04-29-2013 End: 04-22-2016 Bacteria culture Tamera Petersen MD Start: 11-25-2011 End: 05-07-2015 *Hepatic Function Panel Kody Bernstein MD Start: 11-25-2011 End: 05-07-2015 Lipid 1996 panel - Serum or Plasma Kody Bernstein MD Start: 11-25-2011 End: 05-07-2015 *Hepatic Function Panel Kody Bernstein MD Start: 11-25-2011 End: 05-07-2015 Lipid panel [AGGREGATE] Kody Bernstein MD Start: 08-28-2011 End: 08-28-2011 Follow Up Appt 6 months Kody Bernstein MD Start: 08-28-2011 End: 08-28-2011 Follow Up Appt 6 months Kody Bernstein MD Plan of Treatment Date Care Activity Detail Author Start: 01-26-2030 Lipid panel Lipid Screening [facility] Start: 01-26-2030 Prostate specific an tigen measurement Prostate Cancer Screening Discussion [facility] Start: 07-20-2029 Lipid panel Lipid Screening [facility] Start: 03-08-2029 Prostate specific an tigen measurement Prostate Cancer Screening Discussion [facility] Start: 01-25-2029 Prostate specific an tigen measurement Prostate Cancer Screening Discussion [facility] Start: 01-12-2029 Lipid panel Lipid Screening [facility] Start: 05-30-2028 Urine microalbumin profile [facility] Start: 01-27-2028 Diabetes Screening Diabetes Screenin g [facility] Start: 09-15-2027 Colonoscopy COLONOSCOPY [facility] Start: 09-15-2027 COLORECTAL CANCER SCREENING COLORECTAL CANCER SCREENING [facility] Start: 09-15-2027 Screening for malign ant neoplasm of colon [facility] Start: 07-20-2027 Diabetes Screening Diabetes Screenin g [facility] Start: 01-12-2027 Diabetes Screening Diabetes Screenin g [facility] Start: 03-15-2026 Lipid 1996 panel - S azael or Plasma Lipid Screening [facility] Start: 03-15-2026 Lipid panel Lipid Screening [facility] Start: 03-15-2026 LIPID SCREEN LIPID SCREEN [facility] Start: 03-15-2026 PROSTATE CANCER SCRE ENING DISCUSSION PROSTATE CANCER SCREENING DISCUSSION [facility] Start: 03-15-2026 Prostate specific an tigen measurement Prostate Cancer Screening Discussion [facility] Start: 02-20-2026 End: 02-20-2026 Patient encounter procedure 02/20/2026 8:00 AM EDT Office Visit Urology [address] [place] [address] Jorge Luis Swann PA-C [address] [place] [address] Return in about one year Urology Comment on above: Return in about one year Start: 01-26-2026 Annual PCP Team Staffing Associate aida Disease Visit Annual PCP Team Chronic Disease Visit [facility] Start: 01-26-2026 BP Controlled (<130/80) BP Controlle d (<130/80) [facility] Start: 01-26-2026 Hepatitis B surface antibody level LDL Cholesterol [facility] Start: 08-14-2025 End: 08-14-2025 Patient encounter procedure [facility] [place] Comment on above: 6 month follow up. L abs prior. Start: 07-28-2025 Annual PCP Team Staffing Associate aida Disease Visit Annual PCP Team Chronic Disease Visit [facility] Start: 07-28-2025 BP Controlled (<130/80) BP Controlle d (<130/80) [facility] Start: 07-20-2025 Hepatitis B surface antibody level LDL Cholesterol [facility] Start: 07-14-2025 End: 10-13-2025 Hemoglobin A1c in Blood HEMOGLOBIN A1C Lab Routine Elevated fasting blood sugar Expected: 07/14/2025, Expires: 10/13/2025 [facility] Comment on above: Expected: 07/14/2025 , Expires: 10/13/2025 Start: 07-14-2025 End: 10-13-2025 LIPID PANEL, NONFASTING LIPID PANEL, NONFASTING Lab Routine Essential hypertension Coronary artery disease due to lipid rich plaque Expected: 07/14/2025, Expires: 10/13/2025 [facility] Comment on above: Expected: 07/14/2025 , Expires: 10/13/2025 Start: 05-09-2025 BP Controlled (<130/80) BP Controlle d (<130/80) [facility] Start: 02-16-2025 Annual PCP Team Staffing Associate aida Disease Visit Annual PCP Team Chronic Disease Visit [facility] Start: 02-14-2025 End: 02-14-2025 Patient encounter procedure Urology Comment on above: Urine retention [R33 .9] CONSULT: Urine reten tion; Bladder pain.CIC 2-[address] Koo- records requested. [facility] Start: 01-27-2025 Evaluation of diagno stic study results [facility] Start: 01-26-2025 End: 04-27-2025 Comprehensive metabolic 2000 panel - Serum or Plasma [facility] Work Phone: Comment on above: Expected: 01/26/2025 , Expires: 04/27/2025 Start: 01-26-2025 End: 04-27-2025 LIPID PANEL, NONFASTING [facility] Comment on above: Expected: 01/26/2025 , Expires: 04/27/2025 Start: 01-26-2025 End: 04-27-2025 Prostate specific Ag [Mass/volume] in Serum or Plasma [facility] Comment on above: Expected: 01/26/2025 , Expires: 04/27/2025 Start: 01-26-2025 End: 04-27-2025 Thyrotropin [Units/volume] in Serum or Plasma [facility] Comment on above: Expected: 01/26/2025 , Expires: 04/27/2025 Start: 01-26-2025 End: 04-27-2025 Urinalysis complete panel - Urine URINALYSIS, WITH MICROSCOPIC Lab Routine Essential hypertension Expected: 01/26/2025, Expires: 04/27/2025 [facility] Comment on above: Expected: 01/26/2025 , Expires: 04/27/2025 Start: 01-26-2025 End: 01-26-2025 Patient encounter procedure 01/26/2025 8:00 AM EDT Office Visit Family [facility] [address], [place] [id number] Arya James MD [address] [place], [place] [id number] physical [facility] [place] Comment on above: physical Start: 01-25-2025 Annual PCP Team Staffing Associate aida Disease Visit Annual PCP Team Chronic Disease Visit [facility] Start: 01-25-2025 BP Controlled (<130/80) BP Controlle d (<130/80) [facility] Start: 01-25-2025 Pneumococcal vaccination Pneum ococcal Vaccine (1 of 2 - PCV) [facility] Comment on above: Postponed from 06/08 (Declined at this time) Start: 01-25-2025 Shingrix Vaccine (1 of 2) Carrion grix Vaccine (1 of 2) [facility] Comment on above: Postponed from 06/08 (Declined at this time) Start: 01-12-2025 Hepatitis B surface antibody level LDL Cholesterol [facility] Start: 09-13-2024 End: 09-13-2024 Patient encounter procedure 09/13/2024 8:30 AM EST Office Visit Urology [address] [place] [address] Jorge Luis Swann PA-C [address] [place] [address] Urine retention [R33.9]; Bladder pain [R39.89] Urology Comment on above: Urine retention [R33 .9]; Bladder pain [R39.89] Start: 07-28-2024 End: 07-28-2024 Patient encounter procedure 07/28/2024 4:20 PM EST Office Visit Family [facility] [place] [address] [place] [address] Virgil Hough APRN.SENIOR CONSUMER INSIGHTS CONSULTANT [address] [facility] [place] [address] 6 month follow up [facility] [place] Comment on above: 6 month follow up Start: 07-19-2024 End: 10-18-2024 Basic metabolic 2000 panel - Serum or Plasma BASIC METABOLIC PANEL Lab Routine Essential hypertension Expected: 07/19/2024, Expires: 10/18/2024 [facility] Work Phone: Comment on above: Expected: 07/19/2024 , Expires: 10/18/2024 Start: 07-10-2024 Annual PCP Team Staffing Associate aida Disease Visit Annual PCP Team Chronic Disease Visit [facility] Start: 07-10-2024 BP Controlled (<130/80) BP Controlle d (<130/80) [facility] Start: 07-09-2024 End: 07-09-2024 ambulatory 07/09/2024 7:30 AM EST Results Only [facility] [address] [facility] [place] [address] [facility] Start: 07-08-2024 End: 10-07-2024 Hemoglobin A1c in Blood HEMOGLOBIN A1C Lab Routine Elevated fasting blood sugar Expected: 07/08/2024, Expires: 10/07/2024 [facility] Comment on above: Expected: 07/08/2024 , Expires: 10/07/2024 Start: 07-08-2024 End: 10-07-2024 Hepatic function 2000 panel - Serum or Plasma HEPATIC FUNCTION PNL Lab Routine Essential hypertension Coronary artery disease due to lipid rich plaque Alcohol abuse Expected: 07/08/2024, Expires: 10/07/2024 [facility] Comment on above: Expected: 07/08/2024 , Expires: 10/07/2024 Start: 07-08-2024 End: 10-07-2024 Lipid 1996 panel - Serum or Plasma LIPID PANEL BASIC Lab Routine Essential hypertension Bilateral carotid artery stenosis Coronary artery disease due to lipid rich plaque Expected: 07/08/2024, Expires: 10/07/2024 [facility] Comment on above: Expected: 07/08/2024 , Expires: 10/07/2024 Start: 2024 Annual PCP Team Staffing Associate aida Disease Visit Annual PCP Team Chronic Disease Visit [facility] Start: 03-15-2024 DIABETES SCREEN [facility] Start: 03-15-2024 Diabetes Screening Diabetes Screenisaac yoder [facility] Start: 03-15-2024 End: 03-15-2024 Patient encounter procedure 03/15/2024 8:30 AM EDT Office Visit Urology [address] [place] [address] Jorge Luis Swann PA-C [address] [place] [address] New consult- Urine retention [R33.9] Urology Comment on above: New consult- Urine r etention [R33.9] Start: 03-02-2024 End: 03-02-2024 Nursing evaluation of patient and report 03/02/2024 12:30 PM EDT Nurse Visit [facility] [address] [place] [address] Nurse, [place] [address] [facility] [place] [address] Suture removal on back [facility] [place] Comment on above: Suture removal on ba ck Start: 02-24-2024 End: 02-24-2024 Patient encounter procedure Vasculary Surgery Comment on above: Bilateral carotid ar nicole stenosis [I65.23] Smoker [F17.200]; Un intentional weight loss [R63.4] Start: 02-17-2024 End: 02-17-2024 Patient encounter procedure 02/17/2024 10:40 AM EDT Office Visit [facility] [address] [place] [address] Arya James MD [address] [facility], [place] [id number] cyst removal from back [facility] [place] Comment on above: cyst removal from ba ck Start: 02-17-2024 End: 02-17-2024 Patient encounter procedure 02/17/2024 9:20 AM EDT Appointment Cat Scan [address] [place] [address] CT CHEST WO IVCON Cat Scan Comment on above: CT CHEST WO IVCON Start: 02-15-2024 End: 02-15-2024 Patient encounter procedure 02/15/2024 8:30 AM EDT Appointment Radiology [address] [place] [address] Facial pain [R51.9] Radiology Comment on above: Facial pain [R51.9] Start: 02-05-2024 End: 02-05-2024 Patient encounter procedure 02/05/2024 10:45 AM EDT Appointment Radiology [address] [place] [address] Facial pain [R51.9] Radiology Comment on above: Facial pain [R51.9] Start: 01-26-2024 End: 01-26-2024 Patient encounter procedure 01/26/2024 8:00 AM EDT Office Visit [facility] [address] [place] [address] Arya James MD [address] [place] [address] physical [facility] Comment on above: physical Start: 12-25-2023 End: 03-25-2024 CBC W Auto Differential panel - Blood CBC + DIFF Lab Routine Medication management Expected: 12/25/2023, Expires: 03/25/2024 [facility] Work Phone: Comment on above: Expected: 12/25/2023 , Expires: 03/25/2024 Start: 12-25-2023 End: 03-25-2024 Comprehensive metabolic 2000 panel - Serum or Plasma COMP METABOLIC PANEL Lab Routine Essential hypertension Elevated fasting blood sugar Expected: 12/25/2023, Expires: 03/25/2024 [facility] Work Phone: Comment on above: Expected: 12/25/2023 , Expires: 03/25/2024 Start: 12-25-2023 End: 03-25-2024 Hemoglobin A1c in Blood HGB A1C Lab Routine Elevated fasting blood sugar Expected: 12/25/2023, Expires: 03/25/2024 [facility] Work Phone: Comment on above: Expected: 12/25/2023 , Expires: 03/25/2024 Start: 12-25-2023 End: 03-25-2024 LIPID PANEL, NONFASTING LIPID PANEL, NONFASTING Lab Routine Essential hypertension Coronary artery disease due to lipid rich plaque Expected: 12/25/2023, Expires: 03/25/2024 [facility] Work Phone: Comment on above: Expected: 12/25/2023 , Expires: 03/25/2024 Start: 12-25-2023 End: 03-25-2024 Prostate specific Ag [Mass/volume] in Serum or Plasma PSA/PROSTSPECAG DIAG Lab Routine Prostate cancer screening Expected: 12/25/2023, Expires: 03/25/2024 [facility] Work Phone: Comment on above: Expected: 12/25/2023 , Expires: 03/25/2024 Start: 12-25-2023 End: 03-25-2024 Thyrotropin [Units/volume] in Serum or Plasma TSH BLD Lab Routine Medication management Expected: 12/25/2023, Expires: 03/25/2024 [facility] Work Phone: Comment on above: Expected: 12/25/2023 , Expires: 03/25/2024 Start: 12-25-2023 End: 03-25-2024 Urinalysis complete panel - Urine URINALYSIS, WITH MICROSCOPIC Lab Routine Essential hypertension Expected: 12/25/2023, Expires: 03/25/2024 [facility] Work Phone: Comment on above: Expected: 12/25/2023 , Expires: 03/25/2024 Start: 12-02-2023 Patient discharge [facility] Start: 11-21-2023 ANNUAL PCP TEAM RN MDS AIDA DISEASE VISIT ANNUAL PCP TEAM CHRONIC DISEASE VISIT [facility] Start: 11-21-2023 BP CONTROLLED (<130/80) BP CONTROLLE D (<130/80) [facility] Start: 11-21-2023 COVID-19 VACCINE (#1) COVID-19 VACCI NE (#1) [facility] Comment on above: Postponed from 12/07 (Declined at this time) Start: 11-21-2023 PNEUMOCOCCAL (1 - PCV) PNEUMOCOCCAL (1 - PCV) [facility] Comment on above: Postponed from 06/08 (Declined at this time) Start: 11-21-2023 Pneumococcal vaccination [facility] Comment on above: Postponed from 06/08 (Declined at this time) Start: 11-21-2023 SHINGRIX VACCINE (1 of 2) CARRION GRIX VACCINE (1 of 2) [facility] Comment on above: Postponed from 06/08 (Declined at this time) Start: 10-28-2023 BP CONTROLLED (<130/80) BP CONTROLLE D (<130/80) [facility] Start: 2023 End: 08-08-2023 Natriuretic peptide.B prohormone N-Terminal [Mass/volume] in Serum or Plasma [facility] Work Phone: Comment on above: Expected: 2023 , Expires: 08/08/2023 Start: 2023 End: 08-08-2023 Thyrotropin [Units/volume] in Serum or Plasma [facility] Work Phone: Comment on above: Expected: 2023 , Expires: 08/08/2023 Start: 2023 End: 08-08-2023 Thyroxine (T4) free [Mass/volume] in Serum or Plasma [facility] Work Phone: Comment on above: Expected: 2023 , Expires: 08/08/2023 Start: 04-24-2023 Covid-19 Vaccine ( season) Covid-19 Vaccine () [facility] Start: 05-14-2022 ANNUAL PCP TEAM RN MDS AIDA DISEASE VISIT ANNUAL PCP TEAM CHRONIC DISEASE VISIT [facility] Start: 05-14-2022 BP CONTROLLED (<130/80) BP CONTROLLE D (<130/80) [facility] Start: 03-15-2022 Hepatitis B surface antibody level LDL CHOLESTEROL [facility] Start: 08-10-2017 End: 08-10-2017 Appointment Appointment [facility] Work Phone: Start: 03-12-2017 End: 03-12-2017 Stress Echocardiogram (treadmill) Stress Echocardiogram (treadmill) [facility] Work Phone: Start: 01-28-2017 End: 01-28-2017 Appointment Appointment [facility] Work Phone: Start: 01-28-2017 End: 01-28-2017 Follow Up Appt 6 months Follow Up Appt 6 months [place] [facility] Work Phone: Start: 01-28-2017 End: 01-28-2017 MMM MMM [facility] Work Phone: Start: 01-28-2017 End: 01-28-2017 Follow Up Appt 6 months Follow Up Appt 6 months [place] [facility] [employer] Work Phone: Start: 01-28-2017 End: 01-28-2017 MMM MMM [facility] Work Phone: Start: 01-28-2017 End: 01-29-2017 Nuclear stress test -Lexiscan Nuclear stress test -Lexiscan [facility] Work Phone: Start: 12-19-2016 End: 06-24-2016 *Hepatic Function Panel *Hepatic Function Panel [place] [place] [facility] Work Phone: Start: 12-19-2016 End: 06-24-2016 Lipid panel [AGGREGATE] *Lipid Profile CC PCP [facility] [employer] Work Phone: Start: 12-19-2016 End: 06-24-2016 *Hepatic Function Panel *Hepatic Function Panel [facility] [employer] Work Phone: Start: 12-19-2016 End: 06-24-2016 Lipid panel [AGGREGATE] *Lipid Profile CC PCP [facility] Work Phone: Start: 06-17-2016 End: 06-23-2016 *Hepatic Function Panel *Hepatic Function Panel [place] [facility] [employer] Work Phone: Start: 06-17-2016 End: 06-23-2016 Lipid panel [AGGREGATE] *Lipid Profile CC PCP [facility] Work Phone: Start: 06-17-2016 End: 06-23-2016 *Hepatic Function Panel *Hepatic Function Panel [facility] Work Phone: Start: 06-17-2016 End: 06-23-2016 Lipid panel [AGGREGATE] *Lipid Profile CC PCP [facility] Work Phone: Start: 04-22-2016 End: 04-22-2016 Follow Up Appt 6 months Follow Up Appt 6 months [facility] Work Phone: Start: 04-22-2016 End: 04-22-2016 PFM PFM [facility] Work Phone: Start: 04-22-2016 End: 04-22-2016 Follow Up Appt 6 months Follow Up Appt 6 months [facility] Work Phone: Start: 04-22-2016 End: 04-23-2016 Nuclear stress test -exercise Nuclear stress test -exercise [facility] Work Phone: Start: 04-22-2016 End: 04-22-2016 PFM PFM [facility] Work Phone: Start: 11-14-2015 End: 12-17-2015 *Hepatic Function Panel *Hepatic Function Panel [facility] Work Phone: Start: 11-14-2015 End: 12-17-2015 Lipid panel [AGGREGATE] *Lipid Profile CC PCP [facility] Work Phone: Start: 11-14-2015 End: 12-17-2015 *Hepatic Function Panel *Hepatic Function Panel [facility] Work Phone: Start: 11-14-2015 End: 12-17-2015 Lipid panel [AGGREGATE] *Lipid Profile CC PCP [facility] Work Phone: Start: 09-03-2015 End: 12-04-2015 *Hepatic Function Panel *Hepatic Function Panel [facility] Work Phone: Start: 09-03-2015 End: 09-03-2015 Follow Up Appt 6 months Follow Up Appt 6 months [facility] Work Phone: Start: 09-03-2015 End: 12-04-2015 Lipid panel [AGGREGATE] *Lipid Profile CC PCP [facility] Work Phone: Start: 09-03-2015 End: 09-03-2015 MMM MMM [facility] Work Phone: Start: 09-03-2015 End: 12-04-2015 *Hepatic Function Panel *Hepatic Function Panel [facility] Work Phone: Start: 09-03-2015 End: 09-03-2015 Follow Up Appt 6 months Follow Up Appt 6 months [facility] Work Phone: Start: 09-03-2015 End: 12-04-2015 Lipid panel [AGGREGATE] *Lipid Profile CC PCP [facility] Work Phone: Start: 09-03-2015 End: 09-03-2015 MMM MMM [facility] Work Phone: Start: 2015 SHINGRIX VACCINE (1 of 2) CARRION GRIX VACCINE (1 of 2) [facility] Start: 05-15-2015 End: 05-15-2015 *Hepatic Function Panel *Hepatic Function Panel [facility] Work Phone: Start: 05-15-2015 End: 05-15-2015 Carotid duplex Carotid duplex [facility] Work Phone: Start: 05-15-2015 End: 05-15-2015 Follow Up Appt Other Follow Up Appt Other [facility] Work Phone: Start: 05-15-2015 End: 05-15-2015 Lipid panel [AGGREGATE] *Lipid Profile CC PCP [facility] Work Phone: Start: 05-15-2015 End: 05-15-2015 *Hepatic Function Panel *Hepatic Function Panel [facility] Work Phone: Start: 05-15-2015 End: 05-15-2015 Carotid duplex Carotid duplex [facility] Work Phone: Start: 05-15-2015 End: 05-15-2015 Follow Up Appt Other Follow Up Appt Other [facility] Work Phone: Start: 05-15-2015 End: 05-15-2015 Lipid panel [AGGREGATE] *Lipid Profile CC PCP [facility] Work Phone: Start: 02-12-2015 End: 02-13-2015 Cardiac Rehab Cardiac Rehab [facility] Work Phone: Start: 02-12-2015 End: 02-13-2015 Cardiovascular stress test using treadmill Treadmill stress test (no imaging) [facility] Work Phone: Start: 02-12-2015 End: 02-12-2015 Follow Up Appt 3 months Follow Up Appt 3 months [facility] Work Phone: Start: 02-12-2015 End: 02-12-2015 Follow Up Appt 6 months Follow Up Appt 6 months [facility] Work Phone: Start: 02-12-2015 End: 02-12-2015 MMM MMM [facility] Work Phone: Start: 02-12-2015 End: 02-12-2015 PFM PFM [facility] Work Phone: Start: 02-12-2015 End: 02-13-2015 Cardiac Rehab Cardiac Rehab [facility] Work Phone: Start: 02-12-2015 End: 02-13-2015 Cardiovascular stress test using treadmill Treadmill stress test (no imaging) [facility] Work Phone: Start: 02-12-2015 End: 02-12-2015 Follow Up Appt 3 months Follow Up Appt 3 months [facility] Work Phone: Start: 02-12-2015 End: 02-12-2015 Follow Up Appt 6 months Follow Up Appt 6 months [facility] Work Phone: Start: 02-12-2015 End: 02-12-2015 MMM MMM [facility] Work Phone: Start: 02-12-2015 End: 02-12-2015 PFM PFM [facility] Work Phone: Start: 01-11-2015 End: 01-12-2015 *BMP *BMP [facility] Work Phone: Start: 01-11-2015 End: 01-12-2015 *Hepatic Function Panel *Hepatic Function Panel [facility] Work Phone: Start: 01-11-2015 End: 01-12-2015 aPTT *PTT-Partial Thromboplastin Time [facility] Work Phone: Start: 01-11-2015 End: 01-12-2015 CBC W Auto Differential panel - Blood *CBC without Diff [facility] Work Phone: Start: 01-11-2015 End: 02-06-2015 Chest x-ray X-Ray, Chest, PA & Lateral [facility] Work Phone: Start: 01-11-2015 End: 01-11-2015 Echocardiography Echocardiogram (complete) [facility] Work Phone: Start: 01-11-2015 End: 01-11-2015 Follow Up Appt 1 month Follow Up Appt 1 month [facility] Work Phone: Start: 01-11-2015 End: 01-12-2015 INR Coag RelTime (PPP) *PT/INR [facility] Work Phone: Start: 01-11-2015 End: 01-11-2015 Left Heart Cath Left Heart Cath [facility] Work Phone: Start: 01-11-2015 End: 01-12-2015 Lipid panel [AGGREGATE] *Lipid Profile CC PCP [facility] Work Phone: Start: 01-11-2015 End: 01-11-2015 MMM MMM [facility] Work Phone: Start: 01-11-2015 End: 01-12-2015 Thyroid stimulating hormone (TSH) *TSH [facility] Work Phone: Start: 01-11-2015 End: 01-12-2015 Thyroxine (T4) *T4 (Total) [facility] Work Phone: Start: 01-11-2015 End: 01-12-2015 *BMP *BMP [facility] Work Phone: Start: 01-11-2015 End: 01-12-2015 *Hepatic Function Panel *Hepatic Function Panel [facility] Work Phone: Start: 01-11-2015 End: 01-12-2015 aPTT *PTT-Partial Thromboplastin Time [facility] Work Phone: Start: 01-11-2015 End: 01-12-2015 aPTT Coag time (PPP) *PTT-Partial Thromboplastin Time [facility] Work Phone: Start: 01-11-2015 End: 01-12-2015 CBC W Auto Differential panel - Blood *CBC without Diff [facility] Work Phone: Start: 01-11-2015 End: 02-06-2015 Chest x-ray X-Ray, Chest, PA & Lateral [facility] Work Phone: Start: 01-11-2015 End: 01-12-2015 Coagulation factor induced.INR assay in platelet poor plasma *PT/INR [facility] Work Phone: Start: 01-11-2015 End: 01-11-2015 Echocardiography Echocardiogram (complete) [facility] Work Phone: Start: 01-11-2015 End: 01-11-2015 Follow Up Appt 1 month Follow Up Appt 1 month [facility] Work Phone: Start: 01-11-2015 End: 01-11-2015 Left Heart Cath Left Heart Cath [facility] Work Phone: Start: 01-11-2015 End: 01-12-2015 Lipid panel [AGGREGATE] *Lipid Profile CC PCP [facility] Work Phone: Start: 01-11-2015 End: 01-11-2015 MMM MMM [facility] Work Phone: Start: 01-11-2015 End: 01-12-2015 Thyroid stimulating hormone (TSH) *TSH [facility] Work Phone: Start: 01-11-2015 End: 01-12-2015 Thyroxine (T4) *T4 (Total) [facility] Work Phone: Start: 04-29-2013 End: 04-22-2016 Bacteria culture *CUB - Culture, Blood [facility] Work Phone: Start: 04-29-2013 End: 04-22-2016 Bacteria culture *CUB - Culture, Blood [facility] Work Phone: Start: 11-25-2011 End: 05-07-2015 *Hepatic Function Panel *Hepatic Function Panel [facility] Work Phone: Start: 11-25-2011 End: 05-07-2015 Lipid panel [AGGREGATE] *Lipid Profile [facility] Work Phone: Start: 11-25-2011 End: 05-07-2015 *Hepatic Function Panel *Hepatic Function Panel [facility] Work Phone: Start: 11-25-2011 End: 05-07-2015 Lipid panel [AGGREGATE] *Lipid Profile [facility] Work Phone: Start: 08-28-2011 End: 08-28-2011 Follow Up Appt 6 months Follow Up Appt 6 months [facility] Work Phone: Start: 08-28-2011 End: 08-28-2011 Follow Up Appt 6 months Follow Up Appt 6 months [facility] Work Phone: Start: 2010 COLOGUARD (FIT-DNA) COLOGUARD (FIT-D NA) [facility] Start: [address] COLONOGRAPHY [facility] Start: 2010 FECAL OCCULT BLOOD FECAL OCCULT BLOO D [facility] Start: 2010 Screening for malign ant neoplasm of colon [facility] Start: 2010 SIGMOIDOSCOPY SIGMOIDOSCOPY [facility] Start: 1984 Pneumococcal Vaccine : 50+ (1 of 2 - PCV) Pneumococcal Vaccine: 50+ (1 of 2 - PCV) [facility] Start: 1983 BP CONTROLLED (<130/80) BP CONTROLLE D (<130/80) [facility] Start: 1971 PNEUMOCOCCAL (1 - PCV) PNEUMOCOCCAL (1 - PCV) [facility] Start: 1971 Pneumococcal vaccination Pneum ococcal Vaccine (1 of 2 - PCV) [facility] Start: 1970 COVID-19 VACCINE (#1) COVID-19 VACCI NE (#1) [facility] Start: 1970 COVID-19 VACCINE (1) COVID-19 VACCIN E (1) [facility] Start: 1965 COVID-19 VACCINE (#1) COVID-19 VACCI NE (#1) [facility] Bacteria identified in Urine by Culture URINE CULTURE Microbiology Routine Burning with urination Ordered: 05/09/2024 [facility] Work Phone: Comment on above: Ordered: 05/09/2024 Catheterization of l [facility] CT Abdomen and Pelvi s W contrast IV CT ABD/PEL W IVCON Radiology Routine Smoker Unintentional weight loss 02/24/2024 1:47 PM EDT [facility] Work Phone: End: 12-20-2023 CT BRAIN WO IVCON CT BRAIN WO IVCON Radiology Routine New persistent daily headache Tinnitus of both ears 1 Occurrences starting 11/20/2022 until 12/20/2023 [facility] Work Phone: Comment on above: 1 Occurrences starti ng 11/20/2022 until 12/20/2023 End: 03-16-2025 CT Chest WO contrast CT CHEST WO IVCON Radiology Routine Smoker Unintentional weight loss 1 Occurrences starting 02/15/2024 until 03/16/2025 [facility] Work Phone: Comment on above: 1 Occurrences starti ng 02/15/2024 until 03/16/2025 CT Chest WO contrast CT CHEST WO IVCON Radiology Routine Smoker Unintentional weight loss 02/17/2024 10:10 AM EDT [facility] Work Phone: ECG COMPLETE ECG COMPLETE ECG 2023 3:56 PM EDT [facility] Patient Education [facility] Work Phone: Patient referral [facility] Work Phone: End: 07-07-2024 SPIROMETRY - BASELINE AND POST DILATOR SPIROMETRY - BASELINE AND POST DILATOR PFT Routine SOB (shortness of breath) Smoker 1 Occurrences starting 2023 until 07/07/2024 [facility] Work Phone: Comment on above: 1 Occurrences starti ng 2023 until 07/07/2024 Stress echocardiography [facility] Work Phone: End: 02-24-2025 US Abdomen US ABDOMEN COMPLETE Radiology Routine Smoker Unintentional weight loss Alcohol abuse 1 Occurrences starting 01/26/2024 until 02/24/2025 [facility] Comment on above: 1 Occurrences starti ng 01/26/2024 until 02/24/2025 US Abdomen US ABDOMEN COMPL ETE Radiology Routine Smoker Unintentional weight loss Alcohol abuse 02/15/2024 8:41 AM EDT [facility] Work Phone: End: 01-25-2025 US Carotid arteries - bilateral US CAROTID ARTERIES [facility] Lab Routine Bilateral carotid artery stenosis 1 Occurrences starting 01/26/2024 until 01/25/2025 [facility] Work Phone: Comment on above: 1 Occurrences starti ng 01/26/2024 until 01/25/2025 End: 08-27-2025 XR Cervical spine AP and Lateral and oblique XR CERV OTHER 4V AP/LAT/OBL Radiology Routine Neck pain 1 Occurrences starting 07/28/2024 until 08/27/2025 [facility] Work Phone: Comment on above: 1 Occurrences starti ng 07/28/2024 until 08/27/2025 XR Cervical spine AP and Lateral and oblique XR CERV OTHER 4V AP/LAT/OBL Radiology Routine Neck pain 07/28/2024 4:52 PM EST [facility] End: 02-24-2025 XR Chest PA and Lateral XR CHEST 2V FRONTAL/LAT Radiology Routine Smoker Unintentional weight loss 1 Occurrences starting 01/26/2024 until 02/24/2025 [facility] Comment on above: 1 Occurrences starti ng 01/26/2024 until 02/24/2025 XR Chest PA and Lateral XR CHEST 2V FRONTAL/LAT Radiology Routine Smoker Unintentional weight loss 01/26/2024 9:23 AM EDT [facility] Immunizations Immunization Date Immunization Notes Care Provider Fa [email or web address] 09-19-2020 Seasonal, quadrivale nt, recombinant, injectable influenza vaccine, preservative free Arya James MD Work Phone: [facility] 05-30-2018 tetanus toxoid, redu stephanie diphtheria toxoid, and acellular pertussis vaccine, adsorbed Arya James MD Work Phone: [facility] 10-23-2015 hepatitis B vaccine, adult dosage Arya James MD Work Phone: [facility] 06-19-2015 hepatitis B vaccine, adult dosage Arya James MD Work Phone: [facility] 05-21-2015 measles, mumps and rubella virus vaccine Arya James MD Work Phone: [facility] 05-15-2015 hepatitis B vaccine, adult dosage Arya James MD Work Phone: [facility] 07-06-2014 tetanus toxoid, redu stephanie diphtheria toxoid, and acellular pertussis vaccine, adsorbed Arya James MD Work Phone: [facility] Work Phone: Payers Date Payer Category Payer Self-pay [id number] 2022 Private Health Insurance MMO SUP [employer] PPO [id number] 2022 Unknown [id number] 2021 Unknown MMO MMO [employer] [id number] 2021-Present [phone] [address] [place] [address] PPO [id number] 2020 Unknown [employer] PPO OOS [id number] 2020-Present [phone] [address] [place] [address] PPO [id number] 2018 Unknown 2014 Unknown [employer] [id number] 2013 Unknown ANTHEM [id number] 1965 Unknown [id number] Unknown [employer] [id number] Unknown [id number] Unknown [id number] Unknown [id number] Unknown [id number] Unknown [id number] Social History Date Type Detail Facility Start: 07-04-1989 End: 05-09-2024 Tobacco smoking status NHIS Smokes tobacco daily [facility] Work Phone: Start: 07-04-1989 End: 07-04-2014 History of tobacco use Cigarette Smoker [facility] Work Phone: Start: 05-06-2017 End: 07-10-2023 Cigarettes smoked current (pack per day) - Reported 0.5 [facility] Start: 05-06-2017 End: 05-09-2024 Tobacco use and exposure User of smokeless tobacco [facility] Work Phone: History of tobacco use Snuff User [facility] Work Phone: Start: 05-14-2021 End: 02-14-2025 Alcohol intake Current drinker of alcohol (finding) [facility] Start: 09-15-2017 History SDOH Alcohol Comment nightly [facility] Start: 11-25-2013 End: 10-27-2022 Tobacco Comment Prior 2 packs a day for 15 years, down to 3-4 cigarettes per day [facility] Start: 1965 Sex Assigned At Male C [facility] Start: 08-11-2022 End: 12-02-2023 Tobacco smoking status NHIS Unknown if ever smoked [facility] Start: 03-10-2019 Heavy [facility] Start: 10-07-2018 None [facility] Start: 03-10-2019 Alone;- [facility] Start: 03-11-2019 Cigarettes;Chew [facility] Start: 2023 End: 07-10-2023 Tobacco use panel [facility] Adult Depression Screening Assessment 0 [facility] Start: 03-13-2021 Gender identity Identifies as male gender (finding) [facility] Start: 03-13-2021 Sexual orientation Heterosexual (fin ding) [facility] Start: 04-14-2021 End: 05-14-2021 Exposure to SARS-CoV-2 (event) Not sure [facility] Functional Status Date Assessment Result Facility 01-03-2015 Are you deaf, or do you have serious difficulty hearing No 01/03/2015 9:04 AM EDT Carole Holley Ma No [facility] 01-03-2015 Are you blind, or do you have serious difficulty seeing, even when wearing glasses No 01/03/2015 9:04 AM EDT Carole Holley Ma No [facility] 01-03-2015 Do you have serious difficulty walking or climbing stairs No 01/03/2015 9:04 AM EDT Carole Holley Ma No [facility] 01-03-2015 Do you have difficul ty dressing or bathing No 01/03/2015 9:04 AM EDT Carole Holley Ma No [facility] 01-03-2015 Because of a physica l, mental, or emotional condition, do you have difficulty doing errands alone such as visiting a physician's office or shopping No 01/03/2015 9:04 AM EDT Carole Holley Ma No [facility] Mental Status Date Assessment Result Facility 01-03-2015 Because of a physica l, mental, or emotional condition, do you have serious difficulty concentrating, remembering, or making decisions No 01/03/2015 9:04 AM EDT Carole Holley Ma No [facility] Clinical Notes 12-22-2014 to 03-19-2025 Telephone Encounter - Arya James MD - 03/19/2025 8:57 PM EDTTelephone Encounter - Arya James MD - 03/19/2025 8:57 PM EDTTelephone Encounter - Aimee Mckenzie - 03/17/2025 10:30 AM EDT Note Date & Type Note Facility 03-19-2025 Telephone encounter Note The following approved medication requests have been transmitted electronically. Requested Prescriptions Signed Prescriptions Disp Refills hydroCHLOROthiazide 12.5 mg capsule 90 capsule 1 Sig: Take 1 capsule by mouth once daily. Authorizing Provider: ARYA JAMES MD [facility] 03-19-2025 Miscellaneous Notes The following approved medication requests have been transmitted electronically. Requested Prescriptions Signed Prescriptions Disp Refills hydroCHLOROthiazide 12.5 mg capsule 90 capsule 1 Sig: Take 1 capsule by mouth once daily. Authorizing Provider: ARYA JAMES MD Prescription Refill Information The patient has been identified by name and date of : Yes Caregiver verified no other encounters exist for this prescription request: Yes Caregiver confirmed with patient/requestor that no other refills are due, in the near future, with this provider at this time: Yes The last office visit in the department: 01/26/25 Does the patient have a future office visit with this provider/department: Yes Requested Prescriptions Pending Prescriptions Disp Refills hydroCHLOROthiazide 12.5 mg capsule 90 capsule 1 Sig: Take 1 capsule by mouth once daily. Loretta Jones LPN March 17, 2025 1:08 PM Prescription Refill Information The patient has been identified by name and date of : Yes Caregiver verified no other encounters exist for this prescription request: Yes Caregiver confirmed with patient/requestor that no other refills are due, in the near future, with this provider at this time: Yes The last office visit in the department: 01-26-25 Does the patient have a future office visit with this provider/department: Yes Requested Prescriptions Pending Prescriptions Disp Refills hydroCHLOROthiazide 12.5 mg capsule 90 capsule 1 Sig: Take 1 capsule by mouth once daily. Aimee Mckenzie March 17, 2025 10:30 AM documented in this encounter [facility] 03-17-2025 Telephone encounter Note Prescription Refill Information The patient has been identified by name and date of : Yes Caregiver verified no other encounters exist for this prescription request: Yes Caregiver confirmed with patient/requestor that no other refills are due, in the near future, with this provider at this time: Yes The last office visit in the department: 01/26/25 Does the patient have a future office visit with this provider/department: Yes Requested Prescriptions Pending Prescriptions Disp Refills hydroCHLOROthiazide 12.5 mg capsule 90 capsule 1 Sig: Take 1 capsule by mouth once daily. Loretta Jones LPN March 17, 2025 1:08 PM [facility] 03-17-2025 Telephone encounter Note Prescription Refill Information The patient has been identified by name and date of : Yes Caregiver verified no other encounters exist for this prescription request: Yes Caregiver confirmed with patient/requestor that no other refills are due, in the near future, with this provider at this time: Yes The last office visit in the department: 01-26-25 Does the patient have a future office visit with this provider/department: Yes Requested Prescriptions Pending Prescriptions Disp Refills hydroCHLOROthiazide 12.5 mg capsule 90 capsule 1 Sig: Take 1 capsule by mouth once daily. Aimee Mckenzie March 17, 2025 10:30 AM [facility] 02-14-2025 Telephone encounter Note Received records. Uploaded to [employer] via [employer]. Lily Silverman LPN [facility] 02-14-2025 Miscellaneous Notes Received records. Uploaded to [employer] via [employer]. Lily Silverman LPN Called office of Dr. Romano. Office currently closed. Message left with medical records of request. Lily Silverman LPN Received labs via [employer]- uploaded to [employer] docs. Lily Silverman LPN Faxed request for medical records. Lily Silverman LPN Called patient. Verified name and date of . He did see Dr. Koo April 2024 and then again in July he believes for urinary retention and self caths 2-3 times daily but is concerned about frequent UTI. Lily Silverman LPN documented in this encounter [facility] 02-14-2025 Note HNO ID: [id number] Author: JORGE LUIS SWANN PA-C Service: ? Author Type: Physician Shrub Planter Type: Progress Notes Filed: 02/14/2025 09:34 Note Text: [facility] PATIENT CLINIC NOTE (M) Note was generated by [employer] and edited as appropriate SERVICE DATE: February 14, 2025 NAME: Jose Zapien III GENDER: male CHIEF COMPLAINT: history of neurogenic bladder, presenting for evaluation of constant suprapubic pressure and recurrent UTIs. HISTORY OF PRESENT ILLNESS: The patient is a 59-year-old male with a history of neurogenic bladder, presenting for evaluation of constant suprapubic pressure and recurrent UTIs. Neurogenic Bladder: - Diagnosed with neurogenic bladder, managed with self-catheterization BID. - Reports constant suprapubic pressure, described as feeling like something was pushing in a lot. - Occasional dysuria. - Denies significant malodorous urine. - Urine is often cloudy. - Last seen by Dr. Koo in June 2024. - Uses catheters from [employer]. - Recent PSA was 1.47.01/2025 > We discussed the common causes of urinary frequency and urgency, and restricting water intake In hopes to mitigate the need to urinate, we discussed how this behavior more often worsen the problem not improving it, > We discussed increasing daily water intake to 64-84 oz 7a -7p and try to reduce bladder irritants, caffeine, alcohol and acid foods and drink. > Bladder irritants handout available to patient. LABS: PSA (ng/mL) Date Value 01/26/2025 1.47 01/13/2024 1.21 03/15/2021 0.91 04/16/2017 1.35 07/04/2015 1.14 PSA. (ngmL) Date Value 03/08/2024 1.87 No results found for: TESTOST Hematocrit (%) Date Value 01/26/2025 47.0 01/13/2024 51.1 05/11/2019 41.4 06/27/2014 49.8 03/30/2014 51.3 HCT (%) Date Value 12/03/2017 42.3 PSA (ng/mL) Date Value 01/26/2025 1.47 01/13/2024 1.21 03/15/2021 0.91 04/16/2017 1.35 07/04/2015 1.14 PSA. (ngmL) Date Value 03/08/2024 1.87 Creatinine Date Value Ref Range Status 01/26/2025 0.93 0.73 - 1.22 mg/dL Final 07/20/2024 0.89 0.73 - 1.22 mg/dL Final 01/13/2024 0.97 0.73 - 1.22 mg/dL Final MEDICATIONS: Tadalafil (CIALIS) 20 mg tablet Take 1 tablet by mouth once daily as needed. Take 1-2 hours before sexual activity. hydroCHLOROthiazide 12.5 mg capsule Take 1 capsule by mouth once daily. lisinopril (ZESTRIL, PRINIVIL) 20 mg tablet Take 1 tablet by mouth once daily. clopidogrel (PLAVIX) 75 mg tablet Take 1 tablet by mouth once daily. docosahexaenoic acid/epa (FISH OIL ORAL) Take 1,200 mg by mouth as directed. aspirin, enteric coated (ASPIRIN, ENTERIC COATED) 81 mg EC tablet Take 81 mg by mouth once daily. acetaminophen (TYLENOL) 325 mg tablet Take 650 mg by mouth every 4 hours as needed. atorvastatin (LIPITOR) 80 mg tablet Take 1 tablet by mouth daily at bedtime. For cholesterol. PAST MEDICAL HISTORY: PAST MEDICAL HISTORY Diagnosis Date Abnormal findings on cardiac catheterization 01/17/[address] Bernstein 01/17/2015 question of 85% stenosis of septal hammer smith Alcohol abuse 07/06/2014 Sober since 03/29/2014 Allergic rhinitis due to allergen RAST 11/2013, [facility]. Anxiety 07/06/2014 Atelectasis 02/24/2024 lingula and right middle lobe Bilateral carotid artery stenosis 05/28/2015 US: 05/18/2015 less than 50% bilateral. US 04/2018 20-40% nidia Bilateral leg edema 07/10/2023 Bladder pain Coronary artery disease due to lipid rich plaque 07/03/[address] 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 Rosa Former smoker 07/06/2014 Quit 06/2014: Was smoking less than a PPD since 25 yo. Intermittent self-catheterization of bladder MVP (mitral valve prolapse) 02/15/2015 2D echo 12/2014 ANNIE (obstructive sleep apnea) PVC (premature ventricular contraction) Hx of. off and on. 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 Snoring Urine retention 03/08/2024 Seeing Urology: Dr. Rosa PAST SURGICAL HISTORY: PAST SURGICAL HISTORY Procedure Laterality Date 2D ECHO (EXEP) 01/16/2015 EF=65%, Mild MVP CC CORONARY STENT 2014 Mid LAD COLONOSCOPY FLX DX W/COLLJ SPEC WHEN PFRMD 12/23/2005 Colonoscopy COLONOSCOPY FLX DX W/COLLJ SPEC WHEN PFRMD 09/15/2017 repeat in 10 years ESOPHAGOGASTRODUODENOSCOPY TRANSORAL DIAGNOSTIC 10/21/2006 Gastritis LAPS SURG CHOLECYSTECTOMY W/CHOLANGIOGRAPHY 02/01/2007 PAST SURGICAL HISTORY OF 01/10 (more content not included)... [facility] 02-14-2025 History of Presen t illness Narrative Images from the original note were not included. [facility] NEW PATIENT CLINIC NOTE (M) Note was generated by [employer] and edited as appropriate SERVICE DATE: February 14, 2025 NAME: Jose Zapien III GENDER: male CHIEF COMPLAINT: history of neurogenic bladder, presenting for evaluation of constant suprapubic pressure and recurrent UTIs. HISTORY OF PRESENT ILLNESS: The patient is a 59-year-old male with a history of neurogenic bladder, presenting for evaluation of constant suprapubic pressure and recurrent UTIs. Neurogenic Bladder: - Diagnosed with neurogenic bladder, managed with self-catheterization BID. - Reports constant suprapubic pressure, described as feeling like something was pushing in a lot. - Occasional dysuria. - Denies significant malodorous urine. - Urine is often cloudy. - Last seen by Dr. Koo in June 2024. - Uses catheters from [facility] [employer]. - Recent PSA was 1.47.01/2025 > We discussed the common causes of urinary frequency and urgency, and restricting water intake In hopes to mitigate the need to urinate, we discussed how this behavior more often worsen the problem not improving it, > We discussed increasing daily water intake to 64-84 oz 7a -7p and try to reduce bladder irritants, caffeine, alcohol and acid foods and drink. > Bladder irritants handout available to patient. LABS: PSA (ng/mL) Date Value 01/26/2025 1.47 01/13/2024 1.21 03/15/2021 0.91 04/16/2017 1.35 07/04/2015 1.14 PSA. (ngmL) Date Value 03/08/2024 1.87 No results found for: TESTOST Hematocrit (%) Date Value 01/26/2025 47.0 01/13/2024 51.1 05/11/2019 41.4 06/27/2014 49.8 03/30/2014 51.3 HCT (%) Date Value 12/03/2017 42.3 PSA (ng/mL) Date Value 01/26/2025 1.47 01/13/2024 1.21 03/15/2021 0.91 04/16/2017 1.35 07/04/2015 1.14 PSA. (ngmL) Date Value 03/08/2024 1.87 Creatinine Date Value Ref Range Status 01/26/2025 0.93 0.73 - 1.22 mg/dL Final 07/20/2024 0.89 0.73 - 1.22 mg/dL Final 01/13/2024 0.97 0.73 - 1.22 mg/dL Final MEDICATIONS: Tadalafil (CIALIS) 20 mg tablet Take 1 tablet by mouth once daily as needed. Take 1-2 hours before sexual activity. hydroCHLOROthiazide 12.5 mg capsule Take 1 capsule by mouth once daily. lisinopril (ZESTRIL, PRINIVIL) 20 mg tablet Take 1 tablet by mouth once daily. clopidogrel (PLAVIX) 75 mg tablet Take 1 tablet by mouth once daily. docosahexaenoic acid/epa (FISH OIL ORAL) Take 1,200 mg by mouth as directed. aspirin, enteric coated (ASPIRIN, ENTERIC COATED) 81 mg EC tablet Take 81 mg by mouth once daily. acetaminophen (TYLENOL) 325 mg tablet Take 650 mg by mouth every 4 hours as needed. atorvastatin (LIPITOR) 80 mg tablet Take 1 tablet by mouth daily at bedtime. For cholesterol. PAST MEDICAL HISTORY: PAST MEDICAL HISTORY Diagnosis Date Abnormal findings on cardiac catheterization 01/17/[address] Bernstein 01/17/2015 question of 85% stenosis of septal hammer smith Alcohol abuse 07/06/2014 Sober since 03/29/2014 Allergic rhinitis due to allergen RAST 11/2013, [facility]. Anxiety 07/06/2014 Atelectasis 02/24/2024 lingula and right middle lobe Bilateral carotid artery stenosis 05/28/2015 US: 05/18/2015 less than 50% bilateral. US 04/2018 20-40% nidia Bilateral leg edema 07/10/2023 Bladder pain Coronary artery disease due to lipid rich plaque 07/03/[address] 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 Rosa Former smoker 07/06/2014 Quit 06/2014: Was smoking less than a PPD since 25 yo. Intermittent self-catheterization of bladder MVP (mitral valve prolapse) 02/15/2015 2D echo 12/2014 ANNIE (obstructive sleep apnea) PVC (premature ventricular contraction) Hx of. off and on. 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 Snoring Urine retention 03/08/2024 Seeing Urology: Dr. Rosa PAST SURGICAL HISTORY: PAST SURGICAL HISTORY Procedure Laterality Date 2D ECHO (EXEP) 01/16/2015 EF=65%, Mild MVP CC CORONARY STENT 2014 Mid LAD COLONOSCOPY FLX DX W/COLLJ SPEC WHEN PFRMD 12/23/2005 Colonoscopy COLONOSCOPY FLX DX W/COLLJ SPEC WHEN PFRMD 09/15/2017 repeat in 10 years ESOPHAGOGASTRODUODENOSCOPY TRANSORAL DIAGNOSTIC 10/21/2006 Gastritis LAPS SURG CHOLECYSTECTOMY W/CHOLANGIOGRAPHY 02/01/2007 PAST SURGICAL HISTORY OF 12/2014 stent to LAD RPR 1ST INGUN HRNA AGE 5 YRS/> REDUCIBLE Hernia repair, inguinal bilateral STRESS TEST 07/07/2017 WNL VASECTOMY UNI/BI SPX W/POSTOP SEMEN EXAMS FAMILY HISTORY: FAMILY HISTORY Problem Relation Age of Onset Macular Degen Mother Glaucoma Mother Hypertension Mother Stroke Mother Heart Father Pacemaker, hx TIA No Known Problems Sister Heart Maternal Grandmother Cancer Maternal Grandmother behind ear Prostate Cancer Maternal Grandfather Dementia Maternal Grandfather Glaucoma Maternal Grandfather other (Macular degeneration) Maternal Grandfather Colon Cancer Paternal Grandmother Heart Paternal Grandfather Stroke Paternal Grandfather SOCIAL HISTORY: Social Connections: Not on file REVIEW OF SYSTEMS: Genitourinary: (+) pelvic pressure, (+) dysuria PHYSICAL EXAMINATION: Blood pressure 96/60, pulse 84, temperature 36.1 C (97 F), temperature source Temporal, resp. rate 12, height 177.2 cm (5' 9.75), weight 84.8 kg (187 lb), SpO2 97%. General: Alert & oriented, well-appearing, no acute distress Skin: Normal HEENT: Pupils equal, round. Oral cavity, oropharynx clear Neck: Supple, no mass Breast: Deferred Respiratory: Clear to auscultation, bilaterally Cardiovascular: Regular rate and rhythm, no murmurs, rubs, or gallops Abdomen: Soft, non-tender, non-distended, no masses palpable, no hepatosplenomegaly, normal bowel sounds Genitourinary: Deferred MSK: Back is non-tender Extremities: No clubbing, cyanosis, or edema LABS: Results for orders placed or performed in visit on 02/14/25 UA DIP, URINE (POC) Result Value Ref Range GLUCOSE UA (POCT) Negative Negative mg/dL BILIRUBIN UA (POCT) Negative Negative KETONE UA (POCT) Negative Negative mg/dL SPECIFIC GRAVITY UA (POCT) 1.025 1.005 - 1.030 HEMOGLOBIN/BLOOD UA (POCT) Negative Negative PH UA (POCT) 6.5 4.5 - 8.0 PROTEIN UA (POCT) Negative Negative mg/dL UROBILINOGEN UA (POCT) 0.2 Normal E.U./dL NITRITE UA (POCT) Negative Negative LEUKOCYTES UA (POCT) Negative Negative COLOR UA (POCT) Dark yellow CLARITY UA (POCT) Clear Urine Culture: Staph Epi in Jun 2024 - not a Pathogen ASSESSMENT/PLAN: 1. Neurogenic bladder (N31.9) 2. Urine retention (R33.9) - Chronic condition requiring intermittent self-catheterization. Discussed the inevitability of bladder colonization with skin bacteria such as Staphylococcus epidermidis due to non-sterile catheterization technique. Advised against antibiotic treatment for colonization to prevent resistance. Educated on the importance of ensuring complete bladder emptying during catheterization by withdrawing the catheter slowly to maintain the tip under the liquid. Recommended increasing catheterization frequency to 3-4 times daily to alleviate constant pressure sensation. Discussed potential need for saline irrigation if urine becomes excessively cloudy or mucous-like. Patient understands and agrees with the management plan. Patient to contact Luna, the nurse, for assistance with durable medical equipment supplier and catheter orders. 3. Prostate cancer screening (Z12.5) - Recent PSA levels reviewed: 1.87 ng/mL in February and 1.47 ng/mL less than a month ago, both within normal range (0-4 ng/mL). No further action required at this time. Chronic stable > 1 year Appt w/ Bharathi. JUAN Swann, MT, PANielsC with PSA prior Patient Instructions (AVS) - printed for patient - Continue your self-catheterization technique as discussed: insert the catheter, let the urine drain, then slowly pull it out a little at a time while keeping the tip under the urine to ensure you empty the bladder fully. - Increase your catheterization frequency to about 3-4 times a day if you feel persistent pressure, since your bladder won t empty on its own. - Do not take antibiotics for the Staph epidermidis found in your urine--it s normal skin bacteria that colonizes the bladder with catheter use and treating it can lead to resistance. - Watch your urine for extreme cloudiness or a mucous appearance; if your catheter clogs or you notice those changes, contact us to arrange a simple saline irrigation through your catheter. - You re up to date on PSA testing (last result 1.47), so continue routine PSA monitoring per our recommendations. - Contact your insurance company to identify which durable medical equipment (DME) supplier they cover for your catheters. - Once you know your preferred DME supplier, let Nurse Luna know by calling the office or sending a [employer] message so we can fax over your catheter orders. Consultation requested by Jourdan James MD [address] [place] [address] for an opinion regarding Jose Zapien III patient and my final recommendations will be communicated back to the requesting physician by way of shared Medical record or letter via [place] mail. JUAN Howard, EFREN WYATT documented in this encounter [facility] 02-10-2025 Telephone encounter Note Called office of Dr. Romano. Office currently closed. Message left with medical records of request. Lily Silverman LPN [facility] 02-10-2025 Telephone encounter Note Received labs via [employer]- uploaded to scanned docs. Lily Silverman LPN [facility] 02-08-2025 Note HNO ID: [id number] Author: EBONIE CROWE MA Service: ? Author Type: Evp Chief Exploration Officer Type: Progress Notes Filed: 02/08/2025 15:51 Note Text: Scan on 02/07/2025 10:19 AM by Provider, EFREN Martinez: Jero Crowe MA [facility] 02-08-2025 History of Presen t illness Narrative Scan on 02/07/2025 10:19 AM by Provider, Juan, EFREN: Jero Crowe MA documented in this encounter [facility] 02-08-2025 Telephone encounter Note Faxed request for medical records. Lily Silverman LPN [facility] 02-08-2025 Telephone encounter Note Called patient. Verified name and date of . He did see Dr. Koo April 2024 and then again in July he believes for urinary retention and self caths 2-3 times daily but is concerned about frequent UTI. Lily Silverman LPN [facility] 02-06-2025 Telephone encounter Note Pt calls to report that Dr. Hutchinson's office stated they have not received referral from pcp office for pain management. Re-faxed referral, last xray reports, and OV notes to: [phone]. Cindy Qureshi LPN [facility] 02-06-2025 Miscellaneous Notes Pt calls to report that Dr. Hutchinson's office stated they have not received referral from pcp office for pain management. Re-faxed referral, last xray reports, and OV notes to: [phone]. Cindy Qureshi LPN documented in this encounter [facility] 01-31-2025 Telephone encounter Note The following approved medication requests have been transmitted electronically. Requested Prescriptions Signed Prescriptions Disp Refills nitrofurantoin monohydrate and macrocrystal (MACROBID) 100 mg capsule 14 capsule 0 Sig: Take 1 capsule by mouth two times a day for 7 days. Authorizing Provider: ARYA JAMES MD [facility] 01-31-2025 Miscellaneous Notes The following approved medication requests have been transmitted electronically. Requested Prescriptions Signed Prescriptions Disp Refills nitrofurantoin monohydrate and macrocrystal (MACROBID) 100 mg capsule 14 capsule 0 Sig: Take 1 capsule by mouth two times a day for 7 days. Authorizing Provider: ARYA JAMES MD Patient notified and voiced understanding. Patient does self cath and sees Urology at the end of the month. He has noticed some burning at the end. Patient uses [facility]. Ebonie Crowe MA Let patient know UA shows sign of infection. See if any symptoms? Lipid panel showed Trigs elevated at 162 (goal<150 and were 178), HDL low at 38 (goal>40 and were 36), LDL ok at 90. Less fat in the diet and increased exercise can improve the Trigs and HDL. His A1c for diabetes is slightly elevated again at 5.8%. Goal<5.7%. work on reduce sugar, sweets, starches and carbs in diet and weight loss. His other labs were ok. documented in this encounter [facility] 01-31-2025 Telephone encounter Note Patient notified and voiced understanding. Patient does self cath and sees Urology at the end of the month. He has noticed some burning at the end. Patient uses [facility]. Ebonie Crowe MA [facility] 01-30-2025 Telephone encounter Note Let patient know UA shows sign of infection. See if any symptoms? Lipid panel showed Trigs elevated at 162 (goal<150 and were 178), HDL low at 38 (goal>40 and were 36), LDL ok at 90. Less fat in the diet and increased exercise can improve the Trigs and HDL. His A1c for diabetes is slightly elevated again at 5.8%. Goal<5.7%. work on reduce sugar, sweets, starches and carbs in diet and weight loss. His other labs were ok. [facility] 01-27-2025 Evaluation note Diagnosis Onset Date Resolution Essential hypertension acute Ju 2024 7:53am Premature ventricular contraction chronic January 27, 2025 7:53am Presence of stent in coronary artery Dec, 2014 chronic January 27, 2025 7:53am Pure hypercholesterolemia chronic January 27, 2025 7:53am [facility] Work Phone: [phone] [phone] Instructions* Patient Instructions* Arya James MD - 01/26/2025 1:30 PM EDT Please get labs done on or after 07/14/2025 prior to your next visit. We discussed your neck pain and headaches: - You reported worsening neck pain and frequent headaches despite vp care management and dry needling. I have placed a referral to Dr. García for pain management. His office will contact you to schedule an appointment. - Continue monitoring your symptoms and let us know if they worsen or if you experience new symptoms. We discussed your bruising and bleeding: - You mentioned easy bruising and bleeding, which is likely due to your use of Plavix and baby aspirin. Continue taking these medications as prescribed, but be cautious to avoid injuries that could lead to bleeding. - If you notice significant or unexplained bleeding, please contact our office immediately. We discussed your erectile dysfunction: - I prescribed Cialis 20 mg tablets. Start by taking half a tablet (10 mg) as needed. Cialis typically works within 10-15 minutes and can remain effective for up to 72 hours. - Do not take Cialis if you experience chest pain, and inform emergency personnel if you have takenit in the event of a medical emergency. - Possible side effects include headache or bluish discoloration in vision. Stop taking it if theseoccur and contact our office. We discussed your tinnitus (ringing in the ears): - Your tinnitus is due to high-frequency hearing loss. There is no cure, but using white noise or background sound may help if it interferes with your sleep. We discussed your vaccines: - You are eligible for the pneumonia vaccine and the Shingrix vaccine for shingles prevention. Let us know if you would like to receive these vaccines in the future. We discussed your lab work: - I ordered the following labs: blood count, electrolyte panel, A1c, cholesterol, prostate level, thyroid test, and urine analysis. These labs do not require fasting and can be completed at your convenience. Follow-up: - Please schedule a follow-up appointment in 6 months. I have also placed labs for you to complete prior to that visit, which do not require fasting. - Christina will assist with scheduling your follow-up. Additional instructions: - Use sunscreen and sunglasses to protect your skin and eyes from sun damage. - If you have any new or worsening symptoms, please contact our office. [facility] History of Present illness Narrative* Arya James MD - 01/26/2025 1:00 PM EDT Chief Complaint Patient presents with: Physical HPI Jose Zapein III is a 59 year old male who presents here today for Physical Patient with hx of HTN, CAD, MVP, PVC, smoker, ANNIE, elevated blood sugar, allergies, depression andthose as below. Patient had heart cath 11/2023 Patient continues to smoke and chew tobacco. He is drinking 3-4 beers a night. Patient sees Cardiology last visit 02/2024 Patient sees Urology last visit 06/2024 Patient has been doing well. No new issues or concerns. Duong is a 59-year-old male with a history of CAD, presenting for an annual wellness visit and chronic health problems. Duong reports frequent cephalalgia and cervicalgia, which have been persistent for the past 4 months.He has been undergoing vp care management and dry needling, which initially provided relief, but notes that the discomfort and headaches have become more frequent and severe recently. He denies noticing any lumps or swelling in the neck. He inquires about a referral to pain management. Duong also reports bilateral tinnitus, which has been present for 4-5 years. Initially, it was only in one ear and noticeable only in quiet environments, but now it is present in both ears and audible even during conversations. Duong has a history of CAD and is currently on Plavix and low-dose aspirin. He reports easy bruising and a recent episode of bleeding from a minor injury that recurred after 24 hours. He denies any recent fevers, syncope, seizures, tremors, or changes in heat or cold tolerance. He also denies any recent wheezing, dyspnea, hemoptysis, or leg edema. He reports occasional chest pain, which he describes as similar to previous episodes. 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 He is currently taking hydrochlorothiazide. Duong has a history of anxiety and depression but reports no current symptoms. He discontinued his antidepressant and anxiolytic medications over a year ago and attributes his recent weight loss to stopping these medications. He consumes 3-4 alcoholic beverages a couple of nights per week and continues to smoke cigarettes and use snuff. He denies any recent nausea, emesis, diarrhea, or heartburn. He also denies any hematochezia or hematuria. He has not been using his CPAP machine. Duong has a history of urinary retention and performs self-catheterization. He reports constant lowerabdominal pressure and discomfort, which he attributes to his bladder condition. He is under the care of a urologist and is trying to schedule a colonoscopy. He also inquires about treatment options for erectile dysfunction, which he has been experiencing for 3 years. Duong denies any new or unusual aches and pains, skin lesions, rashes, or sores. He does not use sunscreen or sunglasses. He denies any recent increase in thirst. He is interested in receiving the pneumonia and shingles vaccines. He is aware of his mother's recent health issues, including a fall, a major stroke, and macular degeneration. Past medical history, appointments, medications, allergies reviewed. Previous Medical History PAST MEDICAL HISTORY Diagnosis Date Abnormal findings on cardiac catheterization 01/17/[address] Bernstein 01/17/2015 question of 85% stenosis of septal hammer smith Alcohol abuse 07/06/2014 Sober since 03/29/2014 Allergic rhinitis due to allergen RAST 11/2013, [facility]. Anxiety 07/06/2014 Atelectasis 02/24/2024 lingula and right middle lobe Bilateral carotid artery stenosis 05/28/2015 US: 05/18/2015 less than 50% bilateral. US 04/2018 20-40% nidia Bilateral leg edema 07/10/2023 Bladder pain Coronary artery disease due to lipid rich plaque 07/03/[address] 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 Rosa Former smoker 07/06/2014 Quit 06/2014: Was smoking less than a PPD since 25 yo. Intermittent self-catheterization of bladder MVP (mitral valve prolapse) 02/15/2015 2D echo 12/2014 ANNIE (obstructive sleep apnea) PVC (premature ventricular contraction) Hx of. off and on. 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 Snoring Urine retention 03/08/2024 Seeing Urology: Dr. Rosa Previous Surgical History PAST SURGICAL HISTORY Procedure Laterality Date 2D ECHO (EXEP) 01/16/2015 EF=65%, Mild MVP CC CORONARY STENT 2014 Mid LAD COLONOSCOPY FLX DX W/COLLJ SPEC WHEN PFRMD 12/23/2005 Colonoscopy COLONOSCOPY FLX DX W/COLLJ SPEC WHEN PFRMD 09/15/2017 repeat in 10 years ESOPHAGOGASTRODUODENOSCOPY TRANSORAL DIAGNOSTIC 10/21/2006 Gastritis LAPS SURG CHOLECYSTECTOMY W/CHOLANGIOGRAPHY 02/01/2007 PAST SURGICAL HISTORY OF 12/2014 stent to LAD RPR 1ST INGUN HRNA AGE 5 YRS/> REDUCIBLE Hernia repair, inguinal bilateral STRESS TEST 07/07/2017 WNL VASECTOMY UNI/BI SPX W/POSTOP SEMEN EXAMS Family History FAMILY HISTORY Problem Relation Age of Onset Macular Degen Mother Glaucoma Mother Hypertension Mother Stroke Mother Heart Father Pacemaker, hx TIA Heart Maternal Grandmother Cancer Maternal Grandmother behind ear Heart Paternal Grandfather Stroke Paternal Grandfather Patient Allergies ALLERGIES Allergen Reactions Penicillins Unknown Childhood reaction. Current Medications Current Outpatient Medications on File Prior to Visit Medication Sig hydroCHLOROthiazide 12.5 mg capsule Take 1 capsule by mouth once daily. lisinopril (ZESTRIL, PRINIVIL) 20 mg tablet Take 1 tablet by mouth once daily. clopidogrel (PLAVIX) 75 mg tablet Take 1 tablet by mouth once daily. atorvastatin (LIPITOR) 80 mg tablet Take 1 tablet by mouth daily at bedtime. For cholesterol. docosahexaenoic acid/epa (FISH OIL ORAL) Take 1,200 mg by mouth as directed. aspirin, enteric coated (ASPIRIN, ENTERIC COATED) 81 mg EC tablet Take 81 mg by mouth once daily. acetaminophen (TYLENOL) 325 mg tablet Take 650 mg by mouth every 4 hours as needed. No current facility-administered medications on file prior to visit. Social History Social History Tobacco Use Smoking status: Every Day Current packs/day: 0.00 Average packs/day: 0.5 packs/day for 25.0 years (12.5 ttl pk-yrs) Types: Cigarettes Start date: 07/04/1989 Last attempt to quit: 07/04/2014 Years since quittin.5 Smokeless tobacco: Current Types: Snuff Tobacco comments: Prior 2 packs a day for 15 years, down to 3-4 cigarettes per day Vaping Use Vaping status: Never Used Substance Use Topics Alcohol use: Yes Alcohol/week: 10.0 standard drinks of alcohol Types: 4 Cans of beer, 6 Cans of Beer (12oz) per week Comment: nightly Drug use: No Review of Symptoms REVIEW OF SYSTEMS GENERAL: No unintentional weight loss, malaise or fevers HEENT: has more frequent headache's and neck pain. Would like to see pain management since chiropractor care is no longer helping. No changes in hearing or vision, no nose bleeds or other nasal problems NECK: Negative for lumps, goiter, pain and significant neck swelling RESPIRATORY: Negative for cough, hemoptysis, wheezing, COPD, dyspnea or shortness of breath CARDIOVASCULAR: Negative for new or changes in his typical chest pain, leg swelling, hypertension, CHF or palpitations GI: No nausea, vomiting, or diarrhea, No heartburn or reflux symptoms, and no blood. : No history of dysuria, still self cath. Is seeing Dr. Rosa and trying to switch to [facility]. MUSCULOSKELETAL: Negative for new or changes in his typical joint pain or swelling, back pain or muscle pain. Other then in the neck SKIN: Negative for lesions, rash, and itching PSYCH: Negative for sleep disturbance, mood disorder and recent psychosocial stressors HEMATOLOGY/LYMPHOLOGY: Negative for prolonged bleeding, bruising easily or swollen nodes ENDOCRINE: Negative for cold or heat intolerance, polyuria, polydipsia and goiter NEURO: No history of headaches, syncope, paralysis, seizures or tremors SEE HPI EXAM: BP 116/72 Pulse 74 Ht 177.2 cm (5' 9.75) Wt 87.2 kg (192 lb 3.2 oz) SpO2 97% BMI 27.78 kg/m Last 5 Encounter Wt Readings: Date: Wt: 01/26/2025 87.2 kg (192 lb 3.2 oz) 07/28/2024 91.2 kg (201 lb) 05/09/2024 90.2 kg (198 lb 13.7 oz) 02/17/2024 89.8 kg (198 lb) 01/26/2024 93.4 kg (206 lb) General Appearance: Well appearing, alert, in no acute distress, well-hydrated, well nourished.. Skin: Skin color, texture, turgor normal, no suspicious rashes or lesions. Head: Normocephalic, no masses, lesions, tenderness or abnormalities. Eyes: Anicteric sclera. Pupils are equally round and reactive to light. Extraocular movements are intact. . Ears: External ears normal, canals clear. Nose/Sinuses: Nares normal, septum midline, mucosa normal, no drainage or sinus tenderness. Oropharynx: Lips, mucosa, and tongue normal, teeth and gums normal, oropharynx normal. Neck: Supple, no adenopathy; thyroid symmetric, normal size, no bruits. Lungs: Lungs clear to auscultation. No wheezing, rhonchi, rales.. Heart: RRR without murmur, gallop, or rubs. No ectopy. Abdomen: Normal abdominal exam, Abdomen soft, non-tender. Bowel sounds normal. No masses, organomegaly. Extremities: No deformities, edema, skin discoloration, Good capillary refill. . Musculoskeletal: Muscular strength intact, No joint swelling, deformity, or tenderness. Peripheral Pulses: Normal. Neurologic: Gait normal. Reflexes normal and symmetric. Sensation to light touch and crainal nerves2-12 intact.. Genitalia: Normal, Penis normal. No urethral discharge. Scrotum normal to palpation. No hernia.. Rectal: Normal exam. Prostate enlarged with smooth firm capsule Health Maintenance List LDL Cholesterol due on 07/20/2025 Annual PCP Team Chronic Disease Visit due on 01/26/2026 BP Controlled (<130/80) due on 01/26/2026 Diabetes Screening due on 07/20/2027 Colorectal Cancer Screening due on 09/15/2027 DTaP,Tdap,Td Vaccine(3 - Td or Tdap) due on 05/30/2028 Prostate Cancer Screening Discussion due on 03/08/2029 Lipid Screening due on 07/20/2029 Hepatitis C Screening Completed HIV Screening Completed Influenza Vaccine Discontinued Shingrix Vaccine Discontinued Covid-19 Vaccine Discontinued Pneumococcal Vaccine: 50+ Discontinued Data reviewed Results XR CERV OTHER 4V AP/LAT/OBL (Acc#[id number]) (Order [id number]) Patient Info Patient Name Sex Jose Zapien III ([id number]) Male 1965 08/01/2024 10:15 AM - Radiology, [facility] In Impression IMPRESSION: Cervical spine degenerative changes with multilevel disc space narrowing and bilateral neural foraminal narrowing. Concrete Pipe Maker: NATHALIA Transcribe Date/Time: Aug 01 2024 9:51A Dictated by : MIGUEL SINGH MD This examination was interpreted and the report reviewed and electronically signed by: MIGUEL SINGH MD on Aug 01 2024 10:13AM EST Results-Findings * * *Final Report* * * DATE OF EXAM: Jul 28 2024 4:52PM WOX [id number] - XR CERVICAL 4V AP/LAT/OBL / PROCEDURE REASON: Neck pain * * * * Physician Interpretation * * * * EXAM TITLE: XR CERVICAL 4V AP/LAT/OBL EXAM DATE/TIME: 07/28/2024 4:52 PM COMPARISON: X-ray cervical spine on 05/14/2021 CLINICAL INDICATION/HISTORY: Neck pain TECHNIQUE: AP, lateral and oblique views of the cervical spine are presented. FINDINGS: No acute fractures demonstrated. There appears be minimal C5 on C6 anterolisthesis. C3-4 and C4-5 disc space narrowing is noted. There is moderate osteophyte formation, with facet arthrosis. Your is multilevel bilateral neural foraminal narrowing. The prevertebral soft tissues are normal. Assessment and Plan 1. Well adult exam (Z00.00) Comprehensive physical examination performed. Discussed family history, including mother's recent stroke and visual impairments. Patient reports weight loss since discontinuing antidepressants and anxiety medications. No recent fevers, wheezing, shortness of breath, hemoptysis, or chest pain. Occasional chest pain noted. No edema in legs. No gastrointestinal symptoms. No new skin lesions, rashes,or sores. No changes in heat or cold tolerance, increased thirst, syncope, seizures, or tremors. Tinnitus present for 4-5 years. No lumps or swelling in the neck. No new or unusual aches and pains. No discomfort with urination or increased frequency. No blood in stool or urine. No recent surgeries.No new health issues in blood relatives. No changes in bruising or bleeding. No changes in anxiety or depression. No changes in alcohol consumption. No changes in smoking habits. No changes in CPAP use. No changes in vp care management. No changes in dry needling. No changes in pain management. No changes in erectile dysfunction. No changes in medication management. No changes in diabetes screening. No changes in prostate cancer screening. - Recommended pneumonia and shingles vaccines. - Advised use of sunscreen and sunglasses. - Scheduled follow-up in 6 months. - check A1c and PSA 2. Essential hypertension (I10) Blood pressure well-controlled on current regimen. check CMP, Lipid and UA. 3. Elevated fasting blood sugar (R73.01) - Ordered CMP and A1c test. 4. Bilateral carotid artery stenosis (I65.23) Patient on aspirin and Plavix since stent placement in 2014. - cont current Tx and recheck US in 02/2028 5. Coronary artery disease due to lipid rich plaque (I25.10) Patient on aspirin and Plavix since stent placement in 2014. - Ordered lipid panel. - clinically stable and follows with cardio. 6. PVC (premature ventricular contraction) (I49.3) Follow-up with [facility] scheduled for tomorrow. 7. Anxiety (F41.9) Current moderate episode of major depressive disorder without prior episode (HCC) (F32.1) Patient reports improvement in symptoms after discontinuing medications. Mentally doing fine off meds 8. Bilateral leg edema (R60.0) No edema noted on examination. - cont HCTZ 9. Alcohol abuse (F10.10) Patient consumes 3-4 alcoholic beverages a couple of nights per week. - have dicusssed quitting with pt on several occasions. 10. Smoker (F17.200) Patient continues to smoke cigarettes. - advised on quitting 11. Fatty liver (K76.0) - encouraged healthy diet - check CMP,Lipid and CBC 12. Neck pain (M54.2) Muscle tension headache (G44.209) Increased frequency and severity of headaches and neck pain despite vp care management and dry needling. - Referred to Dr. García for pain management. 13. ED (erectile dysfunction) of organic origin (N52.9) Patient inquires about treatment options. - Prescribed Cialis 20 mg tablets; advised to start with half a tablet. - Educated o, n potential side effects, including chest pain, headaches, and visual changes. - Discussed use of GoodRx for cost-effective purchasing. 14. Medication management (Z79.899) Patient on multiple medications, including aspirin, Plavix, and hydrochlorothiazide. 15. Encounter for screening for diabetes mellitus (Z13.1) - Ordered A1c test. 16. Screening for prostate cancer (Z12.5) Prostate examination performed; no abnormalities detected. - Ordered PSA test. F/u 6 months check Lipid and A1c prior I spent a total of 40 minutes on the date of the service which included preparing to see the patient, [id number] patient care, completing clinical documentation, performing a medically appropriate examination, counseling and educating the patient/family/caregiver and ordering medications, tests, or procedures. Recording using [employer] software for draft documentation of the visit was discussed with the patient/authorized jewelry sales representative; all questions welcomed and answered. Patient/authorized jewelry sales representative agreed to proceed SENSITIVE EXAMINATION CONSENT: The sensitive examination was discussed with the Patient or Patient's Authorized Commonwealth Attorney. Asapplicable, any other physician, advance practice provider, medical student, or other health professional student that will be observing or involved in the sensitive examination for educational or training purposes was discussed with the Patient or Authorized Commonwealth Attorney. The Patient or Authorized Commonwealth Attorney has agreed to proceed with the sensitive examination. documented in [facility] NoteHNO ID: [id number] Author: ARYA JAMES MD Service: ? Author Type: Physician Type: Progress Notes Filed: 01/26/2025 19:49 Note Text: Chief Complaint Patient presents with: Physical HPI Jose Zapien III is a 59 year old male who presents here today for Physical Patient with hx of HTN, CAD, MVP, PVC, smoker, ANNIE, elevated blood sugar, allergies, depression and those as below. Patient had heart cath 11/2023 Patient continues to smoke and chew tobacco. He is drinking 3-4 beers a night. Patient sees Cardiology last visit 02/2024 Patient sees Urology last visit 06/2024 Patient has been doing well. No new issues or concerns. Duong is a 59-year-old male with a history of CAD, presenting for an annual wellness visit and chronic health problems. Duong reports frequent cephalalgia and cervicalgia, which have been persistent for the past 4 months. He has been undergoing vp care management and dry needling, which initially provided relief, but notes that the discomfort and headaches have become more frequent and severe recently. He denies noticing any lumps or swelling in the neck. He inquires about a referral to pain management. Duong also reports bilateral tinnitus, which has been present for 4-5 years. Initially, it was only in one ear and noticeable only in quiet environments, but now it is present in both ears and audible even during conversations. Duong has a history of CAD and is currently on Plavix and low-dose aspirin. He reports easy bruising and a recent episode of bleeding from a minor injury that recurred after 24 hours. He denies any recent fevers, syncope, seizures, tremors, or changes in heat or cold tolerance. He also denies any recent wheezing, dyspnea, hemoptysis, or leg edema. He reports occasional chest pain, which he describes as similar to previous episodes. 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 He is currently taking hydrochlorothiazide. Duong has a history of anxiety and depression but reports no current symptoms. He discontinued his antidepressant and anxiolytic medications over a year ago and attributes his recent weight loss to stopping these medications. He consumes 3-4 alcoholic beverages a couple of nights per week and continues to smoke cigarettes and use snuff. He denies any recent nausea, emesis, diarrhea, or heartburn. He also denies any hematochezia or hematuria. He has not been using his CPAP machine. Duong has a history of urinary retention and performs self-catheterization. He reports constant lower abdominal pressure and discomfort, which he attributes to his bladder condition. He is under the care of a urologist and is trying to schedule a colonoscopy. He also inquires about treatment options for erectile dysfunction, which he has been experiencing for 3 years. Duong denies any new or unusual aches and pains, skin lesions, rashes, or sores. He does not use sunscreen or sunglasses. He denies any recent increase in thirst. He is interested in receiving the pneumonia and shingles vaccines. He is aware of his mother's recent health issues, including a fall, a major stroke, and macular degeneration. Past medical history, appointments, medications, allergies reviewed. Previous Medical History PAST MEDICAL HISTORY Diagnosis Date Abnormal findings on cardiac catheterization 01/17/[address] Bernstein 01/17/2015 question of 85% stenosis of septal hammer smith Alcohol abuse 07/06/2014 Sober since 03/29/2014 Allergic rhinitis due to allergen RAST 11/2013, [facility]. Anxiety 07/06/2014 Atelectasis 02/24/2024 lingula and right middle lobe Bilateral carotid artery stenosis 05/28/2015 US: 05/18/2015 less than 50% bilateral. US 04/2018 20-40% nidia Bilateral leg edema 07/10/2023 Bladder pain Coronary artery disease due to lipid rich plaque 07/03/[address] 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 Rosa Former smoker 07/06/2014 Quit 06/2014: Was smoking less than a PPD since 25 yo. Intermittent self-catheterization of bladder MVP (mitral valve prolapse) 02/15/2015 2D echo 12/2014 ANNIE (obstructive sleep apnea) PVC (premature ventricular contraction) Hx of. off and on. 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 Snoring Urine retention 03/08/2024 Seeing Urology: Dr. Rosa Previous Surgical History PAST SURGICAL HISTORY Procedure Laterality Date 2D ECHO (EXEP) 01/16/2015 EF=65%, Mild MVP CC CORONARY STENT 2014 Mid LAD COLONOSCOPY FLX (more content not included)...[facility] 08-15-2024 Telephone encounter Note* Telephone Encounter - Ebonie Crowe MA - 08/15/2024 10:56 AM EST Prescription Refill Information The patient has been identified by name and date of : Yes Caregiver verified no other encounters exist for this prescription request: Yes Caregiver confirmed with patient/requestor that no other refills are due, in the near future, with this provider at this time: Yes The last office visit in the department: 01/2024 Does the patient have a future office visit with this provider/department: Yes 01/2025 Requested Prescriptions Pending Prescriptions Disp Refills hydroCHLOROthiazide 12.5 mg capsule 90 capsule 1 Sig: Take 1 capsule by mouth once daily. Ebonie Crowe MA August 15, 2024 10:56 AM Patient is requesting prescription be sent to [facility]12-23-2024 Miscellaneous Notes* Telephone Encounter - Ebonie Crowe MA - 08/15/2024 10:56 AM EST Prescription Refill Information The patient has been identified by name and date of : Yes Caregiver verified no other encounters exist for this prescription request: Yes Caregiver confirmed with patient/requestor that no other refills are due, in the near future, with this provider at this time: Yes The last office visit in the department: 01/2024 Does the patient have a future office visit with this provider/department: Yes 01/2025 Requested Prescriptions Pending Prescriptions Disp Refills hydroCHLOROthiazide 12.5 mg capsule 90 capsule 1 Sig: Take 1 capsule by mouth once daily. Ebonie Crowe MA August 15, 2024 10:56 AM Patient is requesting prescription be sent to [facility] * Telephone Encounter - Aimee Mckenzie - 08/15/2024 10:44 AM EST Prescription Refill Information The patient has been identified by name and date of : Yes Caregiver verified no other encounters exist for this prescription request: Yes Caregiver confirmed with patient/requestor that no other refills are due, in the near future, with this provider at this time: Yes The last office visit in the department: 07-28-24 Does the patient have a future office visit with this provider/department: Yes Requested Prescriptions Pending Prescriptions Disp Refills hydroCHLOROthiazide 12.5 mg capsule 90 capsule 1 Sig: Take 1 capsule by mouth once daily. Aimee Mckenzie August 15, 2024 10:44 AM [facility] Telephone encounter Note * Telephone Encounter - Aimee Mckenzie - 08/15/2024 10:44 AM EST Prescription Refill Information The patient has been identified by name and date of : Yes Caregiver verified no other encounters exist for this prescription request: Yes Caregiver confirmed with patient/requestor that no other refills are due, in the near future, with this provider at this time: Yes The last office visit in the department: 07-28-24 Does the patient have a future office visit with this provider/department: Yes Requested Prescriptions Pending Prescriptions Disp Refills hydroCHLOROthiazide 12.5 mg capsule 90 capsule 1 Sig: Take 1 capsule by mouth once daily. Aimee Mckenzie August 15, 2024 10:44 AM [facility]12-09-2024 Telephone encounter Note* Telephone Encounter - Olga Gutierrez RN - 08/01/2024 4:37 PM EST Patient calls and notified of results and providers instructions. Patient verbalizes understanding.Patient would like to think about PT and the consult to ortho spine. Patient to call back if desires to schedule. Olga Gutierrez RN [facility]12-09-2024 Miscellaneous Notes* Telephone Encounter - Olga Gutierrez RN - 08/01/2024 4:37 PM EST Patient calls and notified of results and providers instructions. Patient verbalizes understanding.Patient would like to think about PT and the consult to ortho spine. Patient to call back if desires to schedule. Olga Gutierrez RN * Telephone Encounter - Virgil Hough APRN.LUTHER - 08/01/2024 12:57 PM EST Please let patient know his xr shows disc space narrowing of the c3-c4 and c4-c5 as well as foraminal narrowing which is likely contributing to his neck pain. Recommend PT and follow up with ortho spine. documented in [facility]Cl[facility]12-[facility]24 Telephone encounter Note * Telephone Encounter - Virgil Hough APRN.CNP - 08/01/2024 12:57 PM EST Please let patient know his xr shows disc space narrowing of the c3-c4 and c4-c5 as well as foraminal narrowing which is likely contributing to his neck pain. Recommend PT and follow up with ortho spine. [facility]12-05-2024 History of Present illness Narrative* Sean Burgos RT(R) - 07/28/2024 4:50 PM EST Radiology Service Progress Note PATIENT NAME: Jose Zapien III DATE OF SERVICE: July 28, 2024 TIME: 4:43 PM PATIENT IDENTITY VERIFICATION COMPLETED USING TWO (2) IDENTIFIERS: Name and Date of confirmedby patient verbally. FALL SCREENING: Has the patient had 2 falls in the last year or 1 fall with injury or currently using an Ambulatory Assistive Device (Walker, Cane, Wheelchair, Crutches, etc.)? No PATIENT GENDER DATA: Male PATIENT RELEVANT IMPLANT DATA REVIEWED: Yes PATIENT PRESENTS WITH AN IMPLANTABLE OR ATTACHED SENIOR ENERGY CONSULTANT: No RADIOLOGY DEPARTMENT: General X-ray: Exam(s) Completed: Spine X-Ray(s): Cervical AP / LAT / OBL PERIPHERAL IV DATA: Not applicable SIGNED BY: RT Corina(Franky) July 28, 2024 4:43 PM documented in this encounterCl[facility]12-[facility]-2024 NoteHNO ID: [id number] Author: SEAN BURGOS RT(Franky) Service: ? Author Type: Medical Affairs Director Type: Progress Notes Filed: 07/28/2024 16:51 Note Text: Radiology Service Progress Note PATIENT NAME: Jose Zapien III DATE OF SERVICE: July 28, 2024 TIME: 4:43 PM PATIENT IDENTITY VERIFICATION COMPLETED USING TWO (2) IDENTIFIERS: Name and Date of confirmed by patient verbally. FALL SCREENING: Has the patient had 2 falls in the last year or 1 fall with injury or currently using an Ambulatory Assistive Device (Walker, Cane, Wheelchair, Crutches, etc.)? No PATIENT GENDER DATA: Male PATIENT RELEVANT IMPLANT DATA REVIEWED: Yes PATIENT PRESENTS WITH AN IMPLANTABLE OR ATTACHED SENIOR ENERGY CONSULTANT: No RADIOLOGY DEPARTMENT: General X-ray: Exam(s) Completed: Spine X-Ray(s): Cervical AP / LAT / OBL PERIPHERAL IV DATA: Not applicable SIGNED BY: Sean Burgos RT(R) July 28, 2024 4:43 [facility]12-05-2024 NoteHNO ID: [id number] Author: VIRGIL HOUGH APRN.SENIOR CONSUMER INSIGHTS CONSULTANT Service: ? Author Type: Nurse Practitioner Type: Progress Notes Filed: 07/28/2024 16:35 Note Text: Chief Complaint Patient presents with: 6 Month Exam HPI Jose Zapien III is a 59 year old male who presents here today for Above Complaints.. Patient presents for routine follow up. Patient reports he has bladder discomfort, saw Dr. Romano recently and was treated for UTI but has had discomfort since he started self cathing. Also reports worsening neck pain, last xrays 2020. Past medical history, appointments, medications, allergies reviewed. Previous Medical History PAST MEDICAL HISTORY Diagnosis Date Abnormal findings on cardiac catheterization 01/17/[address] Bernstein 01/17/2015 question of 85% stenosis of septal hammer smith Alcohol abuse 07/06/2014 Sober since 03/29/2014 Allergic rhinitis due to allergen RAST 11/2013, [facility]. Anxiety 07/06/2014 Atelectasis 02/24/2024 lingula and right middle lobe Bilateral carotid artery stenosis 05/28/2015 US: 05/18/2015 less than 50% bilateral. US 04/2018 20-40% nidia Bilateral leg edema 07/10/2023 Coronary artery disease due to lipid rich plaque 07/03/[address] 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 Rosa Former smoker 07/06/2014 Quit 06/2014: Was smoking less than a PPD since 25 yo. MVP (mitral valve prolapse) 02/15/2015 2D echo 12/2014 ANNIE (obstructive sleep apnea) PVC (premature ventricular contraction) Hx of. off and on. 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 Snoring Urine retention 03/08/2024 Seeing Urology: Dr. Rosa Previous Surgical History PAST SURGICAL HISTORY Procedure Laterality Date 2D ECHO (EXEP) 01/16/2015 EF=65%, Mild MVP CC CORONARY STENT 2014 Mid LAD COLONOSCOPY FLX DX W/COLLJ SPEC WHEN PFRMD 12/23/2005 Colonoscopy COLONOSCOPY FLX DX W/COLLJ SPEC WHEN PFRMD 09/15/2017 repeat in 10 years ESOPHAGOGASTRODUODENOSCOPY TRANSORAL DIAGNOSTIC 10/21/2006 Gastritis LAPS SURG CHOLECYSTECTOMY W/CHOLANGIOGRAPHY 02/01/2007 PAST SURGICAL HISTORY OF 12/2014 stent to LAD RPR 1ST INGUN HRNA AGE 5 YRS/> REDUCIBLE Hernia repair, inguinal bilateral STRESS TEST 07/07/2017 WNL VASECTOMY UNI/BI SPX W/POSTOP SEMEN EXAMS Family History FAMILY HISTORY Problem Relation Age of Onset Heart Father Pacemaker, hx TIA Macular Degen Mother Glaucoma Mother Hypertension Mother Heart Maternal Grandmother Cancer Maternal Grandmother behind ear Heart Paternal Grandfather Stroke Paternal Grandfather Patient Allergies ALLERGIES Allergen Reactions Penicillins Unknown Childhood reaction. Current Medications Current Outpatient Medications on File Prior to Visit Medication Sig hydroCHLOROthiazide 12.5 mg capsule Take 1 capsule by mouth once daily. lisinopril (ZESTRIL, PRINIVIL) 20 mg tablet Take 1 tablet by mouth once daily. clopidogrel (PLAVIX) 75 mg tablet Take 1 tablet by mouth once daily. atorvastatin (LIPITOR) 80 mg tablet Take 1 tablet by mouth daily at bedtime. For cholesterol. docosahexaenoic acid/epa (FISH OIL ORAL) Take 1,200 mg by mouth as directed. aspirin, enteric coated (ASPIRIN, ENTERIC COATED) 81 mg EC tablet Take 81 mg by mouth once daily. acetaminophen (TYLENOL) 325 mg tablet Take 650 mg by mouth every 4 hours as needed. No current facility-administered medications on file prior to visit. Social History Social History Tobacco Use Smoking status: Every Day Current packs/day: 0.00 Average packs/day: 0.5 packs/day for 25.0 years (12.5 ttl pk-yrs) Types: Cigarettes Start date: 07/04/1989 Last attempt to quit: 07/04/2014 Years since quittin.0 Smokeless tobacco: Current Types: Snuff Tobacco comments: Prior 2 packs a day for 15 years, down to 3-4 cigarettes per day Vaping Use Vaping status: Never Used Substance Use Topics Alcohol use: Yes Alcohol/week: 10.0 standard drinks of alcohol Types: 4 Cans of beer, 6 Cans of Beer (12oz) per week Comment: nightly Drug use: No Review of Symptoms REVIEW OF SYSTEMS SEE HPI EXAM: BP 146/68 Pulse 70 Resp 14 Wt 91.2 kg (201 lb) BMI 29.26 kg/m? General Appearance: Well appearing, alert, in no acute distress, well-hydrated, well nourished. Back: no pain to palpation, slight dec extension, negative findings: symmetric, positive findings: paraspinal muscle spasm Lungs: Lungs clear to auscultation. No wheezing, rhonchi, rales.. Heart: RRR without murmur, gallop, or rubs. No ectopy. Peripheral Pulses: Normal. Health Maintenance List Shingrix Vaccine(1 of 2) due on 01/25/2025 Pneum (more content not included)...[facility]12-05-2024 History of Present illness Narrative* Virgil Hough, ROCHELLE.SENIOR CONSUMER INSIGHTS CONSULTANT - 07/28/2024 4:19 PM EST Chief Complaint Patient presents with: 6 Month Exam HPI Jose Zapien III is a 59 year old male who presents here today for Above Complaints.. Patient presents for routine follow up. Patient reports he has bladder discomfort, saw Dr. Romano recently and was treated for UTI but has had discomfort since he started self cathing. Also reports worsening neck pain, last xrays 2020. Past medical history, appointments, medications, allergies reviewed. Previous Medical History PAST MEDICAL HISTORY Diagnosis Date Abnormal findings on cardiac catheterization 01/17/[address] Bernstein 01/17/2015 question of 85% stenosis of septal hammer smith Alcohol abuse 07/06/2014 Sober since 03/29/2014 Allergic rhinitis due to allergen RAST 11/2013, [facility]. Anxiety 07/06/2014 Atelectasis 02/24/2024 lingula and right middle lobe Bilateral carotid artery stenosis 05/28/2015 US: 05/18/2015 less than 50% bilateral. US 04/2018 20-40% nidia Bilateral leg edema 07/10/2023 Coronary artery disease due to lipid rich plaque 07/03/[address] 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 Rosa Former smoker 07/06/2014 Quit 06/2014: Was smoking less than a PPD since 25 yo. MVP (mitral valve prolapse) 02/15/2015 2D echo 12/2014 ANNIE (obstructive sleep apnea) PVC (premature ventricular contraction) Hx of. off and on. 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 Snoring Urine retention 03/08/2024 Seeing Urology: Dr. Rosa Previous Surgical History PAST SURGICAL HISTORY Procedure Laterality Date 2D ECHO (EXEP) 01/16/2015 EF=65%, Mild MVP CC CORONARY STENT 2014 Mid LAD COLONOSCOPY FLX DX W/COLLJ SPEC WHEN PFRMD 12/23/2005 Colonoscopy COLONOSCOPY FLX DX W/COLLJ SPEC WHEN PFRMD 09/15/2017 repeat in 10 years ESOPHAGOGASTRODUODENOSCOPY TRANSORAL DIAGNOSTIC 10/21/2006 Gastritis LAPS SURG CHOLECYSTECTOMY W/CHOLANGIOGRAPHY 02/01/2007 PAST SURGICAL HISTORY OF 12/2014 stent to LAD RPR 1ST INGUN HRNA AGE 5 YRS/> REDUCIBLE Hernia repair, inguinal bilateral STRESS TEST 07/07/2017 WNL VASECTOMY UNI/BI SPX W/POSTOP SEMEN EXAMS Family History FAMILY HISTORY Problem Relation Age of Onset Heart Father Pacemaker, hx TIA Macular Degen Mother Glaucoma Mother Hypertension Mother Heart Maternal Grandmother Cancer Maternal Grandmother behind ear Heart Paternal Grandfather Stroke Paternal Grandfather Patient Allergies ALLERGIES Allergen Reactions Penicillins Unknown Childhood reaction. Current Medications Current Outpatient Medications on File Prior to Visit Medication Sig hydroCHLOROthiazide 12.5 mg capsule Take 1 capsule by mouth once daily. lisinopril (ZESTRIL, PRINIVIL) 20 mg tablet Take 1 tablet by mouth once daily. clopidogrel (PLAVIX) 75 mg tablet Take 1 tablet by mouth once daily. atorvastatin (LIPITOR) 80 mg tablet Take 1 tablet by mouth daily at bedtime. For cholesterol. docosahexaenoic acid/epa (FISH OIL ORAL) Take 1,200 mg by mouth as directed. aspirin, enteric coated (ASPIRIN, ENTERIC COATED) 81 mg EC tablet Take 81 mg by mouth once daily. acetaminophen (TYLENOL) 325 mg tablet Take 650 mg by mouth every 4 hours as needed. No current facility-administered medications on file prior to visit. Social History Social History Tobacco Use Smoking status: Every Day Current packs/day: 0.00 Average packs/day: 0.5 packs/day for 25.0 years (12.5 ttl pk-yrs) Types: Cigarettes Start date: 07/04/1989 Last attempt to quit: 07/04/2014 Years since quittin.0 Smokeless tobacco: Current Types: Snuff Tobacco comments: Prior 2 packs a day for 15 years, down to 3-4 cigarettes per day Vaping Use Vaping status: Never Used Substance Use Topics Alcohol use: Yes Alcohol/week: 10.0 standard drinks of alcohol Types: 4 Cans of beer, 6 Cans of Beer (12oz) per week Comment: nightly Drug use: No Review of Symptoms REVIEW OF SYSTEMS SEE HPI EXAM: BP 146/68 Pulse 70 Resp 14 Wt 91.2 kg (201 lb) BMI 29.26 kg/m General Appearance: Well appearing, alert, in no acute distress, well-hydrated, well nourished. Back: no pain to palpation, slight dec extension, negative findings: symmetric, positive findings: paraspinal muscle spasm Lungs: Lungs clear to auscultation. No wheezing, rhonchi, rales.. Heart: RRR without murmur, gallop, or rubs. No ectopy. Peripheral Pulses: Normal. Health Maintenance List Shingrix Vaccine(1 of 2) due on 01/25/2025 Pneumococcal Vaccine(1 of 2 - PCV) due on 01/25/2025 Annual PCP Team Chronic Disease Visit due on 02/16/2025 BP Controlled (<130/80) due on 05/09/2025 LDL Cholesterol due on 07/20/2025 Diabetes Screening due on 07/20/2027 Colorectal Cancer Screening due on 09/15/2027 DTaP,Tdap,Td Vaccine(3 - Td or Tdap) due on 05/30/2028 Prostate Cancer Screening Discussion due on 03/08/2029 Lipid Screening due on 07/20/2029 Hepatitis C Screening Completed HIV Screening Completed Influenza Vaccine Discontinued Covid-19 Vaccine Discontinued Data reviewed Latest Ref Rng 07/20/2024 Glucose 74 - 99 mg/dL 97 BUN 9 - 24 mg/dL 11 Creatinine 0.73 - 1.22 mg/dL 0.89 Sodium 136 - 144 mmol/L 134 (L) Potassium 3.7 - 5.1 mmol/L 4.3 Chloride 98 - 107 mmol/L 99 CO2 22 - 30 mmol/L 23 Anion Gap 8 - 15 mmol/L 12 Calcium 8.5 - 10.2 mg/dL 9.8 eGFR >=60 mL/min/1.73m 99 Cholesterol, Total <200 mg/dL 181 Triglyceride <150 mg/dL 160 (H) HDL Cholesterol >39 mg/dL 36 (L) Non HDL Cholesterol <130 mg/dL 145 (H) Fasting Time hrs 12 VLDL Cholesterol <30 mg/dL 32 (H) TC:HDL Ratio <5.10 5.03 LDL Cholesterol <100 mg/dL 113 (H) LDL:HDL Ratio <2.54 3.14 (H) Albumin 3.9 - 4.9 g/dL 4.5 Bilirubin, Total 0.2 - 1.3 mg/dL 1.4 (H) Bilirubin, Direct <0.2 mg/dL 0.3 (H) Alkaline Phosphatase 38 - 113 U/L 118 (H) AST 14 - 40 U/L 19 ALT 10 - 54 U/L 15 Protein, Total 6.3 - 8.0 g/dL 7.6 Hemoglobin A1C 4.3 - 5.6 % 5.4 Estimated Average Glucose mg/dL 108 ASSESSMENT/PLAN: 1. Neck pain - ICD9: 723.1, ICD10: M54.2 (primary diagnosis) - XR CERV OTHER 4V AP/LAT/OBL 2. Urine retention - ICD9: 788.20, ICD10: R33.9 - CONSULT TO UROLOGY 3. Essential hypertension - ICD9: 401.9, ICD10: I10 - Controlled - Continue current medications - Recommend home blood pressure monitoring, to bring results to next visit - Encouraged sodium restriction, DASH or Mediterranean diet - Recommend regular aerobic exercise - Discussed need for and benefit of weight loss. BMI 29.26 kg/(m^2) 4. Bladder pain - ICD9: 788.99, ICD10: R39.89 - CONSULT TO UROLOGY 5. Coronary artery disease due to lipid rich plaque - ICD9: 414.00, 414.3, ICD10: I25.10, I25.83 -Continue current medication. Virgil Hough APRN.SENIOR CONSUMER INSIGHTS CONSULTANT documented [facility]Cl[facility]11[facility] Miscellaneous Notes* Telephone Encounter - Ebonie Crowe MA - 07/19/2024 10:25 AM EST Patient notified and voiced understanding. Ebonie Crowe MA * Telephone Encounter - Arya James MD - 07/19/2024 9:40 AM EST Let patient know lab with kidney functions added with today's date. Advise him to make sure when hechecks to tell the desk person about labs with today's date: 07/19/24 and labs from 07/08/2024. * Telephone Encounter - Olga Gutierrez RN - 07/19/2024 8:59 AM EST Patient calls to let provider know that he is coming in to have labs ordered by provider completed next week and asking if provider would place orders to look at kidney function. Patient reports that he has been using a catheter the past three months 2-3 times day ordered by Dr. Romano and has had several infections and would like to have kidney function checked with other labs. Olga Gutierrez RN documented in this encounterCl[facility]11-[facility]24 Telephone encounter Note * Telephone Encounter - Ebonie Crowe MA - 07/19/2024 10:25 AM EST Patient notified and voiced understanding. Ebonie Crowe MA [facility]11-26-2024 Telephone encounter Note* Telephone Encounter - Arya James MD - 07/19/2024 9:40 AM EST Let patient know lab with kidney functions added with today's date. Advise him to make sure when hechecks to tell the desk person about labs with today's date: 07/19/24 and labs from 07/08/2024. [facility]11-26-2024 Telephone encounter Note* Telephone Encounter - Olga Gutierrez RN - 07/19/2024 8:59 AM EST Patient calls to let provider know that he is coming in to have labs ordered by provider completed next week and asking if provider would place orders to look at kidney function. Patient reports that he has been using a catheter the past three months 2-3 times day ordered by Dr. Romano and has had several infections and would like to have kidney function checked with other labs. Olga Gutierrez RN [facility]11-06-2024 NoteHNO ID: [id number] Author: EBONIE CROWE MA Service: ? Author Type: Evp Chief Exploration Officer Type: Progress Notes Filed: 06/29/2024 17:27 Note Text: Scan on 06/28/2024 9:05 AM by Juan Garg PA-C: Chemistry Scan on 06/28/2024 10:45 AM by Juan Garg PA-C: Consultation - SANRDA Crowe [facility]11-06-2024 History of Present illness Narrative* Ebonie Crowe MA - 06/29/2024 5:26 PM EST Scan on 06/28/2024 9:05 AM by Juan Garg PA-C: Chemistry Scan on 06/28/2024 10:45 AM by Juan Garg PA-C: Consultation - SANDRA Crowe MA documented in this encounterCl[facility]11-[facility]-2024 NoteHNO ID: [id number] Author: LORETTA JONES LPN Service: ? Author Type: LICENSED NURSE Type: Progress Notes Filed: 06/29/2024 10:34 Note Text: Scan on 06/29/2024 8:11 AM by ProviderJuan PA-C: [facility] History of Present illness Narrative* Loretta Jones LPN - 06/29/2024 10:21 AM EST Scan on 06/29/2024 8:11 AM by Juan Garg PA-C: Microbiology documented in this encounterClerm[facility]10-25-2024 Telephone encounter Note * Telephone Encounter - Yasmeen Knott LPN - 06/17/2024 12:22 PM EDT Spoke with pt and information listed below given. Pt verbalizes understanding. Yasmeen Knott LPN' [facility]10-25-2024 Miscellaneous Notes* Telephone Encounter - Yasmeen Knott LPN - 06/17/2024 12:22 PM EDT Spoke with pt and information listed below given. Pt verbalizes understanding. Yasmeen Knott LPN' * Telephone Encounter - Paula Hyman PA-C - 06/17/2024 11:30 AM EDT The following approved medication requests have been transmitted electronically. Requested Prescriptions Signed Prescriptions Disp Refills hydroCHLOROthiazide 12.5 mg capsule 90 capsule 1 Sig: Take 1 capsule by mouth once daily. Authorizing Provider: PAULA HYMAN PA-C * Telephone Encounter - Lindsay Baez - 06/17/2024 8:58 AM EDT Patient will be out this weekend, he is requesting this to be expedited today. Patient has been identified by name and date of : Yes Patient phones for refill(s): Requested Prescriptions Pending Prescriptions Disp Refills hydroCHLOROthiazide 12.5 mg capsule 90 capsule 1 Sig: Take 1 capsule by mouth once daily. Date of last office visit in primary care: 02/17/2024 Date of next office visit in primary care: 07/28/2024 Please advise. Thank you. Lindsay Baez. documented in this encounterClerm[facility]10-25-2024 Telephone encounter Note * Telephone Encounter - Paula Hyman PA-C - 06/17/2024 11:30 AM EDT The following approved medication requests have been transmitted electronically. Requested Prescriptions Signed Prescriptions Disp Refills hydroCHLOROthiazide 12.5 mg capsule 90 capsule 1 Sig: Take 1 capsule by mouth once daily. Authorizing Provider: PAULA HYMAN PA-C [facility]-25-[facility] Telephone encounter Note* Telephone Encounter - Lindsay Baez - 06/17/2024 8:58 AM EDT Patient will be out this weekend, he is requesting this to be expedited today. Patient has been identified by name and date of : Yes Patient phones for refill(s): Requested Prescriptions Pending Prescriptions Disp Refills hydroCHLOROthiazide 12.5 mg capsule 90 capsule 1 Sig: Take 1 capsule by mouth once daily. Date of last office visit in primary care: 02/17/2024 Date of next office visit in primary care: 07/28/2024 Please advise. Thank you. Lindsay Baez. [facility]09-18-[facility] Telephone encounter Note* Telephone Encounter - Ethan Wharton MA - 05/11/2024 6:32 PM EDT Patient notified of results, verbalized understanding of instructions given. Ethan Wharton MA [facility]09-18-2024 Miscellaneous Notes* Telephone Encounter - Ethan Wharton MA - 05/11/2024 6:32 PM EDT Patient notified of results, verbalized understanding of instructions given. Ethan Wharton MA * Telephone Encounter - Aris Trammell PA - 05/11/2024 4:29 PM EDT Please let patient know urine culture reveals no UTI. [facility] Telephone encounter Note * Telephone Encounter - Aris Trammell PA - 05/11/2024 4:29 PM EDT Please let patient know urine culture reveals no UTI. [facility] Work Phone: 1(902) 301-577409-17-2024 Telephone encounter Note* Telephone Encounter - Amanda Borden MA - 05/10/2024 6:29 PM EDT Patient given results and verbalized understanding of instructions given. Amanda Borden MA [facility]09-17-2024 Miscellaneous Notes* Telephone Encounter - Amanda Borden MA - 05/10/2024 6:29 PM EDT Patient given results and verbalized understanding of instructions given. Amanda Borden MA * Telephone Encounter - Aris Trammell PA - 05/10/2024 6:12 PM EDT Please let patient know UA no UTI. Follow-up with PCP for persistent symptoms. [facility] Telephone encounter Note * Telephone Encounter - Aris Trammell PA - 05/10/2024 6:12 PM EDT Please let patient know UA no UTI. Follow-up with PCP for persistent symptoms. [facility] Work Phone: 1(681) 284-344209-16-2024 NoteHNO ID: [id number] Author: GENOVEVA GUILLEN APRN.SENIOR CONSUMER INSIGHTS CONSULTANT Service: ? Author Type: Nurse Practitioner Type: Progress Notes Filed: 05/09/2024 16:00 Note Text: Subjective HPI HPI Jose aZpien III is a 58 year old male who presents today for CC of brning with urination, pelvic pressure/since starting straight cath. This started 2-3 weeks ago. Has tried nothing for relief. Symptoms are worsened by nothing. Risk factors started straight cathing 5 weeks ago d/t urinary retention. Denies testicular pain, gu rash, abd pain. Denies concerns for std. .Patient presents with: Urinary Problem: burning with urination and pelvic pressure x 2-3 weeks PAST MEDICAL HISTORY Diagnosis Date Abnormal findings on cardiac catheterization 01/17/[address] Bernstein 01/17/2015 question of 85% stenosis of septal hammer smith Alcohol abuse 07/06/2014 Sober since 03/29/2014 Allergic rhinitis due to allergen RAST 11/2013, [facility]. Anxiety 07/06/2014 Atelectasis 02/24/2024 lingula and right middle lobe Bilateral carotid artery stenosis 05/28/2015 US: 05/18/2015 less than 50% bilateral. US 04/2018 20-40% nidia Bilateral leg edema 07/10/2023 Coronary artery disease due to lipid rich plaque 07/03/[address] 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 Rosa Former smoker 07/06/2014 Quit 06/2014: Was smoking less than a PPD since 25 yo. MVP (mitral valve prolapse) 02/15/2015 2D echo 12/2014 ANNIE (obstructive sleep apnea) PVC (premature ventricular contraction) Hx of. off and on. 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 Snoring Urine retention 03/08/2024 Seeing Urology: Dr. Rosa PAST SURGICAL HISTORY Procedure Laterality Date 2D ECHO (EXEP) 01/16/2015 EF=65%, Mild MVP CC CORONARY STENT 2014 Mid LAD COLONOSCOPY FLX DX W/COLLJ SPEC WHEN PFRMD 12/23/2005 Colonoscopy COLONOSCOPY FLX DX W/COLLJ SPEC WHEN PFRMD 09/15/2017 repeat in 10 years ESOPHAGOGASTRODUODENOSCOPY TRANSORAL DIAGNOSTIC 10/21/2006 Gastritis LAPS SURG CHOLECYSTECTOMY W/CHOLANGIOGRAPHY 02/01/2007 PAST SURGICAL HISTORY OF 12/2014 stent to LAD RPR 1ST INGUN HRNA AGE 5 YRS/> REDUCIBLE Hernia repair, inguinal bilateral STRESS TEST 07/07/2017 WNL VASECTOMY UNI/BI SPX W/POSTOP SEMEN EXAMS ALLERGIES Penicillins MEDICATIONS hydroCHLOROthiazide 12.5 mg capsule Take 1 capsule by mouth once daily. lisinopril (ZESTRIL, PRINIVIL) 20 mg tablet Take 1 tablet by mouth once daily. clopidogrel (PLAVIX) 75 mg tablet Take 1 tablet by mouth once daily. atorvastatin (LIPITOR) 80 mg tablet Take 1 tablet by mouth daily at bedtime. For cholesterol. docosahexaenoic acid/epa (FISH OIL ORAL) Take 1,200 mg by mouth as directed. aspirin, enteric coated (ASPIRIN, ENTERIC COATED) 81 mg EC tablet Take 81 mg by mouth once daily. acetaminophen (TYLENOL) 325 mg tablet Take 650 mg by mouth every 4 hours as needed. FAMILY HISTORY Problem Relation Age of Onset Heart Father Pacemaker, hx TIA Macular Degen Mother Glaucoma Mother Hypertension Mother Heart Maternal Grandmother Cancer Maternal Grandmother behind ear Heart Paternal Grandfather Stroke Paternal Grandfather Social History Tobacco Use Smoking status: Every Day Current packs/day: 0.00 Average packs/day: 0.5 packs/day for 25.0 years (12.5 ttl pk-yrs) Types: Cigarettes Start date: 07/04/1989 Last attempt to quit: 07/04/2014 Years since quittin.8 Smokeless tobacco: Current Types: Snuff Tobacco comments: Prior 2 packs a day for 15 years, down to 3-4 cigarettes per day Vaping Use Vaping status: Never Used Substance Use Topics Alcohol use: Yes Alcohol/week: 10.0 standard drinks of alcohol Types: 4 Cans of beer, 6 Cans of Beer (12oz) per week Comment: nightly Drug use: No Review of Systems Constitutional: Negative for chills, fever and weight loss. Respiratory: Negative for cough, shortness of breath and wheezing. Cardiovascular: Negative for chest pain and palpitations. Gastrointestinal: Negative for abdominal pain, blood in stool, constipation, diarrhea, heartburn, melena, nausea and vomiting. Genitourinary: Positive for dysuria and hematuria (one day, april 22 then not again.). Negative for flank pain, frequency and urgency. Objective Blood pressure 128/74, pulse 66, temperature 36.9 ?C (98.5 ?F), resp. rate 16, weight 90.2 kg (198 lb 13.7 oz), SpO2 98%. Physical Exam Constitutional: General: He is not in acute distress. Appearance: Normal appearance. He is not toxic-appearing. Cardiovascular: Rate and Rhythm: Normal rate and regular rhythm. Heart sounds: Normal heart sounds. Pulmonary: (more content not included)...[facility]09-16-2024 History of Present illness Narrative* Genoveva Guillen APRN.SENIOR CONSUMER INSIGHTS CONSULTANT - 05/09/2024 3:50 PM EDT Subjective HPI HPI Jose Zapien III is a 58 year old male who presents today for CC of brning with urination, pelvic pressure/since starting straight cath. This started 2-3 weeks ago. Has tried nothing for relief. Symptoms are worsened by nothing. Risk factors started straight cathing 5 weeks ago d/t urinary retention. Denies testicular pain, gu rash, abd pain. Denies concerns for std. .Patient presents with: Urinary Problem: burning with urination and pelvic pressure x 2-3 weeks PAST MEDICAL HISTORY Diagnosis Date Abnormal findings on cardiac catheterization 01/17/[address] Bernstein 01/17/2015 question of 85% stenosis of septal hammer smith Alcohol abuse 07/06/2014 Sober since 03/29/2014 Allergic rhinitis due to allergen RAST 11/2013, [facility]. Anxiety 07/06/2014 Atelectasis 02/24/2024 lingula and right middle lobe Bilateral carotid artery stenosis 05/28/2015 US: 05/18/2015 less than 50% bilateral. US 04/2018 20-40% nidia Bilateral leg edema 07/10/2023 Coronary artery disease due to lipid rich plaque 07/03/[address] 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 Rosa Former smoker 07/06/2014 Quit 06/2014: Was smoking less than a PPD since 25 yo. MVP (mitral valve prolapse) 02/15/2015 2D echo 12/2014 ANNIE (obstructive sleep apnea) PVC (premature ventricular contraction) Hx of. off and on. 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 Snoring Urine retention 03/08/2024 Seeing Urology: Dr. Rosa PAST SURGICAL HISTORY Procedure Laterality Date 2D ECHO (EXEP) 01/16/2015 EF=65%, Mild MVP CC CORONARY STENT 2014 Mid LAD COLONOSCOPY FLX DX W/COLLJ SPEC WHEN PFRMD 12/23/2005 Colonoscopy COLONOSCOPY FLX DX W/COLLJ SPEC WHEN PFRMD 09/15/2017 repeat in 10 years ESOPHAGOGASTRODUODENOSCOPY TRANSORAL DIAGNOSTIC 10/21/2006 Gastritis LAPS SURG CHOLECYSTECTOMY W/CHOLANGIOGRAPHY 02/01/2007 PAST SURGICAL HISTORY OF 12/2014 stent to LAD RPR 1ST INGUN HRNA AGE 5 YRS/> REDUCIBLE Hernia repair, inguinal bilateral STRESS TEST 07/07/2017 WNL VASECTOMY UNI/BI SPX W/POSTOP SEMEN EXAMS ALLERGIES Penicillins MEDICATIONS hydroCHLOROthiazide 12.5 mg capsule Take 1 capsule by mouth once daily. lisinopril (ZESTRIL, PRINIVIL) 20 mg tablet Take 1 tablet by mouth once daily. clopidogrel (PLAVIX) 75 mg tablet Take 1 tablet by mouth once daily. atorvastatin (LIPITOR) 80 mg tablet Take 1 tablet by mouth daily at bedtime. For cholesterol. docosahexaenoic acid/epa (FISH OIL ORAL) Take 1,200 mg by mouth as directed. aspirin, enteric coated (ASPIRIN, ENTERIC COATED) 81 mg EC tablet Take 81 mg by mouth once daily. acetaminophen (TYLENOL) 325 mg tablet Take 650 mg by mouth every 4 hours as needed. FAMILY HISTORY Problem Relation Age of Onset Heart Father Pacemaker, hx TIA Macular Degen Mother Glaucoma Mother Hypertension Mother Heart Maternal Grandmother Cancer Maternal Grandmother behind ear Heart Paternal Grandfather Stroke Paternal Grandfather Social History Tobacco Use Smoking status: Every Day Current packs/day: 0.00 Average packs/day: 0.5 packs/day for 25.0 years (12.5 ttl pk-yrs) Types: Cigarettes Start date: 07/04/1989 Last attempt to quit: 07/04/2014 Years since quittin.8 Smokeless tobacco: Current Types: Snuff Tobacco comments: Prior 2 packs a day for 15 years, down to 3-4 cigarettes per day Vaping Use Vaping status: Never Used Substance Use Topics Alcohol use: Yes Alcohol/week: 10.0 standard drinks of alcohol Types: 4 Cans of beer, 6 Cans of Beer (12oz) per week Comment: nightly Drug use: No Review of Systems Constitutional: Negative for chills, fever and weight loss. Respiratory: Negative for cough, shortness of breath and wheezing. Cardiovascular: Negative for chest pain and palpitations. Gastrointestinal: Negative for abdominal pain, blood in stool, constipation, diarrhea, heartburn, melena, nausea and vomiting. Genitourinary: Positive for dysuria and hematuria (one day, april 22 then not again.). Negative for flank pain, frequency and urgency. Objective Blood pressure 128/74, pulse 66, temperature 36.9 C (98.5 F), resp. rate 16, weight 90.2 kg (198 lb13.7 oz), SpO2 98%. Physical Exam Constitutional: General: He is not in acute distress. Appearance: Normal appearance. He is not toxic-appearing. Cardiovascular: Rate and Rhythm: Normal rate and regular rhythm. Heart sounds: Normal heart sounds. Pulmonary: Effort: Pulmonary effort is normal. Breath sounds: Normal breath sounds. Abdominal: General: Bowel sounds are normal. Palpations: Abdomen is soft. Tenderness: There is no abdominal tenderness. Skin: General: Skin is warm and dry. ASSESSMENT/PLAN: 1. Burning with urination - ICD9: 788.1, ICD10: R30.0 acute - UA positive for kets only No treatment today, call culture results and treat if positive. -advised to f/u with urologist. - UA DIP, URINE (POC) - URINE CULTURE Genoveva Guillen APRN.SENIOR CONSUMER INSIGHTS CONSULTANT documented in [facility] encounterCl[facility]08-[facility]-2024 NoteHNO ID: [id number] Author: LORETTA JONES LPN Service: ? Author Type: LICENSED NURSE Type: Progress Notes Filed: 03/25/2024 07:34 Note Text: Scan on 03/24/2024 2:25 PM by Juan Garg PA-C: Consultation - [facility]08-02-2024 History of Present illness Narrative* Loretta Jones LPN - 03/25/2024 7:34 AM EDT Scan on 03/24/2024 2:25 PM by Juan Garg PA-C: Consultation - documented in this encounterClerm[facility]07-16-2024 Telephone encounter Note * Telephone Encounter - Ebonie Crowe MA - 03/08/2024 4:11 PM EDT Received fax from [facility] requesting CT/US. This information was faxed 03/07/2024. Ebonie Crowe MA [facility]07-16-2024 Miscellaneous Notes* Telephone Encounter - Ebonie Crowe MA - 03/08/2024 4:11 PM EDT Received fax from [facility] requesting CT/US. This information was faxed 03/07/2024. Ebonie Crowe MA documented in this encounterClerm[facility]07-16-2024 NoteHNO ID: [id number] Author: ARYA JAMES MD Service: ? Author Type: Physician Type: Progress Notes Filed: 03/08/2024 10:37 Note Text: Please fax copies of printed abd US and Abd CT to Dr. Rosa.[facility]07-16-2024 History of Present illness Narrative* Arya James MD - 03/08/2024 10:35 AM EDT Please fax copies of printed abd US and Abd CT to Dr. Rosa. * Loretta Jones LPN - 03/08/2024 9:26 AM EDT Scan on 03/07/2024 2:40 PM by Juan Garg PA-C: Consultation - Scan on 03/07/2024 10:38 AM by Juan Garg PA-C: Chemistry documented in this encounterClerm[facility] Hospital07-16-2024 NoteHNO ID: [id number] Author: LORETTA JONES LPN Service: ? Author Type: LICENSED NURSE Type: Progress Notes Filed: 03/08/2024 09:27 Note Text: Scan on 03/07/2024 2:40 PM by ProviderJuan PA-C: Consultation - Scan on 03/07/2024 10:38 AM by ProviderJuan PA-C: [facility]-10-2024 NoteHNO ID: [id number] Author: SAMMI NOBLES LPN Service: ? Author Type: LICENSED NURSE Type: Progress Notes Filed: 03/02/2024 12:42 Note Text: Patient presents for suture removal per Dr James. Denies any problems with incision; no pain, redness, drainage, or swelling. Removed 6 sutures at this time (one fell out prior to removal today). Patient tolerated well. No drainage, pain, or swelling at incision. Did note mild redness and scabbing at each suture only. Incision is well approximated and healing. Did appy steri-strips to site at this time for extra protection when stretching/moving. [facility] History of Present illness Narrative* Sammi Nobles LPN - 03/02/2024 12:30 PM EDT Patient presents for suture removal per Dr James. Denies any problems with incision; no pain, redness, drainage, or swelling. Removed 6 sutures at this time (one fell out prior to removal today). Patient tolerated well. No drainage, pain, or swelling at incision. Did note mild redness and scabbingat each suture only. Incision is well approximated and healing. Did appy steri-strips to site at this time for extra protection when stretching/moving. Sammi Nobles LPN documented in this encounterClermont [facility] Hospital07-09-2024 Telephone encounter Note * Telephone Encounter - Ebonie Crowe MA - 03/01/2024 8:06 AM EDT Patient notified and voiced understanding. Ebonie Crowe MA [facility]07-09-2024 Miscellaneous Notes* Telephone Encounter - Ebonie Crowe MA - 03/01/2024 8:06 AM EDT Patient notified and voiced understanding. Ebonie Crowe MA * Telephone Encounter - Arya James MD - 02/29/2024 4:49 PM EDT Let patient know US of neck arteries is stable from previous one. So no increased narrowing. The CT's of his chest and abdomen were ok other then the distended bladder. Looks like he sees Urology in 2 weeks. documented in this encounterClerm[facility]07-08-2024 Telephone encounter Note * Telephone Encounter - Arya James MD - 02/29/2024 4:49 PM EDT Let patient know US of neck arteries is stable from previous one. So no increased narrowing. The CT's of his chest and abdomen were ok other then the distended bladder. Looks like he sees Urology in 2 weeks. [facility]07-03-2024 History of Present illness Narrative* Lily Bliss, RT(R) - 02/24/2024 3:20 PM EDT Radiology Service Progress Note DATE OF SERVICE: February 24, 2024 TIME: 3:52 PM PATIENT IDENTITY VERIFICATION COMPLETED USING TWO (2) STANDARD IDENTIFIERS: Name and Date of confirmed by patient verbally. FALL SCREENING: Has the patient had 2 falls in the last year or 1 fall with injury or currently using an Ambulatory Assistive Device (Walker, Cane, Wheelchair, Crutches, etc.)? No PATIENT GENDER DATA: Male PATIENT RELEVANT IMPLANT DATA REVIEWED: Yes PATIENT PRESENTS WITH AN IMPLANTABLE OR ATTACHED SENIOR ENERGY CONSULTANT: No ALLERGIES: Reviewed and unchanged CONTRAST ALLERGY: NO. EXAM: CT -CONTRAST INDUCED NEPHROPATHY RISK FACTORS: Not applicable CREATININE: Creatinine Date Value Ref Range Status 01/13/2024 0.97 0.73 - 1.22 mg/dL Final 03/15/2021 1.05 0.73 - 1.22 mg/dL Final 09/02/2019 1.02 0.73 - 1.22 mg/dL Final Estimated Glomerular Filtration Rate Date Value Ref Range Status 01/13/2024 90 >=60 mL/min/1.73m Final Comment: Estimated Glomerular Filtration Rate (eGFR) is calculated using the 2020 CKD-EPI creatinine equation. This equation utilizes serum creatinine, sex, and age as parameters. The creatinine assay has traceable calibration to isotope dilution- mass spectrometry. Refer to KDIGO guidelines for clinical interpretation. In patients with unstable renal function, e.g. those with acute kidney injury, the eGFRmay not accurately reflect actual GFR. eGFR- Date Value Ref Range Status 03/15/2021 >60 Final P.O.C.T. RESULTS: POC done: Yes, See Lab Tab February 24, 2024 TREATMENT: N/A PERIPHERAL IV DATA: Ambulatory: A peripheral IV was started in the Left antecubital site with a Angio cath: 22 gauge. RADIOLOGY DEPARTMENT: CT; Exam(s) Completed: Abdomen/Pelvis SIGNATURE: LOC Unger) PATIENT NAME: Jose Zapien III DATE: February 24, 2024 TIME: 3:52 PM documented in this encounterClermont [facility] Hospital07-03-2024 NoteHNO ID: [id number] Author: LILY BLISS RT(R) Service: ? Author Type: Medical Affairs Director Type: Progress Notes Filed: 02/24/2024 15:52 Note Text: Radiology Service Progress Note DATE OF SERVICE: February 24, 2024 TIME: 3:52 PM PATIENT IDENTITY VERIFICATION COMPLETED USING TWO (2) STANDARD IDENTIFIERS: Name and Date of confirmed by patient verbally. FALL SCREENING: Has the patient had 2 falls in the last year or 1 fall with injury or currently using an Ambulatory Assistive Device (Walker, Cane, Wheelchair, Crutches, etc.)? No PATIENT GENDER DATA: Male PATIENT RELEVANT IMPLANT DATA REVIEWED: Yes PATIENT PRESENTS WITH AN IMPLANTABLE OR ATTACHED SENIOR ENERGY CONSULTANT: No ALLERGIES: Reviewed and unchanged CONTRAST ALLERGY: NO. EXAM: CT -CONTRAST INDUCED NEPHROPATHY RISK FACTORS: Not applicable CREATININE: Creatinine Date Value Ref Range Status 01/13/2024 0.97 0.73 - 1.22 mg/dL Final 03/15/2021 1.05 0.73 - 1.22 mg/dL Final 09/02/2019 1.02 0.73 - 1.22 mg/dL Final Estimated Glomerular Filtration Rate Date Value Ref Range Status 01/13/2024 90 >=60 mL/min/1.73m? Final Comment: Estimated Glomerular Filtration Rate (eGFR) is calculated using the 2020 CKD-EPI creatinine equation. This equation utilizes serum creatinine, sex, and age as parameters. The creatinine assay has traceable calibration to isotope dilution-mass spectrometry. Refer to KDIGO guidelines for clinical interpretation. In patients with unstable renal function, e.g. those with acute kidney injury, the eGFR may not accurately reflect actual GFR. eGFR- Date Value Ref Range Status 03/15/2021 >60 Final P.O.C.T. RESULTS: POC done: Yes, See Lab Tab February 24, 2024 TREATMENT: N/A PERIPHERAL IV DATA: Ambulatory: A peripheral IV was started in the Left antecubital site with a Angio cath: 22 gauge. RADIOLOGY DEPARTMENT: CT; Exam(s) Completed: Abdomen/Pelvis SIGNATURE: RT Cornel(R) PATIENT NAME: Jose Zapien III DATE: February 24, 2024 TIME: 3:52 [facility]07-03-2024 NoteHNO ID: [id number] Author: LORETTA JONES LPN Service: ? Author Type: LICENSED NURSE Type: Progress Notes Filed: 02/24/2024 11:06 Note Text: Scan on 02/24/2024 9:27 AM by ProviderJuan PA-C: Consultation - Cardiology [facility]07-03-2024 History of Present illness Narrative* Loretta Jones LPN - 02/24/2024 11:06 AM EDT Scan on 02/24/2024 9:27 AM by ProviderJuan PANielsC: Consultation - Cardiology documented in this encounterClerm[facility]06-28-2024 Telephone encounter Note * Telephone Encounter - Ebonie Crowe MA - 02/19/2024 5:01 PM EDT Patient notified and voiced understanding. Ebonie Crowe MA [facility]06-28-2024 Miscellaneous Notes* Telephone Encounter - Ebonie Crowe MA - 02/19/2024 5:01 PM EDT Patient notified and voiced understanding. Ebonie Crowe MA * Telephone Encounter - Arya James MD - 02/19/2024 4:56 PM EDT Let patient know biopsy was a benign cyst. documented in this encounterClermont [facility]06-28-2024 Telephone encounter Note * Telephone Encounter - Arya James MD - 02/19/2024 4:56 PM EDT Let patient know biopsy was a benign cyst. [facility]-28-[facility] Telephone encounter Note* Telephone Encounter - Vicki Rowell - 02/19/2024 11:02 AM EDT 1st attempt left vm [facility]06-28-2024 Miscellaneous Notes* Telephone Encounter - Vicki Rowell - 02/19/2024 11:02 AM EDT 1st attempt left vm * Telephone Encounter - Arya James MD - 02/18/2024 3:43 PM EDT Urology consult placed. * Telephone Encounter - Christina Lowery MA - 02/18/2024 3:39 PM EDT Patient informed and verbalized understanding. Would like referral to urology. Will consider ER if pain worsens. Christina Lowery MA * Telephone Encounter - Arya James MD - 02/18/2024 3:16 PM EDT Let patient know I can place a referral to Urology but not sure when he whould get in. If we do this nd while waing on his appt the pain gets worse he needs to go to the ER. Anything over 100 ml's inthe bladder after peeing is abnormal and he has [address] order placed. * Telephone Encounter - Christina Lowery MA - 02/18/2024 3:11 PM EDT Patient informed and verbalized understanding. States he's had trouble with urinary retention for years. Saw urology years ago. Willing to see again if needed. States he does have some lower abdominal discomfort. Wants to know if you're still advising ER? He agrees to have CT done. Please order. Christina Lowery MA * Telephone Encounter - Arya James MD - 02/18/2024 2:49 PM EDT Let patient know the US was not able to see his pancrease well. It also showed fatty infiltration of his liver. Over time this can cause fibrosis and scaring of the liver and cirrhosis. This can leadto . Things to do to prevent progression would be try try to reduce the amount of fat in ones diet, increase exercise and stop alcohol consumption. This US also showed that he is retaining at least 1.3 liters of urine. I would advise him to go to the ER to have this addressed so his bladder does not rupture. If ok I would also like to set up the CT of his abd/pel like we discussed since the US was unremarkable for any cause of weight loss. * Telephone Encounter - Asha Au RN - 02/18/2024 2:20 PM EDT Patient asking pcp to review and advise on US results. documented in this encounterClerm[facility]06-27-2024 Telephone encounter Note * Telephone Encounter - Arya James MD - 02/18/2024 3:43 PM EDT Urology consult placed. [facility] Telephone encounter Note* Telephone Encounter - Christina Lowery MA - 02/18/2024 3:39 PM EDT Patient informed and verbalized understanding. Would like referral to urology. Will consider ER if pain worsens. Christina Lowery MA [facility]06-27-2024 Telephone encounter Note* Telephone Encounter - Arya James MD - 02/18/2024 3:16 PM EDT Let patient know I can place a referral to Urology but not sure when he whould get in. If we do this nd while waing on his appt the pain gets worse he needs to go to the ER. Anything over 100 ml's inthe bladder after peeing is abnormal and he has [address] order placed. [facility] Telephone encounter Note* Telephone Encounter - Christina Lowery MA - 02/18/2024 3:11 PM EDT Patient informed and verbalized understanding. States he's had trouble with urinary retention for years. Saw urology years ago. Willing to see again if needed. States he does have some lower abdominal discomfort. Wants to know if you're still advising ER? He agrees to have CT done. Please order. Christina Lowery MA [facility]06-27-2024 Telephone encounter Note* Telephone Encounter - Arya James MD - 02/18/2024 2:49 PM EDT Let patient know the US was not able to see his pancrease well. It also showed fatty infiltration of his liver. Over time this can cause fibrosis and scaring of the liver and cirrhosis. This can leadto . Things to do to prevent progression would be try try to reduce the amount of fat in ones diet, increase exercise and stop alcohol consumption. This US also showed that he is retaining at least 1.3 liters of urine. I would advise him to go to the ER to have this addressed so his bladder does not rupture. If ok I would also like to set up the CT of his abd/pel like we discussed since the US was unremarkable for any cause of weight loss. [facility]06-27-2024 Telephone encounter Note* Telephone Encounter - Asha Au RN - 02/18/2024 2:20 PM EDT Patient asking pcp to review and advise on US results. [facility]06-26-2024 NoteHNO ID: [id number] Author: ARYA JAMES MD Service: ? Author Type: Physician Type: Procedures Filed: 02/19/2024 16:59 Note Text: UNIVERSAL PROTOCOL / SAFETY CHECKLIST Procedure to be Performed: excisional biopsy Sign In: A Moment of CARE was completed. Personnel directly involved with the procedure wore the appropriate PPE (Personal Protective Equipment). Patient/Surrogate Stated/Verified: PATIENT VERIFIED(optional for EMERGENT procedures): Patient name, Date of , Relevant allergies, and The intended procedure Time Out Communication: Intended patient and procedure match the source documents. Consent documented and matches the intended procedure. Correct side/site marked and visible. Medications required for procedure verified. Fire risk assessed and interventions discussed. Sign Out: SIGN OUT (optional for EMERGENT procedures): All specimen containers correctly labeled. All instruments, equipment, possible retained foreign bodies accounted for. Post-procedure follow-up management communicated and Plan of Care Visit completed when applicable. Area was cleansed with betadine and alcohol then anesthetized with 0.5% Lido with Epi at 1:200,000. The area was draped in sterile fashion. A single incision was made with a #15 blade. The Cyst was then dissected out with the use of the #15 blade. The cyst did rupture and expressed green/yellow puss. The sack of the cyst was completely removed. Electrocaughtery set t 28 was used to aid in hemostasis. The are was then irrigated with normal saline to remove any remaining puss. The edges were brought back together with the use of 3-) Ethilon with 7 interrupted mattress sutures. The area was cleansed and a sterile dressing and antibiotic ointment were applied. Patient tolerated well with minimal blood loss. Lesion size: 1.7 cm x 1.5 cm Arya Jaems, [facility]06-26-2024 Procedure note* Arya James MD - 02/17/2024 10:51 AM EDTProcedure(s): SKIN BIOPSY Pre-Procedure Diagnose(s): Neoplasm of uncertain behavior of skin of back Post-Procedure Diagnose(s): Neoplasm of uncertain behavior of skin of back UNIVERSAL PROTOCOL / SAFETY CHECKLIST Procedure to be Performed: excisional biopsy Sign In: A Moment of CARE was completed. Personnel directly involved with the procedure wore the appropriate PPE (Personal Protective Equipment). Patient/Surrogate Stated/Verified: PATIENT VERIFIED(optional for EMERGENT procedures): Patient name, Date of , Relevant allergies, and The intended procedure Time Out Communication: Intended patient and procedure match the source documents. Consent documented and matches the intended procedure. Correct side/site marked and visible. Medications required for procedure verified. Fire risk assessed and interventions discussed. Sign Out: SIGN OUT (optional for EMERGENT procedures): All specimen containers correctly labeled. All instruments, equipment, possible retained foreign bodies accounted for. Post-procedure follow-up management communicated and Plan of Care Visit completed when applicable. Area was cleansed with betadine and alcohol then anesthetized with 0.5% Lido with Epi at 1:200,000.The area was draped in sterile fashion. A single incision was made with a #15 blade. The Cyst was then dissected out with the use of the #15 blade. The cyst did rupture and expressed green/yellow puss. The sack of the cyst was completely removed. Electrocaughtery set t 28 was used to aid in hemostasis. The are was then irrigated with normal saline to remove any remaining puss. The edges were brought back together with the use of 3-) Ethilon with 7 interrupted mattress sutures. The area was cleansed and a sterile dressing and antibiotic ointment were applied. Patient tolerated well with minimal blood loss. Lesion size: 1.7 cm x 1.5 cm Arya James MD [facility]06-26-2024 Procedure note* Arya James MD - 02/17/2024 10:51 AM EDTProcedure(s): SKIN BIOPSY Pre-Procedure Diagnose(s): Neoplasm of uncertain behavior of skin of back Post-Procedure Diagnose(s): Neoplasm of uncertain behavior of skin of back UNIVERSAL PROTOCOL / SAFETY CHECKLIST Procedure to be Performed: excisional biopsy Sign In: A Moment of CARE was completed. Personnel directly involved with the procedure wore the appropriate PPE (Personal Protective Equipment). Patient/Surrogate Stated/Verified: PATIENT VERIFIED(optional for EMERGENT procedures): Patient name, Date of , Relevant allergies, and The intended procedure Time Out Communication: Intended patient and procedure match the source documents. Consent documented and matches the intended procedure. Correct side/site marked and visible. Medications required for procedure verified. Fire risk assessed and interventions discussed. Sign Out: SIGN OUT (optional for EMERGENT procedures): All specimen containers correctly labeled. All instruments, equipment, possible retained foreign bodies accounted for. Post-procedure follow-up management communicated and Plan of Care Visit completed when applicable. Area was cleansed with betadine and alcohol then anesthetized with 0.5% Lido with Epi at 1:200,000.The area was draped in sterile fashion. A single incision was made with a #15 blade. The Cyst was then dissected out with the use of the #15 blade. The cyst did rupture and expressed green/yellow puss. The sack of the cyst was completely removed. Electrocaughtery set t 28 was used to aid in hemostasis. The are was then irrigated with normal saline to remove any remaining puss. The edges were brought back together with the use of 3-) Ethilon with 7 interrupted mattress sutures. The area was cleansed and a sterile dressing and antibiotic ointment were applied. Patient tolerated well with minimal blood loss. Lesion size: 1.7 cm x 1.5 cm Arya James MD documented in [facility]Cl[facility]24 NoteHNO ID: [id number] Author: ARYA JAMES MD Service: ? Author Type: Physician Type: Progress Notes Filed: 02/19/2024 16:59 Note Text: Chief Complaint Patient presents with: Derm Problem HPI Jose Zapien III is a 58 year old male who presents here today for Cyst removal on back. Patient has a lump in the kin of his back. Here for removal. Past medical history, appointments, medications, allergies reviewed. Previous Medical History PAST MEDICAL HISTORY Diagnosis Date Abnormal findings on cardiac catheterization 01/17/[address] Bernstein 01/17/2015 question of 85% stenosis of septal hammer smith Alcohol abuse 07/06/2014 Sober since 03/29/2014 Allergic rhinitis due to allergen RAST 11/2013, [facility]. Anxiety 07/06/2014 Bilateral carotid artery stenosis 05/28/2015 US: 05/18/2015 less than 50% bilateral. US 04/2018 20-40% nidia Bilateral leg edema 07/10/2023 Coronary artery disease due to lipid rich plaque 07/03/[address] Bernstein Current moderate episode of major depressive disorder without prior episode (HCC) 05/11/2019 Elevated fasting blood sugar 07/11/2017 Essential hypertension 06/25/2015 Former smoker 07/06/2014 Quit 06/2014: Was smoking less than a PPD since 25 yo. MVP (mitral valve prolapse) 02/15/2015 2D echo 12/2014 ANNIE (obstructive sleep apnea) PVC (premature ventricular contraction) Hx of. off and on. 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 Snoring Previous Surgical History PAST SURGICAL HISTORY Procedure Laterality Date 2D ECHO (EXEP) 01/16/2015 EF=65%, Mild MVP CC CORONARY STENT 2014 Mid LAD COLONOSCOPY FLX DX W/COLLJ SPEC WHEN PFRMD 12/23/2005 Colonoscopy COLONOSCOPY FLX DX W/COLLJ SPEC WHEN PFRMD 09/15/2017 repeat in 10 years ESOPHAGOGASTRODUODENOSCOPY TRANSORAL DIAGNOSTIC 10/21/2006 Gastritis LAPS SURG CHOLECYSTECTOMY W/CHOLANGIOGRAPHY 02/01/2007 PAST SURGICAL HISTORY OF 12/2014 stent to LAD RPR 1ST INGUN HRNA AGE 5 YRS/> REDUCIBLE Hernia repair, inguinal bilateral STRESS TEST 07/07/2017 WNL VASECTOMY UNI/BI SPX W/POSTOP SEMEN EXAMS Family History FAMILY HISTORY Problem Relation Age of Onset Heart Father Pacemaker, hx TIA Macular Degen Mother Glaucoma Mother Hypertension Mother Heart Maternal Grandmother Cancer Maternal Grandmother behind ear Heart Paternal Grandfather Stroke Paternal Grandfather Patient Allergies ALLERGIES Allergen Reactions Penicillins Unknown Childhood reaction. Current Medications Current Outpatient Medications on File Prior to Visit Medication Sig hydroCHLOROthiazide 12.5 mg capsule Take 1 capsule by mouth once daily. lisinopril (ZESTRIL, PRINIVIL) 20 mg tablet Take 1 tablet by mouth once daily. clopidogrel (PLAVIX) 75 mg tablet Take 1 tablet by mouth once daily. atorvastatin (LIPITOR) 80 mg tablet Take 1 tablet by mouth daily at bedtime. For cholesterol. docosahexaenoic acid/epa (FISH OIL ORAL) Take 1,200 mg by mouth as directed. aspirin, enteric coated (ASPIRIN, ENTERIC COATED) 81 mg EC tablet Take 81 mg by mouth once daily. acetaminophen (TYLENOL) 325 mg tablet Take 650 mg by mouth every 4 hours as needed. No current facility-administered medications on file prior to visit. Social History Social History Tobacco Use Smoking status: Every Day Packs/day: 0.50 Years: 25.00 Additional pack years: 0.00 Total pack years: 12.50 Types: Cigarettes Last attempt to quit: 07/04/2014 Years since quittin.6 Smokeless tobacco: Current Types: Snuff Tobacco comments: Prior 2 packs a day for 15 years, down to 3-4 cigarettes per day Vaping Use Vaping Use: Never used Substance Use Topics Alcohol use: Yes Alcohol/week: 10.0 standard drinks of alcohol Types: 4 Cans of beer, 6 Cans of Beer (12oz) per week Comment: nightly Drug use: No Review of Symptoms REVIEW OF SYSTEMS See HPI EXAM: BP 138/88 (BP Site: Right Arm, BP Position: Sitting, BP Cuff Size: Regular Adult) Pulse 76 Resp 16 Wt 89.8 kg (198 lb) BMI 28.82 kg/m? General Appearance: Well appearing, alert, in no acute distress, well-hydrated, well nourished.. Skin: has a suspected sebaceous cyst upper middle back . Health Maintenance List Shingrix Vaccine(1 of 2) due on 01/25/2025 Pneumococcal Vaccine(1 of 2 - PCV) due on 01/25/2025 LDL Cholesterol due on 01/12/2025 Annual PCP Team Chronic Disease Visit due on 01/25/2025 BP Controlled (<130/80) due on 01/25/2025 Diabetes Screening due on 01/12/2027 Colorectal Cancer Screening due on 09/15/2027 DTaP,Tdap,Td Vaccine(3 - Td or Tdap) due on 05/30/2028 Lipid Screening due on 01/12/2029 Prostate Cancer Screening Discussion due on 01/25/2029 Hepatitis B Vaccine Completed Hepatitis C Screening Completed HIV Screening Completed Influenza Vaccine Discontinued Covid-19 Vaccine Discontinued Da (more content not included)...[facility]06-26-2024 History of Present illness Narrative* Arya James MD - 02/17/2024 10:40 AM EDT Chief Complaint Patient presents with: Derm Problem HPI Jose Zapien III is a 58 year old male who presents here today for Cyst removal on back. Patient has a lump in the kin of his back. Here for removal. Past medical history, appointments, medications, allergies reviewed. Previous Medical History PAST MEDICAL HISTORY Diagnosis Date Abnormal findings on cardiac catheterization 01/17/[address] Bernstein 01/17/2015 question of 85% stenosis of septal hammer smith Alcohol abuse 07/06/2014 Sober since 03/29/2014 Allergic rhinitis due to allergen RAST 11/2013, [facility]. Anxiety 07/06/2014 Bilateral carotid artery stenosis 05/28/2015 US: 05/18/2015 less than 50% bilateral. US 04/2018 20-40% nidia Bilateral leg edema 07/10/2023 Coronary artery disease due to lipid rich plaque 07/03/[address] Bernstein Current moderate episode of major depressive disorder without prior episode (HCC) 05/11/2019 Elevated fasting blood sugar 07/11/2017 Essential hypertension 06/25/2015 Former smoker 07/06/2014 Quit 06/2014: Was smoking less than a PPD since 25 yo. MVP (mitral valve prolapse) 02/15/2015 2D echo 12/2014 ANNIE (obstructive sleep apnea) PVC (premature ventricular contraction) Hx of. off and on. 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 Snoring Previous Surgical History PAST SURGICAL HISTORY Procedure Laterality Date 2D ECHO (EXEP) 01/16/2015 EF=65%, Mild MVP CC CORONARY STENT 2014 Mid LAD COLONOSCOPY FLX DX W/COLLJ SPEC WHEN PFRMD 12/23/2005 Colonoscopy COLONOSCOPY FLX DX W/COLLJ SPEC WHEN PFRMD 09/15/2017 repeat in 10 years ESOPHAGOGASTRODUODENOSCOPY TRANSORAL DIAGNOSTIC 10/21/2006 Gastritis LAPS SURG CHOLECYSTECTOMY W/CHOLANGIOGRAPHY 02/01/2007 PAST SURGICAL HISTORY OF 12/2014 stent to LAD RPR 1ST INGUN HRNA AGE 5 YRS/> REDUCIBLE Hernia repair, inguinal bilateral STRESS TEST 07/07/2017 WNL VASECTOMY UNI/BI SPX W/POSTOP SEMEN EXAMS Family History FAMILY HISTORY Problem Relation Age of Onset Heart Father Pacemaker, hx TIA Macular Degen Mother Glaucoma Mother Hypertension Mother Heart Maternal Grandmother Cancer Maternal Grandmother behind ear Heart Paternal Grandfather Stroke Paternal Grandfather Patient Allergies ALLERGIES Allergen Reactions Penicillins Unknown Childhood reaction. Current Medications Current Outpatient Medications on File Prior to Visit Medication Sig hydroCHLOROthiazide 12.5 mg capsule Take 1 capsule by mouth once daily. lisinopril (ZESTRIL, PRINIVIL) 20 mg tablet Take 1 tablet by mouth once daily. clopidogrel (PLAVIX) 75 mg tablet Take 1 tablet by mouth once daily. atorvastatin (LIPITOR) 80 mg tablet Take 1 tablet by mouth daily at bedtime. For cholesterol. docosahexaenoic acid/epa (FISH OIL ORAL) Take 1,200 mg by mouth as directed. aspirin, enteric coated (ASPIRIN, ENTERIC COATED) 81 mg EC tablet Take 81 mg by mouth once daily. acetaminophen (TYLENOL) 325 mg tablet Take 650 mg by mouth every 4 hours as needed. No current facility-administered medications on file prior to visit. Social History Social History Tobacco Use Smoking status: Every Day Packs/day: 0.50 Years: 25.00 Additional pack years: 0.00 Total pack years: 12.50 Types: Cigarettes Last attempt to quit: 07/04/2014 Years since quittin.6 Smokeless tobacco: Current Types: Snuff Tobacco comments: Prior 2 packs a day for 15 years, down to 3-4 cigarettes per day Vaping Use Vaping Use: Never used Substance Use Topics Alcohol use: Yes Alcohol/week: 10.0 standard drinks of alcohol Types: 4 Cans of beer, 6 Cans of Beer (12oz) per week Comment: nightly Drug use: No Review of Symptoms REVIEW OF SYSTEMS See HPI EXAM: BP 138/88 (BP Site: Right Arm, BP Position: Sitting, BP Cuff Size: Regular Adult) Pulse 76 Resp16 Wt 89.8 kg (198 lb) BMI 28.82 kg/m General Appearance: Well appearing, alert, in no acute distress, well-hydrated, well nourished.. Skin: has a suspected sebaceous cyst upper middle back . Health Maintenance List Shingrix Vaccine(1 of 2) due on 01/25/2025 Pneumococcal Vaccine(1 of 2 - PCV) due on 01/25/2025 LDL Cholesterol due on 01/12/2025 Annual PCP Team Chronic Disease Visit due on 01/25/2025 BP Controlled (<130/80) due on 01/25/2025 Diabetes Screening due on 01/12/2027 Colorectal Cancer Screening due on 09/15/2027 DTaP,Tdap,Td Vaccine(3 - Td or Tdap) due on 05/30/2028 Lipid Screening due on 01/12/2029 Prostate Cancer Screening Discussion due on 01/25/2029 Hepatitis B Vaccine Completed Hepatitis C Screening Completed HIV Screening Completed Influenza Vaccine Discontinued Covid-19 Vaccine Discontinued Data reviewed A/P ASSESSMENT/PLAN: 1. Neoplasm of uncertain behavior of skin of back - ICD9: 238.2, ICD10: D48.5 - discussed excision and patient agrees to proceed. - consent obtained. - see procedure note. - sample sent to path. Care sheet provided. Patient to f/u for suture removal in 12-14 days or sooner if issues as discussed. 2. Infected sebaceous cyst - ICD9: 706.2, ICD10: L72.3, L08.9 - Begin treatment with Cefadroxil (Duricef) Arya James MD [facility] History of Present illness Narrative* Lily Bliss RT(R) - 02/17/2024 9:20 AM EDT Radiology Service Progress Note PATIENT NAME: Jose Zapien III DATE OF SERVICE: February 17, 2024 TIME: 3:39 PM PATIENT IDENTITY VERIFICATION COMPLETED USING TWO (2) IDENTIFIERS: Name and Date of confirmedby patient verbally. FALL SCREENING: Has the patient had 2 falls in the last year or 1 fall with injury or currently using an Ambulatory Assistive Device (Walker, Cane, Wheelchair, Crutches, etc.)? No PATIENT GENDER DATA: Male PATIENT RELEVANT IMPLANT DATA REVIEWED: Yes PATIENT PRESENTS WITH AN IMPLANTABLE OR ATTACHED SENIOR ENERGY CONSULTANT: No RADIOLOGY DEPARTMENT: CT; Exam(s) Completed: Chest PERIPHERAL IV DATA: Not applicable SIGNED BY: RT Cornel(R) February 17, 2024 3:39 PM documented in this encounterClerm[facility]06-[facility]-2024 NoteHNO ID: [id number] Author: LILY BLISS RT(R) Service: ? Author Type: Medical Affairs Director Type: Progress Notes Filed: 02/17/2024 15:39 Note Text: Radiology Service Progress Note PATIENT NAME: Jose Zapien III DATE OF SERVICE: February 17, 2024 TIME: 3:39 PM PATIENT IDENTITY VERIFICATION COMPLETED USING TWO (2) IDENTIFIERS: Name and Date of confirmed by patient verbally. FALL SCREENING: Has the patient had 2 falls in the last year or 1 fall with injury or currently using an Ambulatory Assistive Device (Walker, Cane, Wheelchair, Crutches, etc.)? No PATIENT GENDER DATA: Male PATIENT RELEVANT IMPLANT DATA REVIEWED: Yes PATIENT PRESENTS WITH AN IMPLANTABLE OR ATTACHED SENIOR ENERGY CONSULTANT: No RADIOLOGY DEPARTMENT: CT; Exam(s) Completed: Chest PERIPHERAL IV DATA: Not applicable SIGNED BY: LOC Unger) February 17, 2024 3:39 [facility]06-24-2024 Telephone encounter Note* Telephone Encounter - Arya James MD - 02/15/2024 5:30 PM EDT Order placed. [facility]06-24-2024 Miscellaneous Notes* Telephone Encounter - Arya James MD - 02/15/2024 5:30 PM EDT Order placed. * Telephone Encounter - Ebonie Crowe MA - 02/15/2024 2:46 PM EDT Patient was scheduled 02/04/[address] Patient left without being seen. Had a family emergency. Rescheduled for 02/17/2024. They will need new order. Ebonie Crowe MA documented in this encounterClerm[facility]06-[facility] Telephone encounter Note * Telephone Encounter - Ebonie Crowe MA - 02/15/2024 2:46 PM EDT Patient was scheduled 02/04/[address] Patient left without being seen. Had a family emergency. Rescheduled for 02/17/2024. They will need new order. Ebonie Crowe MA [facility]06-24-2024 History of Present illness Narrative* Surekha Nolasco RDMS - 02/15/2024 8:30 AM EDT Radiology Service Progress Note PATIENT NAME: Jose Zapien III DATE OF SERVICE: February 15, 2024 TIME: 8:42 AM PATIENT IDENTITY VERIFICATION COMPLETED USING TWO (2) IDENTIFIERS: Name and Date of confirmedby patient verbally. FALL SCREENING: Has the patient had 2 falls in the last year or 1 fall with injury or currently using an Ambulatory Assistive Device (Walker, Cane, Wheelchair, Crutches, etc.)? No PATIENT GENDER DATA: Male PATIENT RELEVANT IMPLANT DATA REVIEWED: Not Applicable PATIENT PRESENTS WITH AN IMPLANTABLE OR ATTACHED SENIOR ENERGY CONSULTANT: No RADIOLOGY DEPARTMENT: Ultrasound PERIPHERAL IV DATA: Not applicable SIGNED BY: Surekha Nolasco RDMS February 15, 2024 8:42 AM documented in this encounterCl[facility]06-[facility]-2024 Telephone encounter Note * Telephone Encounter - Grace Riddle OCCA - 02/01/2024 2:34 PM EDT TC to patient who is informed of below and is agreeable to CT. Please contact patient to assist in scheduling. Thank you. TERI Atkins [facility]06-10-2024 Miscellaneous Notes* Telephone Encounter - Grace Riddle OCCA - 02/01/2024 2:34 PM EDT TC to patient who is informed of below and is agreeable to CT. Please contact patient to assist in scheduling. Thank you. TERI Atkins * Telephone Encounter - Arya James MD - 01/30/2024 11:11 PM EDT Let patient know chest x-ray was ok. I placed an order for a chest CT to continue the w/u for his weight loss. documented in this encounterClerm[facility]2024 Telephone encounter Note * Telephone Encounter - Arya James MD - 01/30/2024 11:11 PM EDT Let patient know chest x-ray was ok. I placed an order for a chest CT to continue the w/u for his weight loss. [facility]06-04-2024 History of Present illness Narrative* Courtney Israel RT(R) - 01/26/2024 9:10 AM EDT Radiology Service Progress Note PATIENT NAME: Jose Zapien III DATE OF SERVICE: January 26, 2024 TIME: 9:18 AM PATIENT IDENTITY VERIFICATION COMPLETED USING TWO (2) IDENTIFIERS: Name and Date of confirmedby patient verbally. FALL SCREENING: Has the patient had 2 falls in the last year or 1 fall with injury or currently using an Ambulatory Assistive Device (Walker, Cane, Wheelchair, Crutches, etc.)? No PATIENT GENDER DATA: Male PATIENT RELEVANT IMPLANT DATA REVIEWED: Not Applicable PATIENT PRESENTS WITH AN IMPLANTABLE OR ATTACHED SENIOR ENERGY CONSULTANT: No RADIOLOGY DEPARTMENT: General X-ray: Exam(s) Completed: Chest X-Ray PERIPHERAL IV DATA: Not applicable SIGNED BY: RT Hero(R) January 26, 2024 9:18 AM documented in this encounterClermont [facility]06-04-2024 Instructions* Patient Instructions* Arya James MD - 01/26/2024 8:44 AM EDT If you think you want the Shingrix vaccine for shingles check with insurance to see if covered and if you can get it at your doctors office. documented in this encounterClermont [facility]06-04-2024 History of Present illness Narrative* Arya James MD - 01/26/2024 7:43 AM EDT Chief Complaint Patient presents with: Physical HPI Jose Zapien III is a 58 year old male who presents here today for Physical. Patient with hx of HTN, CAD, MVP, PVC, smoker, ANNIE, elevated blood sugar, allergies, depression andthose as below. Patient was seen in the [facility] ER 11/2023. Patient had heart cath on 11/2023 and was told it was ok. No related with eating. Patient indicated that he is still having chest pain more in the center. Describes as pressure, sharp pain comes and goes. Lasts only a few seconds and is not activity related. Has not needed a nitrofor it. Patient sees cardiology and heart cath was completed in November 2023. Did have a stent about December 2014. Patient was weaned off his anxiety and depression meds over the past 6 months and this could contribute to the chest pressure he gets at times. He is not sure if related to stress at times. Patient continues to smoke and chew tobacco. He is drinking 3-4 beers a night. Past medical history, appointments, medications, allergies reviewed. Previous Medical History PAST MEDICAL HISTORY Diagnosis Date Abnormal findings on cardiac catheterization 01/17/[address] Bernstein 01/17/2015 question of 85% stenosis of septal hammer smith Alcohol abuse 07/06/2014 Sober since 03/29/2014 Allergic rhinitis due to allergen RAST 11/2013, [facility]. Anxiety 07/06/2014 Bilateral carotid artery stenosis 05/28/2015 US: 05/18/2015 less than 50% bilateral. US 04/2018 20-40% nidia Bilateral leg edema 07/10/2023 Coronary artery disease due to lipid rich plaque 07/03/[address] Bernstein Current moderate episode of major depressive disorder without prior episode (HCC) 05/11/2019 Elevated fasting blood sugar 07/11/2017 Essential hypertension 06/25/2015 Former smoker 07/06/2014 Quit 06/2014: Was smoking less than a PPD since 25 yo. MVP (mitral valve prolapse) 02/15/2015 2D echo 12/2014 ANNIE (obstructive sleep apnea) PVC (premature ventricular contraction) Hx of. off and on. 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 Snoring Previous Surgical History PAST SURGICAL HISTORY Procedure Laterality Date 2D ECHO (EXEP) 01/16/2015 EF=65%, Mild MVP CC CORONARY STENT 2014 Mid LAD COLONOSCOPY FLX DX W/COLLJ SPEC WHEN PFRMD 12/23/2005 Colonoscopy COLONOSCOPY FLX DX W/COLLJ SPEC WHEN PFRMD 09/15/2017 repeat in 10 years ESOPHAGOGASTRODUODENOSCOPY TRANSORAL DIAGNOSTIC 10/21/2006 Gastritis LAPS SURG CHOLECYSTECTOMY W/CHOLANGIOGRAPHY 02/01/2007 PAST SURGICAL HISTORY OF 12/2014 stent to LAD RPR 1ST INGUN HRNA AGE 5 YRS/> REDUCIBLE Hernia repair, inguinal bilateral STRESS TEST 07/07/2017 WNL VASECTOMY UNI/BI SPX W/POSTOP SEMEN EXAMS Family History FAMILY HISTORY Problem Relation Age of Onset Heart Father Pacemaker, hx TIA Macular Degen Mother Glaucoma Mother Hypertension Mother Heart Maternal Grandmother Cancer Maternal Grandmother behind ear Heart Paternal Grandfather Stroke Paternal Grandfather Patient Allergies ALLERGIES Allergen Reactions Penicillins Unknown Childhood reaction. Current Medications Current Outpatient Medications on File Prior to Visit Medication Sig hydroCHLOROthiazide 12.5 mg capsule Take 1 capsule by mouth once daily. busPIRone (BUSPAR) 15 mg tablet Take 10 mg by mouth two times a day. QUEtiapine (SEROQUEL) 200 mg tablet Take 50 mg by mouth daily at bedtime. OXcarbazepine ER (OXTELLAR XR) 300 mg tablet Take 150 mg by mouth two times a day. lisinopril (ZESTRIL, PRINIVIL) 20 mg tablet Take 1 tablet by mouth once daily. clopidogrel (PLAVIX) 75 mg tablet Take 1 tablet by mouth once daily. atorvastatin (LIPITOR) 80 mg tablet Take 1 tablet by mouth daily at bedtime. For cholesterol. docosahexaenoic acid/epa (FISH OIL ORAL) Take 1,200 mg by mouth as directed. aspirin, enteric coated (ASPIRIN, ENTERIC COATED) 81 mg EC tablet Take 81 mg by mouth once daily. acetaminophen (TYLENOL) 325 mg tablet Take 650 mg by mouth every 4 hours as needed. No current facility-administered medications on file prior to visit. Social History Social History Tobacco Use Smoking status: Every Day Packs/day: 0.50 Years: 25.00 Additional pack years: 0.00 Total pack years: 12.50 Types: Cigarettes Last attempt to quit: 07/04/2014 Years since quittin.5 Smokeless tobacco: Current Types: Snuff Tobacco comments: Prior 2 packs a day for 15 years, down to 3-4 cigarettes per day Vaping Use Vaping Use: Never used Substance Use Topics Alcohol use: Yes Alcohol/week: 10.0 standard drinks of alcohol Types: 4 Cans of beer, 6 Cans of Beer (12oz) per week Comment: nightly Drug use: No Review of Symptoms REVIEW OF SYSTEMS GENERAL: No malaise or fevers. Some night sweats over the past month. Since last Oct has lost 28 lbs. HEENT: Negative for frequent or significant headaches, No changes in hearing or vision, no nose bleeds or other nasal problems NECK: Negative for lumps, goiter, pain and significant neck swelling RESPIRATORY: Negative for cough, hemoptysis, wheezing, COPD, dyspnea. Get some shortness of breath with activity and this has been stable for some times. CARDIOVASCULAR: Negative for leg swelling, hypertension, CHF or palpitations. See HPI GI: No nausea, vomiting, or diarrhea, No frequent heartburn or reflux symptoms, and no blood : No history of dysuria, frequency or blood MUSCULOSKELETAL: Negative for joint pain or swelling, back pain or muscle pain SKIN: Negative for rash, and itching. Has a bump on his back. Has not changed recently. PSYCH: denies feeling more anxiety or depression since being off Tx. HEMATOLOGY/LYMPHOLOGY: Negative for prolonged bleeding, bruising easily or swollen nodes ENDOCRINE: Negative for cold or heat intolerance, polyuria, polydipsia and goiter NEURO: No history of headaches, syncope, paralysis, seizures or tremors EXAM: BP 130/82 (BP Site: Left Arm, BP Position: Sitting, BP Cuff Size: Regular Adult) Pulse 68 Resp 14 Ht 176.5 cm (5' 9.5) Wt 93.4 kg (206 lb) BMI 29.98 kg/m Last 5 Encounter Wt Readings: Date: Wt: 01/26/2024 93.4 kg (206 lb) 07/15/2023 101.2 kg (223 lb) 07/10/2023 103.4 kg (228 lb) 2023 106.1 kg (234 lb) 11/17/2022 102.5 kg (226 lb) General Appearance: Well appearing, alert, in no acute distress, well-hydrated, well nourished. andOverweight. Skin: Skin color, texture, turgor normal, no suspicious rashes or lesions, has a sebaceous cyst upper middle back. Head: Normocephalic, no masses, lesions, tenderness or abnormalities. Eyes: Anicteric sclera. Pupils are equally round and reactive to light. Extraocular movements are intact. . Ears: External ears, TM's normal, canals clear. Nose/Sinuses: Nares normal, septum midline, mucosa normal, no drainage or sinus tenderness. Oropharynx: Lips, mucosa, and tongue normal, teeth and gums normal, oropharynx normal. Neck: Supple, no adenopathy; thyroid symmetric, normal size, no bruits. Lungs: Lungs clear to auscultation. No wheezing, rhonchi, rales.. Heart: RRR without murmur, gallop, or rubs. No ectopy. Abdomen: Normal abdominal exam, Abdomen soft, non-tender. Bowel sounds normal. No masses, organomegaly. Extremities: No deformities, edema, skin discoloration. Good capillary refill. . Musculoskeletal: Muscular strength intact, No joint swelling, deformity, or tenderness. Peripheral Pulses: Normal. Neurologic: Gait normal. Reflexes normal and symmetric. Sensation to light touch and crainal nerves2-12 intact.. Genitalia: Normal, Penis normal. No urethral discharge. Scrotum normal to palpation. No hernia.. Rectal: Normal exam. Health Maintenance List Pneumococcal Vaccine(1 of 2 - PCV) Never done Shingrix Vaccine(1 of 2) Never done Covid-19 Vaccine(1 - 2022- season) Never done Annual PCP Team Chronic Disease Visit due on 07/10/2024 BP Controlled (<130/80) due on 07/10/2024 LDL Cholesterol due on 01/12/2025 Diabetes Screening due on 01/12/2027 Colorectal Cancer Screening due on 09/15/2027 DTaP,Tdap,Td Vaccine(3 - Td or Tdap) due on 05/30/2028 Lipid Screening due on 01/12/2029 Prostate Cancer Screening Discussion due on 01/12/2029 Hepatitis B Vaccine Completed Hepatitis C Screening Completed HIV Screening Completed Influenza Vaccine Discontinued Data reviewed Latest Ref Rng 03/15/2021 2023 01/13/2024 WBC 3.70 - 11.00 k/uL 7.95 RBC 4.20 - 6.00 m/uL 5.66 Hemoglobin 13.0 - 17.0 g/dL 17.2 (H) Hematocrit 39.0 - 51.0 % 51.1 (H) MCV 80.0 - 100.0 fL 90.3 MCH 26.0 - 34.0 pg 30.4 MCHC 30.5 - 36.0 g/dL 33.7 RDW-CV 11.5 - 15.0 % 14.0 Platelet Count 150 - 400 k/uL 233 MPV 9.0 - 12.7 fL 9.6 Neut% % 56.1 Abs Neut (ANC) 1.45 - 7.50 k/uL 4.46 Lymph% % 31.6 Abs Lymph 1.00 - 4.00 k/uL 2.51 [place]orne% % 9.4 Abs [place] <0.87 k/uL 0.75 Eosin% % 1.8 Abs Eosin <0.46 k/uL 0.14 Baso% % 0.6 Abs Baso <0.11 k/uL 0.05 Immature Gran % % 0.5 IMMATURE GRANS (ABS) <0.10 k/uL 0.04 NRBC /100 WBC 0.0 Absolute nRBC <0.01 k/uL <0.01 DTYPE Auto Color Yellow Yellow Yellow Clarity Clear Slightly Cloudy ! Clear Glucose, Urine Negative Negative Negative Bilirubin, Urine Negative Negative Negative Ketones, Urine Negative Negative Negative Specific [place], Ur 1.005 - 1.030 1.019 1.012 Hemoglobin/Blood,Ur Negative Negative Negative pH, Urine <8.5 5.0 6.0 Protein, Urine Negative Negative Negative Urobilinogen 0.2-1.0 EU/dL Negative 0.2 EU/dL Nitrites Negative Negative Negative Leukest Negative Trace ! Negative Comment SEE COMMENT Urine Madhuri Comment SEE COMMENT WBC, Urine 0-5 /HPF 0-5 0-5 /HPF RBC, Urine 0-2 /HPF 0-3 0-2 /HPF Epithelial Cells /HPF SEE COMMENT None Seen Crystal 0 /HPF SEE COMMENT ! Protein, Total 6.3 - 8.0 g/dL 6.7 7.1 Albumin 3.9 - 4.9 g/dL 4.0 4.2 Calcium 8.5 - 10.2 mg/dL 9.2 9.6 Bilirubin, Total 0.2 - 1.3 mg/dL 1.0 1.0 Alkaline Phosphatase 38 - 113 U/L 105 118 (H) AST 14 - 40 U/L 18 29 Glucose 74 - 99 mg/dL 86 101 (H) BUN 9 - 24 mg/dL 14 15 Creatinine 0.73 - 1.22 mg/dL 1.05 0.97 Sodium 136 - 144 mmol/L 139 135 (L) Potassium 3.7 - 5.1 mmol/L 4.0 4.2 Chloride 97 - 105 mmol/L 106 (H) 100 CO2 22 - 30 mmol/L 22 24 Anion Gap 9 - 18 mmol/L 11 11 ALT 10 - 54 U/L 16 25 eGFR- >60 eGFR-All Other Races . >60 Bacteria Negative /HPF Negative Hyaline Cast 0 /LPF 1-3 /LPF ! eGFR >=60 mL/min/1.73m 90 Total Cholesterol, Nonfasting <200 mg/dL 99 172 Triglycerides, Nonfasting <150 mg/dL 170 (H) 178 (H) HDL Cholesterol, Nonfasting >39 mg/dL 26 (L) 36 (L) LDL Cholesterol, Nonfasting <100 mg/dL 39 100 (H) Non HDL Cholesterol, Nonfasting <130 mg/dL 73 136 (H) VLDL Cholesterol, Nonfasting <30 mg/dL 34 (H) 36 (H) Total Chol/HDL Ratio, Nonfasting <5.10 mg/dL 3.81 4.78 LDL/HDL Ratio, Nonfasting <2.54 mg/dL 1.50 2.78 (H) Hemoglobin A1C 4.3 - 5.6 % 6.0 (H) 5.7 (H) Estimated Average Glucose mg/dL 126 117 PSA <2.60 ng/mL 0.91 1.21 TSH 0.270 - 4.200 mIU/L 1.980 1.180 Free T4 0.9 - 1.7 ng/dL 1.0 A/P ASSESSMENT/PLAN: 1. Well adult exam - ICD9: V70.0, ICD10: Z00.00 (primary diagnosis) - Counseled on healthy diet and regular exercise - Follow up for annual exam in one year - discussed Prev-20 and shingrix. 2. Essential hypertension - ICD9: 401.9, ICD10: I10 - Controlled - Continue current medications - Recommend home blood pressure monitoring, to bring results to next visit - Encouraged sodium restriction, DASH or Mediterranean diet - Recommend regular aerobic exercise 3. Elevated fasting blood sugar - ICD9: 790.21, ICD10: R73.01 - improved. Cont work on healthy diet. 4. Bilateral carotid artery stenosis - ICD9: 433.10, 433.30, ICD10: I65.23 - check Carotid US 5. Coronary artery disease due to lipid rich plaque - ICD9: 414.00, 414.3, ICD10: I25.10, I25.83 - clinically stable and managed per cardio. No changes. - patient to work on diet to get LDL back down around 70 or less. We did discuss Zetia being added if not improved. 6. PVC (premature ventricular contraction) - ICD9: 427.69, ICD10: I49.3 - none with Tx. No changes. 7. Current moderate episode of major depressive disorder without prior episode (HCC) - ICD9: 296.22, ICD10: F32.1 - patient has been weaned of Tx and feels he is doing ok. 8. Anxiety - ICD9: 300.00, ICD10: F41.9 - as per #7. This however may play a role in the chest pressure he gets at times since it does not sound cardiac or gastro in nature. 9. Bilateral leg edema - ICD9: 782.3, ICD10: R60.0 - none on exam 10. Smoker - ICD9: 305.1, ICD10: F17.200 - Cessation encouraged. - Counseling was given focusing on the harmful effects of this addiction especially given the patient's medical condition(s) which will be worsened because of the chemicals in tobacco. 11. ANNIE (obstructive sleep apnea) - ICD9: 327.23, ICD10: G47.33 - discussed health risks with not being treated. Patient understands. 12. Unintentional weight loss - ICD9: 783.21, ICD10: R63.4 - will check chest x-ray and abd US and if normal proceed to chest CT w/o contrast and CT abd with and w/o contrast 13. Alcohol abuse - ICD9: 305.00, ICD10: F10.10 - advised to abstain or at least cut back to just 1-2 a day. F/u 6 months routine check Lipid and A1c prior. Arya James MD documented [facility] Telephone encounter Note * Telephone Encounter - Aimee Mckenzie - 12/14/2023 9:42 AM EDT Patient has been identified by name and date of : Patient phones for refill(s): Requested Prescriptions Pending Prescriptions Disp Refills hydroCHLOROthiazide 12.5 mg capsule 90 capsule 1 Sig: Take 1 capsule by mouth once daily. Date of last office visit in primary care: 07/10/2023 Date of next office visit in primary care: 01/26/2024 Please advise. Thank you. Aimee Mckenzie. [facility]04-[facility] Miscellaneous Notes* Telephone Encounter - Aimee Mckenzie - 12/14/2023 9:42 AM EDT Patient has been identified by name and date of : Patient phones for refill(s): Requested Prescriptions Pending Prescriptions Disp Refills hydroCHLOROthiazide 12.5 mg capsule 90 capsule 1 Sig: Take 1 capsule by mouth once daily. Date of last office visit in primary care: 07/10/2023 Date of next office visit in primary care: 01/26/2024 Please advise. Thank you. Aimee Mckenzie. documented in [facility] encounterCl[facility]04-[facility]24 History of Present illness Narrative* Lyly Lacey LPN - 12/03/2023 1:33 PM EDT Scan on 12/02/2023 9:13 AM by Provider, External, EFREN: Consultation - Cardiology documented in this encounterCl[facility]03-06-[facility]24 Instructions* Patient Instructions* Shiraz Rogel II, OD - 10/28/2023 4:40 PM EST Assessment and Plan H52.223 Regular astigmatism, bilateral (primary encounter diagnosis) H52.11 Myopia of right eye H52.02 Hyperopia, left Comment: Update glasses power to maxmize visual performance. H43.393 Vitreous floaters of both eyes Comment: Vitreal floaters stable both eyes. Retinas flat and intact with no apparent retinal tear or traction. Monitor yearly. I have confirmed and edited as necessary the relevant HPI, ophthalmic history, ROS, and the neuro exam findings as obtained by others. I have seen and examined Jose Zapien KHADAR. I have discussed the case and the management of this patient's care with the Resident/Fellow, if applicable. I also have reviewed and agree with the assessment and plan as stated above and agree withall of its relevant components. documented in this encounterCl[facility]03-[facility] History of Present illness Narrative* Shiraz Rogel II, OD - 10/28/2023 4:39 PM EST Assessment and Plan H52.223 Regular astigmatism, bilateral (primary encounter diagnosis) H52.11 Myopia of right eye H52.02 Hyperopia, left Comment: Update glasses power to maxmize visual performance. H43.393 Vitreous floaters of both eyes Comment: Vitreal floaters stable both eyes. Retinas flat and intact with no apparent retinal tear or traction. Monitor yearly. I have confirmed and edited as necessary the relevant HPI, ophthalmic history, ROS, and the neuro exam findings as obtained by others. I have seen and examined Jose Zapien III. I have discussed the case and the management of this patient's care with the Resident/Fellow, if applicable. I also have reviewed and agree with the assessment and plan as stated above and agree withall of its relevant components. documented in this encounterCl[facility]11-17-2023 Instructions* Patient Instructions* Arya James MD - 07/10/2023 4:42 PM EST Please get labs and urine test done on or after 12/25/2023 prior to your next visit. documented in this encounterClerm[facility]11-17-2023 History of Present illness Narrative* Arya James MD - 07/10/2023 4:31 PM EST Chief Complaint Patient presents with: Recheck: edema in lower legs worse on the right. HPI Jose Zapien III is a 58 year old male who presents here today for Above Complaints.. Has breathing test set up next Thu. He has not had any shortness of breath, chest pain or chest pressure and would like to hold off on stress test. He did have a stress echo test 08/22/2022 that was normal. The swelling has improved with being on the water pill. No Side affects from the diuretic. Past medical history, appointments, medications, allergies reviewed. Previous Medical History PAST MEDICAL HISTORY Diagnosis Date Abnormal findings on cardiac catheterization 01/17/[address] Bernstein 01/17/2015 question of 85% stenosis of septal hammer smith Alcohol abuse 07/06/2014 Sober since 03/29/2014 Allergic rhinitis due to allergen RAST 11/2013, [facility]. Anxiety 07/06/2014 Bilateral carotid artery stenosis 05/28/2015 US: 05/18/2015 less than 50% bilateral. US 04/2018 20-40% nidia Coronary artery disease due to lipid rich plaque 07/03/[address] Bernstein Current moderate episode of major depressive disorder without prior episode (HCC) 05/11/2019 Elevated fasting blood sugar 07/11/2017 Essential hypertension 06/25/2015 Former smoker 07/06/2014 Quit 06/2014: Was smoking less than a PPD since 25 yo. MVP (mitral valve prolapse) 02/15/2015 2D echo 12/2014 ANNIE (obstructive sleep apnea) PVC (premature ventricular contraction) Hx of. off and on. 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 Snoring Previous Surgical History PAST SURGICAL HISTORY Procedure Laterality Date 2D ECHO (EXEP) 01/16/2015 EF=65%, Mild MVP CC CORONARY STENT 2014 Mid LAD COLONOSCOPY FLX DX W/COLLJ SPEC WHEN PFRMD 12/23/2005 Colonoscopy COLONOSCOPY FLX DX W/COLLJ SPEC WHEN PFRMD 09/15/2017 repeat in 10 years ESOPHAGOGASTRODUODENOSCOPY TRANSORAL DIAGNOSTIC 10/21/2006 Gastritis LAPS SURG CHOLECYSTECTOMY W/CHOLANGIOGRAPHY 02/01/2007 PAST SURGICAL HISTORY OF 12/2014 stent to LAD RPR 1ST INGUN HRNA AGE 5 YRS/> REDUCIBLE Hernia repair, inguinal bilateral STRESS TEST 07/07/2017 WNL VASECTOMY UNI/BI SPX W/POSTOP SEMEN EXAMS Family History FAMILY HISTORY Problem Relation Age of Onset Hypertension Mother Heart Father Pacemaker, hx TIA Heart Maternal Grandmother Cancer Maternal Grandmother behind ear Heart Paternal Grandfather Stroke Paternal Grandfather Patient Allergies ALLERGIES Allergen Reactions Penicillins Unknown Childhood reaction. Current Medications Current Outpatient Medications on File Prior to Visit Medication Sig hydroCHLOROthiazide 12.5 mg capsule Take 1 capsule by mouth once daily. busPIRone (BUSPAR) 15 mg tablet Take 10 mg by mouth two times a day. QUEtiapine (SEROQUEL) 200 mg tablet Take 200 mg by mouth daily at bedtime. OXcarbazepine ER (OXTELLAR XR) 300 mg tablet Take 150 mg by mouth two times a day. lisinopril (ZESTRIL, PRINIVIL) 20 mg tablet Take 1 tablet by mouth once daily. clopidogrel (PLAVIX) 75 mg tablet Take 1 tablet by mouth once daily. atorvastatin (LIPITOR) 80 mg tablet Take 1 tablet by mouth daily at bedtime. For cholesterol. docosahexaenoic acid/epa (FISH OIL ORAL) Take 1,200 mg by mouth as directed. aspirin, enteric coated (ASPIRIN, ENTERIC COATED) 81 mg EC tablet Take 81 mg by mouth once daily. acetaminophen (TYLENOL) 325 mg tablet Take 650 mg by mouth every 4 hours as needed. No current facility-administered medications on file prior to visit. Social History Social History Tobacco Use Smoking status: Every Day Packs/day: 0.50 Years: 25.00 Additional pack years: 0.00 Total pack years: 12.50 Types: Cigarettes Last attempt to quit: 07/04/2014 Years since quittin.0 Smokeless tobacco: Current Types: Snuff Tobacco comments: Prior 2 packs a day for 15 years, down to 3-4 cigarettes per day Vaping Use Vaping Use: Never used Substance Use Topics Alcohol use: Yes Alcohol/week: 10.0 standard drinks of alcohol Types: 4 Cans of beer, 6 Cans of Beer (12oz) per week Comment: nightly Drug use: No Review of Symptoms REVIEW OF SYSTEMS RESPIRATORY: Negative for cough, hemoptysis, wheezing, COPD, dyspnea or shortness of breath CARDIOVASCULAR: Negative for chest pain, leg swelling, hypertension, CHF or palpitations EXAM: BP 110/68 Pulse 80 Wt 103.4 kg (228 lb) SpO2 97% BMI 33.67 kg/m General Appearance: Well appearing, alert, in no acute distress, well-hydrated, well nourished.. Neck: Supple, no adenopathy; thyroid symmetric, normal size, no bruits. Lungs: Lungs clear to auscultation. No wheezing, rhonchi, rales.. Heart: RRR without murmur, gallop, or rubs. No ectopy. Extremities: No deformities, edema, skin discoloration, Good capillary refill. . Health Maintenance List BP Controlled (<130/80) Never done LDL Cholesterol due on 03/15/2022 Shingrix Vaccine(1 of 2) due on 11/21/2023 Covid-19 Vaccine(1) due on 11/21/2023 Pneumococcal Vaccine(1 - PCV) due on 11/21/2023 Diabetes Screening due on 03/15/2024 Annual PCP Team Chronic Disease Visit due on 2024 Lipid Screening due on 03/15/2026 Prostate Cancer Screening Discussion due on 03/15/2026 Colorectal Cancer Screening due on 09/15/2027 DTaP,Tdap,Td Vaccine(3 - Td or Tdap) due on 05/30/2028 Hepatitis B Vaccine Completed Hepatitis C Screening Completed HIV Screening Completed Influenza Vaccine Discontinued Data reviewed Component Latest Ref Rng & Units 2023 NT Pro BNP <125 pg/mL 37 TSH 0.270 - 4.200 mIU/L 1.980 Free T4 0.9 - 1.7 ng/dL 1.0 A/P ASSESSMENT/PLAN: 1. SOB (shortness of breath) - ICD9: 786.05, ICD10: R06.02 (primary diagnosis) - will await the PFT's but okayed not getting the stress test. 2. Bilateral leg edema - ICD9: 782.3, ICD10: R60.0 - resolved with HCTZ. No further changes. 3. Essential hypertension - ICD9: 401.9, ICD10: I10 - Controlled - Continue current medications - Recommend home blood pressure monitoring, to bring results to next visit - Encouraged sodium restriction, DASH or Mediterranean diet - Recommend regular aerobic exercise - COMP METABOLIC PANEL - URINALYSIS, WITH MICROSCOPIC - LIPID PANEL, NONFASTING F/u 6 months WAE sooner if issues. Check CMP, Lipid, UA, A1c, PSA, CBC, TSH prior Arya James MD documented in this encounterCl[facility]10-23-2023 Miscellaneous Notes* Telephone Encounter - Ebonie Crowe MA - 06/15/2023 10:46 AM EDT This was faxed on 2023 with confirmation attached. Refaxed. Attempted to contact javier but couldn't get through. Ebonie Crowe MA * Telephone Encounter - Yasmeen Knott LPN - 06/15/2023 10:18 AM EDT Javier with [facility] Scheduling called. THey had received a call on 06-09-23 that pt needed a nuclear stress test. They did not received anything from your office. They have this pre approved. I do not see any order. Please check office visit 06-08-23 #3 under assessments. What needs to be done. Please advise Javier [phone]. Yasmeen Knott LPN documented in this encounterClerm[facility]10-18-2023 Miscellaneous Notes* Telephone Encounter - Rosa Mercado LPN - 06/10/2023 10:40 AM EDT Patient returned call and went over results, notes from Dr James with understanding. * Telephone Encounter - Ijeoma Castro RN - 06/10/2023 10:36 AM EDT Called and left a voicemail for the Patient to call back and ask for a nurse to receive the providers message. Ijeoma Castro, ANAND * Telephone Encounter - Arya James MD - 06/09/2023 10:23 PM EDT Let patient know thyroid labs ok and blood work for congestive heart failure was negative. documented in this encounterClerm[facility]10-16-[facility]23 History of Present illness Narrative* Arya James MD - 2023 3:40 PM EDT Chief Complaint Patient presents with: Edema HPI Jose Zapien III is a 58 year old male who presents here today for Edema. Location? Lower leg How long? 1 month Pain? No SOB? Yes with exertion and is slightly worse since having the leg swelling. Denies orthopnea or paroxysmal dyspnea. Chest pain? Yes - patient indicated that this is not new. Patient has a stent. Spoke with patient last week and he contacted his Cardiology office and ran blood work to rule CHF and was told to contact his PCP. Last visit with [facility] 01/2023 Past medical history, appointments, medications, allergies reviewed. Previous Medical History PAST MEDICAL HISTORY Diagnosis Date Abnormal findings on cardiac catheterization 01/17/[address] Bernstein 01/17/2015 question of 85% stenosis of septal hammer smith Alcohol abuse 07/06/2014 Sober since 03/29/2014 Allergic rhinitis due to allergen RAST 11/2013, [facility]. Anxiety 07/06/2014 Bilateral carotid artery stenosis 05/28/2015 US: 05/18/2015 less than 50% bilateral. US 04/2018 20-40% nidia Coronary artery disease due to lipid rich plaque 07/03/[address] Bernstein Current moderate episode of major depressive disorder without prior episode (HCC) 05/11/2019 Elevated fasting blood sugar 07/11/2017 Essential hypertension 06/25/2015 Former smoker 07/06/2014 Quit 06/2014: Was smoking less than a PPD since 25 yo. MVP (mitral valve prolapse) 02/15/2015 2D echo 12/2014 ANNIE (obstructive sleep apnea) PVC (premature ventricular contraction) Hx of. off and on. 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 Snoring Previous Surgical History PAST SURGICAL HISTORY Procedure Laterality Date 2D ECHO (EXEP) 01/16/2015 EF=65%, Mild MVP COLONOSCOPY FLX DX W/COLLJ SPEC WHEN PFRMD 12/23/2005 Colonoscopy COLONOSCOPY FLX DX W/COLLJ SPEC WHEN PFRMD 09/15/2017 repeat in 10 years ESOPHAGOGASTRODUODENOSCOPY TRANSORAL DIAGNOSTIC 10/21/2006 Gastritis LAPS SURG CHOLECYSTECTOMY W/CHOLANGIOGRAPHY 02/01/2007 PAST SURGICAL HISTORY OF 12/2014 stent to LAD RPR 1ST INGUN HRNA AGE 5 YRS/> REDUCIBLE Hernia repair, inguinal bilateral STRESS TEST 07/07/2017 WNL VASECTOMY UNI/BI SPX W/POSTOP SEMEN EXAMS Family History FAMILY HISTORY Problem Relation Age of Onset Hypertension Mother Heart Father Pacemaker, hx TIA Heart Maternal Grandmother Cancer Maternal Grandmother behind ear Heart Paternal Grandfather Stroke Paternal Grandfather Patient Allergies ALLERGIES Allergen Reactions Penicillins Unknown Childhood reaction. Current Medications Current Outpatient Medications on File Prior to Visit Medication Sig acetaminophen (TYLENOL) 325 mg tablet Take 650 mg by mouth every 4 hours as needed. aspirin, enteric coated (ASPIRIN, ENTERIC COATED) 81 mg EC tablet Take 81 mg by mouth once daily. atorvastatin (LIPITOR) 80 mg tablet Take 1 tablet by mouth daily at bedtime. For cholesterol. busPIRone (BUSPAR) 15 mg tablet cetirizine (ZYRTEC) 10 mg tablet TAKE 1 TABLET BY MOUTH EVERY DAY (Patient not taking: Reported on 05/14/2021) clopidogrel (PLAVIX) 75 mg tablet Take 1 tablet by mouth once daily. docosahexaenoic acid/epa (FISH OIL ORAL) Take 1,200 mg by mouth as directed. fluticasone (FLONASE) 50 mcg/actuation nasal spray Use 2 Sprays in each nostril once daily. Rinse mouth after use. lisinopril (ZESTRIL, PRINIVIL) 20 mg tablet Take 1 tablet by mouth once daily. OXcarbazepine ER (OXTELLAR XR) 300 mg tablet Take by mouth. QUEtiapine (SEROQUEL) 100 mg tablet Take 100 mg by mouth daily at bedtime. QUEtiapine (SEROQUEL) 200 mg tablet Take 200 mg by mouth daily at bedtime. No current facility-administered medications on file prior to visit. Social History Social History Tobacco Use Smoking status: Every Day Packs/day: 0.50 Years: 25.00 Additional pack years: 0.00 Total pack years: 12.50 Types: Cigarettes Last attempt to quit: 07/04/2014 Years since quittin.9 Smokeless tobacco: Current Types: Snuff Tobacco comments: Prior 2 packs a day for 15 years, down to 3-4 cigarettes per day Vaping Use Vaping Use: Never used Substance Use Topics Alcohol use: Yes Alcohol/week: 10.0 standard drinks of alcohol Types: 4 Cans of beer, 6 Cans of Beer (12oz) per week Comment: nightly Drug use: No Review of Symptoms REVIEW OF SYSTEMS See HPI EXAM: BP 140/88 (BP Site: Right Arm, BP Position: Sitting, BP Cuff Size: Regular Adult) Pulse 72 Temp36.7 C (98 F) (Tympanic) Resp 18 Wt 106.1 kg (234 lb) SpO2 95% BMI 34.56 kg/m General Appearance: Well appearing, alert, in no acute distress, well-hydrated, well nourished.. Neck: Supple, no adenopathy; thyroid symmetric, normal size, no bruits. Lungs: Lungs clear to auscultation. No wheezing, rhonchi, rales.. Heart: RRR without murmur, gallop, or rubs. No ectopy. Abdomen: Normal abdominal exam, Abdomen soft, non-tender. Bowel sounds normal. No masses, organomegaly. Extremities: No deformities, skin discoloration, Good capillary refill. Has mild bilateral pitting edema (<+1). Health Maintenance List LDL Cholesterol due on 03/15/2022 Shingrix Vaccine(1 of 2) due on 11/21/2023 Covid-19 Vaccine(1) due on 11/21/2023 Pneumococcal Vaccine(1 - PCV) due on 11/21/2023 Annual PCP Team Chronic Disease Visit due on 11/21/2023 BP Controlled (<130/80) due on 11/21/2023 Diabetes Screening due on 03/15/2024 Lipid Screening due on 03/15/2026 Prostate Cancer Screening Discussion due on 03/15/2026 Colorectal Cancer Screening due on 09/15/2027 DTaP,Tdap,Td Vaccine(3 - Td or Tdap) due on 05/30/2028 Hepatitis B Vaccine Completed Hepatitis C Screening Completed HIV Screening Completed Influenza Vaccine Discontinued Data reviewed Labs and chest x-ray report done by [facility] on 05/26/2023 in scanned documents. In office EKG: Showed no acute changes and no changes when compare to EKG from 01/03/2015. A/P ASSESSMENT/PLAN: 1. Bilateral leg edema - ICD9: 782.3, ICD10: R60.0 (primary diagnosis): New Check - NT PRO BNP - TSH BLD - T4 FREE/FREE THYROX Start HCTZ 12.5 mg a day 2. SOB (shortness of breath) - ICD9: 786.05, ICD10: R06.02: worse Check - NT PRO BNP - SPIROMETRY - BASELINE AND POST DILATOR 3. Coronary artery disease due to lipid rich plaque - ICD9: 414.00, 414.3, ICD10: I25.10, I25.83 - will check a nuclear stress test at [facility] 4. Smoker - ICD9: 305.1, ICD10: F17.200 Ceck - SPIROMETRY - BASELINE AND POST DILATOR Requested Prescriptions Signed Prescriptions Disp Refills hydroCHLOROthiazide 12.5 mg capsule 90 capsule 1 Sig: Take 1 capsule by mouth once daily. F/u 4 weeks for recheck Arya James MD documented [facility] encounterCl[facility]04[facility]24-[facility]23 Miscellaneous Notes* Telephone Encounter - Ilda Gifford LPN - 12/15/2022 10:52 AM EDT Pt returns call gave information provided. Pt voices understanding. * Telephone Encounter - Ebonie Crowe MA - 12/15/2022 9:01 AM EDT Left message for patient to contact office. Ebonie Crowe MA * Telephone Encounter - Paula Hyman PA-C - 12/15/2022 7:43 AM EDT Let patient know that his CT was normal. Schedule follow up if symptoms continuing. documented in this encounterClerm[facility]04-21-2023 History of Present illness Narrative* Reef Lily Harris RT(R) - 12/12/2022 3:40 PM EDT Radiology Service Progress Note PATIENT NAME: Jose Zapien III DATE OF SERVICE: December 12, 2022 TIME: 4:02 PM PATIENT IDENTITY VERIFICATION COMPLETED USING TWO (2) IDENTIFIERS: Name and Date of confirmedby patient verbally. FALL SCREENING: Has the patient had 2 falls in the last year or 1 fall with injury or currently using an Ambulatory Assistive Device (Walker, Cane, Wheelchair, Crutches, etc.)? No PATIENT GENDER DATA: Male PATIENT RELEVANT IMPLANT DATA REVIEWED: Yes RADIOLOGY DEPARTMENT: CT; Exam(s) Completed: Brain PERIPHERAL IV DATA: Not applicable SIGNED BY: RT Cornel(R) December 12, 2022 4:02 PM documented in this encounterClerm[facility]04-10-2023 Miscellaneous Notes* Telephone Encounter - Loretta Jones LPN - 12/01/2022 9:32 AM EDT Pt notified of Thalia James's message. Pt verbalizes understanding. If pt is able to get something from his psychiatrist he will call back to reshcedule CT scan. Loretta Jones LPN * Telephone Encounter - Arya James MD - 12/01/2022 8:32 AM EDT I agree. * Telephone Encounter - Paula Hyman PA-C - 12/01/2022 7:53 AM EDT I do not give anxiety medication for CT scans. He will need to talk to his psychiatrist. Paula Hyman PA-C * Telephone Encounter - Zuleyka Bateman LPN - 11/29/2022 10:44 AM EDT Patient did attempt CT scan yesterday with benadryl 25 mg at suggested in telephone encounter date 11/24/22. Patient states he still was unable to complete CT scan. Patient is asking for something prescribed for the anxiety to take prior to CT scan. Note: repeat CT scan is not scheduled yet. documented in this encounterClerm[facility]04-03-2023 Miscellaneous Notes* Telephone Encounter - Loretta Jones LPN - 11/24/2022 1:01 PM EDT Pt notified of Dr James's message. Pt verbalizes understanding. Loretta Jones LPN * Telephone Encounter - Arya James MD - 11/24/2022 12:46 PM EDT Let patient know as he was informed last week we don't prescribe anxiety meds for CT's they are open and not enclosed like a MRI. It's like walking under a bridge. If he does feel he needs something he can take a benadryl 25 mg 30 min prior to the study. * Telephone Encounter - Heather Villarreal RN - 11/24/2022 12:00 PM EDT Patient call and states that he has CT Scan scheduled for 12/02/2022. Patient asking if prescription can be sent in for anxiety/claustrophobia that he can take prior to Scan? If agreeable patient's pharmacy is [facility]. Please review and advise, Heather Villarreal RN Please review and advise, Heather Villarreal RN documented in this encounterClerm[facility]03-30-2023 History of Present illness Narrative* Paula Hyman PA-C - 11/20/2022 8:56 AM EDT Chief Complaint Patient presents with: Recheck: Was seen in [facility] for headache and ringing in bilateral0 ear HPI Jose Zapien III is a 57 year old male who presents here today for Above Complaints.. Patient has been seen twice in [facility] for headache and tinnitus. Initially diagnosed with sinusitis and tx with doxy and prednisone on 10/27. On 11/17 patient returned due to the continued headache. He was given 2nd round of prednisone at this time. Patient states he still has not had any improvement in his symptoms. Tinnitus is bilateral Headache is located across the top of his head. No history of this prior to illness. No hearing loss. No n/t. No dizziness or lightheadedness. Past medical history, appointments, medications, allergies reviewed. Previous Medical History PAST MEDICAL HISTORY Diagnosis Date Abnormal findings on cardiac catheterization 01/17/[address] Bernstein 01/17/2015 question of 85% stenosis of septal hammer smith Alcohol abuse 07/06/2014 Sober since 03/29/2014 Allergic rhinitis due to allergen RAST 11/2013, [facility]. Anxiety 07/06/2014 Bilateral carotid artery stenosis 05/28/2015 US: 05/18/2015 less than 50% bilateral. US 04/2018 20-40% nidia Coronary artery disease due to lipid rich plaque 07/03/[address] Bernstein Current moderate episode of major depressive disorder without prior episode (HCC) 05/11/2019 Elevated fasting blood sugar 07/11/2017 Essential hypertension 06/25/2015 Former smoker 07/06/2014 Quit 06/2014: Was smoking less than a PPD since 25 yo. MVP (mitral valve prolapse) 02/15/2015 2D echo 12/2014 ANNIE (obstructive sleep apnea) PVC (premature ventricular contraction) Hx of. off and on. 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 Snoring Previous Surgical History PAST SURGICAL HISTORY Procedure Laterality Date 2D ECHO (EXEP) 01/16/2015 EF=65%, Mild MVP COLONOSCOPY FLX DX W/COLLJ SPEC WHEN PFRMD 12/23/2005 Colonoscopy COLONOSCOPY FLX DX W/COLLJ SPEC WHEN PFRMD 09/15/2017 repeat in 10 years ESOPHAGOGASTRODUODENOSCOPY TRANSORAL DIAGNOSTIC 10/21/2006 Gastritis LAPS SURG CHOLECYSTECTOMY W/CHOLANGIOGRAPHY 02/01/2007 PAST SURGICAL HISTORY OF 12/2014 stent to LAD RPR 1ST INGUN HRNA AGE 5 YRS/> REDUCIBLE Hernia repair, inguinal bilateral STRESS TEST 07/07/2017 WNL VASECTOMY UNI/BI SPX W/POSTOP SEMEN EXAMS Family History FAMILY HISTORY Problem Relation Age of Onset Hypertension Mother Heart Father Pacemaker, hx TIA Heart Maternal Grandmother Cancer Maternal Grandmother behind ear Heart Paternal Grandfather Stroke Paternal Grandfather Patient Allergies ALLERGIES Allergen Reactions Penicillins Unknown Childhood reaction. Current Medications Current Outpatient Medications on File Prior to Visit Medication Sig busPIRone (BUSPAR) 15 mg tablet QUEtiapine (SEROQUEL) 200 mg tablet Take 200 mg by mouth daily at bedtime. QUEtiapine (SEROQUEL) 100 mg tablet Take 100 mg by mouth daily at bedtime. OXcarbazepine ER (OXTELLAR XR) 300 mg tablet Take by mouth. predniSONE (DELTASONE) 10 mg tablet Take 4 tablets by mouth once daily for 5 days. fluticasone (FLONASE) 50 mcg/actuation nasal spray Use 2 Sprays in each nostril once daily. Rinse mouth after use. lisinopril (ZESTRIL, PRINIVIL) 20 mg tablet Take 1 tablet by mouth once daily. clopidogrel (PLAVIX) 75 mg tablet Take 1 tablet by mouth once daily. atorvastatin (LIPITOR) 80 mg tablet Take 1 tablet by mouth daily at bedtime. For cholesterol. docosahexaenoic acid/epa (FISH OIL ORAL) Take 1,200 mg by mouth as directed. aspirin, enteric coated (ASPIRIN, ENTERIC COATED) 81 mg EC tablet Take 81 mg by mouth once daily. acetaminophen (TYLENOL) 325 mg tablet Take 650 mg by mouth every 4 hours as needed. cetirizine (ZYRTEC) 10 mg tablet TAKE 1 TABLET BY MOUTH EVERY DAY (Patient not taking: Reported on 05/14/2021) No current facility-administered medications on file prior to visit. Social History Social History Tobacco Use Smoking status: Every Day Packs/day: 0.50 Years: 25.00 Pack years: 12.50 Types: Cigarettes Last attempt to quit: 07/04/2014 Years since quittin.3 Smokeless tobacco: Current Types: Snuff Tobacco comments: Prior 2 packs a day for 15 years, down to 3-4 cigarettes per day Vaping Use Vaping Use: Never used Substance Use Topics Alcohol use: Yes Alcohol/week: 10.0 standard drinks Types: 4 Cans of beer, 6 Cans of Beer (12oz) per week Comment: nightly Drug use: No Review of Symptoms REVIEW OF SYSTEMS See hpi EXAM: BP 110/68 (BP Site: Left Arm, BP Position: Sitting, BP Cuff Size: Large Adult) Pulse 82 Temp 36.4 C (97.5 F) Resp 18 General Appearance: Well appearing, alert, in no acute distress, well-hydrated, well nourished.. Neck: Supple, no adenopathy; thyroid symmetric, normal size, no bruits. Lungs: Lungs clear to auscultation. No wheezing, rhonchi, rales.. Heart: RRR without murmur, gallop, or rubs. No ectopy. Extremities: No deformities, edema, skin discoloration, clubbing or cyanosis. Good capillary refill. . Peripheral Pulses: Normal. Neurologic: Negative findings: speech normal, mental status intact, cranial nerves 2-12 intact, gait, including heel, toe, and tandem walking normal, Romberg negative, rapid alternating movements normal, finger to nose normal, proprioception normal, reflexes normal and symmetric. Health Maintenance List BP CONTROLLED (<130/80) Never done LDL CHOLESTEROL due on 03/15/2022 ANNUAL PCP TEAM CHRONIC DISEASE VISIT due on 05/14/2022 SHINGRIX VACCINE(1 of 2) due on 11/21/2023 COVID-19 VACCINE(1) due on 11/21/2023 PNEUMOCOCCAL(1 - PCV) due on 11/21/2023 DIABETES SCREEN due on 03/15/2024 LIPID SCREEN due on 03/15/2026 PROSTATE CANCER SCREENING DISCUSSION due on 03/15/2026 COLORECTAL CANCER SCREENING due on 09/15/2027 DTAP,TDAP,TD(3 - Td or Tdap) due on 05/30/2028 HEPATITIS B Completed HEPATITIS C SCREENING Completed HIV SCREENING Completed INFLUENZA Discontinued Data reviewed ASSESSMENT/PLAN: 1. New persistent daily headache - ICD9: 339.42, ICD10: G44.52 (primary diagnosis) Will check CT scan In meantime, will start duricef [id number]. Finish prednisone. Restart flonase. If CT neg, then may need ENT or neuro consult. - CT BRAIN WO IVCON 2. Tinnitus of both ears - ICD9: 388.30, ICD10: H93.13 As above. - CT BRAIN WO IVCON Paula Hyman PA-C documented in this encounterCl[facility]03-27-2023 History of Present illness Narrative* Arya Jonah, ROCHELLE.SENIOR CONSUMER INSIGHTS CONSULTANT - 11/17/2022 4:20 PM EDT Subjective HPI Nontoxic-appearing male presents urgent care chief complaint tinnitus headache. Patient was seen here 3 weeks ago diagnosed with viral sinusitis. States at that time he did have a headache. Presents today for persistent headache and ringing in ears. States headache did kind to go away but returned again. Rates pain 7-8 out of 10. Has used Tylenol this is helped. Denies any history of migraine head aches. No exacerbating relieving factors. Denies any neurological changes. Denies any fever body aches chills productive cough chest pain shortness of breath pleuritic pain hemoptysis neck pain visual changes dizziness syncopal episodes balance issues nausea vomiting abdominal pain change in bowel or bladder habits. Past medical history prescription medication use and allergies reviewed. Past medical history prescription medication use allergies reviewed. .Patient presents with: Headache: headache on right side of head, ringing in bilateral ears x 3 weeks PAST MEDICAL HISTORY Diagnosis Date Abnormal findings on cardiac catheterization 01/17/[address] Bernstein 01/17/2015 question of 85% stenosis of septal hammer smith Alcohol abuse 07/06/2014 Sober since 03/29/2014 Allergic rhinitis due to allergen RAST 11/2013, [facility]. Anxiety 07/06/2014 Bilateral carotid artery stenosis 05/28/2015 US: 05/18/2015 less than 50% bilateral. US 04/2018 20-40% nidia Coronary artery disease due to lipid rich plaque 07/03/[address] Bernstein Current moderate episode of major depressive disorder without prior episode (HCC) 05/11/2019 Elevated fasting blood sugar 07/11/2017 Essential hypertension 06/25/2015 Former smoker 07/06/2014 Quit 06/2014: Was smoking less than a PPD since 25 yo. MVP (mitral valve prolapse) 02/15/2015 2D echo 12/2014 ANNIE (obstructive sleep apnea) PVC (premature ventricular contraction) Hx of. off and on. 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 Snoring PAST SURGICAL HISTORY Procedure Laterality Date 2D ECHO (EXEP) 01/16/2015 EF=65%, Mild MVP COLONOSCOPY FLX DX W/COLLJ SPEC WHEN PFRMD 12/23/2005 Colonoscopy COLONOSCOPY FLX DX W/COLLJ SPEC WHEN PFRMD 09/15/2017 repeat in 10 years ESOPHAGOGASTRODUODENOSCOPY TRANSORAL DIAGNOSTIC 10/21/2006 Gastritis LAPS SURG CHOLECYSTECTOMY W/CHOLANGIOGRAPHY 02/01/2007 PAST SURGICAL HISTORY OF 12/2014 stent to LAD RPR 1ST INGUN HRNA AGE 5 YRS/> REDUCIBLE Hernia repair, inguinal bilateral STRESS TEST 07/07/2017 WNL VASECTOMY UNI/BI SPX W/POSTOP SEMEN EXAMS ALLERGIES Penicillins MEDICATIONS fluticasone (FLONASE) 50 mcg/actuation nasal spray Use 2 Sprays in each nostril once daily. Rinse mouth after use. lisinopril (ZESTRIL, PRINIVIL) 20 mg tablet Take 1 tablet by mouth once daily. clopidogrel (PLAVIX) 75 mg tablet Take 1 tablet by mouth once daily. atorvastatin (LIPITOR) 80 mg tablet Take 1 tablet by mouth daily at bedtime. For cholesterol. docosahexaenoic acid/epa (FISH OIL ORAL) Take 1,200 mg by mouth as directed. aspirin, enteric coated (ASPIRIN, ENTERIC COATED) 81 mg EC tablet Take 81 mg by mouth once daily. acetaminophen (TYLENOL) 325 mg tablet Take 650 mg by mouth every 4 hours as needed. busPIRone (BUSPAR) 15 mg tablet QUEtiapine (SEROQUEL) 200 mg tablet Take 200 mg by mouth daily at bedtime. QUEtiapine (SEROQUEL) 100 mg tablet Take 100 mg by mouth daily at bedtime. OXcarbazepine ER (OXTELLAR XR) 300 mg tablet Take by mouth. cetirizine (ZYRTEC) 10 mg tablet TAKE 1 TABLET BY MOUTH EVERY DAY (Patient not taking: Reported on 05/14/2021) FAMILY HISTORY Problem Relation Age of Onset Hypertension Mother Heart Father Pacemaker, hx TIA Heart Maternal Grandmother Cancer Maternal Grandmother behind ear Heart Paternal Grandfather Stroke Paternal Grandfather Social History Tobacco Use Smoking status: Every Day Packs/day: 0.50 Years: 25.00 Pack years: 12.50 Types: Cigarettes Last attempt to quit: 07/04/2014 Years since quittin.3 Smokeless tobacco: Current Types: Snuff Tobacco comments: Prior 2 packs a day for 15 years, down to 3-4 cigarettes per day Vaping Use Vaping Use: Never used Substance Use Topics Alcohol use: Yes Alcohol/week: 10.0 standard drinks Types: 4 Cans of beer, 6 Cans of Beer (12oz) per week Comment: nightly Drug use: No BP 132/78 Pulse 92 Temp 36.8 C (98.2 F) Resp 16 Wt 102.5 kg (226 lb) SpO2 98% BMI 33.37kg/m Review of Systems Constitutional: Negative for chills, fever and malaise/fatigue. HENT: Positive for tinnitus. Negative for congestion, ear discharge, ear pain, sinus pain and sore throat. Eyes: Negative for blurred vision, double vision, photophobia, pain, discharge and redness. Respiratory: Negative for cough, hemoptysis, sputum production, shortness of breath, wheezing and stridor. Cardiovascular: Negative for chest pain. Gastrointestinal: Negative for abdominal pain, diarrhea, nausea and vomiting. Musculoskeletal: Negative for myalgias. Skin: Negative for itching and rash. Neurological: Positive for headaches. Negative for dizziness. Objective Physical Exam Constitutional: General: He is not in acute distress. Appearance: He is not diaphoretic. HENT: Head: Normocephalic. Right Ear: Tympanic membrane, ear canal and external ear normal. Left Ear: Tympanic membrane, ear canal and external ear normal. Nose: Nose normal. Mouth/Throat: Mouth: Mucous membranes are moist. Pharynx: Oropharynx is clear. No oropharyngeal exudate or posterior oropharyngeal erythema. Eyes: Conjunctiva/sclera: Conjunctivae normal. Pupils: Pupils are equal, round, and reactive to light. Cardiovascular: Rate and Rhythm: Normal rate and regular rhythm. Heart sounds: Normal heart sounds. Pulmonary: Effort: Pulmonary effort is normal. No tachypnea, accessory muscle usage or respiratory distress. Breath sounds: Normal breath sounds. No stridor. No wheezing, rhonchi or rales. Abdominal: Palpations: Abdomen is soft. Tenderness: There is no abdominal tenderness. There is no guarding or rebound. Musculoskeletal: Cervical back: Normal range of motion and neck supple. No rigidity or tenderness. Lymphadenopathy: Cervical: No cervical adenopathy. Skin: General: Skin is warm and dry. Neurological: Mental Status: He is alert and oriented to person, place, and time. Mental status is at baseline. ASSESSMENT/PLAN: 1. Headache, unspecified headache type - ICD9: 784.0, ICD10: R51.9 Diagnosed with headache. No red flag symptoms. Placed on prednisone burst. Do not take with NSAIDs.Follow-up with PCP as scheduled. Red flags prompt reevaluation discussed. Patient was educated on supportive therapies. Patient will follow up with primary care provider as needed. Patient was instructed to immediately proceed to emergency room for any new, worsening, or symptoms lasting longer than anticipated. The patient's clinical presentation is otherwise unremarkable at this time. Based on exam and clinical finding, the patient is stable for discharge. Plan of care was discussed with patient. Patient verbalizes understanding and agrees to plan of care. This note was generated using [email or web address] software. It may contain errors in wording, punctuation, or spelling. Arya Mckenzie APRN.LUTHER documented in this encounterClermont [facility]03-06-2023 History of Present illness Narrative* Genoveva Guillen APRN.LUTHER - 10/27/2022 1:47 PM EST Subjective HPI HPI Jose Zapien III is a 57 year old male who presents today for CC of cough, congestion/sinus pressure. This started 5 days ago/worsening. Has tried otc medication without relief. Symptoms are worsened by nothing. Risk factors sick exposures at work. Smoker. .Patient presents with: Cough: Head congestion, SIMMONS x5 days PAST MEDICAL HISTORY Diagnosis Date Abnormal findings on cardiac catheterization 01/17/[address] Bernstein 01/17/2015 question of 85% stenosis of septal hammer smith Alcohol abuse 07/06/2014 Sober since 03/29/2014 Allergic rhinitis due to allergen RAST 11/2013, [facility]. Anxiety 07/06/2014 Bilateral carotid artery stenosis 05/28/2015 US: 05/18/2015 less than 50% bilateral. US 04/2018 20-40% nidia Coronary artery disease due to lipid rich plaque 07/03/[address] Bernstein Current moderate episode of major depressive disorder without prior episode (HCC) 05/11/2019 Elevated fasting blood sugar 07/11/2017 Essential hypertension 06/25/2015 Former smoker 07/06/2014 Quit 06/2014: Was smoking less than a PPD since 25 yo. MVP (mitral valve prolapse) 02/15/2015 2D echo 12/2014 ANNIE (obstructive sleep apnea) PVC (premature ventricular contraction) Hx of. off and on. 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 Snoring PAST SURGICAL HISTORY Procedure Laterality Date 2D ECHO (EXEP) 01/16/2015 EF=65%, Mild MVP COLONOSCOPY FLX DX W/COLLJ SPEC WHEN PFRMD 12/23/2005 Colonoscopy COLONOSCOPY FLX DX W/COLLJ SPEC WHEN PFRMD 09/15/2017 repeat in 10 years ESOPHAGOGASTRODUODENOSCOPY TRANSORAL DIAGNOSTIC 10/21/2006 Gastritis LAPS SURG CHOLECYSTECTOMY W/CHOLANGIOGRAPHY 02/01/2007 PAST SURGICAL HISTORY OF 12/2014 stent to LAD RPR 1ST INGUN HRNA AGE 5 YRS/> REDUCIBLE Hernia repair, inguinal bilateral STRESS TEST 07/07/2017 WNL VASECTOMY UNI/BI SPX W/POSTOP SEMEN EXAMS ALLERGIES Penicillins MEDICATIONS lisinopril (ZESTRIL, PRINIVIL) 20 mg tablet Take 1 tablet by mouth once daily. clopidogrel (PLAVIX) 75 mg tablet Take 1 tablet by mouth once daily. atorvastatin (LIPITOR) 80 mg tablet Take 1 tablet by mouth daily at bedtime. For cholesterol. docosahexaenoic acid/epa (FISH OIL ORAL) Take 1,200 mg by mouth as directed. aspirin, enteric coated (ASPIRIN, ENTERIC COATED) 81 mg EC tablet Take 81 mg by mouth once daily. cetirizine (ZYRTEC) 10 mg tablet TAKE 1 TABLET BY MOUTH EVERY DAY (Patient not taking: Reported on 05/14/2021) fluticasone (FLONASE) 50 mcg/actuation nasal spray Use 2 Sprays in each nostril once daily. Rinse mouth after use. (Patient not taking: Reported on 05/14/2021 ) acetaminophen (TYLENOL) 325 mg tablet Take 650 mg by mouth every 4 hours as needed. FAMILY HISTORY Problem Relation Age of Onset Hypertension Mother Heart Father Pacemaker, hx TIA Heart Maternal Grandmother Cancer Maternal Grandmother behind ear Heart Paternal Grandfather Stroke Paternal Grandfather Social History Tobacco Use Smoking status: Every Day Packs/day: 0.50 Years: 25.00 Pack years: 12.50 Types: Cigarettes Last attempt to quit: 07/04/2014 Years since quittin.3 Smokeless tobacco: Current Types: Snuff Tobacco comments: Prior 2 packs a day for 15 years, down to 3-4 cigarettes per day Vaping Use Vaping Use: Never used Substance Use Topics Alcohol use: Yes Alcohol/week: 10.0 standard drinks Types: 4 Cans of beer, 6 Cans of Beer (12oz) per week Comment: nightly Drug use: No Review of Systems Constitutional: Negative for fever. HENT: Positive for congestion, sinus pain and tinnitus. Negative for ear pain, nosebleeds and sore throat. Respiratory: Positive for cough. Negative for shortness of breath and wheezing. Musculoskeletal: Negative for neck pain. Objective Blood pressure 104/62, pulse 97, temperature 36.2 C (97.2 F), resp. rate 20, weight 103.8 kg (228 lb 12.8 oz), SpO2 96 %. Physical Exam Constitutional: General: He is not in acute distress. Appearance: He is not toxic-appearing or diaphoretic. HENT: Head: Normocephalic and atraumatic. Right Ear: Hearing, tympanic membrane, ear canal and external ear normal. Left Ear: Hearing, tympanic membrane, ear canal and external ear normal. Nose: Right Sinus: Frontal sinus tenderness present. No maxillary sinus tenderness. Left Sinus: Frontal sinus tenderness present. No maxillary sinus tenderness. Mouth/Throat: Pharynx: Uvula midline. No pharyngeal swelling, oropharyngeal exudate, posterior oropharyngeal erythema or uvula swelling. Eyes: General: Lids are normal. No scleral icterus. Right eye: No discharge. Left eye: No discharge. Conjunctiva/sclera: Conjunctivae normal. Pupils: Pupils are equal, round, and reactive to light. Neck: Trachea: Trachea normal. Cardiovascular: Rate and Rhythm: Normal rate and regular rhythm. Heart sounds: Normal heart sounds. Pulmonary: Effort: Pulmonary effort is normal. Breath sounds: Normal breath sounds. Musculoskeletal: Cervical back: Normal range of motion and neck supple. Lymphadenopathy: Cervical: No cervical adenopathy. Right cervical: No superficial cervical adenopathy. Left cervical: No superficial cervical adenopathy. Skin: Findings: No rash. Neurological: Mental Status: He is alert and oriented to person, place, and time. ASSESSMENT/PLAN: 1. Viral sinusitis - ICD9: 473.9, 079.99, ICD10: J32.9, B97.89 -start prednisone, if no improvement or worsening s/s in 4-5 days fill/take atb rx - Discussed viral etiology and rationale for treatment. - Symptomatic treatment with prn analgesia - Supportive care with fluids and rest - Follow up in 3-5 days if symptoms persist or sooner if worsening of symptoms - The patient should also be given flonase for the first 5-7 days of treatment. - Supportive care with plenty of fluids, rest, and analgesia prn. - Follow up in 1 week if symptoms persist or worsen. - PREDNISONE 20 MG TABLET - FLUTICASONE PROPIONATE 50 MCG/ACTUATION NASAL SPRAY,SUSPENSION - DOXYCYCLINE MONOHYDRATE 100 MG TABLET Genoveva Guillen APRN.SENIOR CONSUMER INSIGHTS CONSULTANT documented [facility] Miscellaneous Notes* Telephone Encounter - Loretta Jones LPN - 08/12/2022 10:59 AM EST Pt notified of same. Pt will call back to schedule appointment with pcp or team later today d/t insurance info needs updated and pt did not have time to do this as he is at work. Loretta Jones LPN * Telephone Encounter - Arya James MD - 08/12/2022 10:30 AM EST Advise patient refill requests for Plavix and lisinopril denied. He has not been seen in the officefor chronic health issues since 03/15/2021. If having financial issues then he needs to talk with [facility] financial [facility] . * Telephone Encounter - Loretta Jones LPN - 08/12/2022 7:21 AM EST Last refills 02/17/22 Qty: 90 with 1 refill MAIKEL 05/14/21 NOV none scheduled. Last ov cancelled d/t financial reasons. Loretta Jones LPN * Telephone Encounter - Tamera Knott Pss - 08/11/2022 5:02 PM EST Patient has been identified by name and date of : Yes Requested Prescriptions Pending Prescriptions Disp Refills lisinopril (ZESTRIL, PRINIVIL) 20 mg tablet 90 tablet 3 Sig: Take 1 tablet by mouth once daily. clopidogrel (PLAVIX) 75 mg tablet 90 tablet 3 Sig: Take 1 tablet by mouth once daily. RX INSTRUCTIONS: Patient aware RX will be sent to pharmacy. No need to notify patient. Tamera Layne documented in this encounterCl[facility]05-25-2022 Miscellaneous Notes* Telephone Encounter - Loretta Jones LPN - 01/15/2022 8:03 AM EDT Pt requesting refills. Pt has appt 01/21/22 Loretta Jones LPN * Telephone Encounter - Amanda Jasso Pss - 01/14/2022 4:25 PM EDT Patient has been identified by name and date of : Yes Last office visit in this department: 05/14/2021 RX INSTRUCTIONS: Patient aware RX will be sent to pharmacy. No need to notify patient. Patient phones requesting refills as follows: Pending Prescriptions Disp Refills CLOPIDOGREL 75 MG TABLET 30 tablet 0 Sig: Take 1 tablet by mouth once daily. INGRID: No LISINOPRIL 20 MG TABLET 30 tablet 0 Sig: Take 1 tablet by mouth once daily. INGRID: No ATORVASTATIN 80 MG TABLET 90 tablet 1 Sig: Take 1 tablet by mouth daily at bedtime. For cholesterol. INGRID: No Please review and advise. Amanda Jasso Pss documented in this encounterCl[facility]04-26-2022 Miscellaneous Notes* Telephone Encounter - Romero Fitzgerald - 12/17/2021 10:55 AM EDT Patient notified via Embran[employer] message. * Telephone Encounter - Arya James MD - 12/16/2021 9:56 PM EDT Let patient know his refill requests were only sent for 30 days. He was last seen for his chronic health issues in February 2021 and was to f/u in 6 months and appears he never made an appt. Needs seen for a routine exam or future refills may be denied. The following approved medication requests have been transmitted electronically. Signed Prescriptions Disp Refills lisinopril (ZESTRIL, PRINIVIL) 20 mg tablet 30 tablet 0 Sig: Take 1 tablet by mouth once daily. INGRID: No Authorizing Provider: ARYA JAMES clopidogrel (PLAVIX) 75 mg tablet 30 tablet 0 Sig: Take 1 tablet by mouth once daily. INGRID: No Authorizing Provider: ARYA JAMES MD * Telephone Encounter - DOUG Atkins - 12/16/2021 3:18 PM EDT Last OV on 05/14/2021 No appointment scheduled Please advise. Thank you. DOUG Atkins * Telephone Encounter - Tressa Huizar Pss - 12/16/2021 3:16 PM EDT Pharmacy verified in Epic Patient has been identified by name and date of : Yes Patient aware RX will be sent to pharmacy. No need to notify patient. Patient phones for refill(s): Pending Prescriptions Disp Refills LISINOPRIL 20 MG TABLET 90 tablet 1 Sig: Take 1 tablet by mouth once daily. INGRID: No CLOPIDOGREL 75 MG TABLET 90 tablet 1 Sig: Take 1 tablet by mouth once daily. INGRID: No Date of last office visit : 05/14/2021 Date of next office visit : Visit date not found Last 2 Encounter Wt Readings: Date: Wt: 05/14/2021 94.8 kg (209 lb) 03/15/2021 93.9 kg (207 lb) Please advise. Tressa Huizar Pss documented in this encounterCl[facility]09[facility] History of Present illness Narrative* Farida Adkins RT(R) - 05/14/2021 8:00 AM EDT Radiology Service Progress Note PATIENT NAME: Jose Zapien III DATE OF SERVICE: May 14, 2021 TIME: 8:02 AM PATIENT IDENTITY VERIFICATION COMPLETED USING TWO (2) IDENTIFIERS: Name and Date of confirmedby patient verbally. FALL SCREENING: Has the patient had 2 falls in the last year or 1 fall with injury or currently using an Ambulatory Assistive Device (Walker, Cane, Wheelchair, Crutches, etc.)? No PATIENT GENDER DATA: Male PATIENT RELEVANT IMPLANT DATA REVIEWED: Yes RADIOLOGY DEPARTMENT: General X-ray: Exam(s) Completed: Spine X-Ray(s): Cervical AP / LAT / FLEX-EXT PERIPHERAL IV DATA: Not applicable SIGNED BY: RT Nik(R) May 14, 2021 8:02 AM documented in this encounterClerm[facility]05-01-2015 Evaluation note* Diagnosis Onset Date Resolution Status Chest pain acute Essential hypertension acute Nonrheumatic mitral (valve) prolapse chronic Premature ventricular contraction chronic Presence of stent in coronary artery Dec, 2014 chronic Pure hypercholesterolemia [facility] Work Phone: 1(465) 663-823405-01-2015 Evaluation note* Diagnosis Onset Date Resolution Status Chest pain acute Essential hypertension acute Premature ventricular contraction chronic Presence of stent in coronary artery Dec, 2014 chronic Pure hypercholesterolemia [facility] Work Phone: Evaluation note* Diagnosis Viral sinusitis- Primary Unspecified sinusitis (chronic) [facility]* Diagnosis Headache, unspecified headache type- Primary [facility]* Diagnosis New persistent daily headache- Primary New daily persistent headache Tinnitus of both ears Unspecified tinnitus [facility]* Diagnosis Bilateral leg edema- Primary Edema SOB (shortness of breath) Shortness of breath Coronary artery disease due to lipid rich plaque Smoker Tobacco use disorder [facility] Diagnosis New persistent daily headache New daily persistent headache Tinnitus of both ears Unspecified tinnitus [facility]* Diagnosis SOB (shortness of breath)- Primary Shortness of breath Bilateral leg edema Edema Prostate cancer screening Special screening for malignant neoplasm of prostate Medication management Encounter for long-term (current) use of other medications Essential hypertension Unspecified essential hypertension Elevated fasting blood sugar Impaired fasting glucose Coronary artery disease due to lipid rich plaque [facility]* Diagnosis Regular astigmatism, bilateral- Primary Myopia of right eye Myopia Hyperopia, left Vitreous floaters of both eyes [facility]* Diagnosis Well adult exam- Primary Routine general medical examination at a health care facility Essential hypertension Unspecified essential hypertension Elevated fasting blood sugar Impaired fasting glucose Bilateral carotid artery stenosis Occlusion and stenosis of carotid artery without mention of cerebral infarction Coronary artery disease due to lipid rich plaque PVC (premature ventricular contraction) Other premature beats Current moderate episode of major depressive disorder without prior episode (HCC) Anxiety Anxiety state, unspecified Bilateral leg edema Edema Smoker Tobacco use disorder ANNIE (obstructive sleep apnea) Obstructive sleep apnea (adult) (pediatric) Unintentional weight loss Loss of weight Alcohol abuse Alcohol abuse, unspecified [facility] Diagnosis Smoker Tobacco use disorder Unintended weight loss Loss of weight [facility] Diagnosis Smoker- Primary Tobacco use disorder Unintentional weight loss Loss of weight [facility] Diagnosis Smoker Tobacco use disorder Unintentional weight loss Loss of weight Alcohol abuse Alcohol abuse, unspecified documented [facility]* Diagnosis Smoker Tobacco use disorder Unintentional weight loss Loss of weight [facility] Diagnosis Neoplasm of uncertain behavior of skin of back- Primary Neoplasm of uncertain behavior of skin Infected sebaceous cyst Sebaceous cyst Epidermoid cyst of skin of back [facility]* Diagnosis Smoker Tobacco use disorder Unintentional weight loss Loss of weight [facility]* Diagnosis Smoker- Primary Tobacco use disorder Unintended weight loss Loss of weight [facility]* Diagnosis Fatty liver- Primary Other chronic nonalcoholic liver disease Smoker Tobacco use disorder Unintentional weight loss Loss of weight Urine retention Retention of urine, unspecified Smoker Tobacco use disorder Unintentional weight loss Loss of weight [facility]* Diagnosis Bilateral carotid artery stenosis- Primary Occlusion and stenosis of carotid artery without mention of cerebral infarction [facility]* Diagnosis Epidermoid cyst of skin of back- Primary [facility]* Diagnosis Smoker Tobacco use disorder Unintentional weight loss Loss of weight [facility]* Diagnosis Burning with urination- Primary Dysuria [facility]* Diagnosis Neck pain Cervicalgia [facility]* Diagnosis Essential hypertension- Primary Unspecified essential hypertension [facility]* Diagnosis Neck pain- Primary Cervicalgia Urine retention Retention of urine, unspecified Essential hypertension Unspecified essential hypertension Bladder pain Other symptoms involving urinary system Coronary artery disease due to lipid rich plaque [facility]* Diagnosis Neck pain Cervicalgia [facility]* Diagnosis Neck pain- Primary Cervicalgia [facility]* Diagnosis Well adult exam- Primary Routine general medical examination at a health care facility Essential hypertension Unspecified essential hypertension Elevated fasting blood sugar Impaired fasting glucose Bilateral carotid artery stenosis Occlusion and stenosis of carotid artery without mention of cerebral infarction Coronary artery disease due to lipid rich plaque PVC (premature ventricular contraction) Other premature beats Anxiety Anxiety state, unspecified Current moderate episode of major depressive disorder without prior episode (HCC) Bilateral leg edema Edema Alcohol abuse Alcohol abuse, unspecified Smoker Tobacco use disorder Fatty liver Other chronic nonalcoholic liver disease Neck pain Cervicalgia Muscle tension headache Tension headache ED (erectile dysfunction) of organic origin Impotence of organic origin Medication management Encounter for long-term (current) use of other medications Encounter for screening for diabetes mellitus Screening for diabetes mellitus Screening for prostate cancer Special screening for malignant neoplasm of prostate documented [facility]* Diagnosis Onset Date Resolution Status Admit Date Chest pain acute January 27, 2025 7:53am Essential hypertension acute Ju 2024 7:53am Premature ventricular contraction ch ronic January 27, 2025 7:53am Presence of stent in coronar y artery Dec, 2014 chronic January 27, 2025 7:53am Pure hypercholesterolemia chronic January 27, 2025 7:53am [email or web address] [email or web address] Work Phone: Evaluation note* Diagnosis Neurogenic bladder- Primary Neurogenic bladder, NOS Urine retention Retention of urine, unspecified Prostate cancer screening Special screening for malignant neoplasm of prostate documented in this encounter [facility] for referral (narrative)* Outpatient Procedure (Routine) - Authorized Specialty Diagnoses / Procedures Referred By Froylan muñoz Referred To Contact [facility] Diagnoses SOB (shortness of breath) Smoker Procedures SPIROMETRY - BASELINE AND POST DILATOR BRNCDILAT RSPSE SPMTRY PRE&POST-BRNCDILAT ADMN Arya James MD [address] [place] [address] Respiratory Story [address] [place] [address] Referral ID Status Reason Start Date Expiration Date Visits Requested Visits Authorized [id number] Authorized Auto-Generat ed Referral 07/07/2024 1 1 [facility] for referral (narrative)* Diagnostic Procedure Only (Routine) - Authorized Specialty Diagnoses / Procedures Referred By Froylan t Referred To Contact US IMAGING Diagnoses Smoker Unintentional weight loss Alcohol abuse Procedures US ABDOMEN COMPLETE US ABDOMINAL REAL TIME W/IMAGE DOCUMENTATION Arya James MD [address] [place] [address] Us Imaging [facility] Referral ID Status Reason Start Date Expiration Date Visits Requested Visits Authorized [id number] Authorized Auto-Generat ed Referral 01/26/2024 02/24/2025 1 1 * Outpatient Procedure (Routine) - Authorized Specialty Diagnoses / Procedures Referred By Contac t Referred To [facility] Diagnoses Bilateral carotid artery stenosis Procedures US CAROTID ARTERIES NIDIA VAS LAB DUPLEX SCAN EXTRACRANIAL ART COMPL BI STUDY Arya James MD [address] [place] [address] [facility] [address] [place] [address] Referral ID Status Reason Start Date Expiration Date Visits Requested Visits Authorized [id number] Authorized Auto-Generat ed Referral 01/26/2024 01/25/2025 1 1 [facility] for referral (narrative)* Diagnostic Procedure Only (Routine) - Closed Specialty Diagnoses / Procedures Referred By Contac t Referred To Contact XR IMAGING Diagnoses Neck pain Procedures XR CERV OTHER 4V AP/LAT/FLX/EXT X-RAY NECK MINIMUM 4 VIEWS Paula Hyman PA-C [address] [phone] [place] [id number] Referral ID Status Reason Start Date Expiration Date V isits Requested Visits Authorized [id number] Closed Auto-Generate d Referral 05/14/2021 06/13/2022 1 1 [facility] for referral (narrative)No reason for referral information availableKaiser [facility] Work Phone: Reason for visit Narrative* Diagnostic Procedure Only (Routine) - Closed Specialty Diagnoses / Procedures Referred By Contac t Referred To Contact Radiology / RADIO CT SCAN [facility] Diagnoses CT BRAIN WO IVCON New persistent daily headache [G44.52] Tinnitus of both ears [H93.13] Procedures CT WO [address] Paula Hyman PA-C [address] [place] [address] [facility] [address] [place] [address] Referral ID Status Reason Start Date Expiration Date Visits Re quested Visits Authorized [id number] Closed 11/28/2022 02/26/2023 1 1 [facility] for visit Narrative* Diagnostic Procedure Only (Routine) - Closed Specialty Diagnoses / Procedures Referred By Contac t Referred To Contact XR IMAGING Diagnoses Neck pain Procedures XR CERV OTHER 4V AP/LAT/FLX/EXT X-RAY NECK MINIMUM 4 VIEWS Paula Hyman PA-C [address] [phone] [place] [address] Referral ID Status Reason Start Date Expiration Date V isits Requested Visits Authorized [id number] Closed Auto-Generate d Referral 05/14/2021 06/13/2022 1 1 [facility] for visit Narrative* Diagnostic Procedure Only (Routine) - Closed Specialty Diagnoses / Procedures Referred By Contac t Referred To Contact XR IMAGING Diagnoses Neck pain Procedures XR CERV OTHER 4V AP/LAT/OBL RADEX SPINE CERVICAL 4 OR 5 VIEWS Virgil Hough, ROCHELLE.SENIOR CONSUMER INSIGHTS CONSULTANT [address] [phone] [place] [address] Referral ID Status Reason Start Date Expiration Date V isits Requested Visits Authorized [id number] Closed Auto-Generate d Referral 07/28/2024 08/27/2025 1 1 [facility] Summary Purpose Family History Relationship Condition Age at Onset Recorded Date/T ernesto father Coronary artery disease Unknown Myocardial infarction Unknown mother Hypertension Unknown grandfather Cerebrovascular accident (CVA) Unknown Cardiac disease Unknown Myocardial infarction 48 Advance Directives Documents on File Type Date Recorded 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 Advance Directive(s) 09/15/2017 9:14 AM Advance Directive(s) 07/15/2017 11:54 AM Advance Directive Response Recorded Date/ Time Living Will No September 30 7:52am Power of Keyboard Operator No September 30, 2020 7:52am Advance Directive Response Recorded Date/ Time Living Will No September 30 8:52am Power of Keyboard Operator No September 30, 2020 8:52am Advance Directive Response Recorded Date/ Time Advance Directives on File No December 02, 2023 7:26am Advance Directives Yes Tanya 10th, 2 024 7:26am Living Will Yes December 02, 2023 7:26am Power of Keyboard Operator No December 01 7:26am Advance Directive Response Recorded Date/ Time Living Will Yes December 02, 2023 7:26am Do you have a Healthcare Power of Keyboard Operator? No December 02, 2023 7:26am Advance Directives Yes December 01 7:26am Chief Complaint and Reason for Visit Chief Complaint 1 y fu Reason for Visit Chest pain Essential hypertension Nonrheumatic mitral (valve) prolapse Premature ventricular contraction Presence of stent in coronary artery Pure hypercholesterolemia Chief Complaint 1 y fu CHEST PAIN Reason for Visit Chest pain Essential hypertension Nonrheumatic mitral (valve) prolapse Premature ventricular contraction Presence of stent in coronary artery Pure hypercholesterolemia Chief Complaint 9 M FU (NEEDS 4PM) EORDERS Reason for Visit Chest pain Essential hypertension Premature ventricular contraction Presence of stent in coronary artery Pure hypercholesterolemia Chief Complaint 9 M FU (NEEDS 4PM) EORDERS CHEST PAIN Reason for Visit Chest pain Essential hypertension Premature ventricular contraction Presence of stent in coronary artery Pure hypercholesterolemia Chief Complaint Admit Date 1 Y FU January 27, 2025 7:53a m Reason for Visit Admit Date Chest pain January 27, 2025 7:53a m Essential hypertension January 27, 2025 7: 53am Premature ventricular contraction January 272024 7:53am Presence of stent in coronary artery Thomas e 2024 7:53am Pure hypercholesterolemia January 27, 2025 7:53am Chief Complaint Admit Date 1 Y FU January 27, 2025 7:53a m E ORDER February 07, 2025 8:57 am Reason for Visit Admit Date Essential hypertension January 27, 2025 7: 53am Premature ventricular contraction January 272024 7:53am Presence of stent in coronary artery Thomas e 2024 7:53am Pure hypercholesterolemia January 27, 2025 7:53am Reason for Referral Specialty Diagnoses / Procedures Referred By Froylan t Referred To Contact CT IMAGING Diagnoses New persistent daily headache Tinnitus of both ears Procedures CT BRAIN WO IVCON CT HEAD/BRAIN W/O CONTRAST MATERIAL Paula Hyman PA-C [address] [place] [address] Ct Imaging Referral ID Status Reason Start Date Expiration Date Visits Requested Visits Authorized [id number] Authorized Auto-Generat ed Referral 11/20/2022 12/20/2023 1 1 Specialty Diagnoses / Procedures Referred By Contac t Referred To Contact CT IMAGING Diagnoses New persistent daily headache Tinnitus of both ears Procedures CT BRAIN WO IVCON CT HEAD/BRAIN W/O CONTRAST MATERIAL Paula Hyman PA-C [address] [place], [place] [address] [place] [address] Referral ID Status Reason Start Date Expiration Date V isits Requested Visits Authorized [id number] Closed Auto-Generate d Referral 11/20/2022 12/20/2023 1 1 Specialty Diagnoses / Procedures Referred By Contac t Referred To Contact CT IMAGING Diagnoses Smoker Unintentional weight loss Procedures CT CHEST WO IVCON DIAGNOSTIC COMPUTED TOMOGRAPHY THORAX W/O CNTRST Arya James MD [address] [place] [address] [place] [address] Referral ID Status Reason Start Date Expiration Date Visits Requested Visits Authorized [id number] Pending Review Auto-Generat ed Referral 02/15/2024 03/16/2025 1 1 Specialty Diagnoses / Procedures Referred By Contac t Referred To Contact CT IMAGING Diagnoses Smoker Unintended weight loss Procedures CT CHEST WO IVCON DIAGNOSTIC COMPUTED TOMOGRAPHY THORAX W/O CNTRST Arya James MD [address] [place] [address] [place] [address] Referral ID Status Reason Start Date Expiration Date V isits Requested Visits Authorized [id number] Closed Auto-Generate d Referral 01/30/2024 02/28/2025 1 1 Specialty Diagnoses / Procedures Referred By Contac t Referred To Contact Urology Diagnoses Urine retention Procedures CONSULT TO UROLOGY OFFICE/OUTPATIENT NEW HIGH MDM 60 MINUTES Arya James MD [address] [place] [address] Referral ID Status Reason Start Date Expiration Date Visits Requested Visits Authorized [id number] Authorized PCP Requested Referral 02/18/2024 02/17/2025 1 1 Specialty Diagnoses / Procedures Referred By Contac t Referred To Contact CT IMAGING Diagnoses Smoker Unintentional weight loss Procedures CT ABD/PEL W IVCON CT ABD & PELVIS W/CONTRAST Arya James MD [address] [place] [address] [place] [address] Referral ID Status Reason Start Date Expiration Date V isits Requested Visits Authorized [id number] Closed Auto-Generate d Referral 02/18/2024 03/19/2025 1 1 Specialty Diagnoses / Procedures Referred By Contac t Referred To Contact Urology Diagnoses Urine retention Bladder pain Procedures CONSULT TO UROLOGY OFFICE/OUTPATIENT NEW HIGH MDM 60 MINUTES Virgil Hough, RESEARCH AIDE.SENIOR CONSUMER INSIGHTS CONSULTANT [address] [place] [address] Referral ID Status Reason Start Date Expiration Date Visits Requested Visits Authorized [id number] Authorized PCP Requested Referral 07/28/2024 07/28/2025 1 1 Specialty Diagnoses / Procedures Referred By Contac t Referred To Contact XR IMAGING Diagnoses Neck pain Procedures XR CERV OTHER 4V AP/LAT/OBL RADEX SPINE CERVICAL 4 OR 5 VIEWS Virgil Hough, ROCHELLE.SENIOR CONSUMER INSIGHTS CONSULTANT [address] [place] [address] [place] [address] Referral ID Status Reason Start Date Expiration Date V isits Requested Visits Authorized [id number] Closed Auto-Generate d Referral 07/28/2024 08/27/2025 1 1 Specialty Diagnoses / Procedures Referred By Contac t Referred To Contact [facility] Diagnoses Neck pain Procedures CONSULT TO PHYSICAL THERAPY PHYSICAL THERAPY EVALUATION HIGH COMPLEX 45 MINS Virgil Hough, RESEARCH AIDE.SENIOR CONSUMER INSIGHTS CONSULTANT [address] [place] [address] [facility] [address] [place] [address] Referral ID Status Reason Start Date Expiration Date Visits Requested Visits Authorized [id number] Pending Review Auto-Generat ed Referral 08/01/2024 08/01/2025 1 1 Additional Source Comments (unrecognized sect ion and content) No Status Records FoundNo Status Records FoundNo Status Records Found INFORMATION SOURCE (unrecogn ized section and content) DATE CREATED AUTHOR 07/08/2018 [facility] DATE CREATED AUTHOR AUTHOR'S ORGANIZ ATION 02/13/[address] [facility] DATE CREATED AUTHOR AUTHOR'S ORGANIZ ATION 02/15/2025 [facility] Source Comments (unrecognize d section and content) In the event this informatio n is protected by the Federal Confidentiality of Alcohol and Drug Abuse Patient Records regulations: The Federal rules restrict any use of the information to criminally investigate or prosecute any alcohol or drug abuse patient.[facility] the event this information is protected by the Federal Confidentiality of Alcohol and Drug Abuse Patient Records regulations: The Federal rules restrict any use of the information to criminally investigate or prosecute any alcohol or drug abuse patient.[facility] the event this information is protected by the Federal Confidentiality of Alcohol and Drug Abuse Patient Records regulations: The Federal rules restrict any use of the information to criminally investigate or prosecute any alcohol or drug abuse patient.[facility] the event this information is protected by the Federal Confidentiality of Alcohol and Drug Abuse Patient Records regulations: The Federal rules restrict any use of the information to criminally investigate or prosecute any alcohol or drug abuse patient.[facility] the event this information is protected by the Federal Confidentiality of Alcohol and Drug Abuse Patient Records regulations: The Federal rules restrict any use of the information to criminally investigate or prosecute any alcohol or drug abuse patient.[facility] the event this information is protected by the Federal Confidentiality of Alcohol and Drug Abuse Patient Records regulations: The Federal rules restrict any use of the information to criminally investigate or prosecute any alcohol or drug abuse patient.[facility] the event this information is protected by the Federal Confidentiality of Alcohol and Drug Abuse Patient Records regulations: The Federal rules restrict any use of the information to criminally investigate or prosecute any alcohol or drug abuse patient.[facility] the event this information is protected by the Federal Confidentiality of Alcohol and Drug Abuse Patient Records regulations: The Federal rules restrict any use of the information to criminally investigate or prosecute any alcohol or drug abuse patient.[facility] the event this information is protected by the Federal Confidentiality of Alcohol and Drug Abuse Patient Records regulations: The Federal rules restrict any use of the information to criminally investigate or prosecute any alcohol or drug abuse patient.[facility]In the event this information is protected by the Federal Confidentiality of Alcohol and Drug Abuse Patient Records regulations: The Federal rules restrict any use of the information to criminally investigate or prosecute any alcohol or drug abuse patient.[facility] the event this information is protected by the Federal Confidentiality of Alcohol and Drug Abuse Patient Records regulations: The Federal rules restrict any use of the information to criminally investigate or prosecute any alcohol or drug abuse patient.[facility] the event this information is protected by the Federal Confidentiality of Alcohol and Drug Abuse Patient Records regulations: The Federal rules restrict any use of the information to criminally investigate or prosecute any alcohol or drug abuse patient.[facility] the event this information is protected by the Federal Confidentiality of Alcohol and Drug Abuse Patient Records regulations: The Federal rules restrict any use of the information to criminally investigate or prosecute any alcohol or drug abuse patient.[facility]In the event this information is protected by the Federal Confidentiality of Alcohol and Drug Abuse Patient Records regulations: The Federal rules restrict any use of the information to criminally investigate or prosecute any alcohol or drug abuse patient.[facility] HospitalIn the event this information is protected by the Federal Confidentiality of Alcohol and Drug Abuse Patient Records regulations: The Federal rules restrict any use of the information to criminally investigate or prosecute any alcohol or drug abuse patient.[facility]In the event this information is protected by the Federal Confidentiality of Alcohol and Drug Abuse Patient Records regulations: The Federal rules restrict any use of the information to criminally investigate or prosecute any alcohol or drug abuse patient.[facility]In the event this information is protected by the Federal Confidentiality of Alcohol and Drug Abuse Patient Records regulations: The Federal rules restrict any use of the information to criminally investigate or prosecute any alcohol or drug abuse patient.[facility]In the event this information is protected by the Federal Confidentiality of Alcohol and Drug Abuse Patient Records regulations: The Federal rules restrict any use of the information to criminally investigate or prosecute any alcohol or drug abuse patient.[facility]In the event this information is protected by the Federal Confidentiality of Alcohol and Drug Abuse Patient Records regulations: The Federal rules restrict any use of the information to criminally investigate or prosecute any alcohol or drug abuse patient.[facility]In the event this information is protected by the Federal Confidentiality of Alcohol and Drug Abuse Patient Records regulations: The Federal rules restrict any use of the information to criminally investigate or prosecute any alcohol or drug abuse patient.[facility]In the event this information is protected by the Federal Confidentiality of Alcohol and Drug Abuse Patient Records regulations: The Federal rules restrict any use of the information to criminally investigate or prosecute any alcohol or drug abuse patient.[facility] HospitalIn the event this information is protected by the Federal Confidentiality of Alcohol and Drug Abuse Patient Records regulations: The Federal rules restrict any use of the information to criminally investigate or prosecute any alcohol or drug abuse patient.[facility] HospitalIn the event this information is protected by the Federal Confidentiality of Alcohol and Drug Abuse Patient Records regulations: The Federal rules restrict any use of the information to criminally investigate or prosecute any alcohol or drug abuse patient.[facility]In the event this information is protected by the Federal Confidentiality of Alcohol and Drug Abuse Patient Records regulations: The Federal rules restrict any use of the information to criminally investigate or prosecute any alcohol or drug abuse patient.[facility]In the event this information is protected by the Federal Confidentiality of Alcohol and Drug Abuse Patient Records regulations: The Federal rules restrict any use of the information to criminally investigate or prosecute any alcohol or drug abuse patient.[facility]In the event this information is protected by the Federal Confidentiality of Alcohol and Drug Abuse Patient Records regulations: The Federal rules restrict any use of the information to criminally investigate or prosecute any alcohol or drug abuse patient.[facility]In the event this information is protected by the Federal Confidentiality of Alcohol and Drug Abuse Patient Records regulations: The Federal rules restrict any use of the information to criminally investigate or prosecute any alcohol or drug abuse patient.[facility]In the event this information is protected by the Federal Confidentiality of Alcohol and Drug Abuse Patient Records regulations: The Federal rules restrict any use of the information to criminally investigate or prosecute any alcohol or drug abuse patient.[facility]In the event this information is protected by the Federal Confidentiality of Alcohol and Drug Abuse Patient Records regulations: The Federal rules restrict any use of the information to criminally investigate or prosecute any alcohol or drug abuse patient.[facility]In the event this information is protected by the Federal Confidentiality of Alcohol and Drug Abuse Patient Records regulations: The Federal rules restrict any use of the information to criminally investigate or prosecute any alcohol or drug abuse patient.[facility]In the event this information is protected by the Federal Confidentiality of Alcohol and Drug Abuse Patient Records regulations: The Federal rules restrict any use of the information to criminally investigate or prosecute any alcohol or drug abuse patient.[facility]In the event this information is protected by the Federal Confidentiality of Alcohol and Drug Abuse Patient Records regulations: The Federal rules restrict any use of the information to criminally investigate or prosecute any alcohol or drug abuse patient.[facility]In the event this information is protected by the Federal Confidentiality of Alcohol and Drug Abuse Patient Records regulations: The Federal rules restrict any use of the information to criminally investigate or prosecute any alcohol or drug abuse patient.[facility]In the event this information is protected by the Federal Confidentiality of Alcohol and Drug Abuse Patient Records regulations: The Federal rules restrict any use of the information to criminally investigate or prosecute any alcohol or drug abuse patient.[facility]In the event this information is protected by the Federal Confidentiality of Alcohol and Drug Abuse Patient Records regulations: The Federal rules restrict any use of the information to criminally investigate or prosecute any alcohol or drug abuse patient.[facility]In the event this information is protected by the Federal Confidentiality of Alcohol and Drug Abuse Patient Records regulations: The Federal rules restrict any use of the information to criminally investigate or prosecute any alcohol or drug abuse patient.[facility]In the event this information is protected by the Federal Confidentiality of Alcohol and Drug Abuse Patient Records regulations: The Federal rules restrict any use of the information to criminally investigate or prosecute any alcohol or drug abuse patient.[facility] HospitalIn the event this information is protected by the Federal Confidentiality of Alcohol and Drug Abuse Patient Records regulations: The Federal rules restrict any use of the information to criminally investigate or prosecute any alcohol or drug abuse patient.[facility] HospitalIn the event this information is protected by the Federal Confidentiality of Alcohol and Drug Abuse Patient Records regulations: The Federal rules restrict any use of the information to criminally investigate or prosecute any alcohol or drug abuse patient.[facility] the event this information is protected by the Federal Confidentiality of Alcohol and Drug Abuse Patient Records regulations: The Federal rules restrict any use of the information to criminally investigate or prosecute any alcohol or drug abuse patient.[facility]In the event this information is protected by the Federal Confidentiality of Alcohol and Drug Abuse Patient Records regulations: The Federal rules restrict any use of the information to criminally investigate or prosecute any alcohol or drug abuse patient.[facility] HospitalIn the event this information is protected by the Federal Confidentiality of Alcohol and Drug Abuse Patient Records regulations: The Federal rules restrict any use of the information to criminally investigate or prosecute any alcohol or drug abuse patient.[facility]In the event this information is protected by the Federal Confidentiality of Alcohol and Drug Abuse Patient Records regulations: The Federal rules restrict any use of the information to criminally investigate or prosecute any alcohol or drug abuse patient.[facility]In the event this information is protected by the Federal Confidentiality of Alcohol and Drug Abuse Patient Records regulations: The Federal rules restrict any use of the information to criminally investigate or prosecute any alcohol or drug abuse patient.[facility]In the event this information is protected by the Federal Confidentiality of Alcohol and Drug Abuse Patient Records regulations: The Federal rules restrict any use of the information to criminally investigate or prosecute any alcohol or drug abuse patient.[facility]In the event this information is protected by the Federal Confidentiality of Alcohol and Drug Abuse Patient Records regulations: The Federal rules restrict any use of the information to criminally investigate or prosecute any alcohol or drug abuse patient.[facility] HospitalIn the event this information is protected by the Federal Confidentiality of Alcohol and Drug Abuse Patient Records regulations: The Federal rules restrict any use of the information to criminally investigate or prosecute any alcohol or drug abuse patient.[facility]In the event this information is protected by the Federal Confidentiality of Alcohol and Drug Abuse Patient Records regulations: The Federal rules restrict any use of the information to criminally investigate or prosecute any alcohol or drug abuse patient.[facility]In the event this information is protected by the Federal Confidentiality of Alcohol and Drug Abuse Patient Records regulations: The Federal rules restrict any use of the information to criminally investigate or prosecute any alcohol or drug abuse patient.[facility]In the event this information is protected by the Federal Confidentiality of Alcohol and Drug Abuse Patient Records regulations: The Federal rules restrict any use of the information to criminally investigate or prosecute any alcohol or drug abuse patient.[facility] HospitalIn the event this information is protected by the Federal Confidentiality of Alcohol and Drug Abuse Patient Records regulations: The Federal rules restrict any use of the information to criminally investigate or prosecute any alcohol or drug abuse patient.[facility]In the event this information is protected by the Federal Confidentiality of Alcohol and Drug Abuse Patient Records regulations: The Federal rules restrict any use of the information to criminally investigate or prosecute any alcohol or drug abuse patient.[facility] HospitalIn the event this information is protected by the Federal Confidentiality of Alcohol and Drug Abuse Patient Records regulations: The Federal rules restrict any use of the information to criminally investigate or prosecute any alcohol or drug abuse patient.[facility] HospitalIn the event this information is protected by the Federal Confidentiality of Alcohol and Drug Abuse Patient Records regulations: The Federal rules restrict any use of the information to criminally investigate or prosecute any alcohol or drug abuse patient.[facility] HospitalIn the event this information is protected by the Federal Confidentiality of Alcohol and Drug Abuse Patient Records regulations: The Federal rules restrict any use of the information to criminally investigate or prosecute any alcohol or drug abuse patient.[facility] Reason for Visit (unrecogniz ed section and content) Reason Onset Date Comments Refill Request 12/16/2021 Reason Onset Date Comments Refill Request 01/14/2022 Reason Comments Refill Request Reason Comments Cough Head congestion, SIMMONS x5 days Reason Comments Headache headache on right si de of head, ringing in bilateral ears x 3 weeks Reason Comments Recheck Was seen in [facility] care for headache and ringing in bilateral0 ear Reason Comments Medication request Reason Comments premedication prior to CT Scan Reason Comments Results Reason Comments Edema Reason Comments [facility] questioning testing Reason Comments Radiology CT Specialty Diagnoses / Procedures Referred By Froylan t Referred To Contact CT IMAGING Diagnoses New persistent daily headache Tinnitus of both ears Procedures CT BRAIN WO IVCON CT HEAD/BRAIN W/O CONTRAST MATERIAL Paula Hyman PA-C [address] [place] [address] [place] [address] Referral ID Status Reason Start Date Expiration Date V isits Requested Visits Authorized [id number] Closed Auto-Generate d Referral 11/20/2022 12/20/2023 1 1 Reason Comments Recheck edema in lower legs worse on the right. Reason Comments Yearly Exam Reason Comments External / Cardiac Cath Reason Onset Date Comments Refill Request 12/14/2023 Reason Comments Physical Specialty Diagnoses / Procedures Referred By Controque t Referred To Contact Radiology / RADIO CT SCAN [facility] Diagnoses Smoker [F17.200]; Unintended weight loss [R63.4]-Recent chest x-ray was unremarkable. CT for completeness of w/u Procedures CT WO CH 400 Arya James MD [address] [place] [address] [facility] [address] [place] [address] Referral ID Status Reason Start Date Expiration Date Visits Re quested Visits Authorized [id number] Closed 02/04/2024 05/04/2024 1 1 Reason Comments Radiology US Specialty Diagnoses / Procedures Referred By Contac t Referred To Contact US IMAGING Diagnoses Smoker Unintentional weight loss Alcohol abuse Procedures US ABDOMEN COMPLETE US ABDOMINAL REAL TIME W/IMAGE DOCUMENTATION Arya James MD [facility] [place] [address] [place] [address] Referral ID Status Reason Start Date Expiration Date V isits Requested Visits Authorized [id number] Closed Auto-Generate d Referral 01/26/2024 02/24/2025 1 1 Specialty Diagnoses / Procedures Referred By Contac t Referred To Contact CT IMAGING Diagnoses Smoker Unintended weight loss Procedures CT CHEST WO IVCON DIAGNOSTIC COMPUTED TOMOGRAPHY THORAX W/O CNTRST Arya James MD [address] [place] [id number] [place] [address] Referral ID Status Reason Start Date Expiration Date V isits Requested Visits Authorized [id number] Closed Auto-Generate d Referral 01/30/2024 02/28/2025 1 1 Reason Comments Derm Problem Reason Comments Outside Cardiology Specialty Diagnoses / Procedures Referred By Contac t Referred To Contact CT IMAGING Diagnoses Smoker Unintentional weight loss Procedures CT ABD/PEL W IVCON CT ABD & PELVIS W/CONTRAST Arya James MD [address] [place] [address] [place] [address] Referral ID Status Reason Start Date Expiration Date V isits Requested Visits Authorized [id number] Closed Auto-Generate d Referral 02/18/2024 03/19/2025 1 1 Reason Comments Results Reason Comments Results Reason Comments Suture Removal Reason Comments Outside Urology Lab Reason Comments Patient Update [facility] - fa x Reason Comments Outside Urology Reason Comments Urinary Problem burning with urinati on and pelvic pressure x 2-3 weeks Reason Onset Date Comments Refill Request 06/17/2024 Reason Comments Outside [id number] Ordered Reason Comments Consult [facility] - Dr. Rosa Reason Comments Orders Reason Comments 6 Month Exam Reason Onset Date Comments Refill Request 08/15/2024 Reason Comments Physical Reason Onset Date Comments Results 01/30/2025 Reason Comments Referral Information Reason Comments Results Outside labs Reason Comments Consult Urinary Retention Neurogenic Bladder Specialty Diagnoses / Procedures Referred By Contac t Referred To Contact Urology Diagnoses Urine retention Bladder pain Procedures CONSULT TO UROLOGY OFFICE/OUTPATIENT [facility] 60 MINUTES Virgil Hough APRN.SENIOR CONSUMER INSIGHTS CONSULTANT [address] [place] [address] Phone: tel: fax: Referral ID Status Reason Start Date Expiration Date V isits Requested Visits Authorized [id number] Closed PCP Requested Referral 07/28/2024 07/28/2025 1 1 Reason Comments Appointment Request Outside Medical Records Reason Onset Date Comments Refill Request 03/17/2025 Care Teams (unrecognized sec tion and content) Machining Manager Relationship Specialty Start Date End Date Arya James MD [address] [place] [id number] PCP - General Family Practice 07/06/14 Machining Manager Relationship Specialty Start Date End Date Arya James MD [address] [place] [address] PCP - General Family Practice 07/06/14 Machining Manager Relationship Specialty Start Date End Date Arya James MD [address] [place] [id number] PCP - General Family Medicine 07/06/14 Machining Manager Relationship Specialty Start Date End Date Arya James MD [address] [place] [address] [phone] PCP - General Family Medicine 07/06/14 Machining Manager Relationship Specialty Start Date End Date Arya James MD [address] [place] [address] PCP - General Family Medicine 07/06/14 Machining Manager Relationship Specialty Start Date End Date Arya James MD [address] [place] [address] PCP - General Family Medicine 07/06/14 Machining Manager Relationship Specialty Start Date End Date Arya James MD [address] [place] [address] PCP - General Family Medicine 07/06/14 Machining Manager Relationship Specialty Start Date End Date Arya James MD [address] [place] [address] PCP - General Family Medicine 07/06/14 Machining Manager Relationship Specialty Start Date End Date Arya James MD [address] [place] [address] PCP - General Family Medicine 07/06/14 Machining Manager Relationship Specialty Start Date End Date Arya James MD [address] [place] [address] PCP - General Family Medicine 07/06/14 Machining Manager Relationship Specialty Start Date End Date Arya James MD [address] [place] [address] PCP - General Family Medicine 07/06/14 Machining Manager Relationship Specialty Start Date End Date Arya James MD [address] [place] [address] PCP - General Family Medicine 07/06/14 Machining Manager Relationship Specialty Start Date End Date Arya James MD [address] [place] [address] PCP - General Family Medicine 07/06/14 Machining Manager Relationship Specialty Start Date End Date Arya James MD [address] [place] [address] PCP - General Family Medicine 07/06/14 Team Status: Active Member Role Status Dates Dr. Arya James MD Family Provider Active Dr. Arya James MD Primary Care Provider Active Team Status: Inactive Member Role Status Dates Dr. Arya James MD Primary Care Provider, Referri ng Provider Active KIYA Smart Attending Provider Active Team Status: Inactive Member Role Status Dates Dr. Arya James MD Primary Care Provider Active Gillian HUERTAS PA Attending Provider, Referr ing Provider Active Team Status: Inactive Member Role Status Dates Dr. Arya James MD Primary Care Provider Active Dr. Dane Cifuentes MD Attending Provider, Referring Pro vider Active Machining Manager Relationship Specialty Start Date End Date Arya James MD [address] [place] [address] PCP - General Family Medicine 07/06/14 Machining Manager Relationship Specialty Start Date End Date Arya James MD [address] [place] [address] PCP - General Family Medicine 07/06/14 Machining Manager Relationship Specialty Start Date End Date Arya James MD [address] [place] [address] PCP - General Family Medicine 07/06/14 Machining Manager Relationship Specialty Start Date End Date Arya James MD [address] [place] [address] PCP - General Family Medicine 07/06/14 Machining Manager Relationship Specialty Start Date End Date Arya James MD [address] [place] [address] PCP - General Family Medicine 07/06/14 Machining Manager Relationship Specialty Start Date End Date Arya James MD [address] [place] [address] PCP - General Family Medicine 07/06/14 Machining Manager Relationship Specialty Start Date End Date Arya James MD [address] [place] [address] PCP - General Family Medicine 07/06/14 Machining Manager Relationship Specialty Start Date End Date Arya James MD [address] [place] [address] PCP - General Family Medicine 07/06/14 Machining Manager Relationship Specialty Start Date End Date Arya James MD [address] [place] [address] PCP - General Family Medicine 07/06/14 Machining Manager Relationship Specialty Start Date End Date Arya James MD [address] [place] [address] PCP - General Family Medicine 07/06/14 Machining Manager Relationship Specialty Start Date End Date Arya James MD [address] [place] [address] PCP - General Family Medicine 07/06/14 Machining Manager Relationship Specialty Start Date End Date Arya James MD [address] [place] [address] PCP - General Family Medicine 07/06/14 Machining Manager Relationship Specialty Start Date End Date Arya James MD [address] [place] [address] PCP - General Family Medicine 07/06/14 Machining Manager Relationship Specialty Start Date End Date Arya James MD [address] [place] [address] PCP - General Family Medicine 07/06/14 Machining Manager Relationship Specialty Start Date End Date Arya James MD [address] [place] [address] PCP - General Family Medicine 07/06/14 Machining Manager Relationship Specialty Start Date End Date Arya James MD [address] [place] [address] PCP - General Family Medicine 07/06/14 Virgil Hough APRN.SENIOR CONSUMER INSIGHTS CONSULTANT [address] [place] [phone] Legal Director Family Medicine 07/30/24 Paula Hyman PA-C [address] [place] [address] Legal Director Family Medicine 07/30/24 Machining Manager Relationship Specialty Start Date End Date Arya James MD [address] [place] [address] PCP - General Family Medicine 07/06/14 Virgil Hough APRN.SENIOR CONSUMER INSIGHTS CONSULTANT [address] [place] [id number] [facility] 07/30/24 Paula Hyman PA-C [facility] [place] [address] [facility] 07/30/24 Machining Manager Relationship Specialty Start Date End Date Arya James MD [address] [place] [phone] PCP - General Family Medicine 11/28/24 Virgil Hough APRN.SENIOR CONSUMER INSIGHTS CONSULTANT [address] [place] [phone] [facility] 01/23/25 Paula Hyman PA-C [address] [place] [address] [phone] [facility] 01/23/25 Team Status: Inactive Member Role Status Dates Dr. Arya James MD Primary Care Provider Active Start: January 27, 2025 End: January 27, 2025 Dr. Arya James MD Referring Provider Active Start: January 27, 2025 End: January 27, 2025 Sully Desir SCHOOL BOAT DRIVER, SCHOOL BOAT DRIVER-C Attending Provider Active Start: January 27, 2025 End: January 27, 2025 Machining Manager Relationship Specialty Start Date End Date Arya James MD [address] [place] [address] PCP - General Family Medicine 11/28/24 Virgil Hough APRN.SENIOR CONSUMER INSIGHTS CONSULTANT [address] [place] [phone] [facility] 01/23/25 Paula Hyman PA-C [facility] [place], [place] [phone] [facility] 01/23/25 Machining Manager Relationship Specialty Start Date End Date Arya James MD [address] [place] [phone] PCP - General Family Medicine 11/28/24 Virgil Hough, ROCHELLE.SENIOR CONSUMER INSIGHTS CONSULTANT [facility] [place], [place] [id number] [facility] 01/23/25 Paula Hyman PA-C [address] [place] [address] [facility] 01/23/25 Machining Manager Relationship Specialty Start Date End Date Arya James MD [address] [place] [address] PCP - General Family Medicine 11/28/24 Virgil Hough, ROCHELLE.SENIOR CONSUMER INSIGHTS CONSULTANT [address] [place] [address] [phone] [facility] 01/23/25 Paula Hyman PA-C [facility] [place], [place] [id number] [facility] 01/23/25 Team Status: Inactive Member Role Status Dates Dr. Arya James MD Primary Care Provider Active Start: February 07, 2025 End: February 07, 2025 Sully Desir SCHOOL BOAT DRIVER, SCHOOL BOAT DRIVER-C Attending Provider Active Start: February 07, 2025 End: February 07, 2025 Sully Desir SCHOOL BOAT DRIVER, SCHOOL BOAT DRIVER-C Referring Provider Active Start: February 07, 2025 End: February 07, 2025 Machining Manager Relationship Specialty Start Date End Date Arya James MD [address] [place] [address] [phone] PCP - General Family [facility] 11/28/24 Virgil Hough, ROCHELLE.SENIOR CONSUMER INSIGHTS CONSULTANT [address] [place], [place] [id number] [facility] 01/23/25 Paula Hyman PA-C [address] [place], [place] [id number] [facility] 01/23/25 Machining Manager Relationship Specialty Start Date End Date Arya James MD [address] [place] [address] [phone] PCP - [facility] 11/28/24 Virgli Hough, ROCHELLE.SENIOR CONSUMER INSIGHTS CONSULTANT [address] [place] [address] [phone] [facility] 01/23/25 Paula Hyman PA-C [address] [place], [place] 638311 [facility] 01/23/25 Goals (unrecognized section and content) Goals may be documented in a n alternate sectionGoals may be documented in an alternate sectionGoals may be documented in an alternate sectionGoals may be documented in an alternate sectionGoals may be documented in an alternate sectionGoals may be documented in an alternate section Active Administered Medications - up to 3 most recent administrations Administered Medications (un recognized section and content) Medication Order MAR Action Action Date Dose Rate Site tropicamide 0.5 % 1 Drop (MYDRIACYL) 1 Drop, BOTH EYES, DIRECTED, Starting on Thu10/28/23 at 1700, Until Thu10/29/23 at 0459, Administer for dilation Given 10/28/2023 5:00 PM EST 1 Drop FOR RECORDS PERTAINING TO PATIENTS WHO ARE OR HAVE BEEN ENROLLED IN A CHEMICAL DEPENDENCY/SUBSTANCEABUSE PROGRAM, SOME INFORMATION MAY BE OMITTED. This clinical summary was aggregated from multiple sources. Caution should be exercised in using it in the provision of clinical care. This summary normalizes information from multiple sources, and as a consequence, information in this document may materially change the coding, format and clinical context of patient data. In addition, data may be omitted in some cases. CLINICAL DECISIONS SHOULD BE BASED ON THE PRIMARY CLINICAL RECORDS. [facility]. provides no warranty or guarantee of the accuracy or completeness of information in this document.
== END | disposition home or self-care (01) ==
LOC: CVS 10:28
PROVIDERS: PCP Family Medicine; Referring Provider Student in an Organized Health Care Education/Training Program; Visit Provider Student in an Organized Health Care Education/Training Program
DX: R07.9 Chest pain, unspecified (principal); I34.1 Nonrheumatic mitral (valve) prolapse
CPT/HCPCS: 93306